=== PATIENT | male | born 1935 | race Caucasian/White ===

== ENCOUNTER → 2016-05-29 | Outpatient (CLI) | payer MEDICARE ==
[2015-09-04 22:49] VITALS: BP 145/70
[~2016-05-29] MED LIST: HYDR-971 PO; NAPR375T3 PO
--- NOTE | 2016-05-29 10:55 | RAD ---
Left lower extremity venous Doppler ultrasound History: Left leg swelling. Comparison: 11/20/2007. Procedure: Color Doppler, spectral Doppler, and grayscale images are obtained with and without compression in the area of the common femoral vein, superficial femoral vein - femoral vein junction, main femoral vein (superficial femoral vein) and popliteal vein. Veins of the proximal calf are also imaged. Findings: There is normal duplex flow, color flow and compressibility of all visualized vein segments. No evidence of deep venous thrombosis is present. Impression: No evidence of left lower extremity deep venous thrombosis.
== END | disposition home or self-care (01) ==
LOC: US 09:40
PROVIDERS: ATTEND Internal Medicine
DX: L03.116 Cellulitis of left lower limb (principal); M79.89 Other specified soft tissue disorders
CPT/HCPCS: 93971

== ENCOUNTER 2017-12-29 11:52 | Inpatient (IN) | payer MEDICARE ==
[~2017-12-29] VITALS: Ht 175.3 cm; Wt 74.8 kg
[~2017-12-29 11:52] MED LIST changes: +NAPR-695 PO; -NAPR375T3 PO
--- NOTE | 2017-12-29 12:12 | PHYS DOC ---
Past Medical History Past Medical History: Other Additional Past Medical Histor: PACEMAKER Past Surgical History: Other Additional Past Surgical Histo: HERNIA, KNEE REPLACEMENT, PACEMAKER PLACED Alcohol Use: Heavy Drug Use: None Adult General Chief Complaint Chief Complaint: KNEE INJURY HPI HPI Patient is a 82 year old male who presents today complaining of 5 out of 10 right medial knee pain that began yesterday after working out. Patient states he felt he stretched his knee more than normal. Patient denies falling. Patient states the pain is worse on range of motion as well as weightbearing. PCP Dr. [place] Review of Systems Review of Systems Constitutional: Denies fever or chills [] Musculoskeletal: Reports right knee pain Integument: Denies rash or skin lesions [] Neurologic: Denies headache, focal weakness or sensory changes [] All other systems were reviewed and found to be within normal limits, except as documented in this note. Allergies Allergies Allergies Coded Allergies Type Severity Reaction Last Updated Verified No Known Drug Allergies 09/04/15 No Physical Exam Physical Exam Constitutional: Well developed, well nourished, no acute distress, non-toxic appearance. [] Skin: Warm, dry, no erythema, no rash. [] Back: No tenderness, no CVA tenderness. [] Extremities: Right knee with no obvious deformity. Soft tissue swelling noted on the anterior aspect of the knee. Tenderness on palpation of the right medial knee. Limited range of motion to the right knee due to pain. +2 right pedal pulse. Cap refill less than 2 seconds the right lower extremity. Sensation intact to the right lower extremity. Neurologic: Alert and oriented X 3, normal motor function, normal sensory function, no focal deficits noted. [] Psychologic: Affect normal, judgement normal, mood normal. [] Current Patient Data Vital Signs Vital Signs Date Time Temp Pulse Resp B/P (MAP) Pulse Ox O2 Delivery O2 Flow Rate FiO2 12/29/17 12:00 98.1 60 22 179/96 (123) Room Air 98.0 98.1 EKG EKG [] Radiology/Procedures Radiology/Procedures []PROCEDURE: KNEE RIGHT 3V Right knee 3 views. HISTORY: Pain and swelling 3 views were taken of the right knee. There is a joint effusion in the suprapatellar bursa. There is mild spurring from mild arthritis. There is no fracture or acute other acute osseous abnormality. IMPRESSION: 1. Mild arthritis right knee. 2. Joint effusion. Electronically signed by: Lisa Hernandez MD (12/29/2017 12:30 PM) [facility] DICTATED and SIGNED BY: LISA HERNANDEZ MD DATE: 12/29/17 1229 Course & Med Decision Making Course & Med Decision Making Pertinent Labs and Imaging studies reviewed. (See chart for details) This is a 82-year-old male patient presenting to the ED today with right knee pain that began yesterday after working out. Right knee x-rays interpreted by radiologist were noted for DJD as well as joint effusion. Patient was given morphine in route to the ED. Attempted to send him home, he states he was resides at home by himself and is not able to get up and bear weight on the right lower extremity. Neither can he use crutches or walker. He is requesting admission. Consulted with Dr. Aguilera who accepted patient for admission. Routine consult placed for orthopedic doctor. Dragon Disclaimer Dragon Disclaimer This electronic medical record was generated, in whole or in part, using a voice recognition dictation system. Departure Departure Impression: Primary Impression: Knee pain, right Additional Impressions: Joint effusion, knee Right knee DJD Disposition: ADMITTED INPATIENT Condition: STABLE Referrals: DAGMAR ASTORGA MD (PCP) Problem Qualifiers Primary Impression: Knee pain, right Chronicity: acute Qualified Codes: M25.561 - Pain in right knee Additional Impressions: Joint effusion, knee Laterality: right Qualified Codes: M25.461 - Effusion, right knee Right knee DJD Osteoarthritis type: primary Qualified Codes: M17.11 - Unilateral primary osteoarthritis, right knee DANNI SANTOS COLOR ADVISER Dec 29, 2017 12:12
--- NOTE | 2017-12-29 12:34 | RAD ---
Right knee 3 views. HISTORY: Pain and swelling 3 views were taken of the right knee. There is a joint effusion in the suprapatellar bursa. There is mild spurring from mild arthritis. There is no fracture or acute other acute osseous abnormality. IMPRESSION: 1. Mild arthritis right knee. 2. Joint effusion. Electronically signed by: Chinedu Hernandez MD (12/29/2017 12:30 PM) [facility]
[2017-12-29] MEDS ORDERED: DEXAMETHASONE SOD PHOS 20 MG/5 ML VIAL. IV ONE (13:30)
[2017-12-29] MEDS ORDERED: fentaNYL PF VIAL 100 MCG/2 ML VIAL IV ONE (13:30)
[2017-12-29 14:15] VITALS: BP 159/65
[2017-12-29] MEDS ORDERED: ONDANSETRON PF 4 MG/2 ML VIAL. IV PRN (14:15)
[2017-12-29] MEDS ORDERED: ACETAMINOPHEN 325 MG TABLET. PO PRN (14:15)
[2017-12-29] MEDS: MORPHINE SULFATE 4 MG/ML VIAL. IV PRN ×2 (14:44→19:11)
[2017-12-29 19:00] VITALS: BP 147/78
[2017-12-29 20:55] LABS: BASO # 0.1 x10^3/uL (0.0-0.2); BASO % 0 % (0-3); EOS % 0 % (0-3); HEMATOCRIT 37.7 % (39.0-53.0); HEMOGLOBIN 12.7 g/dL (13.0-17.5); LYMPH # 0.6 x10^3/uL (1.0-4.8); LYMPH % 3 % (24-48); MEAN CORPUSCULAR HEMOGLOBIN 32 pg (25-35); MEAN CORPUSCULAR HGB CONC 34 g/dL (31-37); MEAN CORPUSCULAR VOLUME 94 fL (79-100); MONO # 3.1 x10^3/uL (0.0-1.1); MONO % 14 % (0-9); NEUT # 18.5 x10^3uL (1.8-7.7); NEUT % 83 % (31-73); PLATELET COUNT 29 x10^3/uL (140-400); RED BLOOD COUNT 4.01 x10^6/uL (4.30-5.70); RED CELL DISTRIBUTION WIDTH 17.2 % (11.5-14.5); WHITE BLOOD COUNT 22.3 x10^3/uL (4.0-11.0)
[2017-12-29 21:10] LABS: ALBUMIN 3.8 g/dL (3.4-5.0); CREATININE 2.4 mg/dL (0.7-1.3); GFR 26.1; TOTAL BILIRUBIN 2.2 mg/dL (0.2-1.0); TOTAL PROTEIN 7.6 g/dL (6.4-8.2)
[2017-12-29 21:44] LABS: % BANDS 4 % (0-9); % LYMPHS 6 % (24-48); % MONOS 6 % (0-10); % SEGS 84 % (35-66)
[2017-12-29 21:45] LABS: PLT ESTIMATE DECREASED (ADEQUATE)
[2017-12-29] MEDS ORDERED: MAG HYDROX/ALUMINUM HYD/SIMETH 30 ML ORAL.SUSP PO PRN (21:45)
[2017-12-29 21:46] LABS: ANISOCYTOSIS SLIGHT
--- NOTE | 2017-12-29 21:50 | PDOC1 ---
History and Physical Date of Admission Date of Admission DATE: 12/29/17 TIME: 21:50 Identification/Chief Complaint Chief Complaint seen in ER presents today complaining of 5 out of 10 right medial knee pain that began yesterday after working out. Patient states he felt he stretched his knee more than normal. DENIES FEVER, ADMITS TO ETOH DAILY USE, UNABLE TO WALK DUE TO PAIN Past Medical History Past Medical History Past Medical History: Other Additional Past Medical Histor: PACEMAKER Past Surgical History: Other Additional Past Surgical Histo: HERNIA, KNEE REPLACEMENT, PACEMAKER PLACED Alcohol Use: Heavy Drug Use: None Cardiovascular: CAD Psych: Addictions Renal/: Acute renal failure Past Surgical History Past Surgical History: Pacemaker Family History Family History: Alcohol Abuse Social History Smoke: <1 pack per day ALCOHOL: heavy Drugs: None Current Problem List Problem List Problems Medical Problems: (1) Joint effusion, knee Status: Acute (2) Knee pain, right Status: Acute (3) Right knee DJD Status: Acute Current Medications Current Medications Current Medications Dexamethasone Sodium Phosphate (Decadron) 10 mg 1X ONCE IV Last administered on 12/29/17at 13:12; Start 12/29/17 at 13:30; Stop 12/29/17 at 13:31; Status DC Fentanyl Citrate (Fentanyl 2ml Vial) 50 mcg 1X ONCE IV Last administered on at 13:12; Start 12/29/17 at 13:30; Stop 12/29/17 at 13:31; Status DC Ondansetron HCl (Zofran) 4 mg PRN Q8HRS PRN IV NAUSEA/VOMITING; Start 12/29/17 at 14:15; Stop 12/30/17 at 14:14 Morphine Sulfate (Morphine Sulfate) 4 mg PRN Q2HR PRN IV PAIN Last administered on 12/29/17at 19:11; Start 12/29/17 at 14:15; Stop 12/30/17 at 14:14 Acetaminophen (Tylenol) 650 mg PRN Q4HRS PRN PO FEVER; Start 12/29/17 at 14:15 ; Stop 12/30/17 at 14:14 Pantoprazole Sodium (Protonix) 40 mg DAILYAC PO ; Start 12/30/17 at 06:30; Stop 12/30/17 at 06:30; Status DC Pantoprazole Sodium (Protonix) 40 mg Q24H PO ; Start 12/30/17 at 06:30 Al Hydroxide/Mg Hydroxide (Mylanta Plus Xs) 30 ml PRN Q2HR PRN PO HEARTBURN / GAS; Start 12/29/17 at 21:45 Sodium Chloride 1,000 ml @ 100 mls/hr Q10H IV ; Start 12/29/17 at 21:45 Piperacillin Sod/ Tazobactam Sod 3.375 gm/Sodium Chloride 50 ml @ 100 mls/hr Q6HRS IV ; Start 12/30/17 at 00:00; Status UNV Meropenem 500 mg/ Sodium Chloride 50 ml @ 100 mls/hr Q8HRS IV ; Start 12/29/17 at 22:00 Piperacillin Sod/ Tazobactam Sod 2.25 gm/Sodium Chloride 50 ml @ 100 mls/hr Q6HRS IV ; Start 12/30/17 at 00:00 Active Scripts Active Naproxen 375 Mg Tablet 1 Tab PO BID [place] 5-325 Tablet (Acetaminophen/Hydrocodone Bitart) 1 Each Tablet 1 Tab PO PRN Q4-6HRS PRN Allergies Allergies: Coded Allergies: No Known Drug Allergies (Unverified , 09/04/15) ROS General: YES: Fatigue PSYCHOLOGICAL ROS: YES: Anxiety Hematological and Lymphatic: YES: Brusing Musculoskeletal: Yes Gait Disturbance, Yes Joint Pain, Yes Joint Stiffness, Yes Joint Swelling Physical Exam Physical Exam Physical Exam Physical Exam Constitutional: Well developed, well nourished, mild acute distress, non-toxic appearance. [] Skin: Warm, dry, no erythema, no rash. [] Back: No tenderness, no CVA tenderness. [] Extremities: Right knee with no obvious deformity. Soft tissue swelling noted on the anterior aspect of the knee. Tenderness on palpation of the right medial knee with large effusion . Limited range of motion to the right knee due to pain. +2 right pedal pulse. Cap refill less than 2 seconds the right lower extremity. Sensation intact to the right lower extremity. Neurologic: Alert and oriented X 3, normal motor function, normal sensory function, no focal deficits noted. [] Psychologic: Affect normal, judgement normal, mood normal. cn 2-12 grossly intact [] General: Alert, Oriented X3, Cooperative, No acute distress, mild distress HEENT: Atraumatic, PERRLA, EOMI, Mucous membr. moist/pink Lungs: Clear to auscultation Heart: RRR, no thrills Breasts: Not examined Abdomen: Soft Rectal Exam: not examined Extremities: No cyanosis Neuro: Normal speech, Cranial nerves 3-12 NL Vitals Vitals Vital Signs Date Time Temp Pulse Resp B/P (MAP) Pulse Ox O2 Delivery O2 Flow Rate FiO2 12/29/17 20:00 Room Air 12/29/17 19:41 20 96 12/29/17 19:00 98.1 60 147/78 (101) 98.1 12/29/17 12:00 98.0 Labs Labs Laboratory Tests Test 12/29/17 20:45 12/29/17 20:51 White Blood Count 22.3 x10^3/uL (4.0-11.0) Red Blood Count 4.01 x10^6/uL (4.30-5.70) Hemoglobin 12.7 g/dL (13.0-17.5) Hematocrit 37.7 % (39.0-53.0) Mean Corpuscular Volume 94 fL (79-100) Mean Corpuscular Hemoglobin 32 pg (25-35) Mean Corpuscular Hemoglobin Concent 34 g/dL (31-37) Red Cell Distribution Width 17.2 % (11.5-14.5) Platelet Count 29 x10^3/uL (140-400) Neutrophils (%) (Auto) 83 % (31-73) Lymphocytes (%) (Auto) 3 % (24-48) Monocytes (%) (Auto) 14 % (0-9) Eosinophils (%) (Auto) 0 % (0-3) Basophils (%) (Auto) 0 % (0-3) Neutrophils # (Auto) 18.5 x10^3uL (1.8-7.7) Lymphocytes # (Auto) 0.6 x10^3/uL (1.0-4.8) Monocytes # (Auto) 3.1 x10^3/uL (0.0-1.1) Eosinophils # (Auto) 0.0 x10^3/uL (0.0-0.7) Basophils # (Auto) 0.1 x10^3/uL (0.0-0.2) Segmented Neutrophils % 84 % (35-66) Band Neutrophils % 4 % (0-9) Lymphocytes % 6 % (24-48) Monocytes % 6 % (0-10) Platelet Estimate Decreased (ADEQUATE) Anisocytosis Slight Sodium Level 139 mmol/L (136-145) Potassium Level 4.0 mmol/L (3.5-5.1) Chloride Level 104 mmol/L (98-107) Carbon Dioxide Level 24 mmol/L (21-32) Anion Gap 11 (6-14) Blood Urea Nitrogen 25 mg/dL (8-26) Creatinine 2.4 mg/dL (0.7-1.3) Estimated GFR (Cockcroft-Gault) 26.1 BUN/Creatinine Ratio 10 (6-20) Glucose Level 180 mg/dL (70-99) Calcium Level 9.0 mg/dL (8.5-10.1) Total Bilirubin 2.2 mg/dL (0.2-1.0) Aspartate Amino Transf (AST/SGOT) 21 U/L (15-37) Alanine Aminotransferase (ALT/SGPT) 24 U/L (16-63) Alkaline Phosphatase 76 U/L (46-116) Total Protein 7.6 g/dL (6.4-8.2) Albumin 3.8 g/dL (3.4-5.0) Albumin/Globulin Ratio 1.0 (1.0-1.7) Glucose (Fingerstick) 189 mg/dL (70-99) Laboratory Tests Test 12/29/17 20:45 12/29/17 20:51 White Blood Count 22.3 x10^3/uL (4.0-11.0) Red Blood Count 4.01 x10^6/uL (4.30-5.70) Hemoglobin 12.7 g/dL (13.0-17.5) Hematocrit 37.7 % (39.0-53.0) Mean Corpuscular Volume 94 fL (79-100) Mean Corpuscular Hemoglobin 32 pg (25-35) Mean Corpuscular Hemoglobin Concent 34 g/dL (31-37) Red Cell Distribution Width 17.2 % (11.5-14.5) Platelet Count 29 x10^3/uL (140-400) Neutrophils (%) (Auto) 83 % (31-73) Lymphocytes (%) (Auto) 3 % (24-48) Monocytes (%) (Auto) 14 % (0-9) Eosinophils (%) (Auto) 0 % (0-3) Basophils (%) (Auto) 0 % (0-3) Neutrophils # (Auto) 18.5 x10^3uL (1.8-7.7) Lymphocytes # (Auto) 0.6 x10^3/uL (1.0-4.8) Monocytes # (Auto) 3.1 x10^3/uL (0.0-1.1) Eosinophils # (Auto) 0.0 x10^3/uL (0.0-0.7) Basophils # (Auto) 0.1 x10^3/uL (0.0-0.2) Segmented Neutrophils % 84 % (35-66) Band Neutrophils % 4 % (0-9) Lymphocytes % 6 % (24-48) Monocytes % 6 % (0-10) Platelet Estimate Decreased (ADEQUATE) Anisocytosis Slight Sodium Level 139 mmol/L (136-145) Potassium Level 4.0 mmol/L (3.5-5.1) Chloride Level 104 mmol/L (98-107) Carbon Dioxide Level 24 mmol/L (21-32) Anion Gap 11 (6-14) Blood Urea Nitrogen 25 mg/dL (8-26) Creatinine 2.4 mg/dL (0.7-1.3) Estimated GFR (Cockcroft-Gault) 26.1 BUN/Creatinine Ratio 10 (6-20) Glucose Level 180 mg/dL (70-99) Calcium Level 9.0 mg/dL (8.5-10.1) Total Bilirubin 2.2 mg/dL (0.2-1.0) Aspartate Amino Transf (AST/SGOT) 21 U/L (15-37) Alanine Aminotransferase (ALT/SGPT) 24 U/L (16-63) Alkaline Phosphatase 76 U/L (46-116) Total Protein 7.6 g/dL (6.4-8.2) Albumin 3.8 g/dL (3.4-5.0) Albumin/Globulin Ratio 1.0 (1.0-1.7) Glucose (Fingerstick) 189 mg/dL (70-99) Images Images Right knee 3 views. HISTORY: Pain and swelling 3 views were taken of the right knee. There is a joint effusion in the suprapatellar bursa. There is mild spurring from mild arthritis. There is no fracture or acute other acute osseous abnormality. IMPRESSION: 1. Mild arthritis right knee. 2. Joint effusion. Electronically signed by: Chinedu Hernandez MD (12/29/2017 12:30 PM) [facility] VTE Prophylaxis Ordered VTE Prophylaxis Devices: Contraindicated VTE Pharmacological Prophylaxi: Contraindicated Assessment/Plan Assessment/Plan IMPRESSION 1. right JOINT Effusion, possible septic joint 2. leukocytosis 3. thrombocytopenia 4. alcohol abuse plan 1. blood cultures 2. iv emperic antibiotics, zosyn,merem 3. move to icu tonight 4. cxr. 5, gi consult 6. heme consult 7. lactic acid 8. ID consult 35 min cc time CONCEPCION KERN MD Dec 29, 2017 21:50
[2017-12-29] MEDS: IV NORMAL SALINE 1000ML BAG 1,000 ML IV SCH ×3 (21:54→22:36)
[2017-12-29] MEDS ORDERED: PANTOPRAZOLE IV PUSH 40 MG VIAL. IVP SCH (22:15)
[2017-12-29 22:30] VITALS: BP 146/97
[2017-12-29] MEDS: MEROPENEM 500 MG in IV NORMAL SALINE 50ML 50 ML IV SCH (22:31)
[2017-12-30] VITALS (16 sets, daily range): BP systolic 100–157; BP diastolic 48–95
[2017-12-30] MEDS ORDERED: PIPERACILLIN/TAZOBACTAM 3.375 GM in IV NORMAL SALINE 50ML 50 ML IV SCH ×2
[2017-12-30] MEDS: PIPERACILLIN/TAZOBACTAM 2.25 GM in IV NORMAL SALINE 50ML 50 ML IV SCH ×2 (00:14→06:22)
--- NOTE | 2017-12-30 03:34 | RAD ---
CHEST AP ONLY Clinical Indication: Right knee pain and swelling. R/O SEPSIS Comparison: Two-view chest June 21, 2008. Findings: There is left chest single lead pacer. There is mild cardiomegaly. No pulmonary vascular congestion. Lungs are clear. There is no pneumothorax. No pleural effusion is appreciated. There is degenerative arthropathy of the shoulders. IMPRESSION: No acute cardiopulmonary process. Electronically signed by: Derrick Rosales MD (12/30/2017 3:31 AM) [facility]
[2017-12-30 06:17] LABS: BASO # 0.1 x10^3/uL (0.0-0.2); BASO % 0 % (0-3); EOS % 0 % (0-3); HEMATOCRIT 35.2 % (39.0-53.0); HEMOGLOBIN 11.8 g/dL (13.0-17.5); LYMPH # 0.5 x10^3/uL (1.0-4.8); LYMPH % 2 % (24-48); MEAN CORPUSCULAR HEMOGLOBIN 32 pg (25-35); MEAN CORPUSCULAR HGB CONC 33 g/dL (31-37); MEAN CORPUSCULAR VOLUME 94 fL (79-100); MONO # 9.1 x10^3/uL (0.0-1.1); MONO % 34 % (0-9); NEUT # 17.1 x10^3uL (1.8-7.7); NEUT % 64 % (31-73); PLATELET COUNT 29 x10^3/uL (140-400); RED BLOOD COUNT 3.74 x10^6/uL (4.30-5.70); RED CELL DISTRIBUTION WIDTH 17.2 % (11.5-14.5); WHITE BLOOD COUNT 26.8 x10^3/uL (4.0-11.0)
[2017-12-30] MEDS: MEROPENEM 500 MG in IV NORMAL SALINE 50ML 50 ML IV SCH ×3 (06:22→21:36)
[2017-12-30 06:27] LABS: CREATININE 2.2 mg/dL (0.7-1.3); GFR 28.9; POTASSIUM 3.8 mmol/L (3.5-5.1)
[2017-12-30] MEDS ORDERED: PANTOPRAZOLE 40 MG TABLET.DR. PO SCH ×2 (06:30)
[2017-12-30] MEDS ORDERED: PANTOPRAZOLE IV PUSH 40 MG VIAL. IVP SCH (07:30)
--- NOTE | 2017-12-30 09:18 | RAD ---
Acute abdomen series, 12/30/2017: HISTORY: Rule out sepsis The gallbladder is surgically absent. There is no evidence of a hepatic mass or bile duct dilatation. The pancreas and the majority of the inferior vena cava and aorta were obscured by overlying bowel. The spleen is of normal size. The right kidney measures 11 cm in length. It contains a 2.6 cm simple cyst. The left kidney measures 11.5 cm in length. A small echogenic focus is seen in the left kidney, compatible with a nonobstructing calculus. It measures 1.4 cm. There is no evidence of hydronephrosis on either side. IMPRESSION: 1. Status post cholecystectomy. 2. Small nonobstructing left intrarenal calculus. 3. Small right renal cyst. 4. Obscuration of the pancreas and central retroperitoneum due to overlying bowel. Electronically signed by: Demetrius Bejarano MD (12/30/2017 9:14 AM) [facility]
--- NOTE | 2017-12-30 09:32 | PDOC2 ---
GI CONSULT Reason For Consult: Alcohol abuse, thrombocytopenia, r/o sepsis HPI: HPI: 82 y/o male admitted with right knee pain. Significant labs: WBC 26.8, Hgb 11.8, MCV 94, plt 29, Cr 2.2, bili 2.2. Tells me h/o thrombocytopenia - has been told this by Dr. Sahu. Thinks might have had a workup and cause remains unclear. H/o GERD on Zantac PRN. Chart indicates he takes Naproxen - he denies. Denies n/v, dysphagia, abd pain, change in appetite or weight, diarrhea, constipation, hematochezia, and melena. Might have had previous EGD. Recalls previous colonoscopy as normal. Denies liver, pancreas, and GB history; however , US noted cholecystectomy (and no liver abnormality). Used to drink regularly - denies heavy alcohol use to me. Stopped for a couple years, then recently restarted "because they told me in the service a shot and a beer every day would be good for my system and help me sleep." PMH: PMH: difficult to obtain - ?A Fib, ?HTN, GERD, nephrolithiasis, maker, right inguinal hernia repair w/ mesh, left knee replacement, bilateral shoulder replacement, cholecystectomy FH: Family History: No pertinent hx Social History: Smoke: Quit ALCOHOL: other Drugs: None ROS: GEN: Denies fevers, chills, sweats HEENT: Denies blurred vision, sore throat CV: Denies chest pain RESP: Denies shortness of air, cough GI: Per HPI : Denies hematuria, dysuria ENDO: Denies weight changes NEURO: Denies confusion, dizziness MSK: Denies weakness, joint pain/swelling SKIN: Denies jaundice, pruritus Vitals: Vitals: Vital Signs Date Time Temp Pulse Resp B/P (MAP) Pulse Ox O2 Delivery O2 Flow Rate FiO2 12/30/17 08:00 66 19 131/67 (88) 96 Room Air 12/30/17 04:00 98.0 98.0 12/29/17 12:00 98.0 Labs: Labs: Laboratory Tests Test 12/29/17 20:45 12/29/17 20:51 12/29/17 21:35 12/30/17 01:25 White Blood Count 22.3 x10^3/uL (4.0-11.0) Red Blood Count 4.01 x10^6/uL (4.30-5.70) Hemoglobin 12.7 g/dL (13.0-17.5) Hematocrit 37.7 % (39.0-53.0) Mean Corpuscular Volume 94 fL (79-100) Mean Corpuscular Hemoglobin 32 pg (25-35) Mean Corpuscular Hemoglobin Concent 34 g/dL (31-37) Red Cell Distribution Width 17.2 % (11.5-14.5) Platelet Count 29 x10^3/uL (140-400) Neutrophils (%) (Auto) 83 % (31-73) Lymphocytes (%) (Auto) 3 % (24-48) Monocytes (%) (Auto) 14 % (0-9) Eosinophils (%) (Auto) 0 % (0-3) Basophils (%) (Auto) 0 % (0-3) Neutrophils # (Auto) 18.5 x10^3uL (1.8-7.7) Lymphocytes # (Auto) 0.6 x10^3/uL (1.0-4.8) Monocytes # (Auto) 3.1 x10^3/uL (0.0-1.1) Eosinophils # (Auto) 0.0 x10^3/uL (0.0-0.7) Basophils # (Auto) 0.1 x10^3/uL (0.0-0.2) Segmented Neutrophils % 84 % (35-66) Band Neutrophils % 4 % (0-9) Lymphocytes % 6 % (24-48) Monocytes % 6 % (0-10) Platelet Estimate Decreased (ADEQUATE) Anisocytosis Slight Erythrocyte Sedimentation Rate 9 (0-15) Sodium Level 139 mmol/L (136-145) Potassium Level 4.0 mmol/L (3.5-5.1) Chloride Level 104 mmol/L (98-107) Carbon Dioxide Level 24 mmol/L (21-32) Anion Gap 11 (6-14) Blood Urea Nitrogen 25 mg/dL (8-26) Creatinine 2.4 mg/dL (0.7-1.3) Estimated GFR (Cockcroft-Gault) 26.1 BUN/Creatinine Ratio 10 (6-20) Glucose Level 180 mg/dL (70-99) Calcium Level 9.0 mg/dL (8.5-10.1) Total Bilirubin 2.2 mg/dL (0.2-1.0) Aspartate Amino Transf (AST/SGOT) 21 U/L (15-37) Alanine Aminotransferase (ALT/SGPT) 24 U/L (16-63) Alkaline Phosphatase 76 U/L (46-116) Total Protein 7.6 g/dL (6.4-8.2) Albumin 3.8 g/dL (3.4-5.0) Albumin/Globulin Ratio 1.0 (1.0-1.7) Glucose (Fingerstick) 189 mg/dL (70-99) Lactic Acid Level 3.1 mmol/L (0.4-2.0) 1.1 mmol/L (0.4-2.0) Test 12/30/17 05:45 White Blood Count 26.8 x10^3/uL (4.0-11.0) Red Blood Count 3.74 x10^6/uL (4.30-5.70) Hemoglobin 11.8 g/dL (13.0-17.5) Hematocrit 35.2 % (39.0-53.0) Mean Corpuscular Volume 94 fL (79-100) Mean Corpuscular Hemoglobin 32 pg (25-35) Mean Corpuscular Hemoglobin Concent 33 g/dL (31-37) Red Cell Distribution Width 17.2 % (11.5-14.5) Platelet Count 29 x10^3/uL (140-400) Neutrophils (%) (Auto) 64 % (31-73) Lymphocytes (%) (Auto) 2 % (24-48) Monocytes (%) (Auto) 34 % (0-9) Eosinophils (%) (Auto) 0 % (0-3) Basophils (%) (Auto) 0 % (0-3) Neutrophils # (Auto) 17.1 x10^3uL (1.8-7.7) Lymphocytes # (Auto) 0.5 x10^3/uL (1.0-4.8) Monocytes # (Auto) 9.1 x10^3/uL (0.0-1.1) Eosinophils # (Auto) 0.0 x10^3/uL (0.0-0.7) Basophils # (Auto) 0.1 x10^3/uL (0.0-0.2) Sodium Level 139 mmol/L (136-145) Potassium Level 3.8 mmol/L (3.5-5.1) Chloride Level 104 mmol/L (98-107) Carbon Dioxide Level 23 mmol/L (21-32) Anion Gap 12 (6-14) Blood Urea Nitrogen 25 mg/dL (8-26) Creatinine 2.2 mg/dL (0.7-1.3) Estimated GFR (Cockcroft-Gault) 28.9 Glucose Level 131 mg/dL (70-99) Calcium Level 9.0 mg/dL (8.5-10.1) Allergies: Coded Allergies: No Known Drug Allergies (Unverified , 09/04/15) Medications: Current Medications Medications (Trade) Dose Ordered Sig/Jose Route PRN Reason Start Time Stop Time Status Last Admin Dose Admin Dexamethasone Sodium Phosphate (Decadron) 10 mg 1X ONCE IV 12/29/17 13:30 12/29/17 13:31 DC 12/29/17 13:12 Fentanyl Citrate (Fentanyl 2ml Vial) 50 mcg 1X ONCE IV 12/29/17 13:30 12/29/17 13:31 DC 12/29/17 13:12 Morphine Sulfate (Morphine Sulfate) 4 mg PRN Q2HR PRN IV PAIN 12/29/17 14:15 12/30/17 14:14 12/29/17 19:11 Acetaminophen (Tylenol) 650 mg PRN Q4HRS PRN PO FEVER 12/29/17 14:15 12/30/17 14:14 12/30/17 03:54 Al Hydroxide/Mg Hydroxide (Mylanta Plus Xs) 30 ml PRN Q2HR PRN PO HEARTBURN / GAS 12/29/17 21:45 12/29/17 21:53 Sodium Chloride 1,000 ml @ 100 mls/hr Q10H IV 12/29/17 21:45 12/29/17 22:32 Meropenem 500 mg/ Sodium Chloride 50 ml @ 100 mls/hr Q8HRS IV 12/29/17 22:00 12/30/17 06:22 Piperacillin Sod/ Tazobactam Sod 2.25 gm/Sodium Chloride 50 ml @ 100 mls/hr Q6HRS IV 12/30/17 00:00 12/30/17 06:22 Pantoprazole Sodium (PROTONIX VIAL for IV PUSH) 40 mg DAILYAC IVP 12/30/17 07:30 12/30/17 08:32 Imaging: Imaging: Knee X-Ray IMPRESSION: 1. Mild arthritis right knee. 2. Joint effusion. CXR IMPRESSION: No acute cardiopulmonary process. Abd US The gallbladder is surgically absent. There is no evidence of a hepatic mass or bile duct dilatation. The pancreas and the majority of the inferior vena cava and aorta were obscured by overlying bowel. The spleen is of normal size. The right kidney measures 11 cm in length. It contains a 2.6 cm simple cyst. The left kidney measures 11.5 cm in length. A small echogenic focus is seen in the left kidney, compatible with a nonobstructing calculus. It measures 1.4 cm. There is no evidence of hydronephrosis on either side. IMPRESSION: 1. Status post cholecystectomy. 2. Small nonobstructing left intrarenal calculus. 3. Small right renal cyst. 4. Obscuration of the pancreas and central retroperitoneum due to overlying bowel. PE: GEN: NAD - having US HEENT: Atraumatic, PERRL LUNGS: CTAB HEART: RRR ABD: NABS, S/ND/NT NEURO/PSYCH: A & O 3 - poor historian A/P: A/P: Right knee pain/effusion Leukocytosis, thrombocytopenia, CHAY, elevated bili ?alcohol overuse GERD CRC screen - unclear timing S/p cholecystectomy -- Thrombocytopenic - history of? US unrevealing. Change to PO PPI, check INR, monitor LFTs. Additional recs per Dr. Coppola. ISAI MOYA Dec 30, 2017 09:32
--- NOTE | 2017-12-30 09:53 | PDOC ---
Infectious Disease Note Vital Sign Vital Signs Vital Signs Date Time Temp Pulse Resp B/P (MAP) Pulse Ox O2 Delivery O2 Flow Rate FiO2 12/30/17 08:00 66 19 131/67 (88) 96 Room Air 12/30/17 04:00 98.0 98.0 12/29/17 12:00 98.0 Labs Lab Laboratory Tests Test 12/29/17 20:45 12/29/17 20:51 12/29/17 21:35 12/30/17 01:25 White Blood Count 22.3 x10^3/uL (4.0-11.0) Red Blood Count 4.01 x10^6/uL (4.30-5.70) Hemoglobin 12.7 g/dL (13.0-17.5) Hematocrit 37.7 % (39.0-53.0) Mean Corpuscular Volume 94 fL (79-100) Mean Corpuscular Hemoglobin 32 pg (25-35) Mean Corpuscular Hemoglobin Concent 34 g/dL (31-37) Red Cell Distribution Width 17.2 % (11.5-14.5) Platelet Count 29 x10^3/uL (140-400) Neutrophils (%) (Auto) 83 % (31-73) Lymphocytes (%) (Auto) 3 % (24-48) Monocytes (%) (Auto) 14 % (0-9) Eosinophils (%) (Auto) 0 % (0-3) Basophils (%) (Auto) 0 % (0-3) Neutrophils # (Auto) 18.5 x10^3uL (1.8-7.7) Lymphocytes # (Auto) 0.6 x10^3/uL (1.0-4.8) Monocytes # (Auto) 3.1 x10^3/uL (0.0-1.1) Eosinophils # (Auto) 0.0 x10^3/uL (0.0-0.7) Basophils # (Auto) 0.1 x10^3/uL (0.0-0.2) Segmented Neutrophils % 84 % (35-66) Band Neutrophils % 4 % (0-9) Lymphocytes % 6 % (24-48) Monocytes % 6 % (0-10) Platelet Estimate Decreased (ADEQUATE) Anisocytosis Slight Erythrocyte Sedimentation Rate 9 (0-15) Sodium Level 139 mmol/L (136-145) Potassium Level 4.0 mmol/L (3.5-5.1) Chloride Level 104 mmol/L (98-107) Carbon Dioxide Level 24 mmol/L (21-32) Anion Gap 11 (6-14) Blood Urea Nitrogen 25 mg/dL (8-26) Creatinine 2.4 mg/dL (0.7-1.3) Estimated GFR (Cockcroft-Gault) 26.1 BUN/Creatinine Ratio 10 (6-20) Glucose Level 180 mg/dL (70-99) Calcium Level 9.0 mg/dL (8.5-10.1) Total Bilirubin 2.2 mg/dL (0.2-1.0) Aspartate Amino Transf (AST/SGOT) 21 U/L (15-37) Alanine Aminotransferase (ALT/SGPT) 24 U/L (16-63) Alkaline Phosphatase 76 U/L (46-116) Total Protein 7.6 g/dL (6.4-8.2) Albumin 3.8 g/dL (3.4-5.0) Albumin/Globulin Ratio 1.0 (1.0-1.7) Glucose (Fingerstick) 189 mg/dL (70-99) Lactic Acid Level 3.1 mmol/L (0.4-2.0) 1.1 mmol/L (0.4-2.0) Test 12/30/17 05:45 White Blood Count 26.8 x10^3/uL (4.0-11.0) Red Blood Count 3.74 x10^6/uL (4.30-5.70) Hemoglobin 11.8 g/dL (13.0-17.5) Hematocrit 35.2 % (39.0-53.0) Mean Corpuscular Volume 94 fL (79-100) Mean Corpuscular Hemoglobin 32 pg (25-35) Mean Corpuscular Hemoglobin Concent 33 g/dL (31-37) Red Cell Distribution Width 17.2 % (11.5-14.5) Platelet Count 29 x10^3/uL (140-400) Neutrophils (%) (Auto) 64 % (31-73) Lymphocytes (%) (Auto) 2 % (24-48) Monocytes (%) (Auto) 34 % (0-9) Eosinophils (%) (Auto) 0 % (0-3) Basophils (%) (Auto) 0 % (0-3) Neutrophils # (Auto) 17.1 x10^3uL (1.8-7.7) Lymphocytes # (Auto) 0.5 x10^3/uL (1.0-4.8) Monocytes # (Auto) 9.1 x10^3/uL (0.0-1.1) Eosinophils # (Auto) 0.0 x10^3/uL (0.0-0.7) Basophils # (Auto) 0.1 x10^3/uL (0.0-0.2) Sodium Level 139 mmol/L (136-145) Potassium Level 3.8 mmol/L (3.5-5.1) Chloride Level 104 mmol/L (98-107) Carbon Dioxide Level 23 mmol/L (21-32) Anion Gap 12 (6-14) Blood Urea Nitrogen 25 mg/dL (8-26) Creatinine 2.2 mg/dL (0.7-1.3) Estimated GFR (Cockcroft-Gault) 28.9 Glucose Level 131 mg/dL (70-99) Calcium Level 9.0 mg/dL (8.5-10.1) Objective Assessment Right knee effusion and pain. ESR 9 - s/p knee steroid injection. Hurt knee from stretching Leukocytosis - states has been high -s/p Decadron 12/29 [place] Lactic acidosis Thrombocytopenia, 29,000 - states chronic - States had Bone marrow [address] [facility] Alcohol abuse - ? chronic encephalopathy - poor historian Nephrolithiases Pacemaker HTN Plan Plan of Care D/c Zosyn Meropenem, renal dosing - wean soon Consult renal f/u cultures Procalcitonin Repeat labs in am Awaiting ortho eval f/u cultures Await Heme F/u - ? chronic marrow issue but states he never received a diagnosis from his bone marrow because they never got back to him D/w pharmacy D/w RN D/w Dr. Laureano Thank you Attending Co-Sign Attending Co-Sign The patient was seen and interviewed as well as examined at the bedside. The chart was reviewed. The case was discussed. Agree with the plan of care. JOHN EAOTN APRN Dec 30, 2017 09:53 LORY LAUREANO MD Dec 30, 2017 13:01
--- NOTE | 2017-12-30 10:14 | PDOC2 ---
CONSULT Date of Consult Date of Consult DATE: 12/30/17 TIME: 09:59 Reason for Consult Reason for Consult: Painful right knee Referring Physician Referring Physician: Dr Healy Identification/Chief Complaint Chief Complaint Right knee pain for a few days Source Source: Patient History of Present Illness Reason for Visit: Patient states that he was recently was trying to stretch and strained his right knee. Past Medical History Cardiovascular: CAD Psych: Addictions Musculoskeletal: Swelling, Other (pain on Mcmurrys test and flexion.) Renal/: Acute renal failure Past Surgical History Past Surgical History: Pacemaker Family History Family History: Alcohol Abuse Social History <1 pack per day ALCOHOL: heavy Drugs: None Current Problem List Problem List Problems Medical Problems: (1) Joint effusion, knee Status: Acute (2) Knee pain, right Status: Acute (3) Right knee DJD Status: Acute Current Medications Current Medications Current Medications Dexamethasone Sodium Phosphate (Decadron) 10 mg 1X ONCE IV Last administered on 12/29/17at 13:12; Start 12/29/17 at 13:30; Stop 12/29/17 at 13:31; Status DC Fentanyl Citrate (Fentanyl 2ml Vial) 50 mcg 1X ONCE IV Last administered on at 13:12; Start 12/29/17 at 13:30; Stop 12/29/17 at 13:31; Status DC Ondansetron HCl (Zofran) 4 mg PRN Q8HRS PRN IV NAUSEA/VOMITING; Start 12/29/17 at 14:15; Stop 12/30/17 at 14:14 Morphine Sulfate (Morphine Sulfate) 4 mg PRN Q2HR PRN IV PAIN Last administered on 12/29/17at 19:11; Start 12/29/17 at 14:15; Stop 12/30/17 at 14:14 Acetaminophen (Tylenol) 650 mg PRN Q4HRS PRN PO FEVER Last administered on 12/30at 03:54; Start 12/29/17 at 14:15; Stop 12/30/17 at 14:14 Pantoprazole Sodium (Protonix) 40 mg DAILYAC PO ; Start 12/30/17 at 06:30; Stop 12/30/17 at 06:30; Status DC Pantoprazole Sodium (Protonix) 40 mg Q24H PO ; Start 12/30/17 at 06:30; Status Cancel Al Hydroxide/Mg Hydroxide (Mylanta Plus Xs) 30 ml PRN Q2HR PRN PO HEARTBURN / GAS Last administered on 12/29/17at 21:53; Start 12/29/17 at 21:45 Sodium Chloride 1,000 ml @ 100 mls/hr Q10H IV Last administered on 12/29/17at 22:32; Start 12/29/17 at 21:45 Piperacillin Sod/ Tazobactam Sod 3.375 gm/Sodium Chloride 50 ml @ 100 mls/hr Q6HRS IV ; Start 12/30/17 at 00:00; Status UNV Meropenem 500 mg/ Sodium Chloride 50 ml @ 100 mls/hr Q8HRS IV Last administered on 12/30/17at 06:22; Start 12/29/17 at 22:00 Piperacillin Sod/ Tazobactam Sod 2.25 gm/Sodium Chloride 50 ml @ 100 mls/hr Q6HRS IV Last administered on 12/30/17at 06:22; Start 12/30/17 at 00:00; Stop 12/30/17 at 09:49; Status DC Pantoprazole Sodium (PROTONIX VIAL for IV PUSH) 40 mg DAILYAC IVP ; Start at 22:15; Stop 12/29/17 at 22:59; Status DC Pantoprazole Sodium (PROTONIX VIAL for IV PUSH) 40 mg DAILYAC IVP Last administered on 12/30/17at 08:32; Start 12/30/17 at 07:30 Active Scripts Active Naproxen 375 Mg Tablet 1 Tab PO BID Dickinson 5-325 Tablet (Acetaminophen/Hydrocodone Bitart) 1 Each Tablet 1 Tab PO PRN Q4-6HRS PRN Allergies Allergies: Coded Allergies: No Known Drug Allergies (Unverified , 09/04/15) Physical Exam General: Oriented X3, moderate distress Extremities: No edema (effusion noted with swelling globally around the knee.) MUSCULOSKELETAL: Abnormal exam of right (knee), Abnormal passive ROM of (right knee with pain) Vitals VITALS Vital Signs Date Time Temp Pulse Resp B/P (MAP) Pulse Ox O2 Delivery O2 Flow Rate FiO2 12/30/17 08:00 66 19 131/67 (88) 96 Room Air 12/30/17 04:00 98.0 98.0 12/29/17 12:00 98.0 Labs Labs Laboratory Tests Test 12/29/17 20:45 12/29/17 20:51 12/29/17 21:35 12/30/17 01:25 White Blood Count 22.3 x10^3/uL (4.0-11.0) Red Blood Count 4.01 x10^6/uL (4.30-5.70) Hemoglobin 12.7 g/dL (13.0-17.5) Hematocrit 37.7 % (39.0-53.0) Mean Corpuscular Volume 94 fL (79-100) Mean Corpuscular Hemoglobin 32 pg (25-35) Mean Corpuscular Hemoglobin Concent 34 g/dL (31-37) Red Cell Distribution Width 17.2 % (11.5-14.5) Platelet Count 29 x10^3/uL (140-400) Neutrophils (%) (Auto) 83 % (31-73) Lymphocytes (%) (Auto) 3 % (24-48) Monocytes (%) (Auto) 14 % (0-9) Eosinophils (%) (Auto) 0 % (0-3) Basophils (%) (Auto) 0 % (0-3) Neutrophils # (Auto) 18.5 x10^3uL (1.8-7.7) Lymphocytes # (Auto) 0.6 x10^3/uL (1.0-4.8) Monocytes # (Auto) 3.1 x10^3/uL (0.0-1.1) Eosinophils # (Auto) 0.0 x10^3/uL (0.0-0.7) Basophils # (Auto) 0.1 x10^3/uL (0.0-0.2) Segmented Neutrophils % 84 % (35-66) Band Neutrophils % 4 % (0-9) Lymphocytes % 6 % (24-48) Monocytes % 6 % (0-10) Platelet Estimate Decreased (ADEQUATE) Anisocytosis Slight Erythrocyte Sedimentation Rate 9 (0-15) Sodium Level 139 mmol/L (136-145) Potassium Level 4.0 mmol/L (3.5-5.1) Chloride Level 104 mmol/L (98-107) Carbon Dioxide Level 24 mmol/L (21-32) Anion Gap 11 (6-14) Blood Urea Nitrogen 25 mg/dL (8-26) Creatinine 2.4 mg/dL (0.7-1.3) Estimated GFR (Cockcroft-Gault) 26.1 BUN/Creatinine Ratio 10 (6-20) Glucose Level 180 mg/dL (70-99) Calcium Level 9.0 mg/dL (8.5-10.1) Total Bilirubin 2.2 mg/dL (0.2-1.0) Aspartate Amino Transf (AST/SGOT) 21 U/L (15-37) Alanine Aminotransferase (ALT/SGPT) 24 U/L (16-63) Alkaline Phosphatase 76 U/L (46-116) Total Protein 7.6 g/dL (6.4-8.2) Albumin 3.8 g/dL (3.4-5.0) Albumin/Globulin Ratio 1.0 (1.0-1.7) Glucose (Fingerstick) 189 mg/dL (70-99) Lactic Acid Level 3.1 mmol/L (0.4-2.0) 1.1 mmol/L (0.4-2.0) Test 12/30/17 05:45 White Blood Count 26.8 x10^3/uL (4.0-11.0) Red Blood Count 3.74 x10^6/uL (4.30-5.70) Hemoglobin 11.8 g/dL (13.0-17.5) Hematocrit 35.2 % (39.0-53.0) Mean Corpuscular Volume 94 fL (79-100) Mean Corpuscular Hemoglobin 32 pg (25-35) Mean Corpuscular Hemoglobin Concent 33 g/dL (31-37) Red Cell Distribution Width 17.2 % (11.5-14.5) Platelet Count 29 x10^3/uL (140-400) Neutrophils (%) (Auto) 64 % (31-73) Lymphocytes (%) (Auto) 2 % (24-48) Monocytes (%) (Auto) 34 % (0-9) Eosinophils (%) (Auto) 0 % (0-3) Basophils (%) (Auto) 0 % (0-3) Neutrophils # (Auto) 17.1 x10^3uL (1.8-7.7) Lymphocytes # (Auto) 0.5 x10^3/uL (1.0-4.8) Monocytes # (Auto) 9.1 x10^3/uL (0.0-1.1) Eosinophils # (Auto) 0.0 x10^3/uL (0.0-0.7) Basophils # (Auto) 0.1 x10^3/uL (0.0-0.2) Sodium Level 139 mmol/L (136-145) Potassium Level 3.8 mmol/L (3.5-5.1) Chloride Level 104 mmol/L (98-107) Carbon Dioxide Level 23 mmol/L (21-32) Anion Gap 12 (6-14) Blood Urea Nitrogen 25 mg/dL (8-26) Creatinine 2.2 mg/dL (0.7-1.3) Estimated GFR (Cockcroft-Gault) 28.9 Glucose Level 131 mg/dL (70-99) Calcium Level 9.0 mg/dL (8.5-10.1) Laboratory Tests Test 12/29/17 20:45 12/29/17 20:51 12/29/17 21:35 12/30/17 01:25 White Blood Count 22.3 x10^3/uL (4.0-11.0) Red Blood Count 4.01 x10^6/uL (4.30-5.70) Hemoglobin 12.7 g/dL (13.0-17.5) Hematocrit 37.7 % (39.0-53.0) Mean Corpuscular Volume 94 fL (79-100) Mean Corpuscular Hemoglobin 32 pg (25-35) Mean Corpuscular Hemoglobin Concent 34 g/dL (31-37) Red Cell Distribution Width 17.2 % (11.5-14.5) Platelet Count 29 x10^3/uL (140-400) Neutrophils (%) (Auto) 83 % (31-73) Lymphocytes (%) (Auto) 3 % (24-48) Monocytes (%) (Auto) 14 % (0-9) Eosinophils (%) (Auto) 0 % (0-3) Basophils (%) (Auto) 0 % (0-3) Neutrophils # (Auto) 18.5 x10^3uL (1.8-7.7) Lymphocytes # (Auto) 0.6 x10^3/uL (1.0-4.8) Monocytes # (Auto) 3.1 x10^3/uL (0.0-1.1) Eosinophils # (Auto) 0.0 x10^3/uL (0.0-0.7) Basophils # (Auto) 0.1 x10^3/uL (0.0-0.2) Segmented Neutrophils % 84 % (35-66) Band Neutrophils % 4 % (0-9) Lymphocytes % 6 % (24-48) Monocytes % 6 % (0-10) Platelet Estimate Decreased (ADEQUATE) Anisocytosis Slight Erythrocyte Sedimentation Rate 9 (0-15) Sodium Level 139 mmol/L (136-145) Potassium Level 4.0 mmol/L (3.5-5.1) Chloride Level 104 mmol/L (98-107) Carbon Dioxide Level 24 mmol/L (21-32) Anion Gap 11 (6-14) Blood Urea Nitrogen 25 mg/dL (8-26) Creatinine 2.4 mg/dL (0.7-1.3) Estimated GFR (Cockcroft-Gault) 26.1 BUN/Creatinine Ratio 10 (6-20) Glucose Level 180 mg/dL (70-99) Calcium Level 9.0 mg/dL (8.5-10.1) Total Bilirubin 2.2 mg/dL (0.2-1.0) Aspartate Amino Transf (AST/SGOT) 21 U/L (15-37) Alanine Aminotransferase (ALT/SGPT) 24 U/L (16-63) Alkaline Phosphatase 76 U/L (46-116) Total Protein 7.6 g/dL (6.4-8.2) Albumin 3.8 g/dL (3.4-5.0) Albumin/Globulin Ratio 1.0 (1.0-1.7) Glucose (Fingerstick) 189 mg/dL (70-99) Lactic Acid Level 3.1 mmol/L (0.4-2.0) 1.1 mmol/L (0.4-2.0) Test 12/30/17 05:45 White Blood Count 26.8 x10^3/uL (4.0-11.0) Red Blood Count 3.74 x10^6/uL (4.30-5.70) Hemoglobin 11.8 g/dL (13.0-17.5) Hematocrit 35.2 % (39.0-53.0) Mean Corpuscular Volume 94 fL (79-100) Mean Corpuscular Hemoglobin 32 pg (25-35) Mean Corpuscular Hemoglobin Concent 33 g/dL (31-37) Red Cell Distribution Width 17.2 % (11.5-14.5) Platelet Count 29 x10^3/uL (140-400) Neutrophils (%) (Auto) 64 % (31-73) Lymphocytes (%) (Auto) 2 % (24-48) Monocytes (%) (Auto) 34 % (0-9) Eosinophils (%) (Auto) 0 % (0-3) Basophils (%) (Auto) 0 % (0-3) Neutrophils # (Auto) 17.1 x10^3uL (1.8-7.7) Lymphocytes # (Auto) 0.5 x10^3/uL (1.0-4.8) Monocytes # (Auto) 9.1 x10^3/uL (0.0-1.1) Eosinophils # (Auto) 0.0 x10^3/uL (0.0-0.7) Basophils # (Auto) 0.1 x10^3/uL (0.0-0.2) Sodium Level 139 mmol/L (136-145) Potassium Level 3.8 mmol/L (3.5-5.1) Chloride Level 104 mmol/L (98-107) Carbon Dioxide Level 23 mmol/L (21-32) Anion Gap 12 (6-14) Blood Urea Nitrogen 25 mg/dL (8-26) Creatinine 2.2 mg/dL (0.7-1.3) Estimated GFR (Cockcroft-Gault) 28.9 Glucose Level 131 mg/dL (70-99) Calcium Level 9.0 mg/dL (8.5-10.1) Images Images Xrays of the right knee show primary osteoarthritis of the right knee with osteophyte formation present and mild loss of medial joint spacing. Assessment/Plan Assessment/Plan Osteoarthritis of the right knee with effusion. Will order steroid injection for pain relief. May use icing as needed. RADHA MOTLEY APRN Dec 30, 2017 10:14
[2017-12-30] MEDS ORDERED: LIDOCAINE WITH 8.4% SOD BICARB 3 ML DISP.SYRIN. INJ ONE (10:15)
[2017-12-30] MEDS ORDERED: methylPREDNISolone ACETATE 80 MG/ML VIAL. INJ ONE (10:15)
[2017-12-30] MEDS ORDERED: BUPIVACAINE MPF 0.5% 30 ML VIAL. IJ ONE (10:30)
[2017-12-30] MEDS ORDERED: LIDOCAINE 1% PF 30 ML VIAL. ONE ×2 (10:54→11:00)
--- NOTE | 2017-12-30 11:40 | PDOC2 ---
CONSULT Date of Consult Date of Consult DATE: 12/30/17 TIME: 11:33 Reason for Consult Reason for Consult: Renal insufficiency Referring Physician Referring Physician: Dr. Charlton Identification/Chief Complaint Chief Complaint Right knee pain Source Source: Chart review, Patient History of Present Illness Reason for Visit: 82-year-old gentleman who follows with Dr. Reg Sahu on the outside. He is known to have some level of renal insufficiency by his reports. He has been taking naproxen for a prolonged period of Time and recently stopped about a month ago. He denies any urinary difficulty. He sustained fall and developed swelling of his right knee. The pain was intractable and he presented to the ER for the same. He is noted to have a creatinine of 2.4 which is now down to 2.2. Lactic acid was also 3.1 at presentation which has now resolved. He was not noted to be hypotensive on arrival in fact blood pressures were 179/ 96. He is not on any other medications. Denies any urinary difficulty. Denies nausea vomiting fevers chills diarrhea etc. at this time. Past Medical History Cardiovascular: CAD Psych: Addictions Musculoskeletal: Swelling, Other (pain on Mcmurrys test and flexion.) Renal/: Acute renal failure Past Surgical History Past Surgical History: Pacemaker Family History Family History: Alcohol Abuse Social History Quit ALCOHOL: other Drugs: None Lives: Alone Current Problem List Problem List Problems Medical Problems: (1) Joint effusion, knee Status: Acute (2) Knee pain, right Status: Acute (3) Right knee DJD Status: Acute Current Medications Current Medications Current Medications Dexamethasone Sodium Phosphate (Decadron) 10 mg 1X ONCE IV Last administered on 12/29/17at 13:12; Start 12/29/17 at 13:30; Stop 12/29/17 at 13:31; Status DC Fentanyl Citrate (Fentanyl 2ml Vial) 50 mcg 1X ONCE IV Last administered on at 13:12; Start 12/29/17 at 13:30; Stop 12/29/17 at 13:31; Status DC Ondansetron HCl (Zofran) 4 mg PRN Q8HRS PRN IV NAUSEA/VOMITING; Start 12/29/17 at 14:15; Stop 12/30/17 at 14:14 Morphine Sulfate (Morphine Sulfate) 4 mg PRN Q2HR PRN IV PAIN Last administered on 12/29/17at 19:11; Start 12/29/17 at 14:15; Stop 12/30/17 at 14:14 Acetaminophen (Tylenol) 650 mg PRN Q4HRS PRN PO FEVER Last administered on 12/30at 03:54; Start 12/29/17 at 14:15; Stop 12/30/17 at 14:14 Pantoprazole Sodium (Protonix) 40 mg DAILYAC PO ; Start 12/30/17 at 06:30; Stop 12/30/17 at 06:30; Status DC Pantoprazole Sodium (Protonix) 40 mg Q24H PO ; Start 12/30/17 at 06:30; Status Cancel Al Hydroxide/Mg Hydroxide (Mylanta Plus Xs) 30 ml PRN Q2HR PRN PO HEARTBURN / GAS Last administered on 12/29/17at 21:53; Start 12/29/17 at 21:45 Sodium Chloride 1,000 ml @ 100 mls/hr Q10H IV Last administered on 12/29/17at 22:32; Start 12/29/17 at 21:45 Piperacillin Sod/ Tazobactam Sod 3.375 gm/Sodium Chloride 50 ml @ 100 mls/hr Q6HRS IV ; Start 12/30/17 at 00:00; Status UNV Meropenem 500 mg/ Sodium Chloride 50 ml @ 100 mls/hr Q8HRS IV Last administered on 12/30/17at 06:22; Start 12/29/17 at 22:00 Piperacillin Sod/ Tazobactam Sod 2.25 gm/Sodium Chloride 50 ml @ 100 mls/hr Q6HRS IV Last administered on 12/30/17at 06:22; Start 12/30/17 at 00:00; Stop 12/30/17 at 09:49; Status DC Pantoprazole Sodium (PROTONIX VIAL for IV PUSH) 40 mg DAILYAC IVP ; Start at 22:15; Stop 12/29/17 at 22:59; Status DC Pantoprazole Sodium (PROTONIX VIAL for IV PUSH) 40 mg DAILYAC IVP Last administered on 12/30/17at 08:32; Start 12/30/17 at 07:30; Stop 12/30/17 at 10:25 ; Status DC Methylprednisolone Acetate (DEPO-Medrol 80MG VIAL) 80 mg 1X ONCE INJ ; Start 12/30/17 at 10:15; Stop 12/30/17 at 10:16; Status DC Lidocaine/Sodium Bicarbonate (Buffered Lidocaine 1%) 3 ml 1X ONCE INJ ; Start 12/30/17 at 10:15; Stop 12/30/17 at 10:16; Status DC Bupivacaine HCl (Sensorcaine Mpf 0.5%) 30 ml 1X ONCE IJ ; Start 12/30/17 at 10: 30; Stop 12/30/17 at 10:31; Status DC Pantoprazole Sodium (Protonix) 40 mg DAILYAC PO ; Start 12/31/17 at 07:30 Lidocaine HCl (Xylocaine 1% Pf 30ml Vial) 30 ml STK-MED ONCE .ROUTE ; Start 12/30/17 at 10:54; Stop 12/30/17 at 10:55; Status DC Active Scripts Active Naproxen 375 Mg Tablet 1 Tab PO BID [place] 5-325 Tablet (Acetaminophen/Hydrocodone Bitart) 1 Each Tablet 1 Tab PO PRN Q4-6HRS PRN Allergies Allergies: Coded Allergies: No Known Drug Allergies (Unverified , 09/04/15) ROS Review of System 14 point review of systems was reviewed with the patient and is negative other than right knee pain. Physical Exam Physical Exam General Appearance: Awake Alert Oriented x 3 In no Distress Eyes: VIsion Unchanged Conjunctiva Normal EN: No EN Drainage Mucous Memb. moist Neck: no JVD no JVP Supple no Thyromegaly CVS: S1 S2 no Murmur No Gallop No Rub no Edema Resp: no Rales no Rhonchi no Acc. Muscle use GI: BAS +ve NO Bruit Non Tender Non Distended : no CVA tenderness; no Suprapubic Tenderness SKIN: no Rashes Breast Exam deferred Mu.Sk: Adequate ROM no Muscle Atrophy, right knee swelling and possible effusion Heme: Unable to palpate Obvious LAD no Splenomegaly NEURO: Good Strength and Tone Cranial Nerves II - XII grossly intact Psych: not Depressed no Active hallucination Vital Signs Vital Signs Date Time Temp Pulse Resp B/P (MAP) Pulse Ox O2 Delivery O2 Flow Rate FiO2 12/30/17 11:00 61 20 115/56 (75) 99 Room Air 12/30/17 04:00 98.0 98.0 12/29/17 12:00 98.0 Assessment & Plan Acute kidney injury: Unclear etiology. Baseline creatinine not available area did this may very well be his baseline. Current FLuid and E-lyte status does not necessitate emergent need for Dialysis. 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 Renal sonogram will be ordered. Anemia with elevated WBC and low platelets we'll check B12 and folic acid and iron. HTN: Current BP meds reviewed. See orders for changes. Right knee effusion: May need joint tapped and fluid sent for analysis especially to rule out infection versus gout Discussed Plan of Care and prognosis with patient at bedside Labs Labs Laboratory Tests Test 12/29/17 20:45 12/29/17 20:51 12/29/17 21:35 12/30/17 01:25 White Blood Count 22.3 x10^3/uL (4.0-11.0) Red Blood Count 4.01 x10^6/uL (4.30-5.70) Hemoglobin 12.7 g/dL (13.0-17.5) Hematocrit 37.7 % (39.0-53.0) Mean Corpuscular Volume 94 fL (79-100) Mean Corpuscular Hemoglobin 32 pg (25-35) Mean Corpuscular Hemoglobin Concent 34 g/dL (31-37) Red Cell Distribution Width 17.2 % (11.5-14.5) Platelet Count 29 x10^3/uL (140-400) Neutrophils (%) (Auto) 83 % (31-73) Lymphocytes (%) (Auto) 3 % (24-48) Monocytes (%) (Auto) 14 % (0-9) Eosinophils (%) (Auto) 0 % (0-3) Basophils (%) (Auto) 0 % (0-3) Neutrophils # (Auto) 18.5 x10^3uL (1.8-7.7) Lymphocytes # (Auto) 0.6 x10^3/uL (1.0-4.8) Monocytes # (Auto) 3.1 x10^3/uL (0.0-1.1) Eosinophils # (Auto) 0.0 x10^3/uL (0.0-0.7) Basophils # (Auto) 0.1 x10^3/uL (0.0-0.2) Segmented Neutrophils % 84 % (35-66) Band Neutrophils % 4 % (0-9) Lymphocytes % 6 % (24-48) Monocytes % 6 % (0-10) Platelet Estimate Decreased (ADEQUATE) Anisocytosis Slight Erythrocyte Sedimentation Rate 9 (0-15) Sodium Level 139 mmol/L (136-145) Potassium Level 4.0 mmol/L (3.5-5.1) Chloride Level 104 mmol/L (98-107) Carbon Dioxide Level 24 mmol/L (21-32) Anion Gap 11 (6-14) Blood Urea Nitrogen 25 mg/dL (8-26) Creatinine 2.4 mg/dL (0.7-1.3) Estimated GFR (Cockcroft-Gault) 26.1 BUN/Creatinine Ratio 10 (6-20) Glucose Level 180 mg/dL (70-99) Calcium Level 9.0 mg/dL (8.5-10.1) Total Bilirubin 2.2 mg/dL (0.2-1.0) Aspartate Amino Transf (AST/SGOT) 21 U/L (15-37) Alanine Aminotransferase (ALT/SGPT) 24 U/L (16-63) Alkaline Phosphatase 76 U/L (46-116) Total Protein 7.6 g/dL (6.4-8.2) Albumin 3.8 g/dL (3.4-5.0) Albumin/Globulin Ratio 1.0 (1.0-1.7) Glucose (Fingerstick) 189 mg/dL (70-99) Lactic Acid Level 3.1 mmol/L (0.4-2.0) 1.1 mmol/L (0.4-2.0) Test 12/30/17 05:45 White Blood Count 26.8 x10^3/uL (4.0-11.0) Red Blood Count 3.74 x10^6/uL (4.30-5.70) Hemoglobin 11.8 g/dL (13.0-17.5) Hematocrit 35.2 % (39.0-53.0) Mean Corpuscular Volume 94 fL (79-100) Mean Corpuscular Hemoglobin 32 pg (25-35) Mean Corpuscular Hemoglobin Concent 33 g/dL (31-37) Red Cell Distribution Width 17.2 % (11.5-14.5) Platelet Count 29 x10^3/uL (140-400) Neutrophils (%) (Auto) 64 % (31-73) Lymphocytes (%) (Auto) 2 % (24-48) Monocytes (%) (Auto) 34 % (0-9) Eosinophils (%) (Auto) 0 % (0-3) Basophils (%) (Auto) 0 % (0-3) Neutrophils # (Auto) 17.1 x10^3uL (1.8-7.7) Lymphocytes # (Auto) 0.5 x10^3/uL (1.0-4.8) Monocytes # (Auto) 9.1 x10^3/uL (0.0-1.1) Eosinophils # (Auto) 0.0 x10^3/uL (0.0-0.7) Basophils # (Auto) 0.1 x10^3/uL (0.0-0.2) Sodium Level 139 mmol/L (136-145) Potassium Level 3.8 mmol/L (3.5-5.1) Chloride Level 104 mmol/L (98-107) Carbon Dioxide Level 23 mmol/L (21-32) Anion Gap 12 (6-14) Blood Urea Nitrogen 25 mg/dL (8-26) Creatinine 2.2 mg/dL (0.7-1.3) Estimated GFR (Cockcroft-Gault) 28.9 Glucose Level 131 mg/dL (70-99) Calcium Level 9.0 mg/dL (8.5-10.1) Laboratory Tests Test 12/29/17 20:45 12/29/17 20:51 12/29/17 21:35 12/30/17 01:25 White Blood Count 22.3 x10^3/uL (4.0-11.0) Red Blood Count 4.01 x10^6/uL (4.30-5.70) Hemoglobin 12.7 g/dL (13.0-17.5) Hematocrit 37.7 % (39.0-53.0) Mean Corpuscular Volume 94 fL (79-100) Mean Corpuscular Hemoglobin 32 pg (25-35) Mean Corpuscular Hemoglobin Concent 34 g/dL (31-37) Red Cell Distribution Width 17.2 % (11.5-14.5) Platelet Count 29 x10^3/uL (140-400) Neutrophils (%) (Auto) 83 % (31-73) Lymphocytes (%) (Auto) 3 % (24-48) Monocytes (%) (Auto) 14 % (0-9) Eosinophils (%) (Auto) 0 % (0-3) Basophils (%) (Auto) 0 % (0-3) Neutrophils # (Auto) 18.5 x10^3uL (1.8-7.7) Lymphocytes # (Auto) 0.6 x10^3/uL (1.0-4.8) Monocytes # (Auto) 3.1 x10^3/uL (0.0-1.1) Eosinophils # (Auto) 0.0 x10^3/uL (0.0-0.7) Basophils # (Auto) 0.1 x10^3/uL (0.0-0.2) Segmented Neutrophils % 84 % (35-66) Band Neutrophils % 4 % (0-9) Lymphocytes % 6 % (24-48) Monocytes % 6 % (0-10) Platelet Estimate Decreased (ADEQUATE) Anisocytosis Slight Erythrocyte Sedimentation Rate 9 (0-15) Sodium Level 139 mmol/L (136-145) Potassium Level 4.0 mmol/L (3.5-5.1) Chloride Level 104 mmol/L (98-107) Carbon Dioxide Level 24 mmol/L (21-32) Anion Gap 11 (6-14) Blood Urea Nitrogen 25 mg/dL (8-26) Creatinine 2.4 mg/dL (0.7-1.3) Estimated GFR (Cockcroft-Gault) 26.1 BUN/Creatinine Ratio 10 (6-20) Glucose Level 180 mg/dL (70-99) Calcium Level 9.0 mg/dL (8.5-10.1) Total Bilirubin 2.2 mg/dL (0.2-1.0) Aspartate Amino Transf (AST/SGOT) 21 U/L (15-37) Alanine Aminotransferase (ALT/SGPT) 24 U/L (16-63) Alkaline Phosphatase 76 U/L (46-116) Total Protein 7.6 g/dL (6.4-8.2) Albumin 3.8 g/dL (3.4-5.0) Albumin/Globulin Ratio 1.0 (1.0-1.7) Glucose (Fingerstick) 189 mg/dL (70-99) Lactic Acid Level 3.1 mmol/L (0.4-2.0) 1.1 mmol/L (0.4-2.0) Test 12/30/17 05:45 White Blood Count 26.8 x10^3/uL (4.0-11.0) Red Blood Count 3.74 x10^6/uL (4.30-5.70) Hemoglobin 11.8 g/dL (13.0-17.5) Hematocrit 35.2 % (39.0-53.0) Mean Corpuscular Volume 94 fL (79-100) Mean Corpuscular Hemoglobin 32 pg (25-35) Mean Corpuscular Hemoglobin Concent 33 g/dL (31-37) Red Cell Distribution Width 17.2 % (11.5-14.5) Platelet Count 29 x10^3/uL (140-400) Neutrophils (%) (Auto) 64 % (31-73) Lymphocytes (%) (Auto) 2 % (24-48) Monocytes (%) (Auto) 34 % (0-9) Eosinophils (%) (Auto) 0 % (0-3) Basophils (%) (Auto) 0 % (0-3) Neutrophils # (Auto) 17.1 x10^3uL (1.8-7.7) Lymphocytes # (Auto) 0.5 x10^3/uL (1.0-4.8) Monocytes # (Auto) 9.1 x10^3/uL (0.0-1.1) Eosinophils # (Auto) 0.0 x10^3/uL (0.0-0.7) Basophils # (Auto) 0.1 x10^3/uL (0.0-0.2) Sodium Level 139 mmol/L (136-145) Potassium Level 3.8 mmol/L (3.5-5.1) Chloride Level 104 mmol/L (98-107) Carbon Dioxide Level 23 mmol/L (21-32) Anion Gap 12 (6-14) Blood Urea Nitrogen 25 mg/dL (8-26) Creatinine 2.2 mg/dL (0.7-1.3) Estimated GFR (Cockcroft-Gault) 28.9 Glucose Level 131 mg/dL (70-99) Calcium Level 9.0 mg/dL (8.5-10.1) Review All relevant outside records, renal labs, imaging studies, telemetry/EKG's were reviewed. FRANCHESKA HERNANDES MD Dec 30, 2017 11:40
[2017-12-30] MEDS ORDERED: MAGNESIUM SULFATE 2GM 50 ML IV PRN (11:45)
--- NOTE | 2017-12-30 12:12 | PDOC ---
ORTHO PROGRESS NOTES Vitals Vital Signs Date Time Temp Pulse Resp B/P (MAP) Pulse Ox O2 Delivery O2 Flow Rate FiO2 12/30/17 11:00 61 20 115/56 (75) 99 Room Air 12/30/17 04:00 98.0 98.0 12/29/17 12:00 98.0 Labs Laboratory Tests Test 12/29/17 20:45 12/29/17 20:51 12/29/17 21:35 12/30/17 01:25 White Blood Count 22.3 x10^3/uL (4.0-11.0) Red Blood Count 4.01 x10^6/uL (4.30-5.70) Hemoglobin 12.7 g/dL (13.0-17.5) Hematocrit 37.7 % (39.0-53.0) Mean Corpuscular Volume 94 fL (79-100) Mean Corpuscular Hemoglobin 32 pg (25-35) Mean Corpuscular Hemoglobin Concent 34 g/dL (31-37) Red Cell Distribution Width 17.2 % (11.5-14.5) Platelet Count 29 x10^3/uL (140-400) Neutrophils (%) (Auto) 83 % (31-73) Lymphocytes (%) (Auto) 3 % (24-48) Monocytes (%) (Auto) 14 % (0-9) Eosinophils (%) (Auto) 0 % (0-3) Basophils (%) (Auto) 0 % (0-3) Neutrophils # (Auto) 18.5 x10^3uL (1.8-7.7) Lymphocytes # (Auto) 0.6 x10^3/uL (1.0-4.8) Monocytes # (Auto) 3.1 x10^3/uL (0.0-1.1) Eosinophils # (Auto) 0.0 x10^3/uL (0.0-0.7) Basophils # (Auto) 0.1 x10^3/uL (0.0-0.2) Segmented Neutrophils % 84 % (35-66) Band Neutrophils % 4 % (0-9) Lymphocytes % 6 % (24-48) Monocytes % 6 % (0-10) Platelet Estimate Decreased (ADEQUATE) Anisocytosis Slight Erythrocyte Sedimentation Rate 9 (0-15) Sodium Level 139 mmol/L (136-145) Potassium Level 4.0 mmol/L (3.5-5.1) Chloride Level 104 mmol/L (98-107) Carbon Dioxide Level 24 mmol/L (21-32) Anion Gap 11 (6-14) Blood Urea Nitrogen 25 mg/dL (8-26) Creatinine 2.4 mg/dL (0.7-1.3) Estimated GFR (Cockcroft-Gault) 26.1 BUN/Creatinine Ratio 10 (6-20) Glucose Level 180 mg/dL (70-99) Calcium Level 9.0 mg/dL (8.5-10.1) Total Bilirubin 2.2 mg/dL (0.2-1.0) Aspartate Amino Transf (AST/SGOT) 21 U/L (15-37) Alanine Aminotransferase (ALT/SGPT) 24 U/L (16-63) Alkaline Phosphatase 76 U/L (46-116) Total Protein 7.6 g/dL (6.4-8.2) Albumin 3.8 g/dL (3.4-5.0) Albumin/Globulin Ratio 1.0 (1.0-1.7) Glucose (Fingerstick) 189 mg/dL (70-99) Lactic Acid Level 3.1 mmol/L (0.4-2.0) 1.1 mmol/L (0.4-2.0) Test 12/30/17 05:45 White Blood Count 26.8 x10^3/uL (4.0-11.0) Red Blood Count 3.74 x10^6/uL (4.30-5.70) Hemoglobin 11.8 g/dL (13.0-17.5) Hematocrit 35.2 % (39.0-53.0) Mean Corpuscular Volume 94 fL (79-100) Mean Corpuscular Hemoglobin 32 pg (25-35) Mean Corpuscular Hemoglobin Concent 33 g/dL (31-37) Red Cell Distribution Width 17.2 % (11.5-14.5) Platelet Count 29 x10^3/uL (140-400) Neutrophils (%) (Auto) 64 % (31-73) Lymphocytes (%) (Auto) 2 % (24-48) Monocytes (%) (Auto) 34 % (0-9) Eosinophils (%) (Auto) 0 % (0-3) Basophils (%) (Auto) 0 % (0-3) Neutrophils # (Auto) 17.1 x10^3uL (1.8-7.7) Lymphocytes # (Auto) 0.5 x10^3/uL (1.0-4.8) Monocytes # (Auto) 9.1 x10^3/uL (0.0-1.1) Eosinophils # (Auto) 0.0 x10^3/uL (0.0-0.7) Basophils # (Auto) 0.1 x10^3/uL (0.0-0.2) Sodium Level 139 mmol/L (136-145) Potassium Level 3.8 mmol/L (3.5-5.1) Chloride Level 104 mmol/L (98-107) Carbon Dioxide Level 23 mmol/L (21-32) Anion Gap 12 (6-14) Blood Urea Nitrogen 25 mg/dL (8-26) Creatinine 2.2 mg/dL (0.7-1.3) Estimated GFR (Cockcroft-Gault) 28.9 Glucose Level 131 mg/dL (70-99) Calcium Level 9.0 mg/dL (8.5-10.1) Procalcitonin 0.32 ng/mL (0.00-0.10) Laboratory Tests Test 12/29/17 20:45 12/29/17 20:51 12/29/17 21:35 12/30/17 01:25 White Blood Count 22.3 x10^3/uL (4.0-11.0) Red Blood Count 4.01 x10^6/uL (4.30-5.70) Hemoglobin 12.7 g/dL (13.0-17.5) Hematocrit 37.7 % (39.0-53.0) Mean Corpuscular Volume 94 fL (79-100) Mean Corpuscular Hemoglobin 32 pg (25-35) Mean Corpuscular Hemoglobin Concent 34 g/dL (31-37) Red Cell Distribution Width 17.2 % (11.5-14.5) Platelet Count 29 x10^3/uL (140-400) Neutrophils (%) (Auto) 83 % (31-73) Lymphocytes (%) (Auto) 3 % (24-48) Monocytes (%) (Auto) 14 % (0-9) Eosinophils (%) (Auto) 0 % (0-3) Basophils (%) (Auto) 0 % (0-3) Neutrophils # (Auto) 18.5 x10^3uL (1.8-7.7) Lymphocytes # (Auto) 0.6 x10^3/uL (1.0-4.8) Monocytes # (Auto) 3.1 x10^3/uL (0.0-1.1) Eosinophils # (Auto) 0.0 x10^3/uL (0.0-0.7) Basophils # (Auto) 0.1 x10^3/uL (0.0-0.2) Segmented Neutrophils % 84 % (35-66) Band Neutrophils % 4 % (0-9) Lymphocytes % 6 % (24-48) Monocytes % 6 % (0-10) Platelet Estimate Decreased (ADEQUATE) Anisocytosis Slight Erythrocyte Sedimentation Rate 9 (0-15) Sodium Level 139 mmol/L (136-145) Potassium Level 4.0 mmol/L (3.5-5.1) Chloride Level 104 mmol/L (98-107) Carbon Dioxide Level 24 mmol/L (21-32) Anion Gap 11 (6-14) Blood Urea Nitrogen 25 mg/dL (8-26) Creatinine 2.4 mg/dL (0.7-1.3) Estimated GFR (Cockcroft-Gault) 26.1 BUN/Creatinine Ratio 10 (6-20) Glucose Level 180 mg/dL (70-99) Calcium Level 9.0 mg/dL (8.5-10.1) Total Bilirubin 2.2 mg/dL (0.2-1.0) Aspartate Amino Transf (AST/SGOT) 21 U/L (15-37) Alanine Aminotransferase (ALT/SGPT) 24 U/L (16-63) Alkaline Phosphatase 76 U/L (46-116) Total Protein 7.6 g/dL (6.4-8.2) Albumin 3.8 g/dL (3.4-5.0) Albumin/Globulin Ratio 1.0 (1.0-1.7) Glucose (Fingerstick) 189 mg/dL (70-99) Lactic Acid Level 3.1 mmol/L (0.4-2.0) 1.1 mmol/L (0.4-2.0) Test 12/30/17 05:45 White Blood Count 26.8 x10^3/uL (4.0-11.0) Red Blood Count 3.74 x10^6/uL (4.30-5.70) Hemoglobin 11.8 g/dL (13.0-17.5) Hematocrit 35.2 % (39.0-53.0) Mean Corpuscular Volume 94 fL (79-100) Mean Corpuscular Hemoglobin 32 pg (25-35) Mean Corpuscular Hemoglobin Concent 33 g/dL (31-37) Red Cell Distribution Width 17.2 % (11.5-14.5) Platelet Count 29 x10^3/uL (140-400) Neutrophils (%) (Auto) 64 % (31-73) Lymphocytes (%) (Auto) 2 % (24-48) Monocytes (%) (Auto) 34 % (0-9) Eosinophils (%) (Auto) 0 % (0-3) Basophils (%) (Auto) 0 % (0-3) Neutrophils # (Auto) 17.1 x10^3uL (1.8-7.7) Lymphocytes # (Auto) 0.5 x10^3/uL (1.0-4.8) Monocytes # (Auto) 9.1 x10^3/uL (0.0-1.1) Eosinophils # (Auto) 0.0 x10^3/uL (0.0-0.7) Basophils # (Auto) 0.1 x10^3/uL (0.0-0.2) Sodium Level 139 mmol/L (136-145) Potassium Level 3.8 mmol/L (3.5-5.1) Chloride Level 104 mmol/L (98-107) Carbon Dioxide Level 23 mmol/L (21-32) Anion Gap 12 (6-14) Blood Urea Nitrogen 25 mg/dL (8-26) Creatinine 2.2 mg/dL (0.7-1.3) Estimated GFR (Cockcroft-Gault) 28.9 Glucose Level 131 mg/dL (70-99) Calcium Level 9.0 mg/dL (8.5-10.1) Procalcitonin 0.32 ng/mL (0.00-0.10) Assessment and Plan After discussing the risks, benefits, and alternatives, I used a sterile prep over the superolateral right knee and injected 80 mg of Depo-Medrol and local anesthetic without complication. Well tolerated by the patient. Area was cleansed and dried and a sterile dressing was applied. Okay to weight-bear as tolerated, okay for PT and OT. No further interventions plan from my standpoint, he can follow up in my clinic. JAKUB AMAYA II, MD Dec 30, 2017 12:12
[2017-12-30 12:31] LABS: PROTHROMBIN TIME PATIENT 17.6 SEC (11.7-14.0)
[2017-12-30] MEDS: IV NORMAL SALINE 1000ML BAG 1,000 ML IV SCH (13:25)
[2017-12-30 13:32] LABS: URIC ACID 4.4 mg/dL (3.5-7.2)
[2017-12-30 13:33] LABS: ALBUMIN 3.7 g/dL (3.4-5.0); DIRECT BILIRUBIN 0.5 mg/dL (0.0-0.2); TOTAL PROTEIN 7.7 g/dL (6.4-8.2)
--- NOTE | 2017-12-30 13:53 | PDOC ---
PROGRESS NOTES Chief Complaint Chief Complaint right JOINT Effusion ,OA likely s/p steroid injection 12/30 leukocytosis likely chronic thrombocytopenia, likely chronic h/o alcohol abuse elevated bilirubin CKD3 plan: fu with ortho, gi, onco, ID pt likely has some bone marrow problems , waiting for onco consult got rt knee steroid injection meropenum as per ID, wean soon PTOT labs daily ok transfer out of ICU History of Present Illness History of Present Illness ROS: no fever, chills, sob or chest pain rt knee pain from Saturday wbc 26, Cr 2.4 to 2.2, PLT 29 Vitals Vitals Vital Signs Date Time Temp Pulse Resp B/P (MAP) Pulse Ox O2 Delivery O2 Flow Rate FiO2 12/30/17 13:00 61 20 122/75 (91) 93 Room Air 12/30/17 04:00 98.0 98.0 12/29/17 12:00 98.0 Physical Exam General: Alert, Oriented X3, Cooperative, moderate distress Heart: Regular rate, Normal S1, Normal S2 Lungs: Clear Abdomen: Normal bowel sounds, Soft Extremities: No clubbing, No cyanosis, No edema (effusion noted with swelling globally around the knee.) Skin: No rashes Labs LABS Laboratory Tests Test 12/29/17 20:45 12/29/17 20:51 12/29/17 21:35 12/30/17 01:25 White Blood Count 22.3 x10^3/uL (4.0-11.0) Red Blood Count 4.01 x10^6/uL (4.30-5.70) Hemoglobin 12.7 g/dL (13.0-17.5) Hematocrit 37.7 % (39.0-53.0) Mean Corpuscular Volume 94 fL (79-100) Mean Corpuscular Hemoglobin 32 pg (25-35) Mean Corpuscular Hemoglobin Concent 34 g/dL (31-37) Red Cell Distribution Width 17.2 % (11.5-14.5) Platelet Count 29 x10^3/uL (140-400) Neutrophils (%) (Auto) 83 % (31-73) Lymphocytes (%) (Auto) 3 % (24-48) Monocytes (%) (Auto) 14 % (0-9) Eosinophils (%) (Auto) 0 % (0-3) Basophils (%) (Auto) 0 % (0-3) Neutrophils # (Auto) 18.5 x10^3uL (1.8-7.7) Lymphocytes # (Auto) 0.6 x10^3/uL (1.0-4.8) Monocytes # (Auto) 3.1 x10^3/uL (0.0-1.1) Eosinophils # (Auto) 0.0 x10^3/uL (0.0-0.7) Basophils # (Auto) 0.1 x10^3/uL (0.0-0.2) Segmented Neutrophils % 84 % (35-66) Band Neutrophils % 4 % (0-9) Lymphocytes % 6 % (24-48) Monocytes % 6 % (0-10) Platelet Estimate Decreased (ADEQUATE) Anisocytosis Slight Erythrocyte Sedimentation Rate 9 (0-15) Sodium Level 139 mmol/L (136-145) Potassium Level 4.0 mmol/L (3.5-5.1) Chloride Level 104 mmol/L (98-107) Carbon Dioxide Level 24 mmol/L (21-32) Anion Gap 11 (6-14) Blood Urea Nitrogen 25 mg/dL (8-26) Creatinine 2.4 mg/dL (0.7-1.3) Estimated GFR (Cockcroft-Gault) 26.1 BUN/Creatinine Ratio 10 (6-20) Glucose Level 180 mg/dL (70-99) Calcium Level 9.0 mg/dL (8.5-10.1) Total Bilirubin 2.2 mg/dL (0.2-1.0) Aspartate Amino Transf (AST/SGOT) 21 U/L (15-37) Alanine Aminotransferase (ALT/SGPT) 24 U/L (16-63) Alkaline Phosphatase 76 U/L (46-116) Total Protein 7.6 g/dL (6.4-8.2) Albumin 3.8 g/dL (3.4-5.0) Albumin/Globulin Ratio 1.0 (1.0-1.7) Glucose (Fingerstick) 189 mg/dL (70-99) Lactic Acid Level 3.1 mmol/L (0.4-2.0) 1.1 mmol/L (0.4-2.0) Test 12/30/17 05:45 12/30/17 12:00 White Blood Count 26.8 x10^3/uL (4.0-11.0) Red Blood Count 3.74 x10^6/uL (4.30-5.70) Hemoglobin 11.8 g/dL (13.0-17.5) Hematocrit 35.2 % (39.0-53.0) Mean Corpuscular Volume 94 fL (79-100) Mean Corpuscular Hemoglobin 32 pg (25-35) Mean Corpuscular Hemoglobin Concent 33 g/dL (31-37) Red Cell Distribution Width 17.2 % (11.5-14.5) Platelet Count 29 x10^3/uL (140-400) Neutrophils (%) (Auto) 64 % (31-73) Lymphocytes (%) (Auto) 2 % (24-48) Monocytes (%) (Auto) 34 % (0-9) Eosinophils (%) (Auto) 0 % (0-3) Basophils (%) (Auto) 0 % (0-3) Neutrophils # (Auto) 17.1 x10^3uL (1.8-7.7) Lymphocytes # (Auto) 0.5 x10^3/uL (1.0-4.8) Monocytes # (Auto) 9.1 x10^3/uL (0.0-1.1) Eosinophils # (Auto) 0.0 x10^3/uL (0.0-0.7) Basophils # (Auto) 0.1 x10^3/uL (0.0-0.2) Sodium Level 139 mmol/L (136-145) Potassium Level 3.8 mmol/L (3.5-5.1) Chloride Level 104 mmol/L (98-107) Carbon Dioxide Level 23 mmol/L (21-32) Anion Gap 12 (6-14) Blood Urea Nitrogen 25 mg/dL (8-26) Creatinine 2.2 mg/dL (0.7-1.3) Estimated GFR (Cockcroft-Gault) 28.9 Glucose Level 131 mg/dL (70-99) Calcium Level 9.0 mg/dL (8.5-10.1) Procalcitonin 0.32 ng/mL (0.00-0.10) Reticulocyte Count (auto) 2.6 % (0.5-2.5) Prothrombin Time 17.6 SEC (11.7-14.0) Prothromb Time International Ratio 1.5 (0.8-1.1) Uric Acid 4.4 mg/dL (3.5-7.2) Iron Level 34 ug/dL (65-175) Total Iron Binding Capacity 261 ug/dL (250-450) Iron Saturation 13 % (15-34) Ferritin 100 ng/mL (26-388) Total Bilirubin 2.0 mg/dL (0.2-1.0) Direct Bilirubin 0.5 mg/dL (0.0-0.2) Aspartate Amino Transf (AST/SGOT) 25 U/L (15-37) Alanine Aminotransferase (ALT/SGPT) 26 U/L (16-63) Alkaline Phosphatase 74 U/L (46-116) Creatine Kinase 183 U/L (39-308) Total Protein 7.7 g/dL (6.4-8.2) Albumin 3.7 g/dL (3.4-5.0) Assessment and Plan Assessmemt and Plan Problems Medical Problems: (1) Joint effusion, knee Status: Acute (2) Knee pain, right Status: Acute (3) Right knee DJD Status: Acute Comment Review of Relevant I have reviewed the following items waylon (where applicable) has been applied. Labs Laboratory Tests Test 12/29/17 20:45 12/29/17 20:51 12/29/17 21:35 12/30/17 01:25 White Blood Count 22.3 x10^3/uL (4.0-11.0) Red Blood Count 4.01 x10^6/uL (4.30-5.70) Hemoglobin 12.7 g/dL (13.0-17.5) Hematocrit 37.7 % (39.0-53.0) Mean Corpuscular Volume 94 fL (79-100) Mean Corpuscular Hemoglobin 32 pg (25-35) Mean Corpuscular Hemoglobin Concent 34 g/dL (31-37) Red Cell Distribution Width 17.2 % (11.5-14.5) Platelet Count 29 x10^3/uL (140-400) Neutrophils (%) (Auto) 83 % (31-73) Lymphocytes (%) (Auto) 3 % (24-48) Monocytes (%) (Auto) 14 % (0-9) Eosinophils (%) (Auto) 0 % (0-3) Basophils (%) (Auto) 0 % (0-3) Neutrophils # (Auto) 18.5 x10^3uL (1.8-7.7) Lymphocytes # (Auto) 0.6 x10^3/uL (1.0-4.8) Monocytes # (Auto) 3.1 x10^3/uL (0.0-1.1) Eosinophils # (Auto) 0.0 x10^3/uL (0.0-0.7) Basophils # (Auto) 0.1 x10^3/uL (0.0-0.2) Segmented Neutrophils % 84 % (35-66) Band Neutrophils % 4 % (0-9) Lymphocytes % 6 % (24-48) Monocytes % 6 % (0-10) Platelet Estimate Decreased (ADEQUATE) Anisocytosis Slight Erythrocyte Sedimentation Rate 9 (0-15) Sodium Level 139 mmol/L (136-145) Potassium Level 4.0 mmol/L (3.5-5.1) Chloride Level 104 mmol/L (98-107) Carbon Dioxide Level 24 mmol/L (21-32) Anion Gap 11 (6-14) Blood Urea Nitrogen 25 mg/dL (8-26) Creatinine 2.4 mg/dL (0.7-1.3) Estimated GFR (Cockcroft-Gault) 26.1 BUN/Creatinine Ratio 10 (6-20) Glucose Level 180 mg/dL (70-99) Calcium Level 9.0 mg/dL (8.5-10.1) Total Bilirubin 2.2 mg/dL (0.2-1.0) Aspartate Amino Transf (AST/SGOT) 21 U/L (15-37) Alanine Aminotransferase (ALT/SGPT) 24 U/L (16-63) Alkaline Phosphatase 76 U/L (46-116) Total Protein 7.6 g/dL (6.4-8.2) Albumin 3.8 g/dL (3.4-5.0) Albumin/Globulin Ratio 1.0 (1.0-1.7) Glucose (Fingerstick) 189 mg/dL (70-99) Lactic Acid Level 3.1 mmol/L (0.4-2.0) 1.1 mmol/L (0.4-2.0) Test 12/30/17 05:45 12/30/17 12:00 White Blood Count 26.8 x10^3/uL (4.0-11.0) Red Blood Count 3.74 x10^6/uL (4.30-5.70) Hemoglobin 11.8 g/dL (13.0-17.5) Hematocrit 35.2 % (39.0-53.0) Mean Corpuscular Volume 94 fL (79-100) Mean Corpuscular Hemoglobin 32 pg (25-35) Mean Corpuscular Hemoglobin Concent 33 g/dL (31-37) Red Cell Distribution Width 17.2 % (11.5-14.5) Platelet Count 29 x10^3/uL (140-400) Neutrophils (%) (Auto) 64 % (31-73) Lymphocytes (%) (Auto) 2 % (24-48) Monocytes (%) (Auto) 34 % (0-9) Eosinophils (%) (Auto) 0 % (0-3) Basophils (%) (Auto) 0 % (0-3) Neutrophils # (Auto) 17.1 x10^3uL (1.8-7.7) Lymphocytes # (Auto) 0.5 x10^3/uL (1.0-4.8) Monocytes # (Auto) 9.1 x10^3/uL (0.0-1.1) Eosinophils # (Auto) 0.0 x10^3/uL (0.0-0.7) Basophils # (Auto) 0.1 x10^3/uL (0.0-0.2) Sodium Level 139 mmol/L (136-145) Potassium Level 3.8 mmol/L (3.5-5.1) Chloride Level 104 mmol/L (98-107) Carbon Dioxide Level 23 mmol/L (21-32) Anion Gap 12 (6-14) Blood Urea Nitrogen 25 mg/dL (8-26) Creatinine 2.2 mg/dL (0.7-1.3) Estimated GFR (Cockcroft-Gault) 28.9 Glucose Level 131 mg/dL (70-99) Calcium Level 9.0 mg/dL (8.5-10.1) Procalcitonin 0.32 ng/mL (0.00-0.10) Reticulocyte Count (auto) 2.6 % (0.5-2.5) Prothrombin Time 17.6 SEC (11.7-14.0) Prothromb Time International Ratio 1.5 (0.8-1.1) Uric Acid 4.4 mg/dL (3.5-7.2) Iron Level 34 ug/dL (65-175) Total Iron Binding Capacity 261 ug/dL (250-450) Iron Saturation 13 % (15-34) Ferritin 100 ng/mL (26-388) Total Bilirubin 2.0 mg/dL (0.2-1.0) Direct Bilirubin 0.5 mg/dL (0.0-0.2) Aspartate Amino Transf (AST/SGOT) 25 U/L (15-37) Alanine Aminotransferase (ALT/SGPT) 26 U/L (16-63) Alkaline Phosphatase 74 U/L (46-116) Creatine Kinase 183 U/L (39-308) Total Protein 7.7 g/dL (6.4-8.2) Albumin 3.7 g/dL (3.4-5.0) Laboratory Tests Test 12/29/17 20:45 12/29/17 20:51 12/29/17 21:35 12/30/17 01:25 White Blood Count 22.3 x10^3/uL (4.0-11.0) Red Blood Count 4.01 x10^6/uL (4.30-5.70) Hemoglobin 12.7 g/dL (13.0-17.5) Hematocrit 37.7 % (39.0-53.0) Mean Corpuscular Volume 94 fL (79-100) Mean Corpuscular Hemoglobin 32 pg (25-35) Mean Corpuscular Hemoglobin Concent 34 g/dL (31-37) Red Cell Distribution Width 17.2 % (11.5-14.5) Platelet Count 29 x10^3/uL (140-400) Neutrophils (%) (Auto) 83 % (31-73) Lymphocytes (%) (Auto) 3 % (24-48) Monocytes (%) (Auto) 14 % (0-9) Eosinophils (%) (Auto) 0 % (0-3) Basophils (%) (Auto) 0 % (0-3) Neutrophils # (Auto) 18.5 x10^3uL (1.8-7.7) Lymphocytes # (Auto) 0.6 x10^3/uL (1.0-4.8) Monocytes # (Auto) 3.1 x10^3/uL (0.0-1.1) Eosinophils # (Auto) 0.0 x10^3/uL (0.0-0.7) Basophils # (Auto) 0.1 x10^3/uL (0.0-0.2) Segmented Neutrophils % 84 % (35-66) Band Neutrophils % 4 % (0-9) Lymphocytes % 6 % (24-48) Monocytes % 6 % (0-10) Platelet Estimate Decreased (ADEQUATE) Anisocytosis Slight Erythrocyte Sedimentation Rate 9 (0-15) Sodium Level 139 mmol/L (136-145) Potassium Level 4.0 mmol/L (3.5-5.1) Chloride Level 104 mmol/L (98-107) Carbon Dioxide Level 24 mmol/L (21-32) Anion Gap 11 (6-14) Blood Urea Nitrogen 25 mg/dL (8-26) Creatinine 2.4 mg/dL (0.7-1.3) Estimated GFR (Cockcroft-Gault) 26.1 BUN/Creatinine Ratio 10 (6-20) Glucose Level 180 mg/dL (70-99) Calcium Level 9.0 mg/dL (8.5-10.1) Total Bilirubin 2.2 mg/dL (0.2-1.0) Aspartate Amino Transf (AST/SGOT) 21 U/L (15-37) Alanine Aminotransferase (ALT/SGPT) 24 U/L (16-63) Alkaline Phosphatase 76 U/L (46-116) Total Protein 7.6 g/dL (6.4-8.2) Albumin 3.8 g/dL (3.4-5.0) Albumin/Globulin Ratio 1.0 (1.0-1.7) Glucose (Fingerstick) 189 mg/dL (70-99) Lactic Acid Level 3.1 mmol/L (0.4-2.0) 1.1 mmol/L (0.4-2.0) Test 12/30/17 05:45 12/30/17 12:00 White Blood Count 26.8 x10^3/uL (4.0-11.0) Red Blood Count 3.74 x10^6/uL (4.30-5.70) Hemoglobin 11.8 g/dL (13.0-17.5) Hematocrit 35.2 % (39.0-53.0) Mean Corpuscular Volume 94 fL (79-100) Mean Corpuscular Hemoglobin 32 pg (25-35) Mean Corpuscular Hemoglobin Concent 33 g/dL (31-37) Red Cell Distribution Width 17.2 % (11.5-14.5) Platelet Count 29 x10^3/uL (140-400) Neutrophils (%) (Auto) 64 % (31-73) Lymphocytes (%) (Auto) 2 % (24-48) Monocytes (%) (Auto) 34 % (0-9) Eosinophils (%) (Auto) 0 % (0-3) Basophils (%) (Auto) 0 % (0-3) Neutrophils # (Auto) 17.1 x10^3uL (1.8-7.7) Lymphocytes # (Auto) 0.5 x10^3/uL (1.0-4.8) Monocytes # (Auto) 9.1 x10^3/uL (0.0-1.1) Eosinophils # (Auto) 0.0 x10^3/uL (0.0-0.7) Basophils # (Auto) 0.1 x10^3/uL (0.0-0.2) Sodium Level 139 mmol/L (136-145) Potassium Level 3.8 mmol/L (3.5-5.1) Chloride Level 104 mmol/L (98-107) Carbon Dioxide Level 23 mmol/L (21-32) Anion Gap 12 (6-14) Blood Urea Nitrogen 25 mg/dL (8-26) Creatinine 2.2 mg/dL (0.7-1.3) Estimated GFR (Cockcroft-Gault) 28.9 Glucose Level 131 mg/dL (70-99) Calcium Level 9.0 mg/dL (8.5-10.1) Procalcitonin 0.32 ng/mL (0.00-0.10) Reticulocyte Count (auto) 2.6 % (0.5-2.5) Prothrombin Time 17.6 SEC (11.7-14.0) Prothromb Time International Ratio 1.5 (0.8-1.1) Uric Acid 4.4 mg/dL (3.5-7.2) Iron Level 34 ug/dL (65-175) Total Iron Binding Capacity 261 ug/dL (250-450) Iron Saturation 13 % (15-34) Ferritin 100 ng/mL (26-388) Total Bilirubin 2.0 mg/dL (0.2-1.0) Direct Bilirubin 0.5 mg/dL (0.0-0.2) Aspartate Amino Transf (AST/SGOT) 25 U/L (15-37) Alanine Aminotransferase (ALT/SGPT) 26 U/L (16-63) Alkaline Phosphatase 74 U/L (46-116) Creatine Kinase 183 U/L (39-308) Total Protein 7.7 g/dL (6.4-8.2) Albumin 3.7 g/dL (3.4-5.0) Medications Current Medications Dexamethasone Sodium Phosphate (Decadron) 10 mg 1X ONCE IV Last administered on 12/29/17at 13:12; Start 12/29/17 at 13:30; Stop 12/29/17 at 13:31; Status DC Fentanyl Citrate (Fentanyl 2ml Vial) 50 mcg 1X ONCE IV Last administered on at 13:12; Start 12/29/17 at 13:30; Stop 12/29/17 at 13:31; Status DC Ondansetron HCl (Zofran) 4 mg PRN Q8HRS PRN IV NAUSEA/VOMITING; Start 12/29/17 at 14:15; Stop 12/30/17 at 14:14 Morphine Sulfate (Morphine Sulfate) 4 mg PRN Q2HR PRN IV PAIN Last administered on 12/29/17at 19:11; Start 12/29/17 at 14:15; Stop 12/30/17 at 14:14 Acetaminophen (Tylenol) 650 mg PRN Q4HRS PRN PO FEVER Last administered on 12/30at 03:54; Start 12/29/17 at 14:15; Stop 12/30/17 at 14:14 Pantoprazole Sodium (Protonix) 40 mg DAILYAC PO ; Start 12/30/17 at 06:30; Stop 12/30/17 at 06:30; Status DC Pantoprazole Sodium (Protonix) 40 mg Q24H PO ; Start 12/30/17 at 06:30; Status Cancel Al Hydroxide/Mg Hydroxide (Mylanta Plus Xs) 30 ml PRN Q2HR PRN PO HEARTBURN / GAS Last administered on 12/29/17at 21:53; Start 12/29/17 at 21:45 Sodium Chloride 1,000 ml @ 100 mls/hr Q10H IV Last administered on 12/30/17at 13:25; Start 12/29/17 at 21:45 Piperacillin Sod/ Tazobactam Sod 3.375 gm/Sodium Chloride 50 ml @ 100 mls/hr Q6HRS IV ; Start 12/30/17 at 00:00; Status UNV Meropenem 500 mg/ Sodium Chloride 50 ml @ 100 mls/hr Q8HRS IV Last administered on 12/30/17at 06:22; Start 12/29/17 at 22:00 Piperacillin Sod/ Tazobactam Sod 2.25 gm/Sodium Chloride 50 ml @ 100 mls/hr Q6HRS IV Last administered on 12/30/17at 06:22; Start 12/30/17 at 00:00; Stop 12/30/17 at 09:49; Status DC Pantoprazole Sodium (PROTONIX VIAL for IV PUSH) 40 mg DAILYAC IVP ; Start at 22:15; Stop 12/29/17 at 22:59; Status DC Pantoprazole Sodium (PROTONIX VIAL for IV PUSH) 40 mg DAILYAC IVP Last administered on 12/30/17at 08:32; Start 12/30/17 at 07:30; Stop 12/30/17 at 10:25 ; Status DC Methylprednisolone Acetate (DEPO-Medrol 80MG VIAL) 80 mg 1X ONCE INJ Last administered on 12/30/17at 10:15; Start 12/30/17 at 10:15; Stop 12/30/17 at 10:16 ; Status DC Lidocaine/Sodium Bicarbonate (Buffered Lidocaine 1%) 3 ml 1X ONCE INJ Last administered on 12/30/17at 10:15; Start 12/30/17 at 10:15; Stop 12/30/17 at 10:16 ; Status DC Bupivacaine HCl (Sensorcaine Mpf 0.5%) 30 ml 1X ONCE IJ Last administered on 12/30/17at 10:30; Start 12/30/17 at 10:30; Stop 12/30/17 at 10:31; Status DC Pantoprazole Sodium (Protonix) 40 mg DAILYAC PO ; Start 12/31/17 at 07:30 Lidocaine HCl (Xylocaine 1% Pf 30ml Vial) 30 ml STK-MED ONCE .ROUTE ; Start 12/30/17 at 10:54; Stop 12/30/17 at 10:55; Status DC Magnesium Sulfate 50 ml @ 25 mls/hr PRN DAILY PRN IV for Mag < 1.7 on am labs; Start 12/30/17 at 11:45 Active Scripts Active Naproxen 375 Mg Tablet 1 Tab PO BID [place] 5-325 Tablet (Acetaminophen/Hydrocodone Bitart) 1 Each Tablet 1 Tab PO PRN Q4-6HRS PRN Vitals/I & O Vital Sign - Last 24 Hours 12/29/17 12/29/17 12/29/17 12/29/17 14:00 14:15 14:44 19:00 Temp 97.8 98.1 97.8 98.1 Pulse 68 60 Resp 18 18 B/P (MAP) 159/65 (96) 147/78 (101) Pulse Ox 96 94 O2 Delivery Room Air Room Air Room Air Room Air 12/29/17 12/29/17 12/29/17 12/29/17 19:11 19:41 20:00 22:30 Temp 97.6 97.6 Pulse 60 Resp 20 18 B/P (MAP) 146/97 (113) Pulse Ox 96 96 94 O2 Delivery Room Air Room Air Room Air 12/30/17 12/30/17 12/30/17 12/30/17 00:00 01:00 02:00 03:00 Pulse 60 60 60 60 Resp 15 16 13 16 B/P (MAP) 123/65 (84) 125/63 (83) 155/68 (97) 115/65 (82) Pulse Ox 95 96 97 96 O2 Delivery Room Air Room Air Room Air Room Air 12/30/17 12/30/17 12/30/17 12/30/17 04:00 05:00 06:00 07:00 Temp 98.0 98.0 Pulse 60 60 60 60 Resp 16 13 22 17 B/P (MAP) 133/69 (90) 117/68 (84) 126/68 (87) 115/63 (80) Pulse Ox 96 92 98 96 O2 Delivery Room Air Room Air Room Air Room Air 12/30/17 12/30/17 12/30/1718 08:00 08:00 09:00 10:00 Pulse 66 62 60 Resp 19 19 20 B/P (MAP) 131/67 (88) 109/56 (73) 127/48 (74) Pulse Ox 96 99 98 O2 Delivery Room Air Room Air Room Air Room Air 12/30/17 12/30/17 12/30/17 12/30/17 11:00 12:00 12:00 13:00 Pulse 61 60 61 Resp 20 20 20 B/P (MAP) 115/56 (75) 100/78 (85) 122/75 (91) Pulse Ox 99 99 93 O2 Delivery Room Air Room Air Room Air Room Air Intake and Output 12/29/17 12/29/17 12/30/17 15:00 23:00 07:00 Intake Total 50 ml 1112.9 ml Output Total 450 ml 475 ml Balance -400 ml 637.9 ml RAYMON VOSS MD Dec 30, 2017 13:53
[2017-12-30] MEDS ORDERED: ONDANSETRON PF 4 MG/2 ML VIAL. IV PRN (14:00)
[2017-12-30] MEDS ORDERED: MORPHINE SULFATE 2 MG/ML VIAL. IV PRN (14:00)
[2017-12-30] MEDS ORDERED: DOCUSATE SODIUM 100 MG CAPSULE. PO PRN (14:00)
[2017-12-30] MEDS ORDERED: traMADol 50 MG TABLET PO PRN (14:00)
[2017-12-30] MEDS ORDERED: ACETAMINOPHEN 325 MG TABLET. PO PRN (14:00)
[2017-12-30] MEDS: FERROUS SULFATE 325 MG TABLET. PO SCH (14:00)
[2017-12-30 19:54] LABS: BILIRUBIN,URINE NEGATIVE (NEG); CLARITY,URINE CLEAR; COLOR,URINE YELLOW; NITRITE,URINE NEGATIVE (NEG); PH,URINE 5.5; PROTEIN,URINE 100 mg/dL (NEG-TRACE); UROBILINOGEN,URINE 0.2 mg/dL (0.2 mg/dL)
[2017-12-30 20:17] LABS: BACTERIA,URINE FEW /HPF (0-FEW); SQUAMOUS EPITHELIAL CELL,UR OCC /LPF; WBC,URINE OCC /HPF (0-4)
[2017-12-30 20:18] LABS: HYALINE CASTS, URINE FEW /HPF
--- NOTE | 2017-12-30 23:06 | CONS ---
DATE OF CONSULTATION: 12/30/2017 REFERRING PHYSICIAN: Dr. Wilton Aguilera. REASON FOR CONSULTATION: Rule out sepsis. HISTORY OF PRESENT ILLNESS: The patient is an 82-year-old male who routinely walks about a mile each morning. Over the last week or so, he added some leg stretches to his routine. Two days ago as he was leaning against a fire place and stretching his right leg, he said he overdid it a bit and suddenly felt "something give." The following morning, he had pain in the knee and could barely walk. He waited 24 hours before he called 911 for help. On admission, he had an elevated white blood cell count of 22,000, creatinine 2.4, sed rate of 9 and lactic acid of 3.1. An x-ray of the right knee revealed arthritis and a joint effusion in the suprapatellar bursa. No fracture or acute osseous abnormality noted. He was given a dose of IV Decadron and started on antibiotics. ID has been asked to consult for further evaluation and antibiotic management. The patient is currently in the Intensive Care Unit. He continues to complain of right knee pain with limited range of motion. He denies fevers, chills, sweats or body aches. PAST MEDICAL HISTORY: Atrial fibrillation, hypertension. History of leukocytosis and thrombocytosis status post bone marrow biopsy in the past, he is not sure of diagnosis. Gastroesophageal reflux disease, nephrolithiasis. PAST SURGICAL HISTORY: Left total knee replacement, bilateral shoulder repair, pacemaker placement, cholecystectomy.\\ FAMILY HISTORY: Noncontributory. SOCIAL HISTORY: The patient is a former smoker. History of heavy alcohol use. ALLERGIES: No known drug allergies. MEDICATIONS: Meropenem, Zosyn, one-time dose of IV Decadron. Other medications are available and have been reviewed on the APR. REVIEW OF SYSTEMS: Per HPI, otherwise all other review of systems is negative. PHYSICAL EXAMINATION: GENERAL: The patient is propped up in bed, alert, in no apparent distress. VITAL SIGNS: Temperature is 98.0, blood pressure 131/67, heart rate 66, respiratory rate 19, pulse oximetry is 96% on room air. BMI 24 HEENT: Pupils equally round, normal conjunctivae. Oral cavity, pharynx pink and moist. NECK: Supple. LUNGS: Clear to auscultation. HEART: S1 and S2. He has a pacemaker. ABDOMEN: Nondistended. Bowel sounds active, soft, nontender. EXTREMITIES: No gross edema or cyanosis. Right knee is swollen and warm with limited range of motion. SKIN: Warm without rash. Several bruises on his arms and back side. NEUROLOGIC: Alert. Responds appropriately and follows commands. Somewhat of a poor historian. LABORATORY DATA: Today's WBC is 26.8, hemoglobin 11.8, platelet 29,000. Sed rate 92. Electrolytes are unremarkable. Creatinine 2.2, BUN 25, glucose 131. Lactic acid 1.1, total bilirubin 2.2, AST 21, ALT 24, albumin 3.8, creatinine kinase 183, uric acid 4.4. Knee x-ray per HPI. Chest x-ray shows clear lungs. Abdominal x-ray shows a small nonobstructing left intrarenal calculus; small right renal cyst; and status post cholecystectomy. Urine and blood cultures pending. IMPRESSION: 1. Right knee effusion and pain following stretching of the knee. 2. Leukocytosis. 3. Acute kidney injury. 4. Lactic acidosis. 5. Thrombocytopenia. 6. History of alcohol abuse, questionable chronic encephalopathy as he is a poor historian. 7. Nephrolithiasis. 8. Pacemaker. 9. Hypertension. PLAN: Continue the meropenem, renal dosing. Discontinue the Zosyn. We will consult renal. We will follow up on culture results. We will check procalcitonin level and repeat labs in the morning. Awaiting ortho and hematology evaluation. We will continue to follow. Thank you, Dr. Aguilera, for asking us to participate in this patient's care. Should you have further questions or concerns, please call. The patient seen and examined and plan of care implemented by Dr. Lory Seo. DICTATED BY: This is Zheng Ross, nursing practitioner. LORY SEO MD DR: NOE/heriberto JOB#: [id number] / [id number]
[2017-12-31 03:35] VITALS: BP 144/78
[2017-12-31 05:16] LABS: BASO % 0 % (0-3); EOS % 0 % (0-3); HEMATOCRIT 36.1 % (39.0-53.0); HEMOGLOBIN 12.2 g/dL (13.0-17.5); LYMPH # 0.6 x10^3/uL (1.0-4.8); LYMPH % 2 % (24-48); MEAN CORPUSCULAR HEMOGLOBIN 32 pg (25-35); MEAN CORPUSCULAR HGB CONC 34 g/dL (31-37); MEAN CORPUSCULAR VOLUME 93 fL (79-100); MONO # 5.8 x10^3/uL (0.0-1.1); MONO % 19 % (0-9); NEUT # 24.9 x10^3uL (1.8-7.7); NEUT % 80 % (31-73); PLATELET COUNT 30 x10^3/uL (140-400); RED BLOOD COUNT 3.87 x10^6/uL (4.30-5.70); RED CELL DISTRIBUTION WIDTH 17.1 % (11.5-14.5); WHITE BLOOD COUNT 31.3 x10^3/uL (4.0-11.0)
[2017-12-31 05:39] LABS: ALBUMIN 3.5 g/dL (3.4-5.0); CALCIUM 8.8 mg/dL (8.5-10.1); CREATININE 2.2 mg/dL (0.7-1.3); GFR 28.9; MAGNESIUM 2.4 mg/dL (1.8-2.4); PHOSPHORUS 3.1 mg/dL (2.6-4.7); POTASSIUM 4.2 mmol/L (3.5-5.1)
[2017-12-31] MEDS: MEROPENEM 500 MG in IV NORMAL SALINE 50ML 50 ML IV SCH (06:02)
[2017-12-31] MEDS: IV NORMAL SALINE 1000ML BAG 1,000 ML IV SCH (06:02)
[2017-12-31 07:00] VITALS: BP 112/76
[2017-12-31] MEDS ORDERED: PANTOPRAZOLE 40 MG TABLET.DR. PO SCH (07:30)
[2017-12-31] MEDS: FERROUS SULFATE 325 MG TABLET. PO SCH (08:30)
--- NOTE | 2017-12-31 09:14 | PDOC ---
SUBJECTIVE ROS Asked to see for AK I Patient is now status post injection to his right knee with steroids. He is feeling a little better. CVS: no Orthopnea, no CP RESP: no SOB, no DUNN GI: no Nausea, no Vomiting : no Dysuria, no Urgency OBJECTIVE Vital Signs Vital Signs Date Time Temp Pulse Resp B/P (MAP) Pulse Ox O2 Delivery O2 Flow Rate FiO2 12/31/17 07:00 97.6 63 18 112/76 (88) 96 Room Air 97.6 I & 0 Intake and Output 12/31/17 07:00 Intake Total 240 ml Output Total 1001 ml Balance -761 ml Intake Oral 240 ml Output Urine Total 1001 ml # Voids 1 # Bowel Movements 1 PHYSICAL EXAM Physical Exam General Appearance: Awake Alert Oriented x 3 In no Distress Eyes: VIsion Unchanged Conjunctiva Normal EN: No EN Drainage Mucous Memb. moist Neck: no JVD no JVP Supple no Thyromegaly CVS: S1 S2 no Murmur No Gallop No Rub no Edema Resp: no Rales no Rhonchi no Acc. Muscle use GI: BAS +ve NO Bruit Non Tender Non Distended : no CVA tenderness; no Suprapubic Tenderness Assessment & Plan Acute kidney injury: Unclear etiology. Baseline creatinine not available area did this may very well be his baseline. Current FLuid and E-lyte status does not necessitate emergent need for Dialysis. 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 Renal sonogram is nonrevealing for obvious etiologies Anemia: B12 folic acid pending. Appears to be iron deficient currently. We'll begin IV iron as ordered. A/G ratio is not convincing for a paraproteinemia but can be checked as an outpatient if needed Mild metabolic acidosis: DC IV fluids and reevaluate may need supplemental bicarbonate if he drops below 18 in the setting of advanced renal insufficiency HTN: Current BP meds reviewed. See orders for changes. Right knee effusion: Now diagnosed with osteoarthritis. Knee has been injected. Patient feeling better. Unclear if he may have underlying gout. Uric acid was noted to be 4.4. Encouraged patient to refrain from NSAIDs/Douglass 2 inhibitors as outpatient Nonobstructive renal calculus: Patient informed regarding the same. Signed symptoms were discussed Discussed Plan of Care and prognosis with patient at bedside COMMENT/RELEVANT DATA Meds Current Medications Medications (Trade) Dose Ordered Sig/Jose Start Time Stop Time Status Last Admin Dose Admin Acetaminophen (Tylenol) 650 mg PRN Q6HRS PRN 12/30/17 14:00 Al Hydroxide/Mg Hydroxide (Mylanta Plus Xs) 30 ml PRN Q2HR PRN 12/29/17 21:45 12/29/17 21:53 30 ML Bupivacaine HCl (Sensorcaine Mpf 0.5%) 30 ml 1X ONCE 12/30/17 10:30 12/30/17 10:31 DC 12/30/17 10:30 30 ML Dexamethasone Sodium Phosphate (Decadron) 10 mg 1X ONCE 12/29/17 13:30 12/29/17 13:31 DC 12/29/17 13:12 10 MG Docusate Sodium (Colace) 100 mg PRN DAILY PRN 12/30/17 14:00 Fentanyl Citrate (Fentanyl 2ml Vial) 50 mcg 1X ONCE 12/29/17 13:30 12/29/17 13:31 DC 12/29/17 13:12 50 MCG Ferrous Sulfate (Feosol) 325 mg DAILYWBKFT 12/30/17 14:00 12/31/17 08:30 325 MG Lidocaine HCl (Xylocaine 1% Pf 30ml Vial) 30 ml STK-MED ONCE 12/30/17 11:00 12/31/17 08:46 DC Lidocaine/Sodium Bicarbonate (Buffered Lidocaine 1%) 3 ml 1X ONCE 12/30/17 10:15 12/30/17 10:16 DC 12/30/17 10:15 3 ML Magnesium Sulfate 50 ml @ 25 mls/hr PRN DAILY PRN 12/30/17 11:45 Meropenem 500 mg/ Sodium Chloride 50 ml @ 100 mls/hr Q8HRS 12/29/17 22:00 12/31/17 06:02 100 MLS/HR Methylprednisolone Acetate (DEPO-Medrol 80MG VIAL) 80 mg 1X ONCE 12/30/17 10:15 12/30/17 10:16 DC 12/30/17 10:15 80 MG Morphine Sulfate (Morphine Sulfate) 2 mg PRN Q2HR PRN 12/30/17 14:00 Ondansetron HCl (Zofran) 4 mg PRN Q6HRS PRN 12/30/17 14:00 Pantoprazole Sodium (PROTONIX VIAL for IV PUSH) 40 mg DAILYAC 12/30/17 07:30 12/30/17 10:25 DC 12/30/17 08:32 40 MG Pantoprazole Sodium (Protonix) 40 mg DAILYAC 12/31/17 07:30 12/31/17 08:30 40 MG Piperacillin Sod/ Tazobactam Sod 2.25 gm/Sodium Chloride 50 ml @ 100 mls/hr Q6HRS 12/30/17 00:00 12/30/17 09:49 DC 12/30/17 06:22 100 MLS/HR Piperacillin Sod/ Tazobactam Sod 3.375 gm/Sodium Chloride 50 ml @ 100 mls/hr Q6HRS 12/30/17 00:00 UNV Sodium Chloride 1,000 ml @ 100 mls/hr Q10H 12/29/17 21:45 12/31/17 06:02 100 MLS/HR Tramadol HCl (Ultram) 50 mg PRN Q6HRS PRN 12/30/17 14:00 Lab Laboratory Tests Test 12/30/17 12:00 12/30/17 19:20 12/31/17 03:45 Reticulocyte Count (auto) 2.6 % (0.5-2.5) Prothrombin Time 17.6 SEC (11.7-14.0) Prothromb Time International Ratio 1.5 (0.8-1.1) Uric Acid 4.4 mg/dL (3.5-7.2) Iron Level 34 ug/dL (65-175) Total Iron Binding Capacity 261 ug/dL (250-450) Iron Saturation 13 % (15-34) Ferritin 100 ng/mL (26-388) Total Bilirubin 2.0 mg/dL (0.2-1.0) Direct Bilirubin 0.5 mg/dL (0.0-0.2) Aspartate Amino Transf (AST/SGOT) 25 U/L (15-37) Alanine Aminotransferase (ALT/SGPT) 26 U/L (16-63) Alkaline Phosphatase 74 U/L (46-116) Creatine Kinase 183 U/L (39-308) Total Protein 7.7 g/dL (6.4-8.2) Albumin 3.7 g/dL (3.4-5.0) 3.5 g/dL (3.4-5.0) Urine Collection Type Unknown Urine Color Yellow Urine Clarity Clear Urine pH 5.5 Urine Specific [place] 1.020 Urine Protein 100 mg/dL (NEG-TRACE) Urine Glucose (UA) Negative mg/dL (NEG) Urine Ketones (Stick) Negative mg/dL (NEG) Urine Blood Large (NEG) Urine Nitrite Negative (NEG) Urine Bilirubin Negative (NEG) Urine Urobilinogen Dipstick 0.2 mg/dL (0.2 mg/dL) Urine Leukocyte Esterase Negative (NEG) Urine RBC 1-2 /HPF (0-2) Urine WBC Occ /HPF (0-4) Urine Squamous Epithelial Cells Occ /LPF Urine Bacteria Few /HPF (0-FEW) Urine Hyaline Casts Few /HPF Urine Mucus Slight /LPF White Blood Count 31.3 x10^3/uL (4.0-11.0) Red Blood Count 3.87 x10^6/uL (4.30-5.70) Hemoglobin 12.2 g/dL (13.0-17.5) Hematocrit 36.1 % (39.0-53.0) Mean Corpuscular Volume 93 fL (79-100) Mean Corpuscular Hemoglobin 32 pg (25-35) Mean Corpuscular Hemoglobin Concent 34 g/dL (31-37) Red Cell Distribution Width 17.1 % (11.5-14.5) Platelet Count 30 x10^3/uL (140-400) Neutrophils (%) (Auto) 80 % (31-73) Lymphocytes (%) (Auto) 2 % (24-48) Monocytes (%) (Auto) 19 % (0-9) Eosinophils (%) (Auto) 0 % (0-3) Basophils (%) (Auto) 0 % (0-3) Neutrophils # (Auto) 24.9 x10^3uL (1.8-7.7) Lymphocytes # (Auto) 0.6 x10^3/uL (1.0-4.8) Monocytes # (Auto) 5.8 x10^3/uL (0.0-1.1) Eosinophils # (Auto) 0.0 x10^3/uL (0.0-0.7) Basophils # (Auto) 0.0 x10^3/uL (0.0-0.2) Sodium Level 139 mmol/L (136-145) Potassium Level 4.2 mmol/L (3.5-5.1) Chloride Level 106 mmol/L (98-107) Carbon Dioxide Level 20 mmol/L (21-32) Anion Gap 13 (6-14) Blood Urea Nitrogen 31 mg/dL (8-26) Creatinine 2.2 mg/dL (0.7-1.3) Estimated GFR (Cockcroft-Gault) 28.9 Glucose Level 122 mg/dL (70-99) Calcium Level 8.8 mg/dL (8.5-10.1) Phosphorus Level 3.1 mg/dL (2.6-4.7) Magnesium Level 2.4 mg/dL (1.8-2.4) Results All relevant outside records, renal labs, imaging studies, telemetry/EKG's were reviewed. Other The right kidney measures 11 cm in length. It contains a 2.6 cm simple cyst. The left kidney measures 11.5 cm in length. A small echogenic focus is seen in the left kidney, compatible with a nonobstructing calculus. It measures 1.4 cm. There is no evidence of hydronephrosis on either side. IMPRESSION: 1. Status post cholecystectomy. 2. Small nonobstructing left intrarenal calculus. 3. Small right renal cyst. 4. Obscuration of the pancreas and central retroperitoneum due to overlying bowel. FRANCHESKA HERNANDES MD Dec 31, 2017 09:14
--- NOTE | 2017-12-31 09:18 | PDOC ---
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, likely chronic h/o alcohol abuse elevated bilirubin CKD3 plan: fu with ortho, gi, onco, ID pt likely has some bone marrow problems , waiting for onco consult got rt knee steroid injection PTOT labs daily ok TO D/C TODAY History of Present Illness History of Present Illness ROS: no fever, chills, sob or chest pain rt knee pain from Saturday wbc 26, Cr 2.4 to 2.2, PLT 29 Vitals Vitals Vital Signs Date Time Temp Pulse Resp B/P (MAP) Pulse Ox O2 Delivery O2 Flow Rate FiO2 12/31/17 07:00 97.6 63 18 112/76 (88) 96 Room Air 97.6 Physical Exam General: Alert, Oriented X3, Cooperative, No acute distress, moderate distress Heart: Regular rate, Normal S1, Normal S2 Lungs: Clear Abdomen: Normal bowel sounds, Soft Extremities: No clubbing, No cyanosis, No edema (effusion noted with swelling globally around the knee.) Skin: No rashes Labs LABS Laboratory Tests Test 12/30/17 12:00 12/30/17 19:20 12/31/17 03:45 Reticulocyte Count (auto) 2.6 % (0.5-2.5) Prothrombin Time 17.6 SEC (11.7-14.0) Prothromb Time International Ratio 1.5 (0.8-1.1) Uric Acid 4.4 mg/dL (3.5-7.2) Iron Level 34 ug/dL (65-175) Total Iron Binding Capacity 261 ug/dL (250-450) Iron Saturation 13 % (15-34) Ferritin 100 ng/mL (26-388) Total Bilirubin 2.0 mg/dL (0.2-1.0) Direct Bilirubin 0.5 mg/dL (0.0-0.2) Aspartate Amino Transf (AST/SGOT) 25 U/L (15-37) Alanine Aminotransferase (ALT/SGPT) 26 U/L (16-63) Alkaline Phosphatase 74 U/L (46-116) Creatine Kinase 183 U/L (39-308) Total Protein 7.7 g/dL (6.4-8.2) Albumin 3.7 g/dL (3.4-5.0) 3.5 g/dL (3.4-5.0) Urine Collection Type Unknown Urine Color Yellow Urine Clarity Clear Urine pH 5.5 Urine Specific [place] 1.020 Urine Protein 100 mg/dL (NEG-TRACE) Urine Glucose (UA) Negative mg/dL (NEG) Urine Ketones (Stick) Negative mg/dL (NEG) Urine Blood Large (NEG) Urine Nitrite Negative (NEG) Urine Bilirubin Negative (NEG) Urine Urobilinogen Dipstick 0.2 mg/dL (0.2 mg/dL) Urine Leukocyte Esterase Negative (NEG) Urine RBC 1-2 /HPF (0-2) Urine WBC Occ /HPF (0-4) Urine Squamous Epithelial Cells Occ /LPF Urine Bacteria Few /HPF (0-FEW) Urine Hyaline Casts Few /HPF Urine Mucus Slight /LPF White Blood Count 31.3 x10^3/uL (4.0-11.0) Red Blood Count 3.87 x10^6/uL (4.30-5.70) Hemoglobin 12.2 g/dL (13.0-17.5) Hematocrit 36.1 % (39.0-53.0) Mean Corpuscular Volume 93 fL (79-100) Mean Corpuscular Hemoglobin 32 pg (25-35) Mean Corpuscular Hemoglobin Concent 34 g/dL (31-37) Red Cell Distribution Width 17.1 % (11.5-14.5) Platelet Count 30 x10^3/uL (140-400) Neutrophils (%) (Auto) 80 % (31-73) Lymphocytes (%) (Auto) 2 % (24-48) Monocytes (%) (Auto) 19 % (0-9) Eosinophils (%) (Auto) 0 % (0-3) Basophils (%) (Auto) 0 % (0-3) Neutrophils # (Auto) 24.9 x10^3uL (1.8-7.7) Lymphocytes # (Auto) 0.6 x10^3/uL (1.0-4.8) Monocytes # (Auto) 5.8 x10^3/uL (0.0-1.1) Eosinophils # (Auto) 0.0 x10^3/uL (0.0-0.7) Basophils # (Auto) 0.0 x10^3/uL (0.0-0.2) Sodium Level 139 mmol/L (136-145) Potassium Level 4.2 mmol/L (3.5-5.1) Chloride Level 106 mmol/L (98-107) Carbon Dioxide Level 20 mmol/L (21-32) Anion Gap 13 (6-14) Blood Urea Nitrogen 31 mg/dL (8-26) Creatinine 2.2 mg/dL (0.7-1.3) Estimated GFR (Cockcroft-Gault) 28.9 Glucose Level 122 mg/dL (70-99) Calcium Level 8.8 mg/dL (8.5-10.1) Phosphorus Level 3.1 mg/dL (2.6-4.7) Magnesium Level 2.4 mg/dL (1.8-2.4) Assessment and Plan Assessmemt and Plan Problems Medical Problems: (1) Joint effusion, knee Status: Acute (2) Knee pain, right Status: Acute (3) Right knee DJD Status: Acute Comment Review of Relevant I have reviewed the following items waylon (where applicable) has been applied. Labs Laboratory Tests Test 12/29/17 20:30 12/29/17 20:45 12/29/17 20:51 12/29/17 21:35 Nasal Screen MRSA (PCR) Negative (Negative) White Blood Count 22.3 x10^3/uL (4.0-11.0) Red Blood Count 4.01 x10^6/uL (4.30-5.70) Hemoglobin 12.7 g/dL (13.0-17.5) Hematocrit 37.7 % (39.0-53.0) Mean Corpuscular Volume 94 fL (79-100) Mean Corpuscular Hemoglobin 32 pg (25-35) Mean Corpuscular Hemoglobin Concent 34 g/dL (31-37) Red Cell Distribution Width 17.2 % (11.5-14.5) Platelet Count 29 x10^3/uL (140-400) Neutrophils (%) (Auto) 83 % (31-73) Lymphocytes (%) (Auto) 3 % (24-48) Monocytes (%) (Auto) 14 % (0-9) Eosinophils (%) (Auto) 0 % (0-3) Basophils (%) (Auto) 0 % (0-3) Neutrophils # (Auto) 18.5 x10^3uL (1.8-7.7) Lymphocytes # (Auto) 0.6 x10^3/uL (1.0-4.8) Monocytes # (Auto) 3.1 x10^3/uL (0.0-1.1) Eosinophils # (Auto) 0.0 x10^3/uL (0.0-0.7) Basophils # (Auto) 0.1 x10^3/uL (0.0-0.2) Segmented Neutrophils % 84 % (35-66) Band Neutrophils % 4 % (0-9) Lymphocytes % 6 % (24-48) Monocytes % 6 % (0-10) Platelet Estimate Decreased (ADEQUATE) Anisocytosis Slight Erythrocyte Sedimentation Rate 9 (0-15) Sodium Level 139 mmol/L (136-145) Potassium Level 4.0 mmol/L (3.5-5.1) Chloride Level 104 mmol/L (98-107) Carbon Dioxide Level 24 mmol/L (21-32) Anion Gap 11 (6-14) Blood Urea Nitrogen 25 mg/dL (8-26) Creatinine 2.4 mg/dL (0.7-1.3) Estimated GFR (Cockcroft-Gault) 26.1 BUN/Creatinine Ratio 10 (6-20) Glucose Level 180 mg/dL (70-99) Calcium Level 9.0 mg/dL (8.5-10.1) Total Bilirubin 2.2 mg/dL (0.2-1.0) Aspartate Amino Transf (AST/SGOT) 21 U/L (15-37) Alanine Aminotransferase (ALT/SGPT) 24 U/L (16-63) Alkaline Phosphatase 76 U/L (46-116) Total Protein 7.6 g/dL (6.4-8.2) Albumin 3.8 g/dL (3.4-5.0) Albumin/Globulin Ratio 1.0 (1.0-1.7) Glucose (Fingerstick) 189 mg/dL (70-99) Lactic Acid Level 3.1 mmol/L (0.4-2.0) Test 12/30/17 01:25 12/30/17 05:45 12/30/17 12:00 12/30/17 19:20 Lactic Acid Level 1.1 mmol/L (0.4-2.0) White Blood Count 26.8 x10^3/uL (4.0-11.0) Red Blood Count 3.74 x10^6/uL (4.30-5.70) Hemoglobin 11.8 g/dL (13.0-17.5) Hematocrit 35.2 % (39.0-53.0) Mean Corpuscular Volume 94 fL (79-100) Mean Corpuscular Hemoglobin 32 pg (25-35) Mean Corpuscular Hemoglobin Concent 33 g/dL (31-37) Red Cell Distribution Width 17.2 % (11.5-14.5) Platelet Count 29 x10^3/uL (140-400) Neutrophils (%) (Auto) 64 % (31-73) Lymphocytes (%) (Auto) 2 % (24-48) Monocytes (%) (Auto) 34 % (0-9) Eosinophils (%) (Auto) 0 % (0-3) Basophils (%) (Auto) 0 % (0-3) Neutrophils # (Auto) 17.1 x10^3uL (1.8-7.7) Lymphocytes # (Auto) 0.5 x10^3/uL (1.0-4.8) Monocytes # (Auto) 9.1 x10^3/uL (0.0-1.1) Eosinophils # (Auto) 0.0 x10^3/uL (0.0-0.7) Basophils # (Auto) 0.1 x10^3/uL (0.0-0.2) Sodium Level 139 mmol/L (136-145) Potassium Level 3.8 mmol/L (3.5-5.1) Chloride Level 104 mmol/L (98-107) Carbon Dioxide Level 23 mmol/L (21-32) Anion Gap 12 (6-14) Blood Urea Nitrogen 25 mg/dL (8-26) Creatinine 2.2 mg/dL (0.7-1.3) Estimated GFR (Cockcroft-Gault) 28.9 Glucose Level 131 mg/dL (70-99) Calcium Level 9.0 mg/dL (8.5-10.1) Procalcitonin 0.32 ng/mL (0.00-0.10) Reticulocyte Count (auto) 2.6 % (0.5-2.5) Prothrombin Time 17.6 SEC (11.7-14.0) Prothromb Time International Ratio 1.5 (0.8-1.1) Uric Acid 4.4 mg/dL (3.5-7.2) Iron Level 34 ug/dL (65-175) Total Iron Binding Capacity 261 ug/dL (250-450) Iron Saturation 13 % (15-34) Ferritin 100 ng/mL (26-388) Total Bilirubin 2.0 mg/dL (0.2-1.0) Direct Bilirubin 0.5 mg/dL (0.0-0.2) Aspartate Amino Transf (AST/SGOT) 25 U/L (15-37) Alanine Aminotransferase (ALT/SGPT) 26 U/L (16-63) Alkaline Phosphatase 74 U/L (46-116) Creatine Kinase 183 U/L (39-308) Total Protein 7.7 g/dL (6.4-8.2) Albumin 3.7 g/dL (3.4-5.0) Urine Collection Type Unknown Urine Color Yellow Urine Clarity Clear Urine pH 5.5 Urine Specific [place] 1.020 Urine Protein 100 mg/dL (NEG-TRACE) Urine Glucose (UA) Negative mg/dL (NEG) Urine Ketones (Stick) Negative mg/dL (NEG) Urine Blood Large (NEG) Urine Nitrite Negative (NEG) Urine Bilirubin Negative (NEG) Urine Urobilinogen Dipstick 0.2 mg/dL (0.2 mg/dL) Urine Leukocyte Esterase Negative (NEG) Urine RBC 1-2 /HPF (0-2) Urine WBC Occ /HPF (0-4) Urine Squamous Epithelial Cells Occ /LPF Urine Bacteria Few /HPF (0-FEW) Urine Hyaline Casts Few /HPF Urine Mucus Slight /LPF Test 12/31/17 03:45 White Blood Count 31.3 x10^3/uL (4.0-11.0) Red Blood Count 3.87 x10^6/uL (4.30-5.70) Hemoglobin 12.2 g/dL (13.0-17.5) Hematocrit 36.1 % (39.0-53.0) Mean Corpuscular Volume 93 fL (79-100) Mean Corpuscular Hemoglobin 32 pg (25-35) Mean Corpuscular Hemoglobin Concent 34 g/dL (31-37) Red Cell Distribution Width 17.1 % (11.5-14.5) Platelet Count 30 x10^3/uL (140-400) Neutrophils (%) (Auto) 80 % (31-73) Lymphocytes (%) (Auto) 2 % (24-48) Monocytes (%) (Auto) 19 % (0-9) Eosinophils (%) (Auto) 0 % (0-3) Basophils (%) (Auto) 0 % (0-3) Neutrophils # (Auto) 24.9 x10^3uL (1.8-7.7) Lymphocytes # (Auto) 0.6 x10^3/uL (1.0-4.8) Monocytes # (Auto) 5.8 x10^3/uL (0.0-1.1) Eosinophils # (Auto) 0.0 x10^3/uL (0.0-0.7) Basophils # (Auto) 0.0 x10^3/uL (0.0-0.2) Sodium Level 139 mmol/L (136-145) Potassium Level 4.2 mmol/L (3.5-5.1) Chloride Level 106 mmol/L (98-107) Carbon Dioxide Level 20 mmol/L (21-32) Anion Gap 13 (6-14) Blood Urea Nitrogen 31 mg/dL (8-26) Creatinine 2.2 mg/dL (0.7-1.3) Estimated GFR (Cockcroft-Gault) 28.9 Glucose Level 122 mg/dL (70-99) Calcium Level 8.8 mg/dL (8.5-10.1) Phosphorus Level 3.1 mg/dL (2.6-4.7) Magnesium Level 2.4 mg/dL (1.8-2.4) Albumin 3.5 g/dL (3.4-5.0) Laboratory Tests Test 12/30/17 12:00 12/30/17 19:20 12/31/17 03:45 Reticulocyte Count (auto) 2.6 % (0.5-2.5) Prothrombin Time 17.6 SEC (11.7-14.0) Prothromb Time International Ratio 1.5 (0.8-1.1) Uric Acid 4.4 mg/dL (3.5-7.2) Iron Level 34 ug/dL (65-175) Total Iron Binding Capacity 261 ug/dL (250-450) Iron Saturation 13 % (15-34) Ferritin 100 ng/mL (26-388) Total Bilirubin 2.0 mg/dL (0.2-1.0) Direct Bilirubin 0.5 mg/dL (0.0-0.2) Aspartate Amino Transf (AST/SGOT) 25 U/L (15-37) Alanine Aminotransferase (ALT/SGPT) 26 U/L (16-63) Alkaline Phosphatase 74 U/L (46-116) Creatine Kinase 183 U/L (39-308) Total Protein 7.7 g/dL (6.4-8.2) Albumin 3.7 g/dL (3.4-5.0) 3.5 g/dL (3.4-5.0) Urine Collection Type Unknown Urine Color Yellow Urine Clarity Clear Urine pH 5.5 Urine Specific [place] 1.020 Urine Protein 100 mg/dL (NEG-TRACE) Urine Glucose (UA) Negative mg/dL (NEG) Urine Ketones (Stick) Negative mg/dL (NEG) Urine Blood Large (NEG) Urine Nitrite Negative (NEG) Urine Bilirubin Negative (NEG) Urine Urobilinogen Dipstick 0.2 mg/dL (0.2 mg/dL) Urine Leukocyte Esterase Negative (NEG) Urine RBC 1-2 /HPF (0-2) Urine WBC Occ /HPF (0-4) Urine Squamous Epithelial Cells Occ /LPF Urine Bacteria Few /HPF (0-FEW) Urine Hyaline Casts Few /HPF Urine Mucus Slight /LPF White Blood Count 31.3 x10^3/uL (4.0-11.0) Red Blood Count 3.87 x10^6/uL (4.30-5.70) Hemoglobin 12.2 g/dL (13.0-17.5) Hematocrit 36.1 % (39.0-53.0) Mean Corpuscular Volume 93 fL (79-100) Mean Corpuscular Hemoglobin 32 pg (25-35) Mean Corpuscular Hemoglobin Concent 34 g/dL (31-37) Red Cell Distribution Width 17.1 % (11.5-14.5) Platelet Count 30 x10^3/uL (140-400) Neutrophils (%) (Auto) 80 % (31-73) Lymphocytes (%) (Auto) 2 % (24-48) Monocytes (%) (Auto) 19 % (0-9) Eosinophils (%) (Auto) 0 % (0-3) Basophils (%) (Auto) 0 % (0-3) Neutrophils # (Auto) 24.9 x10^3uL (1.8-7.7) Lymphocytes # (Auto) 0.6 x10^3/uL (1.0-4.8) Monocytes # (Auto) 5.8 x10^3/uL (0.0-1.1) Eosinophils # (Auto) 0.0 x10^3/uL (0.0-0.7) Basophils # (Auto) 0.0 x10^3/uL (0.0-0.2) Sodium Level 139 mmol/L (136-145) Potassium Level 4.2 mmol/L (3.5-5.1) Chloride Level 106 mmol/L (98-107) Carbon Dioxide Level 20 mmol/L (21-32) Anion Gap 13 (6-14) Blood Urea Nitrogen 31 mg/dL (8-26) Creatinine 2.2 mg/dL (0.7-1.3) Estimated GFR (Cockcroft-Gault) 28.9 Glucose Level 122 mg/dL (70-99) Calcium Level 8.8 mg/dL (8.5-10.1) Phosphorus Level 3.1 mg/dL (2.6-4.7) Magnesium Level 2.4 mg/dL (1.8-2.4) Microbiology 12/29/17 Blood Culture - Preliminary, Resulted NO GROWTH AFTER 1 DAY Medications Current Medications Dexamethasone Sodium Phosphate (Decadron) 10 mg 1X ONCE IV Last administered on 12/29/17at 13:12; Start 12/29/17 at 13:30; Stop 12/29/17 at 13:31; Status DC Fentanyl Citrate (Fentanyl 2ml Vial) 50 mcg 1X ONCE IV Last administered on at 13:12; Start 12/29/17 at 13:30; Stop 12/29/17 at 13:31; Status DC Ondansetron HCl (Zofran) 4 mg PRN Q8HRS PRN IV NAUSEA/VOMITING; Start 12/29/17 at 14:15; Stop 12/30/17 at 13:52; Status DC Morphine Sulfate (Morphine Sulfate) 4 mg PRN Q2HR PRN IV PAIN Last administered on 12/29/17at 19:11; Start 12/29/17 at 14:15; Stop 12/30/17 at 13:52 ; Status DC Acetaminophen (Tylenol) 650 mg PRN Q4HRS PRN PO FEVER Last administered on 12/30at 03:54; Start 12/29/17 at 14:15; Stop 12/30/17 at 13:51; Status DC Pantoprazole Sodium (Protonix) 40 mg DAILYAC PO ; Start 12/30/17 at 06:30; Stop 12/30/17 at 06:30; Status DC Pantoprazole Sodium (Protonix) 40 mg Q24H PO ; Start 12/30/17 at 06:30; Status Cancel Al Hydroxide/Mg Hydroxide (Mylanta Plus Xs) 30 ml PRN Q2HR PRN PO HEARTBURN / GAS Last administered on 12/29/17at 21:53; Start 12/29/17 at 21:45 Sodium Chloride 1,000 ml @ 100 mls/hr Q10H IV Last administered on 12/31/17at 06:02; Start 12/29/17 at 21:45 Piperacillin Sod/ Tazobactam Sod 3.375 gm/Sodium Chloride 50 ml @ 100 mls/hr Q6HRS IV ; Start 12/30/17 at 00:00; Status UNV Meropenem 500 mg/ Sodium Chloride 50 ml @ 100 mls/hr Q8HRS IV Last administered on 12/31/17at 06:02; Start 12/29/17 at 22:00 Piperacillin Sod/ Tazobactam Sod 2.25 gm/Sodium Chloride 50 ml @ 100 mls/hr Q6HRS IV Last administered on 12/30/17at 06:22; Start 12/30/17 at 00:00; Stop 12/30/17 at 09:49; Status DC Pantoprazole Sodium (PROTONIX VIAL for IV PUSH) 40 mg DAILYAC IVP ; Start at 22:15; Stop 12/29/17 at 22:59; Status DC Pantoprazole Sodium (PROTONIX VIAL for IV PUSH) 40 mg DAILYAC IVP Last administered on 12/30/17at 08:32; Start 12/30/17 at 07:30; Stop 12/30/17 at 10:25 ; Status DC Methylprednisolone Acetate (DEPO-Medrol 80MG VIAL) 80 mg 1X ONCE INJ Last administered on 12/30/17at 10:15; Start 12/30/17 at 10:15; Stop 12/30/17 at 10:16 ; Status DC Lidocaine/Sodium Bicarbonate (Buffered Lidocaine 1%) 3 ml 1X ONCE INJ Last administered on 12/30/17at 10:15; Start 12/30/17 at 10:15; Stop 12/30/17 at 10:16 ; Status DC Bupivacaine HCl (Sensorcaine Mpf 0.5%) 30 ml 1X ONCE IJ Last administered on 12/30/17at 10:30; Start 12/30/17 at 10:30; Stop 12/30/17 at 10:31; Status DC Pantoprazole Sodium (Protonix) 40 mg DAILYAC PO Last administered on 12/31/17at 08:30; Start 12/31/17 at 07:30 Lidocaine HCl (Xylocaine 1% Pf 30ml Vial) 30 ml STK-MED ONCE .ROUTE ; Start 12/30/17 at 10:54; Stop 12/30/17 at 10:55; Status DC Magnesium Sulfate 50 ml @ 25 mls/hr PRN DAILY PRN IV for Mag < 1.7 on am labs; Start 12/30/17 at 11:45 Acetaminophen (Tylenol) 650 mg PRN Q6HRS PRN PO FEVER; Start 12/30/17 at 14:00 Ondansetron HCl (Zofran) 4 mg PRN Q6HRS PRN IV NAUSEA/VOMITING; Start 12/30/17 at 14:00 Morphine Sulfate (Morphine Sulfate) 2 mg PRN Q2HR PRN IV MODERATE TO SEVERE PAIN; Start 12/30/17 at 14:00 Tramadol HCl (Ultram) 50 mg PRN Q6HRS PRN PO MILD TO MODERATE PAIN; Start 12/30 at 14:00 Docusate Sodium (Colace) 100 mg PRN DAILY PRN PO CONSTIPATION; Start 12/30/17 at 14:00 Ferrous Sulfate (Feosol) 325 mg DAILYWBKFT PO Last administered on 12/31/17at 08 :30; Start 12/30/17 at 14:00 Lidocaine HCl (Xylocaine 1% Pf 30ml Vial) 30 ml STK-MED ONCE .ROUTE ; Start 12/30/17 at 11:00; Stop 12/31/17 at 08:46; Status DC Active Scripts Active Naproxen 375 Mg Tablet 1 Tab PO BID [place] 5-325 Tablet (Acetaminophen/Hydrocodone Bitart) 1 Each Tablet 1 Tab PO PRN Q4-6HRS PRN Vitals/I & O Vital Sign - Last 24 Hours 12/30/17 12/30/17 12/30/17 12/30/17 10:00 11:00 12:00 12:00 Pulse 60 61 60 Resp 20 20 20 B/P (MAP) 127/48 (74) 115/56 (75) 100/78 (85) Pulse Ox 98 99 99 O2 Delivery Room Air Room Air Room Air Room Air 12/30/17 12/30/17 12/30/17 12/30/17 13:00 16:56 19:05 20:00 Temp 97.5 97.5 Pulse 61 69 Resp 20 20 B/P (MAP) 122/75 (91) 157/95 (115) Pulse Ox 93 96 O2 Delivery Room Air Room Air Room Air Room Air 12/30/17 12/31/17 12/31/17 23:05 03:35 07:00 Temp 98.1 97.5 97.6 98.1 97.5 97.6 Pulse 60 77 63 Resp 18 20 18 B/P (MAP) 135/69 (91) 144/78 (100) 112/76 (88) Pulse Ox 97 96 96 O2 Delivery Room Air Room Air Room Air Intake and Output 12/30/17 12/30/17 12/31/17 15:00 23:00 07:00 Intake Total 240 ml 0 ml Output Total 500 ml 500 ml 1 ml Balance -260 ml -500 ml -1 ml CONCEPCION KERN MD Dec 31, 2017 09:18
--- NOTE | 2017-12-31 09:41 | PDOC ---
Subjective: Subjective: Knee pain is better. Tolerating diet. No complaints. Objective: Vital Signs: Vital Signs Date Time Temp Pulse Resp B/P (MAP) Pulse Ox O2 Delivery O2 Flow Rate FiO2 12/31/17 07:00 97.6 63 18 112/76 (88) 96 Room Air 97.6 Labs: Laboratory Tests Test 12/30/17 12:00 12/30/17 19:20 12/31/17 03:45 Reticulocyte Count (auto) 2.6 % Prothrombin Time 17.6 SEC Prothromb Time International Ratio 1.5 Uric Acid 4.4 mg/dL Iron Level 34 ug/dL Total Iron Binding Capacity 261 ug/dL Iron Saturation 13 % Ferritin 100 ng/mL Total Bilirubin 2.0 mg/dL Direct Bilirubin 0.5 mg/dL Aspartate Amino Transf (AST/SGOT) 25 U/L Alanine Aminotransferase (ALT/SGPT) 26 U/L Alkaline Phosphatase 74 U/L Creatine Kinase 183 U/L Total Protein 7.7 g/dL Albumin 3.7 g/dL 3.5 g/dL Urine Collection Type Unknown Urine Color Yellow Urine Clarity Clear Urine pH 5.5 Urine Specific [place] 1.020 Urine Protein 100 mg/dL Urine Glucose (UA) Negative mg/dL Urine Ketones (Stick) Negative mg/dL Urine Blood Large Urine Nitrite Negative Urine Bilirubin Negative Urine Urobilinogen Dipstick 0.2 mg/dL Urine Leukocyte Esterase Negative Urine RBC 1-2 /HPF Urine WBC Occ /HPF Urine Squamous Epithelial Cells Occ /LPF Urine Bacteria Few /HPF Urine Hyaline Casts Few /HPF Urine Mucus Slight /LPF White Blood Count 31.3 x10^3/uL Red Blood Count 3.87 x10^6/uL Hemoglobin 12.2 g/dL Hematocrit 36.1 % Mean Corpuscular Volume 93 fL Mean Corpuscular Hemoglobin 32 pg Mean Corpuscular Hemoglobin Concent 34 g/dL Red Cell Distribution Width 17.1 % Platelet Count 30 x10^3/uL Neutrophils (%) (Auto) 80 % Lymphocytes (%) (Auto) 2 % Monocytes (%) (Auto) 19 % Eosinophils (%) (Auto) 0 % Basophils (%) (Auto) 0 % Neutrophils # (Auto) 24.9 x10^3uL Lymphocytes # (Auto) 0.6 x10^3/uL Monocytes # (Auto) 5.8 x10^3/uL Eosinophils # (Auto) 0.0 x10^3/uL Basophils # (Auto) 0.0 x10^3/uL Sodium Level 139 mmol/L Potassium Level 4.2 mmol/L Chloride Level 106 mmol/L Carbon Dioxide Level 20 mmol/L Anion Gap 13 Blood Urea Nitrogen 31 mg/dL Creatinine 2.2 mg/dL Estimated GFR (Cockcroft-Gault) 28.9 Glucose Level 122 mg/dL Calcium Level 8.8 mg/dL Phosphorus Level 3.1 mg/dL Magnesium Level 2.4 mg/dL Imaging: Lower Extrem CT (pending) PE: GEN: NAD, standing up, has been walking the floor LUNGS: room air HEART: RRR ABD: non-tender NEURO/PSYCH: A & O 3 but forgetful - asks me several times which doctor I'm with A/P: Right knee pain - better s/p inj Thrombocytopenia, h/o alcohol overuse - US unrevealing for liver abnormality Anemia - iron 34, sat 13 - h/o GERD on PPI, unclear timing of last 'scopes CKD/CHAY -- Subclinical cirrhosis suspected, will ask hematology to comment. ISAI MOYA Dec 31, 2017 09:41
--- NOTE | 2017-12-31 10:17 | RAD ---
CT of the right knee without contrast, 12/31/2017: HISTORY: Knee pain, effusion, possible sepsis Noncontrast scans were obtained with multiplanar reconstructions produced. There is mild patchy bony demineralization. There is mild spurring at the knee joint and at the patellofemoral articulation. No fracture or dislocation is identified. No destructive bony lesion is seen. A small knee joint effusion is evident. There are small bubbles of gas in the region of the suprapatellar bursa which may be on an iatrogenic basis. There is mild subcutaneous edema about the knee. There is also mild nonspecific streaky edema in the deep fat planes about the knee. No discrete drainable abscess is evident. There is a small radiopaque foreign body in the subcutaneous soft tissues along the medial aspect of the distal femur as also noted on the recent knee radiographs. Arterial calcifications are noted in the lower leg. IMPRESSION: 1. Mild to moderate degenerative change. 2. Small knee joint effusion. 3. Small bubbles of gas in the suprapatellar bursa region which may be iatrogenic. Has there been a recent joint aspiration? If not, the possibility of infection by gas-forming organism should be considered. 4. No acute bony abnormality is detected. PQRS Compliance Statement: One or more of the following individualized dose reduction techniques were utilized for this examination: 1. Automated exposure control 2. Adjustment of the mA and/or kV according to patient size 3. Use of iterative reconstruction technique Electronically signed by: Demetrius Bejarano MD (12/31/2017 10:14 AM) [facility]
--- NOTE | 2017-12-31 11:21 | PDOC ---
Infectious Disease Note Subjective Subjective Doing well and wants to go home Knee still some swelling but no pain No F/C/S/N/V/D/SOA/Rash ROS ROS o/w neg Vital Sign Vital Signs Vital Signs Date Time Temp Pulse Resp B/P (MAP) Pulse Ox O2 Delivery O2 Flow Rate FiO2 12/31/17 10:46 Room Air 12/31/17 08:00 98.0 12/31/17 07:00 97.6 63 18 112/76 (88) 96 97.6 Physical Exam PHYSICAL EXAM GENERAL: The patient is ambulating in the room alert, in no apparent distress. HEENT: Pupils equally round, normal conjunctivae. Oral cavity, pharynx pink and moist. NECK: Supple. LUNGS: Clear to auscultation. HEART: S1 and S2. He has a pacemaker. ABDOMEN: Nondistended. Bowel sounds active, soft, nontender. EXTREMITIES: No gross edema or cyanosis. Right knee is swollen and without warmth with improved range of motion. SKIN: Warm without rash. Several bruises on his arms and back side. NEUROLOGIC: Alert. Responds appropriately and follows commands. Somewhat of a poor historian. Labs Lab Laboratory Tests Test 12/30/17 12:00 12/30/17 19:20 12/31/17 03:45 Reticulocyte Count (auto) 2.6 % (0.5-2.5) Prothrombin Time 17.6 SEC (11.7-14.0) Prothromb Time International Ratio 1.5 (0.8-1.1) Uric Acid 4.4 mg/dL (3.5-7.2) Iron Level 34 ug/dL (65-175) Total Iron Binding Capacity 261 ug/dL (250-450) Iron Saturation 13 % (15-34) Ferritin 100 ng/mL (26-388) Total Bilirubin 2.0 mg/dL (0.2-1.0) Direct Bilirubin 0.5 mg/dL (0.0-0.2) Aspartate Amino Transf (AST/SGOT) 25 U/L (15-37) Alanine Aminotransferase (ALT/SGPT) 26 U/L (16-63) Alkaline Phosphatase 74 U/L (46-116) Creatine Kinase 183 U/L (39-308) Total Protein 7.7 g/dL (6.4-8.2) Albumin 3.7 g/dL (3.4-5.0) 3.5 g/dL (3.4-5.0) Urine Collection Type Unknown Urine Color Yellow Urine Clarity Clear Urine pH 5.5 Urine Specific [place] 1.020 Urine Protein 100 mg/dL (NEG-TRACE) Urine Glucose (UA) Negative mg/dL (NEG) Urine Ketones (Stick) Negative mg/dL (NEG) Urine Blood Large (NEG) Urine Nitrite Negative (NEG) Urine Bilirubin Negative (NEG) Urine Urobilinogen Dipstick 0.2 mg/dL (0.2 mg/dL) Urine Leukocyte Esterase Negative (NEG) Urine RBC 1-2 /HPF (0-2) Urine WBC Occ /HPF (0-4) Urine Squamous Epithelial Cells Occ /LPF Urine Bacteria Few /HPF (0-FEW) Urine Hyaline Casts Few /HPF Urine Mucus Slight /LPF White Blood Count 31.3 x10^3/uL (4.0-11.0) Red Blood Count 3.87 x10^6/uL (4.30-5.70) Hemoglobin 12.2 g/dL (13.0-17.5) Hematocrit 36.1 % (39.0-53.0) Mean Corpuscular Volume 93 fL (79-100) Mean Corpuscular Hemoglobin 32 pg (25-35) Mean Corpuscular Hemoglobin Concent 34 g/dL (31-37) Red Cell Distribution Width 17.1 % (11.5-14.5) Platelet Count 30 x10^3/uL (140-400) Neutrophils (%) (Auto) 80 % (31-73) Lymphocytes (%) (Auto) 2 % (24-48) Monocytes (%) (Auto) 19 % (0-9) Eosinophils (%) (Auto) 0 % (0-3) Basophils (%) (Auto) 0 % (0-3) Neutrophils # (Auto) 24.9 x10^3uL (1.8-7.7) Lymphocytes # (Auto) 0.6 x10^3/uL (1.0-4.8) Monocytes # (Auto) 5.8 x10^3/uL (0.0-1.1) Eosinophils # (Auto) 0.0 x10^3/uL (0.0-0.7) Basophils # (Auto) 0.0 x10^3/uL (0.0-0.2) Sodium Level 139 mmol/L (136-145) Potassium Level 4.2 mmol/L (3.5-5.1) Chloride Level 106 mmol/L (98-107) Carbon Dioxide Level 20 mmol/L (21-32) Anion Gap 13 (6-14) Blood Urea Nitrogen 31 mg/dL (8-26) Creatinine 2.2 mg/dL (0.7-1.3) Estimated GFR (Cockcroft-Gault) 28.9 Glucose Level 122 mg/dL (70-99) Calcium Level 8.8 mg/dL (8.5-10.1) Phosphorus Level 3.1 mg/dL (2.6-4.7) Magnesium Level 2.4 mg/dL (1.8-2.4) Micro Microbiology 12/29/17 Blood Culture - Preliminary, Resulted NO GROWTH AFTER 1 DAY Objective Assessment Right knee effusion and pain - better.Has made 40 laps around nurses station ESR 9 - s/p knee steroid injection. Hurt knee from stretching Leukocytosis - states has been high -s/p Decadron 12/29 CHAY Lactic acidosis Thrombocytopenia, 29,000 - states chronic - States had Bone marrow 2 years ago at [facility] Alcohol abuse - ? chronic encephalopathy - poor historian Nephrolithiases Pacemaker HTN Plan Plan of Care D/c Meropenem - infection unlikely ok to d/c from ID standpoint LORY SEO MD Dec 31, 2017 11:21
--- NOTE | 2017-12-31 14:51 | PDOC3 ---
Discharge Summary Date of Admission: Dec 29, 2017 Date of Discharge: Dec 31, 2017 Follow-Up: 3-5 days Admitting Diagnosis comment: DISCHARGE DIAGNOSIS Chief Complaint right JOINT Effusion ,OA likely s/p steroid injection 12/30 SYMPTOMS BETTER leukocytosis likely chronic thrombocytopenia, likely chronic h/o alcohol abuse elevated bilirubin CKD3 plan: fu with ortho, gi, onco, ID pt likely has some bone marrow problems , waiting for onco consult got rt knee steroid injection IMPROVED PTOT labs daily ok TO D/C TODAY History of Present Illness History of Present Illness ROS: no fever, chills, sob or chest pain rt knee pain from LAST Saturday wbc 26, Cr 2.4 to 2.2, PLT 29 Vitals Vitals Vital Signs Date Time Temp Pulse Resp B/P (MAP) Pulse Ox O2 Delivery O2 Flow Rate FiO2 12/31/17 07:00 97.6 63 18 112/76 (88) 96 Room Air 97.6 Physical Exam General: Alert, Oriented X3, Cooperative, No acute distress, moderate distress Heart: Regular rate, Normal S1, Normal S2 Lungs: Clear Abdomen: Normal bowel sounds, Soft Extremities: No clubbing, No cyanosis, No edema (effusion noted with swelling globally around the knee.) Skin: No rashes FINAL DIAGNOSIS Problems Medical Problems: (1) Joint effusion, knee Status: Acute (2) Knee pain, right Status: Acute (3) Right knee DJD Status: Acute Brief Hospital Course Mr. Negron is a 82 old [sex] who presented with [INTRACTABLE KNEE PAIN ] CONDITION AT DISCHARGE: Improved Discharge Medications Current Medications Dexamethasone Sodium Phosphate (Decadron) 10 mg 1X ONCE IV Last administered on 12/29/17at 13:12; Start 12/29/17 at 13:30; Stop 12/29/17 at 13:31; Status DC Fentanyl Citrate (Fentanyl 2ml Vial) 50 mcg 1X ONCE IV Last administered on at 13:12; Start 12/29/17 at 13:30; Stop 12/29/17 at 13:31; Status DC Ondansetron HCl (Zofran) 4 mg PRN Q8HRS PRN IV NAUSEA/VOMITING; Start 12/29/17 at 14:15; Stop 12/30/17 at 13:52; Status DC Morphine Sulfate (Morphine Sulfate) 4 mg PRN Q2HR PRN IV PAIN Last administered on 12/29/17at 19:11; Start 12/29/17 at 14:15; Stop 12/30/17 at 13:52 ; Status DC Acetaminophen (Tylenol) 650 mg PRN Q4HRS PRN PO FEVER Last administered on 12/30at 03:54; Start 12/29/17 at 14:15; Stop 12/30/17 at 13:51; Status DC Pantoprazole Sodium (Protonix) 40 mg DAILYAC PO ; Start 12/30/17 at 06:30; Stop 12/30/17 at 06:30; Status DC Pantoprazole Sodium (Protonix) 40 mg Q24H PO ; Start 12/30/17 at 06:30; Status Cancel Al Hydroxide/Mg Hydroxide (Mylanta Plus Xs) 30 ml PRN Q2HR PRN PO HEARTBURN / GAS Last administered on 12/29/17at 21:53; Start 12/29/17 at 21:45 Sodium Chloride 1,000 ml @ 100 mls/hr Q10H IV Last administered on 12/31/17at 06:02; Start 12/29/17 at 21:45; Stop 12/31/17 at 09:19; Status DC Piperacillin Sod/ Tazobactam Sod 3.375 gm/Sodium Chloride 50 ml @ 100 mls/hr Q6HRS IV ; Start 12/30/17 at 00:00; Status UNV Meropenem 500 mg/ Sodium Chloride 50 ml @ 100 mls/hr Q8HRS IV Last administered on 12/31/17at 06:02; Start 12/29/17 at 22:00; Stop 12/31/17 at 11:20 ; Status DC Piperacillin Sod/ Tazobactam Sod 2.25 gm/Sodium Chloride 50 ml @ 100 mls/hr Q6HRS IV Last administered on 12/30/17at 06:22; Start 12/30/17 at 00:00; Stop 12/30/17 at 09:49; Status DC Pantoprazole Sodium (PROTONIX VIAL for IV PUSH) 40 mg DAILYAC IVP ; Start at 22:15; Stop 12/29/17 at 22:59; Status DC Pantoprazole Sodium (PROTONIX VIAL for IV PUSH) 40 mg DAILYAC IVP Last administered on 12/30/17at 08:32; Start 12/30/17 at 07:30; Stop 12/30/17 at 10:25 ; Status DC Methylprednisolone Acetate (DEPO-Medrol 80MG VIAL) 80 mg 1X ONCE INJ Last administered on 12/30/17at 10:15; Start 12/30/17 at 10:15; Stop 12/30/17 at 10:16 ; Status DC Lidocaine/Sodium Bicarbonate (Buffered Lidocaine 1%) 3 ml 1X ONCE INJ Last administered on 12/30/17at 10:15; Start 12/30/17 at 10:15; Stop 12/30/17 at 10:16 ; Status DC Bupivacaine HCl (Sensorcaine Mpf 0.5%) 30 ml 1X ONCE IJ Last administered on 12/30/17at 10:30; Start 12/30/17 at 10:30; Stop 12/30/17 at 10:31; Status DC Pantoprazole Sodium (Protonix) 40 mg DAILYAC PO Last administered on 12/31/17at 08:30; Start 12/31/17 at 07:30 Lidocaine HCl (Xylocaine 1% Pf 30ml Vial) 30 ml STK-MED ONCE .ROUTE ; Start 12/30/17 at 10:54; Stop 12/30/17 at 10:55; Status DC Magnesium Sulfate 50 ml @ 25 mls/hr PRN DAILY PRN IV for Mag < 1.7 on am labs; Start 12/30/17 at 11:45 Acetaminophen (Tylenol) 650 mg PRN Q6HRS PRN PO FEVER; Start 12/30/17 at 14:00 Ondansetron HCl (Zofran) 4 mg PRN Q6HRS PRN IV NAUSEA/VOMITING; Start 12/30/17 at 14:00 Morphine Sulfate (Morphine Sulfate) 2 mg PRN Q2HR PRN IV MODERATE TO SEVERE PAIN; Start 12/30/17 at 14:00 Tramadol HCl (Ultram) 50 mg PRN Q6HRS PRN PO MILD TO MODERATE PAIN; Start 12/30 at 14:00 Docusate Sodium (Colace) 100 mg PRN DAILY PRN PO CONSTIPATION; Start 12/30/17 at 14:00 Ferrous Sulfate (Feosol) 325 mg DAILYWBKFT PO Last administered on 12/31/17at 08 :30; Start 12/30/17 at 14:00 Lidocaine HCl (Xylocaine 1% Pf 30ml Vial) 30 ml STK-MED ONCE .ROUTE ; Start 12/30/17 at 11:00; Stop 12/31/17 at 08:46; Status DC Iron Sucrose 200 mg/Sodium Chloride 110 ml @ 55 mls/hr 3X/WEEK IV ; Start 01/01 at 09:00; Stop 01/10/18 at 10:59 Active Scripts Active Naproxen 375 Mg Tablet 1 Tab PO BID [place] 5-325 Tablet (Acetaminophen/Hydrocodone Bitart) 1 Each Tablet 1 Tab PO PRN Q4-6HRS PRN Vital Signs Vital Signs Date Time Temp Pulse Resp B/P (MAP) Pulse Ox O2 Delivery O2 Flow Rate FiO2 12/31/17 10:46 Room Air 12/31/17 08:00 98.0 12/31/17 07:00 97.6 63 18 112/76 (88) 96 97.6 Labs Laboratory Tests Test 12/29/17 20:30 12/29/17 20:45 12/29/17 20:51 12/29/17 21:35 Nasal Screen MRSA (PCR) Negative (Negative) White Blood Count 22.3 x10^3/uL (4.0-11.0) Red Blood Count 4.01 x10^6/uL (4.30-5.70) Hemoglobin 12.7 g/dL (13.0-17.5) Hematocrit 37.7 % (39.0-53.0) Mean Corpuscular Volume 94 fL (79-100) Mean Corpuscular Hemoglobin 32 pg (25-35) Mean Corpuscular Hemoglobin Concent 34 g/dL (31-37) Red Cell Distribution Width 17.2 % (11.5-14.5) Platelet Count 29 x10^3/uL (140-400) Neutrophils (%) (Auto) 83 % (31-73) Lymphocytes (%) (Auto) 3 % (24-48) Monocytes (%) (Auto) 14 % (0-9) Eosinophils (%) (Auto) 0 % (0-3) Basophils (%) (Auto) 0 % (0-3) Neutrophils # (Auto) 18.5 x10^3uL (1.8-7.7) Lymphocytes # (Auto) 0.6 x10^3/uL (1.0-4.8) Monocytes # (Auto) 3.1 x10^3/uL (0.0-1.1) Eosinophils # (Auto) 0.0 x10^3/uL (0.0-0.7) Basophils # (Auto) 0.1 x10^3/uL (0.0-0.2) Segmented Neutrophils % 84 % (35-66) Band Neutrophils % 4 % (0-9) Lymphocytes % 6 % (24-48) Monocytes % 6 % (0-10) Platelet Estimate Decreased (ADEQUATE) Anisocytosis Slight Erythrocyte Sedimentation Rate 9 (0-15) Sodium Level 139 mmol/L (136-145) Potassium Level 4.0 mmol/L (3.5-5.1) Chloride Level 104 mmol/L (98-107) Carbon Dioxide Level 24 mmol/L (21-32) Anion Gap 11 (6-14) Blood Urea Nitrogen 25 mg/dL (8-26) Creatinine 2.4 mg/dL (0.7-1.3) Estimated GFR (Cockcroft-Gault) 26.1 BUN/Creatinine Ratio 10 (6-20) Glucose Level 180 mg/dL (70-99) Calcium Level 9.0 mg/dL (8.5-10.1) Total Bilirubin 2.2 mg/dL (0.2-1.0) Aspartate Amino Transf (AST/SGOT) 21 U/L (15-37) Alanine Aminotransferase (ALT/SGPT) 24 U/L (16-63) Alkaline Phosphatase 76 U/L (46-116) Total Protein 7.6 g/dL (6.4-8.2) Albumin 3.8 g/dL (3.4-5.0) Albumin/Globulin Ratio 1.0 (1.0-1.7) Glucose (Fingerstick) 189 mg/dL (70-99) Lactic Acid Level 3.1 mmol/L (0.4-2.0) Test 12/30/17 01:25 12/30/17 05:45 12/30/17 12:00 12/30/17 19:20 Lactic Acid Level 1.1 mmol/L (0.4-2.0) White Blood Count 26.8 x10^3/uL (4.0-11.0) Red Blood Count 3.74 x10^6/uL (4.30-5.70) Hemoglobin 11.8 g/dL (13.0-17.5) Hematocrit 35.2 % (39.0-53.0) Mean Corpuscular Volume 94 fL (79-100) Mean Corpuscular Hemoglobin 32 pg (25-35) Mean Corpuscular Hemoglobin Concent 33 g/dL (31-37) Red Cell Distribution Width 17.2 % (11.5-14.5) Platelet Count 29 x10^3/uL (140-400) Neutrophils (%) (Auto) 64 % (31-73) Lymphocytes (%) (Auto) 2 % (24-48) Monocytes (%) (Auto) 34 % (0-9) Eosinophils (%) (Auto) 0 % (0-3) Basophils (%) (Auto) 0 % (0-3) Neutrophils # (Auto) 17.1 x10^3uL (1.8-7.7) Lymphocytes # (Auto) 0.5 x10^3/uL (1.0-4.8) Monocytes # (Auto) 9.1 x10^3/uL (0.0-1.1) Eosinophils # (Auto) 0.0 x10^3/uL (0.0-0.7) Basophils # (Auto) 0.1 x10^3/uL (0.0-0.2) Sodium Level 139 mmol/L (136-145) Potassium Level 3.8 mmol/L (3.5-5.1) Chloride Level 104 mmol/L (98-107) Carbon Dioxide Level 23 mmol/L (21-32) Anion Gap 12 (6-14) Blood Urea Nitrogen 25 mg/dL (8-26) Creatinine 2.2 mg/dL (0.7-1.3) Estimated GFR (Cockcroft-Gault) 28.9 Glucose Level 131 mg/dL (70-99) Calcium Level 9.0 mg/dL (8.5-10.1) Procalcitonin 0.32 ng/mL (0.00-0.10) Reticulocyte Count (auto) 2.6 % (0.5-2.5) Prothrombin Time 17.6 SEC (11.7-14.0) Prothromb Time International Ratio 1.5 (0.8-1.1) Uric Acid 4.4 mg/dL (3.5-7.2) Iron Level 34 ug/dL (65-175) Total Iron Binding Capacity 261 ug/dL (250-450) Iron Saturation 13 % (15-34) Ferritin 100 ng/mL (26-388) Total Bilirubin 2.0 mg/dL (0.2-1.0) Direct Bilirubin 0.5 mg/dL (0.0-0.2) Aspartate Amino Transf (AST/SGOT) 25 U/L (15-37) Alanine Aminotransferase (ALT/SGPT) 26 U/L (16-63) Alkaline Phosphatase 74 U/L (46-116) Creatine Kinase 183 U/L (39-308) Total Protein 7.7 g/dL (6.4-8.2) Albumin 3.7 g/dL (3.4-5.0) Urine Collection Type Unknown Urine Color Yellow Urine Clarity Clear Urine pH 5.5 Urine Specific [place] 1.020 Urine Protein 100 mg/dL (NEG-TRACE) Urine Glucose (UA) Negative mg/dL (NEG) Urine Ketones (Stick) Negative mg/dL (NEG) Urine Blood Large (NEG) Urine Nitrite Negative (NEG) Urine Bilirubin Negative (NEG) Urine Urobilinogen Dipstick 0.2 mg/dL (0.2 mg/dL) Urine Leukocyte Esterase Negative (NEG) Urine RBC 1-2 /HPF (0-2) Urine WBC Occ /HPF (0-4) Urine Squamous Epithelial Cells Occ /LPF Urine Bacteria Few /HPF (0-FEW) Urine Hyaline Casts Few /HPF Urine Mucus Slight /LPF Test 12/31/17 03:45 White Blood Count 31.3 x10^3/uL (4.0-11.0) Red Blood Count 3.87 x10^6/uL (4.30-5.70) Hemoglobin 12.2 g/dL (13.0-17.5) Hematocrit 36.1 % (39.0-53.0) Mean Corpuscular Volume 93 fL (79-100) Mean Corpuscular Hemoglobin 32 pg (25-35) Mean Corpuscular Hemoglobin Concent 34 g/dL (31-37) Red Cell Distribution Width 17.1 % (11.5-14.5) Platelet Count 30 x10^3/uL (140-400) Neutrophils (%) (Auto) 80 % (31-73) Lymphocytes (%) (Auto) 2 % (24-48) Monocytes (%) (Auto) 19 % (0-9) Eosinophils (%) (Auto) 0 % (0-3) Basophils (%) (Auto) 0 % (0-3) Neutrophils # (Auto) 24.9 x10^3uL (1.8-7.7) Lymphocytes # (Auto) 0.6 x10^3/uL (1.0-4.8) Monocytes # (Auto) 5.8 x10^3/uL (0.0-1.1) Eosinophils # (Auto) 0.0 x10^3/uL (0.0-0.7) Basophils # (Auto) 0.0 x10^3/uL (0.0-0.2) Sodium Level 139 mmol/L (136-145) Potassium Level 4.2 mmol/L (3.5-5.1) Chloride Level 106 mmol/L (98-107) Carbon Dioxide Level 20 mmol/L (21-32) Anion Gap 13 (6-14) Blood Urea Nitrogen 31 mg/dL (8-26) Creatinine 2.2 mg/dL (0.7-1.3) Estimated GFR (Cockcroft-Gault) 28.9 Glucose Level 122 mg/dL (70-99) Calcium Level 8.8 mg/dL (8.5-10.1) Phosphorus Level 3.1 mg/dL (2.6-4.7) Magnesium Level 2.4 mg/dL (1.8-2.4) Albumin 3.5 g/dL (3.4-5.0) Laboratory Tests Test 12/30/17 19:20 12/31/17 03:45 Urine Collection Type Unknown Urine Color Yellow Urine Clarity Clear Urine pH 5.5 Urine Specific [place] 1.020 Urine Protein 100 mg/dL (NEG-TRACE) Urine Glucose (UA) Negative mg/dL (NEG) Urine Ketones (Stick) Negative mg/dL (NEG) Urine Blood Large (NEG) Urine Nitrite Negative (NEG) Urine Bilirubin Negative (NEG) Urine Urobilinogen Dipstick 0.2 mg/dL (0.2 mg/dL) Urine Leukocyte Esterase Negative (NEG) Urine RBC 1-2 /HPF (0-2) Urine WBC Occ /HPF (0-4) Urine Squamous Epithelial Cells Occ /LPF Urine Bacteria Few /HPF (0-FEW) Urine Hyaline Casts Few /HPF Urine Mucus Slight /LPF White Blood Count 31.3 x10^3/uL (4.0-11.0) Red Blood Count 3.87 x10^6/uL (4.30-5.70) Hemoglobin 12.2 g/dL (13.0-17.5) Hematocrit 36.1 % (39.0-53.0) Mean Corpuscular Volume 93 fL (79-100) Mean Corpuscular Hemoglobin 32 pg (25-35) Mean Corpuscular Hemoglobin Concent 34 g/dL (31-37) Red Cell Distribution Width 17.1 % (11.5-14.5) Platelet Count 30 x10^3/uL (140-400) Neutrophils (%) (Auto) 80 % (31-73) Lymphocytes (%) (Auto) 2 % (24-48) Monocytes (%) (Auto) 19 % (0-9) Eosinophils (%) (Auto) 0 % (0-3) Basophils (%) (Auto) 0 % (0-3) Neutrophils # (Auto) 24.9 x10^3uL (1.8-7.7) Lymphocytes # (Auto) 0.6 x10^3/uL (1.0-4.8) Monocytes # (Auto) 5.8 x10^3/uL (0.0-1.1) Eosinophils # (Auto) 0.0 x10^3/uL (0.0-0.7) Basophils # (Auto) 0.0 x10^3/uL (0.0-0.2) Sodium Level 139 mmol/L (136-145) Potassium Level 4.2 mmol/L (3.5-5.1) Chloride Level 106 mmol/L (98-107) Carbon Dioxide Level 20 mmol/L (21-32) Anion Gap 13 (6-14) Blood Urea Nitrogen 31 mg/dL (8-26) Creatinine 2.2 mg/dL (0.7-1.3) Estimated GFR (Cockcroft-Gault) 28.9 Glucose Level 122 mg/dL (70-99) Calcium Level 8.8 mg/dL (8.5-10.1) Phosphorus Level 3.1 mg/dL (2.6-4.7) Magnesium Level 2.4 mg/dL (1.8-2.4) Albumin 3.5 g/dL (3.4-5.0) Allergies Allergies Coded Allergies Type Severity Reaction Last Updated Verified No Known Drug Allergies 09/04/15 No Disposition/Orders: D/C to Home CONCEPCION KERN MD Dec 31, 2017 14:51
--- NOTE | 2017-12-31 14:52 | DISCH ---
DISCHARGE INSTRUCTIONS Condition on Discharge Condition on Discharge: Stable Activity After Discharge Activity Instructions for Disc: Activity as tolerated Bathing Instructions: Shower-keep dressing dry Lifting Instructions after Dis: No heavy lifting, No pulling or pushing Driving Instructions after Dis: Do not drive Diet after Discharge Diet after Discharge: Cardiac Checks after Discharge Checks after discharge: Check blood press - daily Contacting the DRDiogenes after DC Call your doctor for: If your condition worsens CONCEPCION KERN MD Dec 31, 2017 14:52
[2017-12-31] MEDS ORDERED: Pantoprazole PO (14:55)
[2017-12-31] MEDS ORDERED: FERR325T72 PO (14:55)
[2017-12-31] MEDS ORDERED: DOCU-109 PO (14:55)
[2017-12-31 15:05] VITALS: BP 141/69
[2018-01-01] MEDS ORDERED: IRON SUCROSE COMPLEX 200 MG in IV NORMAL SALINE 100ML 100 ML IV SCH (09:00)
== END 2017-12-31 18:33 | disposition home or self-care (01) | DRG 871 ==
LOC: ER 11:52 → OBSVTOIN 12:55 → 4 NORTH 12:55 → 1 WEST ICU 22:12 → 6 SOUTH 12-30 16:45
PROVIDERS: ADMIT Family Medicine; ATTEND Family Medicine
PROC: 3E0U33Z Introduction of Anti-inflammatory into Joints, Percutaneous Approach (ICD-10-PCS; principal; 2017-12-29)
DX: A41.9 Sepsis, unspecified organism (principal); N17.0 Acute kidney failure with tubular necrosis; G93.40 Encephalopathy, unspecified; M25.461 Effusion, right knee; Z79.899 Other long term (current) drug therapy; D69.6 Thrombocytopenia, unspecified; F10.10 Alcohol abuse, uncomplicated; F17.210 Nicotine dependence, cigarettes, uncomplicated; I12.9 Hypertensive chronic kidney disease with stage 1 through stage 4 chronic kidney disease, or unspecified chronic kidney disease; I25.10 Atherosclerotic heart disease of native coronary artery without angina pectoris; K21.9 Gastro-esophageal reflux disease without esophagitis; K40.90 Unilateral inguinal hernia, without obstruction or gangrene, not specified as recurrent; I48.91 Unspecified atrial fibrillation; K74.60 Unspecified cirrhosis of liver; M17.11 Unilateral primary osteoarthritis, right knee; N18.3 Chronic kidney disease, stage 3 (moderate); N20.0 Calculus of kidney; N28.1 Cyst of kidney, acquired; Z87.442 Personal history of urinary calculi; Z90.49 Acquired absence of other specified parts of digestive tract; Z95.0 Presence of cardiac pacemaker; Z96.611 Presence of right artificial shoulder joint; Z96.612 Presence of left artificial shoulder joint; Z96.653 Presence of artificial knee joint, bilateral
CPT/HCPCS: 36415; 71045; 73562; 73700; 76700; 80048; 80053; 80069; 80076; 81001; 82550; 82728; 82962; 83540; 83550; 83605; 83735; 84145; 84300; 84550; 85007; 85025; 85045; 85610; 85651; 87040; 87086; 87641; 96374; 96375; C9113; J1040; J1100; J2185; J2270; J2543; J3010; J3490; J7030; 99285-25

== ENCOUNTER 2019-03-29 18:15 | Inpatient (IN) | payer MEDICARE ==
[~2019-03-29] VITALS: Ht 177.8 cm; Wt 71.0 kg
[2019-03-29] VITALS (11 sets, daily range): BP systolic 99–141; BP diastolic 47–62
[~2019-03-29 18:15] MED LIST changes: +DOCU-109 PO; +FERR325T72 PO; +HYDR-3164 PO; -HYDR-971 PO; +Pantoprazole PO
[2019-03-29] MEDS ORDERED: IV NORMAL SALINE 1000ML BAG 1,000 ML IV SCH (18:17)
[2019-03-29] MEDS ORDERED: PANTOPRAZOLE IV PUSH 40 MG VIAL. IVP ONE (18:30)
[2019-03-29 18:31] LABS: BASO % 0 % (0-3); EOS # 0.1 x10^3/uL (0.0-0.7); EOS % 1 % (0-3); LYMPH # 0.5 x10^3/uL (1.0-4.8); LYMPH % 3 % (24-48); MEAN CORPUSCULAR HEMOGLOBIN 31 pg (25-35); MEAN CORPUSCULAR HGB CONC 31 g/dL (31-37); MEAN CORPUSCULAR VOLUME 98 fL (79-100); MONO # 4.1 x10^3/uL (0.0-1.1); MONO % 23 % (0-9); NEUT # 13.1 x10^3/uL (1.8-7.7); NEUT % 73 % (31-73); PLATELET COUNT 48 x10^3/uL (140-400); RED BLOOD COUNT 1.89 x10^6/uL (4.30-5.70); RED CELL DISTRIBUTION WIDTH 21.2 % (11.5-14.5); WHITE BLOOD COUNT 17.8 x10^3/uL (4.0-11.0)
[2019-03-29 18:32] LABS: HEMATOCRIT 18.5 % (39.0-53.0); HEMOGLOBIN 5.8 g/dL (13.0-17.5)
[2019-03-29 18:44] LABS: CALCIUM 9.5 mg/dL (8.5-10.1); GFR 20.1; POTASSIUM 3.7 mmol/L (3.5-5.1)
[2019-03-29 18:45] LABS: PROTHROMBIN TIME PATIENT 19.1 SEC (11.7-14.0)
[2019-03-29 18:50] LABS: FECAL OB PT POSITIVE (NEG)
[2019-03-29 18:59] LABS: ALBUMIN 3.1 g/dL (3.4-5.0); ALBUMIN/GLOBULIN RATIO 0.9 (1.0-1.7); TOTAL BILIRUBIN 1.1 mg/dL (0.2-1.0); TOTAL PROTEIN 6.5 g/dL (6.4-8.2)
--- NOTE | 2019-03-29 19:01 | RAD ---
PORTABLE CHEST 1V INDICATION: Dizziness, rectal bleeding. COMPARISON STUDY: 12/29/2017. FINDINGS: Left pectoral transvenous single chamber pacemaker Lungs: Normal lung volume. No pulmonary mass or consolidation. The tracheobronchial tree and hilar structures are normal. Pleura: No pleural effusion or pneumothorax. Heart and Mediastinum: Cardiomegaly. Tortuous thoracic aorta. IMPRESSION: No acute cardiopulmonary process. Electronically signed by: Gopi Hollingsworth MD (03/29/2019 6:57 PM) [id number]
[2019-03-29] MEDS: PANTOPRAZOLE SODIUM IV DRIP 80 MG in IV NORMAL SALINE 100ML 100 ML IV SCH (19:06)
--- NOTE | 2019-03-29 19:13 | RAD ---
CT HEAD WO CONTRAST Date: 03/29/2019 6:17 PM Clinical Indication: Dizziness Comparison: None. Technique: 5 mm axial tomographic images were obtained of the head without contrast. These were viewed on brain and bone windows. One or more of the following dose reduction techniques were utilized: Automated exposure control (AEC), Adjustment of mA and/or kV according to patient size, Use of iterative reconstruction technique such as ASiR, CT scan done according to ALARA and image gently/image wisely Findings: Mild generalized cerebral and cerebellar volume loss. Mild nonspecific periventricular hypoattenuation, most commonly seen with chronic small vessel ischemic disease. Calcified atherosclerosis of the bilateral cavernous and paraclinoid internal carotid arteries and intracranial vertebral arteries. No intra- or extra-axial mass or fluid collection. No acute hemorrhage. The ventricles are normal in size, shape, and morphology. The bui-white matter junction is normal. The subarachnoid cisterns are patent. The visualized paranasal sinuses are normal. The visualized portions of the orbits and globes are normal. The mastoid air cells are clear. The tongue carrier topogram shows no lytic lesion or fracture. Impression: No acute intracranial process. Mild cerebral volume loss. Mild chronic small vessel ischemic disease. Electronically signed by: Gopi Hollingsworth MD (03/29/2019 7:10 PM) [id number]
[2019-03-29] MEDS ORDERED: VANCOMYCIN 1GM IVPB FOR OMNI 250 ML IV ONE (19:15)
[2019-03-29] MEDS ORDERED: PIPERACILLIN/TAZOBACTAM 3.375 GM in IV NORMAL SALINE 50ML 50 ML IV ONE (19:15)
[2019-03-29] MEDS ORDERED: IV NORMAL SALINE 1000ML BAG 1,000 ML IV ONE (19:15)
--- NOTE | 2019-03-29 19:16 | PHYS DOC ---
Past Medical History Past Medical History: Other Additional Past Medical Histor: PACEMAKER , PT IS POOR HISTORIAN; GI bleed Past Surgical History: Other Additional Past Surgical Histo: HERNIA, KNEE REPLACEMENT, PACEMAKER PLACED Alcohol Use: Heavy Drug Use: None Adult General Chief Complaint Chief Complaint: RECTAL BLEED [facility] HPI Patient is a 84 year old male with history of GI bleeding and pacemaker placement who presents via EMS with complaining of weakness. Patient complaining of multiple episodes of melena about 2-8 episodes a day for the last 4 days associated with generalized weakness and dizziness. Patient states he had one episode of fall one or 2 days ago without loss of consciousness or head injury when he was going to the bathroom to have a bowel movement. Patient denies vomiting and abdominal pain and states he was not able to eat solid food but was able to drink liquids. Patient states he had the same problem a few months ago with diagnosis of GI bleeding and denies using anticoagulation medication or [id number] pain medicine. He denies chest pain, focal neuro deficit, shortness of breath, fever and chills. Review of Systems Review of Systems Constitutional: Denies fever or chills [] Eyes: Denies change in visual acuity, redness, or eye pain [] HENT: Denies nasal congestion or sore throat [] Respiratory: Denies cough or shortness of breath [] Cardiovascular: No additional information not addressed in HPI [] GI: Denies abdominal pain, nausea, vomiting, reports bloody stools [] : Denies dysuria or hematuria [] Musculoskeletal: Denies back pain or joint pain [] Integument: Denies rash or skin lesions [] Neurologic: Denies headache, focal weakness or sensory changes [] Endocrine: Denies polyuria or polydipsia [] All other systems were reviewed and found to be within normal limits, except as documented in this note. Current Medications Current Medications Current Medications Medications (Trade) Dose Ordered Sig/Jose Start Time Stop Time Status Last Admin Dose Admin Pantoprazole Sodium (PROTONIX VIAL for IV PUSH) 40 mg 1X ONCE 03/29/19 18:30 03/29/19 18:31 DC 03/29/19 19:07 40 MG Sodium Chloride 1,000 ml @ 1,000 mls/hr Q1H 03/29/19 18:17 03/29/19 19:16 DC 03/29/19 18:39 1,000 MLS/HR Allergies Allergies Allergies Coded Allergies Type Severity Reaction Last Updated Verified No Known Drug Allergies 09/04/15 No Physical Exam Physical Exam Constitutional: Well developed,mild distress, non-toxic appearance, very pale. [] HENT: Normocephalic, atraumatic, bilateral external ears normal, oropharynx dry, no oral exudates, nose normal. [] Eyes: PERRLA, EOMI, conjunctiva normal, no discharge. [] Neck: Normal range of motion, no tenderness, supple, no stridor. [] Cardiovascular:Heart rate regular rhythm, no murmur [] Lungs & Thorax: Bilateral breath sounds clear to auscultation [] Abdomen: Bowel sounds normal, soft, no tenderness, no masses, no pulsatile masses, rectal exam with present of materials associate showed normal external anal, black stool in the rectum. [] Skin: Warm, dry, no erythema, no rash. [] Back: No tenderness, no CVA tenderness. [] Extremities: No tenderness, no cyanosis, no clubbing, ROM intact, no edema. [] Neurologic: Alert and oriented X 3, normal motor function, normal sensory function, no focal deficits noted. [] Psychologic: Affect normal, judgement normal, mood normal. [] Current Patient Data Vital Signs Vital Signs Date Time Temp Pulse Resp B/P (MAP) Pulse Ox O2 Delivery O2 Flow Rate FiO2 03/29/19 18:16 97.7 67 16 127/58 (81) 98 Room Air 97.7 Lab Values Laboratory Tests Test 03/29/19 18:20 03/29/19 18:30 White Blood Count 17.8 x10^3/uL (4.0-11.0) H Red Blood Count 1.89 x10^6/uL (4.30-5.70) L Hemoglobin 5.8 g/dL (13.0-17.5) *L Hematocrit 18.5 % (39.0-53.0) *L Mean Corpuscular Volume 98 fL (79-100) Mean Corpuscular Hemoglobin 31 pg (25-35) Mean Corpuscular Hemoglobin Concent 31 g/dL (31-37) Red Cell Distribution Width 21.2 % (11.5-14.5) H Platelet Count 48 x10^3/uL (140-400) L Neutrophils (%) (Auto) 73 % (31-73) Lymphocytes (%) (Auto) 3 % (24-48) L Monocytes (%) (Auto) 23 % (0-9) H Eosinophils (%) (Auto) 1 % (0-3) Basophils (%) (Auto) 0 % (0-3) Neutrophils # (Auto) 13.1 x10^3/uL (1.8-7.7) H Lymphocytes # (Auto) 0.5 x10^3/uL (1.0-4.8) L Monocytes # (Auto) 4.1 x10^3/uL (0.0-1.1) H Eosinophils # (Auto) 0.1 x10^3/uL (0.0-0.7) Basophils # (Auto) 0.0 x10^3/uL (0.0-0.2) Segmented Neutrophils % 75 % (35-66) H Band Neutrophils % 5 % (0-9) Lymphocytes % 4 % (24-48) L Monocytes % 15 % (0-10) H Myelocytes % 1 % (0-0) H Platelet Estimate Decreased (ADEQUATE) Large Platelets Present Poikilocytosis Slight Anisocytosis Mod Schistocytes Few Prothrombin Time 19.1 SEC (11.7-14.0) H Prothrombin Time INR 1.6 (0.8-1.1) H Activated Partial Thromboplast Time 37 SEC (24-38) Sodium Level 145 mmol/L (136-145) Potassium Level 3.7 mmol/L (3.5-5.1) Chloride Level 108 mmol/L (98-107) H Carbon Dioxide Level 18 mmol/L (21-32) L Anion Gap 19 (6-14) H Blood Urea Nitrogen 89 mg/dL (8-26) H Creatinine 3.0 mg/dL (0.7-1.3) H Estimated GFR (Cockcroft-Gault) 20.1 BUN/Creatinine Ratio 30 (6-20) H Glucose Level 130 mg/dL (70-99) H Lactic Acid Level 5.6 mmol/L (0.4-2.0) *H Calcium Level 9.5 mg/dL (8.5-10.1) Total Bilirubin 1.1 mg/dL (0.2-1.0) H Aspartate Amino Transferase (AST) 25 U/L (15-37) Alanine Aminotransferase (ALT) 12 U/L (16-63) L Alkaline Phosphatase 108 U/L (46-116) Creatine Kinase 38 U/L (39-308) L Troponin I Quantitative 0.037 ng/mL (0.000-0.055) YQ-Vjg-Z-Type Natriuretic Peptide 1823 pg/mL (0-449) H Total Protein 6.5 g/dL (6.4-8.2) Albumin 3.1 g/dL (3.4-5.0) L Albumin/Globulin Ratio 0.9 (1.0-1.7) L Stool Occult Blood Positive (NEG) Laboratory Tests 03/29/19 18:20 Laboratory Tests 03/29/19 18:20 EKG EKG EKG interpreted by me. EKG at 1820 showed regular rhythm at rate of 77, abnormal left axis deviation, nonspecific intraventricular block, poor R-wave progress in anteroseptal leads, no acute ST and T-wave abnormalities. Radiology/Procedures Radiology/Procedures [facility] [address] [place], [place] [id number] IMAGING REPORT Signed PATIENT: ANGELICA PRINCE ACCOUNT: [id number] : 1935 LOCATION: ER AGE: 84 SEX: M EXAM STATUS: PRE ER ORD. PHYSICIAN: IGNACIA ELIAS MD REASON: rectal bleeding PROCEDURE: CT HEAD WO CONTRAST CT HEAD WO CONTRAST Date: 03/29/2019 6:17 PM Clinical Indication: Dizziness Comparison: None. Technique: 5 mm axial tomographic images were obtained of the head without contrast. These were viewed on brain and bone windows. One or more of the following dose reduction techniques were utilized: Automated exposure control (AEC), Adjustment of mA and/or kV according to patient size, Use of iterative reconstruction technique such as ASiR, CT scan done according to ALARA and image gently/image wisely Findings: Mild generalized cerebral and cerebellar volume loss. Mild nonspecific periventricular hypoattenuation, most commonly seen with chronic small vessel ischemic disease. Calcified atherosclerosis of the bilateral cavernous and paraclinoid internal carotid arteries and intracranial vertebral arteries. No intra- or extra-axial mass or fluid collection. No acute hemorrhage. The ventricles are normal in size, shape, and morphology. The bui-white matter junction is normal. The subarachnoid cisterns are patent. The visualized paranasal sinuses are normal. The visualized portions of the orbits and globes are normal. The mastoid air cells are clear. The coverstitch elastic attacher topogram shows no lytic lesion or fracture. Impression: No acute intracranial process. Mild cerebral volume loss. Mild chronic small vessel ischemic disease. Electronically signed by: Leon Hollingsworth MD (03/29/2019 7:10 PM) [facility] DICTATED and SIGNED BY: LEON HOLLINGSWORTH MD DATE: 03/29/19 191 [facility] [address] [place] [address] IMAGING REPORT Signed PATIENT: ANGELICA PRINCE ACCOUNT: [id number] : 1935 LOCATION: ER AGE: 84 SEX: M EXAM STATUS: PRE ER ORD. PHYSICIAN: IGNACIA ELIAS MD REASON: dizziness and rectal bleeding PROCEDURE: PORTABLE CHEST 1V PORTABLE CHEST 1V INDICATION: Dizziness, rectal bleeding. COMPARISON STUDY: 12/29/2017. FINDINGS: Left pectoral transvenous single chamber pacemaker Lungs: Normal lung volume. No pulmonary mass or consolidation. The tracheobronchial tree and hilar structures are normal. Pleura: No pleural effusion or pneumothorax. Heart and Mediastinum: Cardiomegaly. Tortuous thoracic aorta. IMPRESSION: No acute cardiopulmonary process. Electronically signed by: Leon Hollingsworth MD (03/29/2019 6:57 PM) [facility] DICTATED and SIGNED BY: LEON HOLLINGSWORTH MD DATE: 03/29/19 185 [facility] [address] [place] [address] IMAGING REPORT Signed PATIENT: ANGELICA PRINCE ACCOUNT: [id number] : 1935 LOCATION: ER AGE: 84 SEX: M EXAM STATUS: PRE ER ORD. PHYSICIAN: IGNACIA ELIAS MD REASON: rectal bleeding PROCEDURE: CT ABDOMEN PELVIS WO CONTRAST CT ABDOMEN PELVIS WO CONTRAST INDICATION: Rectal bleeding EXAM: Noncontrast CT of the abdomen and pelvis. Coronal and sagittal reformatted images were performed. PQRS compliance statement: One or more of the following individualized dose reduction techniques were utilized for this examination: 1. Automated exposure control 2. Adjustment of the mA and/or kV according to patient size 3. Use of iterative reconstruction technique COMPARISON: 08/07/2011 FINDINGS: No free air, free fluid, or fluid collection. Lower chest: Small right and trace left pleural effusions. Cardiomegaly. Coronary artery atherosclerotic disease. Bibasilar dependent and relaxation atelectasis. ABDOMEN: Liver: The noncontrast liver is homogeneous in attenuation. Gallbladder and biliary: Cholecystectomy. Normal caliber bile ducts. Spleen: Enlarged spleen measures 16 cm. Pancreas: The noncontrast pancreas is homogeneous in attenuation without peripancreatic inflammatory changes. Adrenal glands: Normal adrenal glands. Kidneys and ureters: 6 mm nonobstructive left renal calculus. No hydronephrosis. GI tract: The stomach contains fluid and debris. Normal caliber small bowel. Extensive colonic diverticulosis. Normal appendix. Vascular structures: Normal caliber abdominal aorta. Lymph nodes: Retroperitoneal soft tissue density measuring 3.0 x 2.2 cm (series 2 image 40). PELVIS: Genitourinary system: Normal bladder. SKELETAL STRUCTURES AND SOFT TISSUES: Moderate to severe degenerative changes of the spine. IMPRESSION: 1. Extensive colonic diverticulosis. No evidence of acute diverticulitis. 2. Retroperitoneal soft tissue density measuring 3.0 x 2.2 cm, nonspecific but possibly representing lymphadenopathy. Correlate for history of malignancy, and consider a follow-up contrast enhanced CT to assess stability. 3. Nonobstructive left renal calculus measuring 6 mm. 4. Small right and trace left pleural effusions. Electronically signed by: Leon Hollingsworth MD (03/29/2019 7:21 PM) [facility] DICTATED and SIGNED BY: LEON HOLLINGSWORTH MD DATE: 03/29/191920 Course & Med Decision Making Course & Med Decision Making Pertinent Labs and Imaging studies reviewed. (See chart for details) Evaluation of patient in ER showed 83-year-old male patient brought in by EMS because of rectal bleeding and dizziness and fall. Patient had hemoglobin of 5.6 and blood transfusion was started in ER. Patient had lactic is to 5.8 without hypertension, tachycardia, fever, altered level bolus and he was given. [facility] on-call was consulted at 192 and agreed with plan of admitting ICU and blood transfusion and drip of Protonix. Patient requiring admission for further evaluation and treatment. Discussed with Dr. Richey who is in agreement with admission. Discussed findings and plan with patient and family, who acknowledge understanding and agreement. Dragon Disclaimer Dragon Disclaimer This electronic medical record was generated, in whole or in part, using a voice recognition dictation system. Departure Departure Impression: Primary Impression: GI bleeding Additional Impressions: Acute on chronic renal failure Severe sepsis Thrombocytopenia Fall Generalized weakness Diverticulosis Disposition: ADMITTED INPATIENT (at 190) Admitting Physician: ESTELLE (Dr. Richey accepted admission at 190) Condition: GUARDED Referrals: BIPIN MELENDEZ (PCP) Critical Care Time Critical care time was 60 minutes exclusive of procedures. Date and Time of Reassessment Date: Mar 29, 2019 Time: 19:30 Fluid Challenge Is the fluid challenge complet: Yes IBW Target Volume Used: Yes BMI > 30: No Vital Signs Vital Signs: Vital Signs Date Time Temp Pulse Resp B/P (MAP) Pulse Ox O2 Delivery O2 Flow Rate FiO2 03/29/19 18:16 97.7 67 16 127/58 (81) 98 Room Air 97.7 Temperature Source: Oral Respirations Respiratory Pattern: Normal Cardiovascular Pulse Rhythm: Regular Heart: Nml rate, reg. rhythm Lung Sounds Breath Sounds: Clear Capillary Refil Capillary Refill: Rt Hand < 3 seconds Peripheral Pulse Pulse Location: Radial Pulse Strength: Normal (2+) Pulse Assessment Method: Monitor Integumentary Skin Moisture: Dry Problem Qualifiers Primary Impression: GI bleeding GI bleed type/associated pathology: unspecified gastrointestinal hemorrhage type Qualified Codes: K92.2 - Gastrointestinal hemorrhage, unspecified Additional Impressions: Acute on chronic renal failure Acute renal failure type: unspecified Chronic kidney disease stage: unspecified stage Qualified Codes: N17.9 - Acute kidney failure, unspecified; N18.9 - Chronic kidney disease, unspecified Fall Encounter type: subsequent encounter Qualified Codes: W19.XXXD - Unspecified fall, subsequent encounter IGNACIA ELIAS MD Mar 29, 2019 19:16
--- NOTE | 2019-03-29 19:24 | RAD ---
CT ABDOMEN PELVIS WO CONTRAST INDICATION: Rectal bleeding EXAM: Noncontrast CT of the abdomen and pelvis. Coronal and sagittal reformatted images were performed. PQRS compliance statement: One or more of the following individualized dose reduction techniques were utilized for this examination: 1. Automated exposure control 2. Adjustment of the mA and/or kV according to patient size 3. Use of iterative reconstruction technique COMPARISON: 08/07/2011 FINDINGS: No free air, free fluid, or fluid collection. Lower chest: Small right and trace left pleural effusions. Cardiomegaly. Coronary artery atherosclerotic disease. Bibasilar dependent and relaxation atelectasis. ABDOMEN: Liver: The noncontrast liver is homogeneous in attenuation. Gallbladder and biliary: Cholecystectomy. Normal caliber bile ducts. Spleen: Enlarged spleen measures 16 cm. Pancreas: The noncontrast pancreas is homogeneous in attenuation without peripancreatic inflammatory changes. Adrenal glands: Normal adrenal glands. Kidneys and ureters: 6 mm nonobstructive left renal calculus. No hydronephrosis. GI tract: The stomach contains fluid and debris. Normal caliber small bowel. Extensive colonic diverticulosis. Normal appendix. Vascular structures: Normal caliber abdominal aorta. Lymph nodes: Retroperitoneal soft tissue density measuring 3.0 x 2.2 cm (series 2 image 40). PELVIS: Genitourinary system: Normal bladder. SKELETAL STRUCTURES AND SOFT TISSUES: Moderate to severe degenerative changes of the spine. IMPRESSION: 1. Extensive colonic diverticulosis. No evidence of acute diverticulitis. 2. Retroperitoneal soft tissue density measuring 3.0 x 2.2 cm, nonspecific but possibly representing lymphadenopathy. Correlate for history of malignancy, and consider a follow-up contrast enhanced CT to assess stability. 3. Nonobstructive left renal calculus measuring 6 mm. 4. Small right and trace left pleural effusions. Electronically signed by: Gopi Hollingsworth MD (03/29/2019 7:21 PM) [facility]
[2019-03-29] MEDS ORDERED: ONDANSETRON PF 4 MG/2 ML VIAL. IV PRN (19:30)
[2019-03-29 19:34] LABS: % BANDS 5 % (0-9); % LYMPHS 4 % (24-48); % MONOS 15 % (0-10); % MYELOS 1 % (0-0); % SEGS 75 % (35-66); ANISOCYTOSIS MOD; PLT ESTIMATE DECREASED (ADEQUATE); POIKILOCYTOSIS SLIGHT
[2019-03-29 19:35] LABS: SCHISTOCYTES FEW
[2019-03-29] MEDS ORDERED: VANCOMYCIN 1.75 GM in IV NORMAL SALINE 500ML BAG 500 ML IV ONE (20:00)
[2019-03-29] MEDS ORDERED: fentaNYL PF VIAL 100 MCG/2 ML VIAL IVP ONE (20:15)
[2019-03-29 20:53] LABS: BILIRUBIN,URINE NEGATIVE (NEG); CLARITY,URINE CLEAR; COLOR,URINE YELLOW; NITRITE,URINE NEGATIVE (NEG); PROTEIN,URINE 30 mg/dL (NEG-TRACE); UROBILINOGEN,URINE 0.2 mg/dL (0.2 mg/dL)
[2019-03-29 21:20] LABS: AMORPHOUS SEDIMENT,UR PRESENT /HPF; BACTERIA,URINE 0 /HPF (0-FEW); WBC,URINE 0 /HPF (0-4)
--- NOTE | 2019-03-29 22:00 | NUR ---
Pt arrived to room 102 via gurney. First unit PRBC currently infusing. VSS. Pt is AOX3 as he is frequently forgetful about his situation. Able to orient to call light and hospital environment. This RN explained plan of care to patient who agrees with it.
[2019-03-29] MEDS: IV NORMAL SALINE 1000ML BAG 1,000 ML IV SCH (22:55)
[2019-03-30] VITALS (30 sets, daily range): BP systolic 91–133; BP diastolic 43–76
[2019-03-30] MEDS: PANTOPRAZOLE SODIUM IV DRIP 80 MG in IV NORMAL SALINE 100ML 100 ML IV SCH ×2 (03:18→13:33)
[2019-03-30] MEDS: IV NORMAL SALINE 1000ML BAG 1,000 ML IV SCH ×3 (06:21→16:52)
--- NOTE | 2019-03-30 08:58 | EKG ---
[facility] [address] [place] [address] Test Date: 2019-03-29 Test Time: 18:21:01 Pat Name: ANGELICA PRINCE Department: Room: Gender: M Armature Connector: : 1935 Requested By: IGNACIA ELIAS Order Number: [id number] Reading MD: Measurements Intervals Dameron Rate: 76 P: DC: QRS: -69 QRSD: 190 T: 102 QT: 460 QTc: 522 Interpretive Statements REGULAR RHYTHM, NO P WAVE FOUND ABNORMAL LEFT AXIS DEVIATION NON SPECIFIC INTRAVENTRICULAR BLOCK QRS(T) CONTOUR ABNORMALITY CONSIDER ANTEROSEPTAL MYOCARDIAL DAMAGE CONSISTENT WITH INFERIOR INFARCT POSSIBLY RECENT ABNORMAL ECG No previous ECG available for comparison
--- NOTE | 2019-03-30 09:22 | PDOC2 ---
GI CONSULT Reason For Consult: GI bleeding HPI: HPI: 84 y/o male, not a great historian, seen in ICU and d/w Dr. Stewart and nurse. We saw him here in 01/2019 for melena, macrocytic anemia w/ h/o iron deficiency, chronic thrombocytopenia, and coagulopathy. Offered inpt EGD which he first agreed to and then declined after talking w/ family. Additional possibility of alcoholic liver disease - fatty liver and splenomegaly on US then (which also noted possible chronic pyelonephritis) and Hepatitis panel negative. Also suggestion for hematology opinion but he requested discharge. Recommended to continue PPI and follow-up for outpt EGD in 2 weeks - he requested this not be done for 6-8 weeks. Current history involves a fall (?yesterday ?a week ago - varying history) and hitting his head, weakness, shortness of breath, dizziness, possible coffee- ground emesis and worsening melena for 4 days "or maybe months." Decreased appetite. Says taking no medications except a vitamin at home - quit everything else about 2 weeks ago. Says he hasn't communicated any of this to family. Has some pain in right hip and head - varying history re: this as well. Denies abdominal pain and hematochezia. Denies ASA/NSAIDs. Has been sober for a couple months. From previous encounters, h/o GERD w/ PRN use of acid-reducers. Reportedly normal colonoscopy in the past, unclear if previous EGD. S/p cholecystectomy. No bleeding since admission per nurse, transfused 2 units pRBCs and awaiting recheck of labs. PMH: PMH: ?A Fib, HTN, GERD, CKD, nephrolithiasis, right inguinal hernia repair w/ mesh, left knee replacement, bilateral shoulder replacements, cholecystectomy, pacemaker FH: Family History: No pertinent hx Social History: Smoke: Quit ALCOHOL: other Drugs: None ROS: Per HPI. Vitals: Vitals: Vital Signs Date Time Temp Pulse Resp B/P (MAP) Pulse Ox O2 Delivery O2 Flow Rate FiO2 03/30/19 09:10 60 22 103/54 (70) 96 Room Air 03/30/19 08:43 97.9 97.9 Labs: Labs: Laboratory Tests Test 03/29/19 18:20 03/29/19 18:30 03/29/19 20:46 03/29/19 21:51 White Blood Count 17.8 x10^3/uL (4.0-11.0) Red Blood Count 1.89 x10^6/uL (4.30-5.70) Hemoglobin 5.8 g/dL (13.0-17.5) Hematocrit 18.5 % (39.0-53.0) Mean Corpuscular Volume 98 fL (79-100) Mean Corpuscular Hemoglobin 31 pg (25-35) Mean Corpuscular Hemoglobin Concent 31 g/dL (31-37) Red Cell Distribution Width 21.2 % (11.5-14.5) Platelet Count 48 x10^3/uL (140-400) Neutrophils (%) (Auto) 73 % (31-73) Lymphocytes (%) (Auto) 3 % (24-48) Monocytes (%) (Auto) 23 % (0-9) Eosinophils (%) (Auto) 1 % (0-3) Basophils (%) (Auto) 0 % (0-3) Neutrophils # (Auto) 13.1 x10^3/uL (1.8-7.7) Lymphocytes # (Auto) 0.5 x10^3/uL (1.0-4.8) Monocytes # (Auto) 4.1 x10^3/uL (0.0-1.1) Eosinophils # (Auto) 0.1 x10^3/uL (0.0-0.7) Basophils # (Auto) 0.0 x10^3/uL (0.0-0.2) Segmented Neutrophils % 75 % (35-66) Band Neutrophils % 5 % (0-9) Lymphocytes % 4 % (24-48) Monocytes % 15 % (0-10) Myelocytes % 1 % (0-0) Platelet Estimate Decreased (ADEQUATE) Large Platelets Present Poikilocytosis Slight Anisocytosis Mod Schistocytes Few Prothrombin Time 19.1 SEC (11.7-14.0) Prothromb Time International Ratio 1.6 (0.8-1.1) Activated Partial Thromboplast Time 37 SEC (24-38) Sodium Level 145 mmol/L (136-145) Potassium Level 3.7 mmol/L (3.5-5.1) Chloride Level 108 mmol/L (98-107) Carbon Dioxide Level 18 mmol/L (21-32) Anion Gap 19 (6-14) Blood Urea Nitrogen 89 mg/dL (8-26) Creatinine 3.0 mg/dL (0.7-1.3) Estimated GFR (Cockcroft-Gault) 20.1 BUN/Creatinine Ratio 30 (6-20) Glucose Level 130 mg/dL (70-99) Lactic Acid Level 5.6 mmol/L (0.4-2.0) 4.6 mmol/L (0.4-2.0) Calcium Level 9.5 mg/dL (8.5-10.1) Total Bilirubin 1.1 mg/dL (0.2-1.0) Aspartate Amino Transf (AST/SGOT) 25 U/L (15-37) Alanine Aminotransferase (ALT/SGPT) 12 U/L (16-63) Alkaline Phosphatase 108 U/L (46-116) Creatine Kinase 38 U/L (39-308) Troponin I Quantitative 0.037 ng/mL (0.000-0.055) AQ-Dnw-C-Type Natriuretic Peptide 1823 pg/mL (0-449) Total Protein 6.5 g/dL (6.4-8.2) Albumin 3.1 g/dL (3.4-5.0) Albumin/Globulin Ratio 0.9 (1.0-1.7) Stool Occult Blood Positive (NEG) Urine Collection Type Unknown Urine Color Yellow Urine Clarity Clear Urine pH 5.0 Urine Specific [place] 1.020 Urine Protein 30 mg/dL (NEG-TRACE) Urine Glucose (UA) Negative mg/dL (NEG) Urine Ketones (Stick) Negative mg/dL (NEG) Urine Blood Small (NEG) Urine Nitrite Negative (NEG) Urine Bilirubin Negative (NEG) Urine Urobilinogen Dipstick 0.2 mg/dL (0.2 mg/dL) Urine Leukocyte Esterase Negative (NEG) Urine RBC 1-2 /HPF (0-2) Urine WBC 0 /HPF (0-4) Urine Amorphous Sediment Present /HPF Urine Bacteria 0 /HPF (0-FEW) Allergies: Coded Allergies: No Known Drug Allergies (Unverified , 09/04/15) Medications: Current Medications Medications (Trade) Dose Ordered Sig/Jose Route PRN Reason Start Time Stop Time Status Last Admin Dose Admin Sodium Chloride 1,000 ml @ 1,000 mls/hr Q1H IV 03/29/19 18:17 03/29/19 19:16 DC 03/29/19 18:39 Pantoprazole Sodium (PROTONIX VIAL for IV PUSH) 40 mg 1X ONCE IVP 03/29/19 18:30 03/29/19 18:31 DC 03/29/19 19:07 Pantoprazole Sodium 80 mg/ Sodium Chloride 100 ml @ 10 mls/hr Q10H IV 03/29/19 18:45 04/01/19 18:44 03/30/19 03:18 Piperacillin Sod/ Tazobactam Sod 3.375 gm/Sodium Chloride 50 ml @ 100 mls/hr 1X ONCE IV 03/29/19 19:15 03/29/19 19:44 DC 03/29/19 19:23 Sodium Chloride 1,000 ml @ 1,200 mls/hr 1X ONCE IV 03/29/19 19:15 03/29/19 20:04 DC 03/29/19 19:15 Vancomycin HCl 1.75 gm/Sodium Chloride 500 ml @ 250 mls/hr ONCE ONCE IV 03/29/19 20:00 03/29/19 21:59 DC 03/29/19 20:23 Sodium Chloride 1,000 ml @ 125 mls/hr Q8H IV 03/29/19 19:17 03/30/19 19:16 03/30/19 06:21 Fentanyl Citrate (Fentanyl 2ml Vial) 50 mcg 1X ONCE IVP 03/29/19 20:15 03/29/19 20:16 DC 03/29/19 20:29 Imaging: Imaging: CT A/P IMPRESSION: 1. Extensive colonic diverticulosis. No evidence of acute diverticulitis. 2. Retroperitoneal soft tissue density measuring 3.0 x 2.2 cm, nonspecific but possibly representing lymphadenopathy. Correlate for history of malignancy, and consider a follow-up contrast enhanced CT to assess stability. 3. Nonobstructive left renal calculus measuring 6 mm. 4. Small right and trace left pleural effusions. CXR IMPRESSION: No acute cardiopulmonary process. Head CT Impression: No acute intracranial process. Mild cerebral volume loss. Mild chronic small vessel ischemic disease. PE: GEN: ill HEENT: Atraumatic, PERRL LUNGS: clear anteriorly HEART: RRR ABD: NABS, S/ND/NT EXTREMITY: trace edema BLE SKIN: Nchronic skin changes BLE NEURO/PSYCH: A & O 3 - forgetful - can't remember what day he came to the ER A/P: A/P: Coffee-ground emesis, melena Weakness, dizziness, shortness of breath, fall Chronic leukocytosis, anemia (Hgb 5.8) w/ +Hemoccult, chronic thrombocytopenia, coagulopathy - iron deficient in 2018 Lactic acidosis, CKD/CHAY, ?lymphadenopathy on CT H/o GERD - non-compliant w/ acid-reducers ?alcoholic liver disease CRC screen - reports normal colonoscopy in the past Diverticulosis S/p cholecystectomy -- Declined inpt scopes in Jan, now readmitted and agreeable to EGD. Scheduled for today w/ Dr. Coppola. Continue NPO and IV PPI for now, await recheck of labs, transfuse as needed. ISAI MOYA Mar 30, 2019 09:22
[2019-03-30 09:24] LABS: CALCIUM 8.8 mg/dL (8.5-10.1); CREATININE 2.6 mg/dL (0.7-1.3); GFR 23.7; POTASSIUM 3.6 mmol/L (3.5-5.1)
[2019-03-30 09:32] LABS: BASO % 0 % (0-3); EOS # 0.1 x10^3/uL (0.0-0.7); EOS % 1 % (0-3); HEMATOCRIT 21.2 % (39.0-53.0); LYMPH # 0.8 x10^3/uL (1.0-4.8); LYMPH % 4 % (24-48); MEAN CORPUSCULAR HEMOGLOBIN 30 pg (25-35); MEAN CORPUSCULAR HGB CONC 32 g/dL (31-37); MEAN CORPUSCULAR VOLUME 95 fL (79-100); MONO # 8.5 x10^3/uL (0.0-1.1); MONO % 38 % (0-9); NEUT % 58 % (31-73); PLATELET COUNT 37 x10^3/uL (140-400); RED BLOOD COUNT 2.24 x10^6/uL (4.30-5.70); RED CELL DISTRIBUTION WIDTH 19.4 % (11.5-14.5); WHITE BLOOD COUNT 22.5 x10^3/uL (4.0-11.0)
[2019-03-30 09:35] LABS: HEMOGLOBIN 6.8 g/dL (13.0-17.5)
[2019-03-30 12:04] LABS: BASO # 0.1 x10^3/uL (0.0-0.2); BASO % 0 % (0-3); EOS # 0.1 x10^3/uL (0.0-0.7); EOS % 1 % (0-3); HEMATOCRIT 22.2 % (39.0-53.0); HEMOGLOBIN 7.1 g/dL (13.0-17.5); LYMPH # 0.9 x10^3/uL (1.0-4.8); LYMPH % 4 % (24-48); MEAN CORPUSCULAR HEMOGLOBIN 31 pg (25-35); MEAN CORPUSCULAR HGB CONC 32 g/dL (31-37); MEAN CORPUSCULAR VOLUME 96 fL (79-100); MONO # 9.3 x10^3/uL (0.0-1.1); MONO % 36 % (0-9); NEUT # 15.5 x10^3/uL (1.8-7.7); NEUT % 60 % (31-73); PLATELET COUNT 41 x10^3/uL (140-400); RED BLOOD COUNT 2.31 x10^6/uL (4.30-5.70); RED CELL DISTRIBUTION WIDTH 19.8 % (11.5-14.5); WHITE BLOOD COUNT 25.9 x10^3/uL (4.0-11.0)
--- NOTE | 2019-03-30 13:56 | PDOC1 ---
History and Physical Date of Admission Date of Admission 03/30/2019 Identification/Chief Complaint Chief Complaint I feel weak Source Source: Chart review, Patient History of Present Illness History of Present Illness Patient is an 84-year-old gentleman who apparently lives by himself was admitted to our institution in January 2019 for melena microcytic anemia and iron deficiency. The patient also had chronic thrombocytopenia at that time. During that hospital stay GI consultation was requested and EGD was recommended at that time to workup his anemia and melanotic stools. The patient unfortunately did not want to go through with the procedure at that time and was dismissed with instructions to follow-up with GI in the outpatient setting he was also given a prescription for PPI. Patient has past medical history of hypertension chronic kidney disease. He does not take blood thinners he denies history of NSAID abuse. Yesterday the patient noted to have coffee ground emesis on several occasions p rior to coming to the emergency department. Sounds like he had a syncopal episode which may have been due to orthostasis. At the time of my evaluation the patient is quite weak and not a great historian most of the details are from review off his chart. Plan of care has been explained detail and all concerns were addressed to the best of my abilities Past Medical History Cardiovascular: CAD Psych: Addictions Renal/: Acute renal failure Past Surgical History Past Surgical History: Pacemaker Family History Family History: Alcohol Abuse Social History Smoke: Quit ALCOHOL: other Drugs: None Current Problem List Problem List Problems Medical Problems: (1) Acute on chronic renal failure Status: Acute (2) Diverticulosis Status: Acute (3) Fall Status: Acute (4) Generalized weakness Status: Acute (5) GI bleeding Status: Acute (6) Severe sepsis Status: Acute (7) Thrombocytopenia Status: Acute Current Medications Current Medications Current Medications Medications (Trade) Dose Ordered Sig/Jose Start Time Stop Time Status Last Admin Dose Admin Fentanyl Citrate (Fentanyl 2ml Vial) 50 mcg 1X ONCE 03/29/19 20:15 03/29/19 20:16 DC 03/29/19 20:29 50 MCG Ondansetron HCl (Zofran) 4 mg PRN Q8HRS PRN 03/29/19 19:30 03/30/19 06:00 DC Pantoprazole Sodium (PROTONIX VIAL for IV PUSH) 40 mg 1X ONCE 03/29/19 18:30 03/29/19 18:31 DC 03/29/19 19:07 40 MG Pantoprazole Sodium 80 mg/ Sodium Chloride 100 ml @ 10 mls/hr Q10H 03/29/19 18:45 04/01/19 18:44 03/30/19 13:33 10 MLS/HR Piperacillin Sod/ Tazobactam Sod 3.375 gm/Sodium Chloride 50 ml @ 100 mls/hr 1X ONCE 03/29/19 19:15 03/29/19 19:44 DC 03/29/19 19:23 100 MLS/HR Sodium Chloride 1,000 ml @ 125 mls/hr Q8H 03/29/19 19:17 03/30/19 19:16 03/30/19 06:21 125 MLS/HR Vancomycin HCl 1.75 gm/Sodium Chloride 500 ml @ 250 mls/hr ONCE ONCE 03/29/19 20:00 03/29/19 21:59 DC 03/29/19 20:23 250 MLS/HR Allergies Allergies Allergies Coded Allergies Type Severity Reaction Last Updated Verified No Known Drug Allergies 09/04/15 No ROS Review of System CONSTITUTIONAL: No fever or chills EYES: No recent changes SKIN: No rash or itching CARDIOVASCULAR: No chest pain, syncope, palpitations, or edema RESPIRATORY: No SOB or cough GASTROINTESTINAL: No nausea, vomiting or abdominal pain NEUROLOGICAL: No headaches or weakness ENDOCRINE: No cold or heat intolerance GENITOURINARY: No urgency or frequency of urination MUSCULOSKELETAL: No back pain or joint pain LYMPHATICS: No enlarged lymph nodes PSYCHIATRIC: No anxiety or depression Physical Exam Physical Exam Gen.: Chronically ill-appearing older than the stated age disheveled in no apparent distress Head: Normal shape atraumatic Eyes: Pupils equal reactive to light and accommodation, normal conjunctivae and lids Ears: Normal shape Nose: Normal shape no trauma Mouth: No exudates of the back of throat no thrush no lesions Neck: Supple no JVD no carotid bruit or lymphadenopathy no thyromegaly Chest: Lungs clear to auscultation with good inspiratory effort no crackles rales or rhonchi Cardiovascular: S1-S2 regular rhythm systolic murmurs gallops or rubs Abdomen: Bowel sounds present soft nontender no hepatosplenomegaly appreciated sign Extremities: No clubbing no cyanosis no edema peripheral pulses palpated bilaterally Neurological: Alert awake oriented in person time place and situation, cranial nerves II through XII intact, no motor or sensory deficits appreciated Psych: Appropriate mood, cooperative Vitals Vitals Vital Signs Date Time Temp Pulse Resp B/P (MAP) Pulse Ox O2 Delivery O2 Flow Rate FiO2 03/30/19 13:06 60 16 133/76 (95) 100 Room Air 03/30/19 11:01 97.7 97.7 Labs Labs Laboratory Tests Test 03/29/19 18:20 03/29/19 18:30 03/29/19 20:46 03/29/19 21:51 White Blood Count 17.8 x10^3/uL (4.0-11.0) Red Blood Count 1.89 x10^6/uL (4.30-5.70) Hemoglobin 5.8 g/dL (13.0-17.5) Hematocrit 18.5 % (39.0-53.0) Mean Corpuscular Volume 98 fL (79-100) Mean Corpuscular Hemoglobin 31 pg (25-35) Mean Corpuscular Hemoglobin Concent 31 g/dL (31-37) Red Cell Distribution Width 21.2 % (11.5-14.5) Platelet Count 48 x10^3/uL (140-400) Neutrophils (%) (Auto) 73 % (31-73) Lymphocytes (%) (Auto) 3 % (24-48) Monocytes (%) (Auto) 23 % (0-9) Eosinophils (%) (Auto) 1 % (0-3) Basophils (%) (Auto) 0 % (0-3) Neutrophils # (Auto) 13.1 x10^3/uL (1.8-7.7) Lymphocytes # (Auto) 0.5 x10^3/uL (1.0-4.8) Monocytes # (Auto) 4.1 x10^3/uL (0.0-1.1) Eosinophils # (Auto) 0.1 x10^3/uL (0.0-0.7) Basophils # (Auto) 0.0 x10^3/uL (0.0-0.2) Segmented Neutrophils % 75 % (35-66) Band Neutrophils % 5 % (0-9) Lymphocytes % 4 % (24-48) Monocytes % 15 % (0-10) Myelocytes % 1 % (0-0) Platelet Estimate Decreased (ADEQUATE) Large Platelets Present Poikilocytosis Slight Anisocytosis Mod Schistocytes Few Prothrombin Time 19.1 SEC (11.7-14.0) Prothromb Time International Ratio 1.6 (0.8-1.1) Activated Partial Thromboplast Time 37 SEC (24-38) Sodium Level 145 mmol/L (136-145) Potassium Level 3.7 mmol/L (3.5-5.1) Chloride Level 108 mmol/L (98-107) Carbon Dioxide Level 18 mmol/L (21-32) Anion Gap 19 (6-14) Blood Urea Nitrogen 89 mg/dL (8-26) Creatinine 3.0 mg/dL (0.7-1.3) Estimated GFR (Cockcroft-Gault) 20.1 BUN/Creatinine Ratio 30 (6-20) Glucose Level 130 mg/dL (70-99) Lactic Acid Level 5.6 mmol/L (0.4-2.0) 4.6 mmol/L (0.4-2.0) Calcium Level 9.5 mg/dL (8.5-10.1) Total Bilirubin 1.1 mg/dL (0.2-1.0) Aspartate Amino Transf (AST/SGOT) 25 U/L (15-37) Alanine Aminotransferase (ALT/SGPT) 12 U/L (16-63) Alkaline Phosphatase 108 U/L (46-116) Creatine Kinase 38 U/L (39-308) Troponin I Quantitative 0.037 ng/mL (0.000-0.055) VN-Fms-P-Type Natriuretic Peptide 1823 pg/mL (0-449) Total Protein 6.5 g/dL (6.4-8.2) Albumin 3.1 g/dL (3.4-5.0) Albumin/Globulin Ratio 0.9 (1.0-1.7) Stool Occult Blood Positive (NEG) Urine Collection Type Unknown Urine Color Yellow Urine Clarity Clear Urine pH 5.0 Urine Specific [place] 1.020 Urine Protein 30 mg/dL (NEG-TRACE) Urine Glucose (UA) Negative mg/dL (NEG) Urine Ketones (Stick) Negative mg/dL (NEG) Urine Blood Small (NEG) Urine Nitrite Negative (NEG) Urine Bilirubin Negative (NEG) Urine Urobilinogen Dipstick 0.2 mg/dL (0.2 mg/dL) Urine Leukocyte Esterase Negative (NEG) Urine RBC 1-2 /HPF (0-2) Urine WBC 0 /HPF (0-4) Urine Amorphous Sediment Present /HPF Urine Bacteria 0 /HPF (0-FEW) Test 03/30/19 08:20 03/30/19 11:45 White Blood Count 22.5 x10^3/uL (4.0-11.0) 25.9 x10^3/uL (4.0-11.0) Red Blood Count 2.24 x10^6/uL (4.30-5.70) 2.31 x10^6/uL (4.30-5.70) Hemoglobin 6.8 g/dL (13.0-17.5) 7.1 g/dL (13.0-17.5) Hematocrit 21.2 % (39.0-53.0) 22.2 % (39.0-53.0) Mean Corpuscular Volume 95 fL (79-100) 96 fL (79-100) Mean Corpuscular Hemoglobin 30 pg (25-35) 31 pg (25-35) Mean Corpuscular Hemoglobin Concent 32 g/dL (31-37) 32 g/dL (31-37) Red Cell Distribution Width 19.4 % (11.5-14.5) 19.8 % (11.5-14.5) Platelet Count 37 x10^3/uL (140-400) 41 x10^3/uL (140-400) Neutrophils (%) (Auto) 58 % (31-73) 60 % (31-73) Lymphocytes (%) (Auto) 4 % (24-48) 4 % (24-48) Monocytes (%) (Auto) 38 % (0-9) 36 % (0-9) Eosinophils (%) (Auto) 1 % (0-3) 1 % (0-3) Basophils (%) (Auto) 0 % (0-3) 0 % (0-3) Neutrophils # (Auto) 13.0 x10^3/uL (1.8-7.7) 15.5 x10^3/uL (1.8-7.7) Lymphocytes # (Auto) 0.8 x10^3/uL (1.0-4.8) 0.9 x10^3/uL (1.0-4.8) Monocytes # (Auto) 8.5 x10^3/uL (0.0-1.1) 9.3 x10^3/uL (0.0-1.1) Eosinophils # (Auto) 0.1 x10^3/uL (0.0-0.7) 0.1 x10^3/uL (0.0-0.7) Basophils # (Auto) 0.0 x10^3/uL (0.0-0.2) 0.1 x10^3/uL (0.0-0.2) Sodium Level 147 mmol/L (136-145) Potassium Level 3.6 mmol/L (3.5-5.1) Chloride Level 114 mmol/L (98-107) Carbon Dioxide Level 18 mmol/L (21-32) Anion Gap 15 (6-14) Blood Urea Nitrogen 81 mg/dL (8-26) Creatinine 2.6 mg/dL (0.7-1.3) Estimated GFR (Cockcroft-Gault) 23.7 Glucose Level 94 mg/dL (70-99) Lactic Acid Level 1.8 mmol/L (0.4-2.0) Calcium Level 8.8 mg/dL (8.5-10.1) Laboratory Tests Test 03/29/19 18:20 03/29/19 18:30 03/29/19 20:46 03/29/19 21:51 White Blood Count 17.8 x10^3/uL (4.0-11.0) Red Blood Count 1.89 x10^6/uL (4.30-5.70) Hemoglobin 5.8 g/dL (13.0-17.5) Hematocrit 18.5 % (39.0-53.0) Mean Corpuscular Volume 98 fL (79-100) Mean Corpuscular Hemoglobin 31 pg (25-35) Mean Corpuscular Hemoglobin Concent 31 g/dL (31-37) Red Cell Distribution Width 21.2 % (11.5-14.5) Platelet Count 48 x10^3/uL (140-400) Neutrophils (%) (Auto) 73 % (31-73) Lymphocytes (%) (Auto) 3 % (24-48) Monocytes (%) (Auto) 23 % (0-9) Eosinophils (%) (Auto) 1 % (0-3) Basophils (%) (Auto) 0 % (0-3) Neutrophils # (Auto) 13.1 x10^3/uL (1.8-7.7) Lymphocytes # (Auto) 0.5 x10^3/uL (1.0-4.8) Monocytes # (Auto) 4.1 x10^3/uL (0.0-1.1) Eosinophils # (Auto) 0.1 x10^3/uL (0.0-0.7) Basophils # (Auto) 0.0 x10^3/uL (0.0-0.2) Segmented Neutrophils % 75 % (35-66) Band Neutrophils % 5 % (0-9) Lymphocytes % 4 % (24-48) Monocytes % 15 % (0-10) Myelocytes % 1 % (0-0) Platelet Estimate Decreased (ADEQUATE) Large Platelets Present Poikilocytosis Slight Anisocytosis Mod Schistocytes Few Prothrombin Time 19.1 SEC (11.7-14.0) Prothromb Time International Ratio 1.6 (0.8-1.1) Activated Partial Thromboplast Time 37 SEC (24-38) Sodium Level 145 mmol/L (136-145) Potassium Level 3.7 mmol/L (3.5-5.1) Chloride Level 108 mmol/L (98-107) Carbon Dioxide Level 18 mmol/L (21-32) Anion Gap 19 (6-14) Blood Urea Nitrogen 89 mg/dL (8-26) Creatinine 3.0 mg/dL (0.7-1.3) Estimated GFR (Cockcroft-Gault) 20.1 BUN/Creatinine Ratio 30 (6-20) Glucose Level 130 mg/dL (70-99) Lactic Acid Level 5.6 mmol/L (0.4-2.0) 4.6 mmol/L (0.4-2.0) Calcium Level 9.5 mg/dL (8.5-10.1) Total Bilirubin 1.1 mg/dL (0.2-1.0) Aspartate Amino Transf (AST/SGOT) 25 U/L (15-37) Alanine Aminotransferase (ALT/SGPT) 12 U/L (16-63) Alkaline Phosphatase 108 U/L (46-116) Creatine Kinase 38 U/L (39-308) Troponin I Quantitative 0.037 ng/mL (0.000-0.055) VU-Yzx-U-Type Natriuretic Peptide 1823 pg/mL (0-449) Total Protein 6.5 g/dL (6.4-8.2) Albumin 3.1 g/dL (3.4-5.0) Albumin/Globulin Ratio 0.9 (1.0-1.7) Stool Occult Blood Positive (NEG) Urine Collection Type Unknown Urine Color Yellow Urine Clarity Clear Urine pH 5.0 Urine Specific [place] 1.020 Urine Protein 30 mg/dL (NEG-TRACE) Urine Glucose (UA) Negative mg/dL (NEG) Urine Ketones (Stick) Negative mg/dL (NEG) Urine Blood Small (NEG) Urine Nitrite Negative (NEG) Urine Bilirubin Negative (NEG) Urine Urobilinogen Dipstick 0.2 mg/dL (0.2 mg/dL) Urine Leukocyte Esterase Negative (NEG) Urine RBC 1-2 /HPF (0-2) Urine WBC 0 /HPF (0-4) Urine Amorphous Sediment Present /HPF Urine Bacteria 0 /HPF (0-FEW) Test 03/30/19 08:20 03/30/19 11:45 White Blood Count 22.5 x10^3/uL (4.0-11.0) 25.9 x10^3/uL (4.0-11.0) Red Blood Count 2.24 x10^6/uL (4.30-5.70) 2.31 x10^6/uL (4.30-5.70) Hemoglobin 6.8 g/dL (13.0-17.5) 7.1 g/dL (13.0-17.5) Hematocrit 21.2 % (39.0-53.0) 22.2 % (39.0-53.0) Mean Corpuscular Volume 95 fL (79-100) 96 fL (79-100) Mean Corpuscular Hemoglobin 30 pg (25-35) 31 pg (25-35) Mean Corpuscular Hemoglobin Concent 32 g/dL (31-37) 32 g/dL (31-37) Red Cell Distribution Width 19.4 % (11.5-14.5) 19.8 % (11.5-14.5) Platelet Count 37 x10^3/uL (140-400) 41 x10^3/uL (140-400) Neutrophils (%) (Auto) 58 % (31-73) 60 % (31-73) Lymphocytes (%) (Auto) 4 % (24-48) 4 % (24-48) Monocytes (%) (Auto) 38 % (0-9) 36 % (0-9) Eosinophils (%) (Auto) 1 % (0-3) 1 % (0-3) Basophils (%) (Auto) 0 % (0-3) 0 % (0-3) Neutrophils # (Auto) 13.0 x10^3/uL (1.8-7.7) 15.5 x10^3/uL (1.8-7.7) Lymphocytes # (Auto) 0.8 x10^3/uL (1.0-4.8) 0.9 x10^3/uL (1.0-4.8) Monocytes # (Auto) 8.5 x10^3/uL (0.0-1.1) 9.3 x10^3/uL (0.0-1.1) Eosinophils # (Auto) 0.1 x10^3/uL (0.0-0.7) 0.1 x10^3/uL (0.0-0.7) Basophils # (Auto) 0.0 x10^3/uL (0.0-0.2) 0.1 x10^3/uL (0.0-0.2) Sodium Level 147 mmol/L (136-145) Potassium Level 3.6 mmol/L (3.5-5.1) Chloride Level 114 mmol/L (98-107) Carbon Dioxide Level 18 mmol/L (21-32) Anion Gap 15 (6-14) Blood Urea Nitrogen 81 mg/dL (8-26) Creatinine 2.6 mg/dL (0.7-1.3) Estimated GFR (Cockcroft-Gault) 23.7 Glucose Level 94 mg/dL (70-99) Lactic Acid Level 1.8 mmol/L (0.4-2.0) Calcium Level 8.8 mg/dL (8.5-10.1) VTE Prophylaxis Ordered VTE Prophylaxis Devices: Yes VTE Pharmacological Prophylaxi: No Assessment/Plan Assessment/Plan Leukocytosis with no evidence of acute infection Retroperitoneal soft tissue density nonspecific but possibly re-presenting lymphadenopathy 3 x 22 cm History of hypertension History of normocytic anemia Thrombocytopenia Acute renal failure secondary to prerenal azotemia Hypernatremia secondary to severe dehydration Plan: Consult GI Transfuse to maintain hemoglobin greater than 7 Follow platelet count in the a.m. Resume home medications once available for review Supportive measures Follow hemodynamics DVT prophylaxis with SCD and teds given GI bleeding BAUDILIO MEJIA MD Mar 30, 2019 13:56
--- NOTE | 2019-03-30 14:12 | NUR ---
SS following for discharge planning. SS reviewed pt chart. Pt is from home and is currently on room air. SS will continue to follow for discharge planning.
[2019-03-30 18:34] LABS: HEMATOCRIT 23.2 % (39.0-53.0); HEMOGLOBIN 7.4 g/dL (13.0-17.5)
[2019-03-31] VITALS (17 sets, daily range): BP systolic 93–144; BP diastolic 39–75
[2019-03-31 05:08] LABS: HEMATOCRIT 22.3 % (39.0-53.0); HEMOGLOBIN 7.1 g/dL (13.0-17.5); RED BLOOD COUNT 2.35 x10^6/uL (4.30-5.70); WHITE BLOOD COUNT 21.6 x10^3/uL (4.0-11.0)
[2019-03-31 05:38] LABS: ALBUMIN 2.7 g/dL (3.4-5.0); ALBUMIN/GLOBULIN RATIO 0.9 (1.0-1.7); CALCIUM 8.4 mg/dL (8.5-10.1); CREATININE 2.7 mg/dL (0.7-1.3); GFR 22.7; POTASSIUM 3.4 mmol/L (3.5-5.1); TOTAL BILIRUBIN 0.9 mg/dL (0.2-1.0); TOTAL PROTEIN 5.7 g/dL (6.4-8.2)
[2019-03-31] MEDS ORDERED: fentaNYL PF VIAL 100 MCG/2 ML VIAL IV PRN ×2 (07:00)
[2019-03-31] MEDS ORDERED: IV RINGERS,LACTATED 1000ML 1,000 ML IV SCH (07:00)
[2019-03-31] MEDS ORDERED: ONDANSETRON PF 4 MG/2 ML VIAL. IV PRN (07:00)
[2019-03-31] MEDS ORDERED: HYDROmorphone 2 MG/ML VIAL IV PRN (07:00)
[2019-03-31] MEDS ORDERED: PROCHLORPERAZINE 10 MG/2 ML VIAL. IV PRN (07:00)
[2019-03-31] MEDS ORDERED: MORPHINE SULFATE 2 MG/ML VIAL. IV PRN (07:00)
[2019-03-31] MEDS ORDERED: PANTOPRAZOLE IV PUSH 40 MG VIAL. IVP SCH (07:30)
[2019-03-31] MEDS: IV NORMAL SALINE 1000ML BAG 1,000 ML IV SCH ×2 (08:54→22:00)
[2019-03-31] MEDS ORDERED: IV NORMAL SALINE 1000ML BAG 500 ML IV SCH (09:00)
[2019-03-31] MEDS ORDERED: IV RINGERS,LACTATED 1000ML 1,000 ML IV ONE (11:30)
[2019-03-31] MEDS ORDERED: LIDOCAINE 2% PF 5 ML VIAL. ONE (11:51)
[2019-03-31] MEDS ORDERED: PROPOFOL 20 ML IV ONE (11:51)
--- NOTE | 2019-03-31 12:34 | PDOC4 ---
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
--- NOTE | 2019-03-31 16:30 | PDOC ---
PROGRESS NOTES Chief Complaint Chief Complaint Leukocytosis with no evidence of acute infection Retroperitoneal soft tissue density nonspecific but possibly re-presenting lymphadenopathy 3 x 22 cm, will need work up once more stable. History of hypertension History of normocytic anemia Thrombocytopenia Acute renal failure secondary to prerenal azotemia Hypernatremia secondary to severe dehydration Plan: procedures with GI today will order 1 unit of PRBC Follow platelet count in the a.m. Resume home medications once available for review Supportive measures Follow hemodynamics will need to explore interventional radiology biopsy option once patient is more stable. concern for malignancy in the differential DVT prophylaxis with SCD and teds given GI bleeding History of Present Illness History of Present Illness Patient in no apparent distress, no nausea vomiting or any other ocmplaints voiced, patient remains stable, not requiring pressors. Plan of care sprain detail all concerns addressed to the best my abilities Vitals Vitals Vital Signs Date Time Temp Pulse Resp B/P (MAP) Pulse Ox O2 Delivery O2 Flow Rate FiO2 03/31/19 15:07 60 19 144/75 (98) 99 Room Air 03/31/19 13:55 98.0 98.0 03/31/19 12:30 5 Physical Exam Physical Exam Gen.: well-developed well-nourished in no apparent distress Head: Normal shape atraumatic Eyes: Pupils equal reactive to light and accommodation, normal conjunctivae and lids Ears: Normal shape Nose: Normal shape no trauma Mouth: No exudates of the back of throat no thrush no lesions Neck: Supple no JVD no carotid bruit or lymphadenopathy no thyromegaly Chest: Lungs clear to auscultation with good inspiratory effort no crackles rales or rhonchi Cardiovascular: S1-S2 regular rhythm no murmurs gallops or rubs Abdomen: Bowel sounds present soft nontender no hepatosplenomegaly appreciated sign Extremities: No clubbing no cyanosis no edema peripheral pulses palpated bilaterally Neurological: Alert awake oriented in person time place and situation, cranial nerves II through XII intact, no motor or sensory deficits appreciated Psych: Appropriate mood, cooperative Lungs: Clear Labs LABS Laboratory Tests Test 03/30/19 18:15 03/31/19 05:00 03/31/19 13:15 Hemoglobin 7.4 g/dL (13.0-17.5) 7.1 g/dL (13.0-17.5) 7.0 g/dL (13.0-17.5) Hematocrit 23.2 % (39.0-53.0) 22.3 % (39.0-53.0) 21.6 % (39.0-53.0) Mean Corpuscular Hemoglobin Concent 32 g/dL (31-37) 32 g/dL (31-37) White Blood Count 21.6 x10^3/uL (4.0-11.0) Red Blood Count 2.35 x10^6/uL (4.30-5.70) Mean Corpuscular Volume 95 fL (79-100) Mean Corpuscular Hemoglobin 30 pg (25-35) Red Cell Distribution Width 19.0 % (11.5-14.5) Platelet Count 41 x10^3/uL (140-400) Sodium Level 146 mmol/L (136-145) Potassium Level 3.4 mmol/L (3.5-5.1) Chloride Level 113 mmol/L (98-107) Carbon Dioxide Level 19 mmol/L (21-32) Anion Gap 14 (6-14) Blood Urea Nitrogen 70 mg/dL (8-26) Creatinine 2.7 mg/dL (0.7-1.3) Estimated GFR (Cockcroft-Gault) 22.7 BUN/Creatinine Ratio 26 (6-20) Glucose Level 97 mg/dL (70-99) Calcium Level 8.4 mg/dL (8.5-10.1) Total Bilirubin 0.9 mg/dL (0.2-1.0) Aspartate Amino Transf (AST/SGOT) 29 U/L (15-37) Alanine Aminotransferase (ALT/SGPT) 13 U/L (16-63) Alkaline Phosphatase 83 U/L (46-116) Total Protein 5.7 g/dL (6.4-8.2) Albumin 2.7 g/dL (3.4-5.0) Albumin/Globulin Ratio 0.9 (1.0-1.7) Review of Systems Review of Systems Review of system pertinent as per history of present illness otherwise 14 point review of system is negative Assessment and Plan Assessmemt and Plan Problems Medical Problems: (1) Acute on chronic renal failure Status: Acute (2) Diverticulosis Status: Acute (3) Fall Status: Acute (4) Generalized weakness Status: Acute (5) GI bleeding Status: Acute (6) Severe sepsis Status: Acute (7) Thrombocytopenia Status: Acute Comment Review of Relevant I have reviewed the following items waylon (where applicable) has been applied. Labs Laboratory Tests Test 03/29/19 18:20 03/29/19 18:30 03/29/19 20:46 03/29/19 21:51 White Blood Count 17.8 x10^3/uL (4.0-11.0) Red Blood Count 1.89 x10^6/uL (4.30-5.70) Hemoglobin 5.8 g/dL (13.0-17.5) Hematocrit 18.5 % (39.0-53.0) Mean Corpuscular Volume 98 fL (79-100) Mean Corpuscular Hemoglobin 31 pg (25-35) Mean Corpuscular Hemoglobin Concent 31 g/dL (31-37) Red Cell Distribution Width 21.2 % (11.5-14.5) Platelet Count 48 x10^3/uL (140-400) Neutrophils (%) (Auto) 73 % (31-73) Lymphocytes (%) (Auto) 3 % (24-48) Monocytes (%) (Auto) 23 % (0-9) Eosinophils (%) (Auto) 1 % (0-3) Basophils (%) (Auto) 0 % (0-3) Neutrophils # (Auto) 13.1 x10^3/uL (1.8-7.7) Lymphocytes # (Auto) 0.5 x10^3/uL (1.0-4.8) Monocytes # (Auto) 4.1 x10^3/uL (0.0-1.1) Eosinophils # (Auto) 0.1 x10^3/uL (0.0-0.7) Basophils # (Auto) 0.0 x10^3/uL (0.0-0.2) Segmented Neutrophils % 75 % (35-66) Band Neutrophils % 5 % (0-9) Lymphocytes % 4 % (24-48) Monocytes % 15 % (0-10) Myelocytes % 1 % (0-0) Platelet Estimate Decreased (ADEQUATE) Large Platelets Present Poikilocytosis Slight Anisocytosis Mod Schistocytes Few Prothrombin Time 19.1 SEC (11.7-14.0) Prothromb Time International Ratio 1.6 (0.8-1.1) Activated Partial Thromboplast Time 37 SEC (24-38) Sodium Level 145 mmol/L (136-145) Potassium Level 3.7 mmol/L (3.5-5.1) Chloride Level 108 mmol/L (98-107) Carbon Dioxide Level 18 mmol/L (21-32) Anion Gap 19 (6-14) Blood Urea Nitrogen 89 mg/dL (8-26) Creatinine 3.0 mg/dL (0.7-1.3) Estimated GFR (Cockcroft-Gault) 20.1 BUN/Creatinine Ratio 30 (6-20) Glucose Level 130 mg/dL (70-99) Lactic Acid Level 5.6 mmol/L (0.4-2.0) 4.6 mmol/L (0.4-2.0) Calcium Level 9.5 mg/dL (8.5-10.1) Total Bilirubin 1.1 mg/dL (0.2-1.0) Aspartate Amino Transf (AST/SGOT) 25 U/L (15-37) Alanine Aminotransferase (ALT/SGPT) 12 U/L (16-63) Alkaline Phosphatase 108 U/L (46-116) Creatine Kinase 38 U/L (39-308) Troponin I Quantitative 0.037 ng/mL (0.000-0.055) FZ-Bly-R-Type Natriuretic Peptide 1823 pg/mL (0-449) Total Protein 6.5 g/dL (6.4-8.2) Albumin 3.1 g/dL (3.4-5.0) Albumin/Globulin Ratio 0.9 (1.0-1.7) Stool Occult Blood Positive (NEG) Urine Collection Type Unknown Urine Color Yellow Urine Clarity Clear Urine pH 5.0 Urine Specific [place] 1.020 Urine Protein 30 mg/dL (NEG-TRACE) Urine Glucose (UA) Negative mg/dL (NEG) Urine Ketones (Stick) Negative mg/dL (NEG) Urine Blood Small (NEG) Urine Nitrite Negative (NEG) Urine Bilirubin Negative (NEG) Urine Urobilinogen Dipstick 0.2 mg/dL (0.2 mg/dL) Urine Leukocyte Esterase Negative (NEG) Urine RBC 1-2 /HPF (0-2) Urine WBC 0 /HPF (0-4) Urine Amorphous Sediment Present /HPF Urine Bacteria 0 /HPF (0-FEW) Test 03/30/19 08:20 03/30/19 11:45 03/30/19 18:15 03/31/19 05:00 White Blood Count 22.5 x10^3/uL (4.0-11.0) 25.9 x10^3/uL (4.0-11.0) 21.6 x10^3/uL (4.0-11.0) Red Blood Count 2.24 x10^6/uL (4.30-5.70) 2.31 x10^6/uL (4.30-5.70) 2.35 x10^6/uL (4.30-5.70) Hemoglobin 6.8 g/dL (13.0-17.5) 7.1 g/dL (13.0-17.5) 7.4 g/dL (13.0-17.5) 7.1 g/dL (13.0-17.5) Hematocrit 21.2 % (39.0-53.0) 22.2 % (39.0-53.0) 23.2 % (39.0-53.0) 22.3 % (39.0-53.0) Mean Corpuscular Volume 95 fL (79-100) 96 fL (79-100) 95 fL (79-100) Mean Corpuscular Hemoglobin 30 pg (25-35) 31 pg (25-35) 30 pg (25-35) Mean Corpuscular Hemoglobin Concent 32 g/dL (31-37) 32 g/dL (31-37) 32 g/dL (31-37) 32 g/dL (31-37) Red Cell Distribution Width 19.4 % (11.5-14.5) 19.8 % (11.5-14.5) 19.0 % (11.5-14.5) Platelet Count 37 x10^3/uL (140-400) 41 x10^3/uL (140-400) 41 x10^3/uL (140-400) Neutrophils (%) (Auto) 58 % (31-73) 60 % (31-73) Lymphocytes (%) (Auto) 4 % (24-48) 4 % (24-48) Monocytes (%) (Auto) 38 % (0-9) 36 % (0-9) Eosinophils (%) (Auto) 1 % (0-3) 1 % (0-3) Basophils (%) (Auto) 0 % (0-3) 0 % (0-3) Neutrophils # (Auto) 13.0 x10^3/uL (1.8-7.7) 15.5 x10^3/uL (1.8-7.7) Lymphocytes # (Auto) 0.8 x10^3/uL (1.0-4.8) 0.9 x10^3/uL (1.0-4.8) Monocytes # (Auto) 8.5 x10^3/uL (0.0-1.1) 9.3 x10^3/uL (0.0-1.1) Eosinophils # (Auto) 0.1 x10^3/uL (0.0-0.7) 0.1 x10^3/uL (0.0-0.7) Basophils # (Auto) 0.0 x10^3/uL (0.0-0.2) 0.1 x10^3/uL (0.0-0.2) Sodium Level 147 mmol/L (136-145) 146 mmol/L (136-145) Potassium Level 3.6 mmol/L (3.5-5.1) 3.4 mmol/L (3.5-5.1) Chloride Level 114 mmol/L (98-107) 113 mmol/L (98-107) Carbon Dioxide Level 18 mmol/L (21-32) 19 mmol/L (21-32) Anion Gap 15 (6-14) 14 (6-14) Blood Urea Nitrogen 81 mg/dL (8-26) 70 mg/dL (8-26) Creatinine 2.6 mg/dL (0.7-1.3) 2.7 mg/dL (0.7-1.3) Estimated GFR (Cockcroft-Gault) 23.7 22.7 Glucose Level 94 mg/dL (70-99) 97 mg/dL (70-99) Lactic Acid Level 1.8 mmol/L (0.4-2.0) Calcium Level 8.8 mg/dL (8.5-10.1) 8.4 mg/dL (8.5-10.1) BUN/Creatinine Ratio 26 (6-20) Total Bilirubin 0.9 mg/dL (0.2-1.0) Aspartate Amino Transf (AST/SGOT) 29 U/L (15-37) Alanine Aminotransferase (ALT/SGPT) 13 U/L (16-63) Alkaline Phosphatase 83 U/L (46-116) Total Protein 5.7 g/dL (6.4-8.2) Albumin 2.7 g/dL (3.4-5.0) Albumin/Globulin Ratio 0.9 (1.0-1.7) Test 03/31/19 13:15 Hemoglobin 7.0 g/dL (13.0-17.5) Hematocrit 21.6 % (39.0-53.0) Laboratory Tests Test 03/30/19 18:15 03/31/19 05:00 03/31/19 13:15 Hemoglobin 7.4 g/dL (13.0-17.5) 7.1 g/dL (13.0-17.5) 7.0 g/dL (13.0-17.5) Hematocrit 23.2 % (39.0-53.0) 22.3 % (39.0-53.0) 21.6 % (39.0-53.0) Mean Corpuscular Hemoglobin Concent 32 g/dL (31-37) 32 g/dL (31-37) White Blood Count 21.6 x10^3/uL (4.0-11.0) Red Blood Count 2.35 x10^6/uL (4.30-5.70) Mean Corpuscular Volume 95 fL (79-100) Mean Corpuscular Hemoglobin 30 pg (25-35) Red Cell Distribution Width 19.0 % (11.5-14.5) Platelet Count 41 x10^3/uL (140-400) Sodium Level 146 mmol/L (136-145) Potassium Level 3.4 mmol/L (3.5-5.1) Chloride Level 113 mmol/L (98-107) Carbon Dioxide Level 19 mmol/L (21-32) Anion Gap 14 (6-14) Blood Urea Nitrogen 70 mg/dL (8-26) Creatinine 2.7 mg/dL (0.7-1.3) Estimated GFR (Cockcroft-Gault) 22.7 BUN/Creatinine Ratio 26 (6-20) Glucose Level 97 mg/dL (70-99) Calcium Level 8.4 mg/dL (8.5-10.1) Total Bilirubin 0.9 mg/dL (0.2-1.0) Aspartate Amino Transf (AST/SGOT) 29 U/L (15-37) Alanine Aminotransferase (ALT/SGPT) 13 U/L (16-63) Alkaline Phosphatase 83 U/L (46-116) Total Protein 5.7 g/dL (6.4-8.2) Albumin 2.7 g/dL (3.4-5.0) Albumin/Globulin Ratio 0.9 (1.0-1.7) Microbiology 03/29/19 Blood Culture - Preliminary, Resulted NO GROWTH AFTER 1 DAY Medications Current Medications Sodium Chloride 1,000 ml @ 1,000 mls/hr Q1H IV Last administered on 03/29/19at 18:39; Start 03/29/19 at 18:17; Stop 03/29/19 at 19:16; Status DC Pantoprazole Sodium (PROTONIX VIAL for IV PUSH) 40 mg 1X ONCE IVP Last administered on 03/29/19at 19:07; Start 03/29/19 at 18:30; Stop 03/29/19 at 18:31; Status DC Pantoprazole Sodium 80 mg/ Sodium Chloride 100 ml @ 10 mls/hr Q10H IV Last administered on 03/30/19at 13:33; Start 03/29/19 at 18:45; Stop 03/30/19 at 14:07; Status DC Piperacillin Sod/ Tazobactam Sod 3.375 gm/Sodium Chloride 50 ml @ 100 mls/hr 1X ONCE IV Last administered on 03/29/19at 19:23; Start 03/29/19 at 19:15; Stop 03/29/19 at 19:44; Status DC Vancomycin HCl 250 ml @ 250 mls/hr 1X ONCE IV ; Start 03/29/19 at 19:15; Stop 03/29/19 at 20:14; Status UNV Sodium Chloride 1,000 ml @ 1,200 mls/hr 1X ONCE IV Last administered on 03/29/19at 19:15; Start 03/29/19 at 19:15; Stop 03/29/19 at 20:04; Status DC Vancomycin HCl 1.75 gm/Sodium Chloride 500 ml @ 250 mls/hr ONCE ONCE IV Last administered on 03/29/19at 20:23; Start 03/29/19 at 20:00; Stop 03/29/19 at 21:59; Status DC Ondansetron HCl (Zofran) 4 mg PRN Q8HRS PRN IV NAUSEA/VOMITING; Start 03/29/19 at 19:30; Stop 03/30/19 at 06:00; Status DC Sodium Chloride 1,000 ml @ 125 mls/hr Q8H IV Last administered on 03/30/19at 16:52; Start 03/29/19 at 19:17; Stop 03/30/19 at 19:16; Status DC Fentanyl Citrate (Fentanyl 2ml Vial) 50 mcg 1X ONCE IVP Last administered on at 20:29; Start 03/29/19 at 20:15; Stop 03/29/19 at 20:16; Status DC Pantoprazole Sodium (PROTONIX VIAL for IV PUSH) 40 mg DAILYAC IVP Last administered on 03/31/19at 08:53; Start 03/31/19 at 07:30; Stop 03/31/19 at 13:02; Status DC Ondansetron HCl (Zofran) 4 mg PRN Q6HRS PRN IV NAUSEA/VOMITING; Start 03/31/19 at 07:00; Stop 04/01/19 at 06:59 Fentanyl Citrate (Fentanyl 2ml Vial) 25 mcg PRN Q5MIN PRN IV MILD PAIN 1-3; Start 03/31/19 at 07:00; Stop 04/01/19 at 06:59 Fentanyl Citrate (Fentanyl 2ml Vial) 50 mcg PRN Q5MIN PRN IV MODERATE TO SEVERE PAIN; Start 03/31/19 at 07:00; Stop 04/01/19 at 06:59 Morphine Sulfate (Morphine Sulfate) 1 mg PRN Q10MIN PRN IV SEVERE PAIN 7-10; Start 03/31/19 at 07:00; Stop 04/01/19 at 06:59 Ringer's Solution 1,000 ml @ 30 mls/hr Q24H IV Last administered on 03/31/19at 11:31; Start 03/31/19 at 07:00; Stop 03/31/19 at 18:59 Hydromorphone HCl (Dilaudid) 0.5 mg PRN Q10MIN PRN IV SEV PAIN, Second choice; Start 03/31/19 at 07:00; Stop 04/01/19 at 06:59 Prochlorperazine Edisylate (Compazine) 5 mg PACU PRN PRN IV NAUSEA, MRX1; Start 03/31/19 at 07:00; Stop 04/01/19 at 06:59 Sodium Chloride 1,000 ml @ 100 mls/hr Q10H IV Last administered on 03/31/19at 08:54; Start 03/31/19 at 09:00 Sodium Chloride 500 ml @ 999 mls/hr Q31M IV Last administered on 03/31/19at 08:53; Start 03/31/19 at 09:00; Stop 03/31/19 at 09:30; Status DC Ringer's Solution 1,000 ml @ 75 mls/hr 1X ONCE IV ; Start 03/31/19 at 11:30; Stop 04/01/19 at 00:49 Propofol 20 ml @ As Directed STK-MED ONCE IV ; Start 03/31/19 at 11:51; Stop 03/31/19 at 11:51; Status DC Lidocaine HCl (Lidocaine Pf 2% Vial) 5 ml STK-MED ONCE .ROUTE ; Start 03/31/19 at 11:51; Stop 03/31/19 at 11:51; Status DC Pantoprazole Sodium (Protonix) 40 mg DAILYAC PO ; Start 04/01/19 at 07:30 Active Scripts Active [Pantoprazole] 40 MG Tablet.dr 40 Mg PO DAILYAC 30 Days Feosol (Ferrous Sulfate) 325 Mg Tablet 325 Mg PO [id number] 30 Days Vitals/I & O Vital Sign - Last 24 Hours 03/30/19 03/30/19 03/30/19 03/30/19 16:49 16:54 17:44 17:48 Temp 98.2 98.2 98.2 98.2 98.2 98.2 Pulse 60 60 60 64 Resp 22 22 23 22 B/P (MAP) 120/65 120/65 (83) 110/59 (76) 128/62 Pulse Ox 96 100 O2 Delivery Room Air Room Air 03/30/19 03/30/19 03/30/19 03/30/19 19:00 19:30 20:00 21:00 Temp 98.4 98.4 Pulse 60 61 60 Resp 16 20 20 B/P (MAP) 123/59 (80) 114/53 (73) 123/59 (80) Pulse Ox 98 98 99 O2 Delivery Room Air Room Air Room Air Room Air 03/30/19 03/30/19 03/31/19 03/31/19 22:00 22:59 00:00 00:00 Temp 97.9 97.9 Pulse 60 60 66 Resp 18 19 21 B/P (MAP) 131/65 (87) 99/45 (63) 112/55 (74) Pulse Ox 99 98 100 O2 Delivery Room Air Room Air Room Air Room Air 03/31/19 03/31/19 03/31/19 03/31/19 00:57 01:57 02:58 04:00 Temp 97.6 97.6 Pulse 60 63 60 68 Resp 18 19 21 20 B/P (MAP) 108/50 (69) 117/67 (84) 97/50 (66) 133/65 (87) Pulse Ox 99 95 97 97 O2 Delivery Room Air Room Air Room Air Room Air 03/31/19 03/31/19 03/31/19 03/31/19 04:00 05:00 06:00 07:19 Pulse 60 65 60 Resp 17 18 17 B/P (MAP) 117/62 (80) 100/45 (63) 114/63 (80) Pulse Ox 100 97 97 O2 Delivery Room Air Room Air Room Air Room Air 03/31/19 03/31/19 03/31/19 03/31/19 08:11 08:17 09:29 10:09 Temp 97.7 97.7 Pulse 60 60 61 Resp 19 19 17 B/P (MAP) 116/58 (77) 117/63 (81) 93/39 (57) Pulse Ox 100 99 99 O2 Delivery Room Air Room Air Room Air Room Air 03/31/19 03/31/19 03/31/19 03/31/19 11:11 11:18 11:27 12:30 Temp 98.2 97.8 98.2 97.8 Pulse 60 61 60 Resp 17 18 20 B/P (MAP) 101/60 (74) 85/39 Pulse Ox 99 99 100 O2 Delivery Room Air Room Air Nasal Cannula O2 Flow Rate 5 03/31/19 03/31/19 03/31/19 03/31/19 12:40 12:55 13:07 13:55 Temp 97.8 97.8 98.0 97.8 97.8 98.0 Pulse 60 65 63 66 Resp 20 20 19 28 B/P (MAP) 92/41 132/71 121/65 (83) 144/75 (98) Pulse Ox 96 96 99 99 O2 Delivery Room Air Room Air Room Air Room Air 03/31/19 15:07 Pulse 60 Resp 19 B/P (MAP) 144/75 (98) Pulse Ox 99 O2 Delivery Room Air Intake and Output 03/30/19 03/30/19 03/31/19 15:00 23:00 07:00 Intake Total 160 ml 785 ml 300 ml Output Total 620 ml 325 ml 425 ml Balance -460 ml 460 ml -125 ml Nutrition Consultation Dietary Evaluation: Recommendations by RD: Dietary education by RD, Increase Calorie Intake, Protein supplementation Comments: REC Ensure clear w/dinner while on clear liquid diet REC advance diet as able per MD, goal diet cardiac w/Ensure supplements as needed Expected Outcomes/Goals: diet advancement Interpretation of weight loss: >1-2% in 1 week Malnutrition Findings: Food and Nutrition Intake (Mod: <75% est energy req 7days Weight Status: Appropriate BAUDILIO MEJIA MD Mar 31, 2019 16:30
--- NOTE | 2019-03-31 22:46 | NUR ---
2030 transferred from ICU to [facility] medical telemetry status, pt plan of care resumed.
--- NOTE | 2019-04-01 00:58 | RAD ---
Ultrasound Limited abdomen Doppler HISTORY: Fatty liver clinical concern for possible portal hypertension Sonographic examination of the right upper quadrant was performed and multiple static images were obtained. The main portal vein is patent and has normal hepatopedal flow. The main portal vein measures 1.4 cm in diameter. The right and left portal veins are patent with normal direction flow. IMPRESSION: 1. Patent hepatic venous system with normal direction of flow. 2. The hepatic vein is mildly dilated. Electronically signed by: Leo Pierre III, MD (04/01/2019 12:56 AM) [id number]
[2019-04-01 03:18] VITALS: BP 101/49
[2019-04-01 05:07] LABS: BASO # 0.1 x10^3/uL (0.0-0.2); BASO % 0 % (0-3); EOS # 0.6 x10^3/uL (0.0-0.7); EOS % 3 % (0-3); HEMATOCRIT 21.8 % (39.0-53.0); HEMOGLOBIN 7.1 g/dL (13.0-17.5); LYMPH # 0.7 x10^3/uL (1.0-4.8); LYMPH % 3 % (24-48); MEAN CORPUSCULAR HEMOGLOBIN 31 pg (25-35); MEAN CORPUSCULAR HGB CONC 33 g/dL (31-37); MEAN CORPUSCULAR VOLUME 94 fL (79-100); MONO # 8.4 x10^3/uL (0.0-1.1); MONO % 37 % (0-9); NEUT % 57 % (31-73); PLATELET COUNT 43 x10^3/uL (140-400); RED BLOOD COUNT 2.31 x10^6/uL (4.30-5.70); RED CELL DISTRIBUTION WIDTH 18.9 % (11.5-14.5); WHITE BLOOD COUNT 22.7 x10^3/uL (4.0-11.0)
[2019-04-01 05:39] LABS: % BANDS 1 % (0-9); % BASOS 1 % (0-3); % EOS 1 % (0-5); % LYMPHS 2 % (24-48); % MONOS 28 % (0-10); % SEGS 67 % (35-66)
[2019-04-01 05:40] LABS: PLT ESTIMATE DECREASED (ADEQUATE)
[2019-04-01 05:41] LABS: HYPOCHROMIA SLIGHT; MICROCYTOSIS SLIGHT; POLYCHROMASIA SLIGHT
[2019-04-01 05:57] LABS: CALCIUM 7.9 mg/dL (8.5-10.1); CREATININE 2.6 mg/dL (0.7-1.3); GFR 23.7
[2019-04-01 06:04] LABS: POTASSIUM 3.4 mmol/L (3.5-5.1)
[2019-04-01 07:57] VITALS: BP 128/59
[2019-04-01] MEDS: PANTOPRAZOLE 40 MG TABLET.DR. PO SCH (09:10)
[2019-04-01] MEDS: IV NORMAL SALINE 1000ML BAG 1,000 ML IV SCH ×2 (09:12→15:00)
--- NOTE | 2019-04-01 10:08 | PDOC ---
Subjective: Subjective: Feeling better, wants to get out of bed. Tolerating diet, no abd pain, no bleeding, hasn't stooled. Objective: Vital Signs: Vital Signs Date Time Temp Pulse Resp B/P (MAP) Pulse Ox O2 Delivery O2 Flow Rate FiO2 04/01/19 08:00 Room Air 04/01/19 07:57 97.4 61 20 128/59 (82) 99 97.4 03/31/19 12:30 5 Labs: Laboratory Tests Test 03/31/19 13:15 04/01/19 03:20 Hemoglobin 7.0 g/dL 7.1 g/dL Hematocrit 21.6 % 21.8 % White Blood Count 22.7 x10^3/uL Red Blood Count 2.31 x10^6/uL Mean Corpuscular Volume 94 fL Mean Corpuscular Hemoglobin 31 pg Mean Corpuscular Hemoglobin Concent 33 g/dL Red Cell Distribution Width 18.9 % Platelet Count 43 x10^3/uL Neutrophils (%) (Auto) 57 % Lymphocytes (%) (Auto) 3 % Monocytes (%) (Auto) 37 % Eosinophils (%) (Auto) 3 % Basophils (%) (Auto) 0 % Neutrophils # (Auto) 13.0 x10^3/uL Lymphocytes # (Auto) 0.7 x10^3/uL Monocytes # (Auto) 8.4 x10^3/uL Eosinophils # (Auto) 0.6 x10^3/uL Basophils # (Auto) 0.1 x10^3/uL Segmented Neutrophils % 67 % Band Neutrophils % 1 % Lymphocytes % 2 % Monocytes % 28 % Eosinophils % 1 % Basophils % 1 % Platelet Estimate Decreased Polychromasia Slight Hypochromasia Slight Microcytosis Slight Macrocytosis Slight Sodium Level 143 mmol/L Potassium Level 3.4 mmol/L Chloride Level 110 mmol/L Carbon Dioxide Level 18 mmol/L Anion Gap 15 Blood Urea Nitrogen 53 mg/dL Creatinine 2.6 mg/dL Estimated GFR (Cockcroft-Gault) 23.7 Glucose Level 116 mg/dL Calcium Level 7.9 mg/dL Imaging: EGD 03/31 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 Patent hepatic venous system with normal direction of flow. 2. The hepatic vein is mildly dilated. 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 Will review all w/ Dr. Coppola. Hemodynamically unstable?: No Is patient in severe pain?: No Is NPO status required?: No ISAI MOYA Apr 01, 2019 10:08
--- NOTE | 2019-04-01 10:14 | PDOC ---
PROGRESS NOTES Chief Complaint Chief Complaint A/P: Acute blood loss anemia Leukocytosis with no evidence of acute infection Retroperitoneal soft tissue density nonspecific but possibly re-presenting lymphadenopathy 3 x 22 cm, will need work up once more stable. History of hypertension History of normocytic anemia Thrombocytopenia Acute renal failure secondary to prerenal azotemia Hypernatremia secondary to severe dehydration Plan: S/p 1 unit of PRBC Follow platelet count in the a.m. will need to explore interventional radiology biopsy option once patient is more stable. 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 Plan of care sprain detail all concerns addressed to the best my abilities. Feeling better, wants to get out of bed. Tolerating diet, no abd pain, no bleeding, hasn't stooled. Very weak. He is asking if his chair can be reclined. Hb stable at 7.1 post- transfusion Vitals Vitals Vital Signs Date Time Temp Pulse Resp B/P (MAP) Pulse Ox O2 Delivery O2 Flow Rate FiO2 04/01/19 08:00 Room Air 04/01/19 07:57 97.4 61 20 128/59 (82) 99 97.4 03/31/19 12:30 5 Physical Exam Physical Exam Gen.: well-developed well-nourished in no apparent distress Head: Normal shape atraumatic Eyes: Pupils equal reactive to light and accommodation, normal conjunctivae and lids Ears: Normal shape Nose: Normal shape no trauma Mouth: No exudates of the back of throat no thrush no lesions Neck: Supple no JVD no carotid bruit or lymphadenopathy no thyromegaly Chest: Lungs clear to auscultation with good inspiratory effort no crackles rales or rhonchi Cardiovascular: S1-S2 regular rhythm no murmurs gallops or rubs Abdomen: Bowel sounds present soft nontender no hepatosplenomegaly appreciated sign Extremities: No clubbing no cyanosis no edema peripheral pulses palpated bilaterally Neurological: Alert awake oriented in person time place and situation, cranial nerves II through XII intact, no motor or sensory deficits appreciated Psych: Appropriate mood, cooperative Lungs: Clear Labs LABS Laboratory Tests Test 03/31/19 13:15 04/01/19 03:20 Hemoglobin 7.0 g/dL (13.0-17.5) 7.1 g/dL (13.0-17.5) Hematocrit 21.6 % (39.0-53.0) 21.8 % (39.0-53.0) White Blood Count 22.7 x10^3/uL (4.0-11.0) Red Blood Count 2.31 x10^6/uL (4.30-5.70) Mean Corpuscular Volume 94 fL (79-100) Mean Corpuscular Hemoglobin 31 pg (25-35) Mean Corpuscular Hemoglobin Concent 33 g/dL (31-37) Red Cell Distribution Width 18.9 % (11.5-14.5) Platelet Count 43 x10^3/uL (140-400) Neutrophils (%) (Auto) 57 % (31-73) Lymphocytes (%) (Auto) 3 % (24-48) Monocytes (%) (Auto) 37 % (0-9) Eosinophils (%) (Auto) 3 % (0-3) Basophils (%) (Auto) 0 % (0-3) Neutrophils # (Auto) 13.0 x10^3/uL (1.8-7.7) Lymphocytes # (Auto) 0.7 x10^3/uL (1.0-4.8) Monocytes # (Auto) 8.4 x10^3/uL (0.0-1.1) Eosinophils # (Auto) 0.6 x10^3/uL (0.0-0.7) Basophils # (Auto) 0.1 x10^3/uL (0.0-0.2) Segmented Neutrophils % 67 % (35-66) Band Neutrophils % 1 % (0-9) Lymphocytes % 2 % (24-48) Monocytes % 28 % (0-10) Eosinophils % 1 % (0-5) Basophils % 1 % (0-3) Platelet Estimate Decreased (ADEQUATE) Polychromasia Slight Hypochromasia Slight Microcytosis Slight Macrocytosis Slight Sodium Level 143 mmol/L (136-145) Potassium Level 3.4 mmol/L (3.5-5.1) Chloride Level 110 mmol/L (98-107) Carbon Dioxide Level 18 mmol/L (21-32) Anion Gap 15 (6-14) Blood Urea Nitrogen 53 mg/dL (8-26) Creatinine 2.6 mg/dL (0.7-1.3) Estimated GFR (Cockcroft-Gault) 23.7 Glucose Level 116 mg/dL (70-99) Calcium Level 7.9 mg/dL (8.5-10.1) Assessment and Plan Assessmemt and Plan Problems Medical Problems: (1) Acute on chronic renal failure Status: Acute (2) Diverticulosis Status: Acute (3) Fall Status: Acute (4) Generalized weakness Status: Acute (5) GI bleeding Status: Acute (6) Severe sepsis Status: Acute (7) Thrombocytopenia Status: Acute Comment Review of Relevant I have reviewed the following items waylon (where applicable) has been applied. Labs Laboratory Tests Test 03/30/19 11:45 03/30/19 18:15 03/31/19 05:00 03/31/19 13:15 White Blood Count 25.9 x10^3/uL (4.0-11.0) 21.6 x10^3/uL (4.0-11.0) Red Blood Count 2.31 x10^6/uL (4.30-5.70) 2.35 x10^6/uL (4.30-5.70) Hemoglobin 7.1 g/dL (13.0-17.5) 7.4 g/dL (13.0-17.5) 7.1 g/dL (13.0-17.5) 7.0 g/dL (13.0-17.5) Hematocrit 22.2 % (39.0-53.0) 23.2 % (39.0-53.0) 22.3 % (39.0-53.0) 21.6 % (39.0-53.0) Mean Corpuscular Volume 96 fL (79-100) 95 fL (79-100) Mean Corpuscular Hemoglobin 31 pg (25-35) 30 pg (25-35) Mean Corpuscular Hemoglobin Concent 32 g/dL (31-37) 32 g/dL (31-37) 32 g/dL (31-37) Red Cell Distribution Width 19.8 % (11.5-14.5) 19.0 % (11.5-14.5) Platelet Count 41 x10^3/uL (140-400) 41 x10^3/uL (140-400) Neutrophils (%) (Auto) 60 % (31-73) Lymphocytes (%) (Auto) 4 % (24-48) Monocytes (%) (Auto) 36 % (0-9) Eosinophils (%) (Auto) 1 % (0-3) Basophils (%) (Auto) 0 % (0-3) Neutrophils # (Auto) 15.5 x10^3/uL (1.8-7.7) Lymphocytes # (Auto) 0.9 x10^3/uL (1.0-4.8) Monocytes # (Auto) 9.3 x10^3/uL (0.0-1.1) Eosinophils # (Auto) 0.1 x10^3/uL (0.0-0.7) Basophils # (Auto) 0.1 x10^3/uL (0.0-0.2) Sodium Level 146 mmol/L (136-145) Potassium Level 3.4 mmol/L (3.5-5.1) Chloride Level 113 mmol/L (98-107) Carbon Dioxide Level 19 mmol/L (21-32) Anion Gap 14 (6-14) Blood Urea Nitrogen 70 mg/dL (8-26) Creatinine 2.7 mg/dL (0.7-1.3) Estimated GFR (Cockcroft-Gault) 22.7 BUN/Creatinine Ratio 26 (6-20) Glucose Level 97 mg/dL (70-99) Calcium Level 8.4 mg/dL (8.5-10.1) Total Bilirubin 0.9 mg/dL (0.2-1.0) Aspartate Amino Transf (AST/SGOT) 29 U/L (15-37) Alanine Aminotransferase (ALT/SGPT) 13 U/L (16-63) Alkaline Phosphatase 83 U/L (46-116) Total Protein 5.7 g/dL (6.4-8.2) Albumin 2.7 g/dL (3.4-5.0) Albumin/Globulin Ratio 0.9 (1.0-1.7) Test 04/01/19 03:20 White Blood Count 22.7 x10^3/uL (4.0-11.0) Red Blood Count 2.31 x10^6/uL (4.30-5.70) Hemoglobin 7.1 g/dL (13.0-17.5) Hematocrit 21.8 % (39.0-53.0) Mean Corpuscular Volume 94 fL (79-100) Mean Corpuscular Hemoglobin 31 pg (25-35) Mean Corpuscular Hemoglobin Concent 33 g/dL (31-37) Red Cell Distribution Width 18.9 % (11.5-14.5) Platelet Count 43 x10^3/uL (140-400) Neutrophils (%) (Auto) 57 % (31-73) Lymphocytes (%) (Auto) 3 % (24-48) Monocytes (%) (Auto) 37 % (0-9) Eosinophils (%) (Auto) 3 % (0-3) Basophils (%) (Auto) 0 % (0-3) Neutrophils # (Auto) 13.0 x10^3/uL (1.8-7.7) Lymphocytes # (Auto) 0.7 x10^3/uL (1.0-4.8) Monocytes # (Auto) 8.4 x10^3/uL (0.0-1.1) Eosinophils # (Auto) 0.6 x10^3/uL (0.0-0.7) Basophils # (Auto) 0.1 x10^3/uL (0.0-0.2) Segmented Neutrophils % 67 % (35-66) Band Neutrophils % 1 % (0-9) Lymphocytes % 2 % (24-48) Monocytes % 28 % (0-10) Eosinophils % 1 % (0-5) Basophils % 1 % (0-3) Platelet Estimate Decreased (ADEQUATE) Polychromasia Slight Hypochromasia Slight Microcytosis Slight Macrocytosis Slight Sodium Level 143 mmol/L (136-145) Potassium Level 3.4 mmol/L (3.5-5.1) Chloride Level 110 mmol/L (98-107) Carbon Dioxide Level 18 mmol/L (21-32) Anion Gap 15 (6-14) Blood Urea Nitrogen 53 mg/dL (8-26) Creatinine 2.6 mg/dL (0.7-1.3) Estimated GFR (Cockcroft-Gault) 23.7 Glucose Level 116 mg/dL (70-99) Calcium Level 7.9 mg/dL (8.5-10.1) Laboratory Tests Test 03/31/19 13:15 04/01/19 03:20 Hemoglobin 7.0 g/dL (13.0-17.5) 7.1 g/dL (13.0-17.5) Hematocrit 21.6 % (39.0-53.0) 21.8 % (39.0-53.0) White Blood Count 22.7 x10^3/uL (4.0-11.0) Red Blood Count 2.31 x10^6/uL (4.30-5.70) Mean Corpuscular Volume 94 fL (79-100) Mean Corpuscular Hemoglobin 31 pg (25-35) Mean Corpuscular Hemoglobin Concent 33 g/dL (31-37) Red Cell Distribution Width 18.9 % (11.5-14.5) Platelet Count 43 x10^3/uL (140-400) Neutrophils (%) (Auto) 57 % (31-73) Lymphocytes (%) (Auto) 3 % (24-48) Monocytes (%) (Auto) 37 % (0-9) Eosinophils (%) (Auto) 3 % (0-3) Basophils (%) (Auto) 0 % (0-3) Neutrophils # (Auto) 13.0 x10^3/uL (1.8-7.7) Lymphocytes # (Auto) 0.7 x10^3/uL (1.0-4.8) Monocytes # (Auto) 8.4 x10^3/uL (0.0-1.1) Eosinophils # (Auto) 0.6 x10^3/uL (0.0-0.7) Basophils # (Auto) 0.1 x10^3/uL (0.0-0.2) Segmented Neutrophils % 67 % (35-66) Band Neutrophils % 1 % (0-9) Lymphocytes % 2 % (24-48) Monocytes % 28 % (0-10) Eosinophils % 1 % (0-5) Basophils % 1 % (0-3) Platelet Estimate Decreased (ADEQUATE) Polychromasia Slight Hypochromasia Slight Microcytosis Slight Macrocytosis Slight Sodium Level 143 mmol/L (136-145) Potassium Level 3.4 mmol/L (3.5-5.1) Chloride Level 110 mmol/L (98-107) Carbon Dioxide Level 18 mmol/L (21-32) Anion Gap 15 (6-14) Blood Urea Nitrogen 53 mg/dL (8-26) Creatinine 2.6 mg/dL (0.7-1.3) Estimated GFR (Cockcroft-Gault) 23.7 Glucose Level 116 mg/dL (70-99) Calcium Level 7.9 mg/dL (8.5-10.1) Microbiology 03/29/19 Blood Culture - Preliminary, Resulted NO GROWTH AFTER 2 DAYS Medications Current Medications Sodium Chloride 1,000 ml @ 1,000 mls/hr Q1H IV Last administered on 03/29/19at 18:39; Start 03/29/19 at 18:17; Stop 03/29/19 at 19:16; Status DC Pantoprazole Sodium (PROTONIX VIAL for IV PUSH) 40 mg 1X ONCE IVP Last administered on 03/29/19at 19:07; Start 03/29/19 at 18:30; Stop 03/29/19 at 18:31; Status DC Pantoprazole Sodium 80 mg/ Sodium Chloride 100 ml @ 10 mls/hr Q10H IV Last administered on 03/30/19at 13:33; Start 03/29/19 at 18:45; Stop 03/30/19 at 14:07; Status DC Piperacillin Sod/ Tazobactam Sod 3.375 gm/Sodium Chloride 50 ml @ 100 mls/hr 1X ONCE IV Last administered on 03/29/19at 19:23; Start 03/29/19 at 19:15; Stop 03/29 at 19:44; Status DC Vancomycin HCl 250 ml @ 250 mls/hr 1X ONCE IV ; Start 03/29/19 at 19:15; Stop 03/29/19 at 20:14; Status UNV Sodium Chloride 1,000 ml @ 1,200 mls/hr 1X ONCE IV Last administered on 03/29/19at 19:15; Start 03/29/19 at 19:15; Stop 03/29/19 at 20:04; Status DC Vancomycin HCl 1.75 gm/Sodium Chloride 500 ml @ 250 mls/hr ONCE ONCE IV Last administered on 03/29/19at 20:23; Start 03/29/19 at 20:00; Stop 03/29/19 at 21:59; Status DC Ondansetron HCl (Zofran) 4 mg PRN Q8HRS PRN IV NAUSEA/VOMITING; Start 03/29/19 at 19:30; Stop 03/30/19 at 06:00; Status DC Sodium Chloride 1,000 ml @ 125 mls/hr Q8H IV Last administered on 03/30/19at 16:52; Start 03/29/19 at 19:17; Stop 03/30/19 at 19:16; Status DC Fentanyl Citrate (Fentanyl 2ml Vial) 50 mcg 1X ONCE IVP Last administered on 03/29/19at 20:29; Start 03/29/19 at 20:15; Stop 03/29/19 at 20:16; Status DC Pantoprazole Sodium (PROTONIX VIAL for IV PUSH) 40 mg DAILYAC IVP Last administered on 03/31/19at 08:53; Start 03/31/19 at 07:30; Stop 03/31/19 at 13:02; Status DC Ondansetron HCl (Zofran) 4 mg PRN Q6HRS PRN IV NAUSEA/VOMITING; Start 03/31/19 at 07:00; Stop 04/01/19 at 06:59; Status DC Fentanyl Citrate (Fentanyl 2ml Vial) 25 mcg PRN Q5MIN PRN IV MILD PAIN 1-3; Start 03/31/19 at 07:00; Stop 04/01/19 at 06:59; Status DC Fentanyl Citrate (Fentanyl 2ml Vial) 50 mcg PRN Q5MIN PRN IV MODERATE TO SEVERE PAIN; Start 03/31/19 at 07:00; Stop 04/01/19 at 06:59; Status DC Morphine Sulfate (Morphine Sulfate) 1 mg PRN Q10MIN PRN IV SEVERE PAIN 7-10; Start 03/31/19 at 07:00; Stop 04/01/19 at 06:59; Status DC Ringer's Solution 1,000 ml @ 30 mls/hr Q24H IV Last administered on 03/31/19at 11:31; Start 03/31/19 at 07:00; Stop 03/31/19 at 18:59; Status DC Hydromorphone HCl (Dilaudid) 0.5 mg PRN Q10MIN PRN IV SEV PAIN, Second choice; Start 03/31/19 at 07:00; Stop 04/01/19 at 06:59; Status DC Prochlorperazine Edisylate (Compazine) 5 mg PACU PRN PRN IV NAUSEA, MRX1; Start 03/31/19 at 07:00; Stop 04/01/19 at 06:59; Status DC Sodium Chloride 1,000 ml @ 100 mls/hr Q10H IV Last administered on 04/01/19at 09:12; Start 03/31/19 at 09:00 Sodium Chloride 500 ml @ 999 mls/hr Q31M IV Last administered on 03/31/19at 08:53; Start 03/31/19 at 09:00; Stop 03/31/19 at 09:30; Status DC Ringer's Solution 1,000 ml @ 75 mls/hr 1X ONCE IV ; Start 03/31/19 at 11:30; Stop 04/01/19 at 00:49; Status DC Propofol 20 ml @ As Directed STK-MED ONCE IV ; Start 03/31/19 at 11:51; Stop 03/31/19 at 11:51; Status DC Lidocaine HCl (Lidocaine Pf 2% Vial) 5 ml STK-MED ONCE .ROUTE ; Start 03/31/19 at 11:51; Stop 03/31/19 at 11:51; Status DC Pantoprazole Sodium (Protonix) 40 mg DAILYAC PO Last administered on 04/01/19at 09:10; Start 04/01/19 at 07:30 Ferrous Sulfate (Feosol) 325 mg BID PO ; Start 04/01/19 at 21:00; Status UNV Active Scripts Active [Pantoprazole] 40 MG Tablet.dr 40 Mg PO DAILYAC 30 Days Feosol (Ferrous Sulfate) 325 Mg Tablet 325 Mg PO DAILYWBKFT 30 Days Vitals/I & O Vital Sign - Last 24 Hours 03/31/19 03/31/19 03/31/19 03/31/19 11:11 11:18 11:27 12:30 Temp 98.2 97.8 98.2 97.8 Pulse 60 61 60 Resp 17 18 20 B/P (MAP) 101/60 (74) 85/39 Pulse Ox 99 99 100 O2 Delivery Room Air Room Air Nasal Cannula O2 Flow Rate 5 03/31/19 03/31/19 03/31/19 03/31/19 12:40 12:55 13:07 13:55 Temp 97.8 97.8 98.0 97.8 97.8 98.0 Pulse 60 65 63 66 Resp 20 20 19 28 B/P (MAP) 92/41 132/71 121/65 (83) 144/75 (98) Pulse Ox 96 96 99 99 O2 Delivery Room Air Room Air Room Air Room Air 03/31/19 03/31/19 03/31/19 03/31/19 15:07 20:00 21:13 23:25 Temp 97.7 97.5 97.7 97.5 Pulse 60 59 60 Resp 19 18 20 B/P (MAP) 144/75 (98) 124/60 (81) 132/56 (81) Pulse Ox 99 92 100 O2 Delivery Room Air Room Air Room Air Room Air 04/01/19 04/01/19 04/01/19 03:18 07:57 08:00 Temp 97.4 97.4 97.4 97.4 Pulse 60 61 Resp 20 20 B/P (MAP) 101/49 (66) 128/59 (82) Pulse Ox 100 99 O2 Delivery Room Air Room Air Room Air Intake and Output 03/31/19 03/31/19 04/01/19 15:00 23:00 07:00 Intake Total 1000 ml 860 ml Output Total 400 ml 300 ml 400 ml Balance 600 ml -300 ml 460 ml Nutrition Consultation Dietary Evaluation: Recommendations by RD: Dietary education by RD, Increase Calorie Intake, Protein supplementation Comments: REC Ensure clear w/dinner while on clear liquid diet REC advance diet as able per MD, goal diet cardiac w/Ensure supplements as needed Expected Outcomes/Goals: diet advancement Interpretation of weight loss: >1-2% in 1 week Malnutrition Findings: Food and Nutrition Intake (Mod: <75% est energy req 7days Weight Status: Appropriate Hemodynamically unstable?: No Is patient in severe pain?: No Is NPO status required?: No YANET APODACA MD Apr 01, 2019 10:14
[2019-04-01 11:31] VITALS: BP 128/60
[2019-04-01 15:03] VITALS: BP 122/56
--- NOTE | 2019-04-01 16:36 | NUR ---
SS following up with discharge planning. PT/OT recommended long-term unit. SS met with pt to discuss long-term unit and discharge planning. Pt also requested information on assisted living and independent living as he is selling his house and want to move to a correction apartment. Pt requested to speak with his family prior to making any decisions on long-term unit. SS will continue to follow for discharge planning.
--- NOTE | 2019-04-01 18:52 | PATHOLOGY ---
[facility] Accession Number: [id number] . 01 Material submitted: . PART A: stomach - ANTRUM AND BODY BIOPSY. Modifiers: body PART B: esophagus - DISTAL ESOPHAGUS BIOPSY. Modifiers: distal . 01 Clinical history: . GI bleeding, gastritis, Nixon's. . 02 Diagnosis: A. Gastric biopsies, gastric antrum and body: - Superficial mucosal edema and recent hemorrhage, and mild chronic inflammation. . B. 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 See comment. . (JPM:medardo; 04/01/2019) [facility] 04/01/2019 1114 Local . 02 Comment: Sections of the gastric biopsy reveal segments of gastric body mucosa showing superficial mucosal edema and recent hemorrhage, in addition to a segment of gastric antral/body transition mucosa showing mild chronic inflammation. A properly controlled immunoperoxidase stain for Helicobacter is negative for Helicobacter organisms. . 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 There is no dysplasia or evidence of malignancy. . (JPM:service crew supervisor; 04/01/2019) . Special stain performed: Immunoperoxidase stain for Helicobacter on A1. . 02 Electronically signed: . Peter Watts MD, Pathologist NPI- [id number] . 01 Gross description: . A. Received in formalin labeled "Negron, Moe, antrum and body BX" is a 1.0 x 0.3 x 0.1 cm aggregate of cornelius-brown soft tissue fragments. The specimen is submitted entirely in A1. . B. Received in formalin labeled "Jamil, Moe, distal esophagus BX" is a 0.7 x 0.5 x 0.1 cm aggregate of cornelius-brown soft tissue fragments. The specimen is submitted entirely in B1. ([facility]; 03/31/2019) [facility] 03/31/2019 1715 Local . 02 Pathologist provided ICD-10: K29.50, K20.9 . 02 CPT . 127755, 067206, [id number] Specimen Comment: A courtesy copy of this report has been sent to [phone], [phone] Specimen Comment: [id number], Specimen Comment: Report sent to ,DR OCHOA / DR MELENDEZ Specimen Comment: A duplicate report has been generated due to demographic updates. Performed at: [facility] [address] [facility] [address], [place] [id number] MD Denis Foster MD Phone: [phone] Performed at: 02 [facility] [address] [place], [place] [id number] MD Peter Watts MD Phone: [phone]
[2019-04-01 19:30] VITALS: BP 128/61
[2019-04-01] MEDS: FERROUS SULFATE 325 MG TABLET. PO SCH (22:56)
[2019-04-01 23:12] VITALS: BP 138/63
[2019-04-02] VITALS (7 sets, daily range): BP systolic 129–146; BP diastolic 51–65
[2019-04-02] MEDS: IV NORMAL SALINE 1000ML BAG 1,000 ML IV SCH ×2 (00:23→11:00)
--- NOTE | 2019-04-02 09:01 | PDOC ---
PROGRESS NOTES Chief Complaint Chief Complaint A/P: Acute blood loss anemia Barretts esophagus Leukocytosis with no evidence of acute infection Retroperitoneal soft tissue density nonspecific but possibly re-presenting lymphadenopathy 3 x 22 cm, will need work up once more stable. History of hypertension History of normocytic anemia Thrombocytopenia Acute renal failure secondary to prerenal azotemia Hypernatremia secondary to severe dehydration No sepsis Plan: S/p 1 unit of PRBC Follow platelet count in the a.m. will need to explore interventional radiology biopsy option once patient is more stable. 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 Plan of care sprain detail all concerns addressed to the best my abilities. Feeling better, wants to get out of bed.Tolerating diet, no abd pain, no bleeding, hasn't stooled. Very weak. He is asking if his chair can be reclined. Hb stable at 7.1 post-transfusion. Awaiting repeat hemogram today. PT/OT recommends SNF on discharge. Plan; SNF/rehab referral, repeat H&H Vitals Vitals Vital Signs Date Time Temp Pulse Resp B/P (MAP) Pulse Ox O2 Delivery O2 Flow Rate FiO2 04/02/19 07:51 97.5 59 20 129/62 (84) 98 Room Air 97.5 Physical Exam Physical Exam Gen.: well-developed well-nourished in no apparent distress Head: Normal shape atraumatic Eyes: Pupils equal reactive to light and accommodation, normal conjunctivae and lids Ears: Normal shape Nose: Normal shape no trauma Mouth: No exudates of the back of throat no thrush no lesions Neck: Supple no JVD no carotid bruit or lymphadenopathy no thyromegaly Chest: Lungs clear to auscultation with good inspiratory effort no crackles rales or rhonchi Cardiovascular: S1-S2 regular rhythm no murmurs gallops or rubs Abdomen: Bowel sounds present soft nontender no hepatosplenomegaly appreciated sign Extremities: No clubbing no cyanosis no edema peripheral pulses palpated bilaterally Neurological: Alert awake oriented in person time place and situation, cranial nerves II through XII intact, no motor or sensory deficits appreciated Psych: Appropriate mood, cooperative Lungs: Clear Assessment and Plan Assessmemt and Plan Problems Medical Problems: (1) Acute on chronic renal failure Status: Acute (2) Diverticulosis Status: Acute (3) Fall Status: Acute (4) Generalized weakness Status: Acute (5) GI bleeding Status: Acute (6) Severe sepsis Status: Acute (7) Thrombocytopenia Status: Acute Comment Review of Relevant I have reviewed the following items waylon (where applicable) has been applied. Labs Laboratory Tests Test 03/31/19 13:15 04/01/19 03:20 Hemoglobin 7.0 g/dL (13.0-17.5) 7.1 g/dL (13.0-17.5) Hematocrit 21.6 % (39.0-53.0) 21.8 % (39.0-53.0) White Blood Count 22.7 x10^3/uL (4.0-11.0) Red Blood Count 2.31 x10^6/uL (4.30-5.70) Mean Corpuscular Volume 94 fL (79-100) Mean Corpuscular Hemoglobin 31 pg (25-35) Mean Corpuscular Hemoglobin Concent 33 g/dL (31-37) Red Cell Distribution Width 18.9 % (11.5-14.5) Platelet Count 43 x10^3/uL (140-400) Neutrophils (%) (Auto) 57 % (31-73) Lymphocytes (%) (Auto) 3 % (24-48) Monocytes (%) (Auto) 37 % (0-9) Eosinophils (%) (Auto) 3 % (0-3) Basophils (%) (Auto) 0 % (0-3) Neutrophils # (Auto) 13.0 x10^3/uL (1.8-7.7) Lymphocytes # (Auto) 0.7 x10^3/uL (1.0-4.8) Monocytes # (Auto) 8.4 x10^3/uL (0.0-1.1) Eosinophils # (Auto) 0.6 x10^3/uL (0.0-0.7) Basophils # (Auto) 0.1 x10^3/uL (0.0-0.2) Segmented Neutrophils % 67 % (35-66) Band Neutrophils % 1 % (0-9) Lymphocytes % 2 % (24-48) Monocytes % 28 % (0-10) Eosinophils % 1 % (0-5) Basophils % 1 % (0-3) Platelet Estimate Decreased (ADEQUATE) Polychromasia Slight Hypochromasia Slight Microcytosis Slight Macrocytosis Slight Sodium Level 143 mmol/L (136-145) Potassium Level 3.4 mmol/L (3.5-5.1) Chloride Level 110 mmol/L (98-107) Carbon Dioxide Level 18 mmol/L (21-32) Anion Gap 15 (6-14) Blood Urea Nitrogen 53 mg/dL (8-26) Creatinine 2.6 mg/dL (0.7-1.3) Estimated GFR (Cockcroft-Gault) 23.7 Glucose Level 116 mg/dL (70-99) Calcium Level 7.9 mg/dL (8.5-10.1) Microbiology 03/29/19 Blood Culture - Preliminary, Resulted NO GROWTH AFTER 3 DAYS Medications Current Medications Sodium Chloride 1,000 ml @ 1,000 mls/hr Q1H IV Last administered on 03/29/19at 18:39; Start 03/29/19 at 18:17; Stop 03/29/19 at 19:16; Status DC Pantoprazole Sodium (PROTONIX VIAL for IV PUSH) 40 mg 1X ONCE IVP Last administered on 03/29/19at 19:07; Start 03/29/19 at 18:30; Stop 03/29/19 at 18:31; Status DC Pantoprazole Sodium 80 mg/ Sodium Chloride 100 ml @ 10 mls/hr Q10H IV Last administered on 03/30/19at 13:33; Start 03/29/19 at 18:45; Stop 03/30/19 at 14:07; Status DC Piperacillin Sod/ Tazobactam Sod 3.375 gm/Sodium Chloride 50 ml @ 100 mls/hr 1X ONCE IV Last administered on 03/29/19at 19:23; Start 03/29/19 at 19:15; Stop 03/29/19 at 19:44; Status DC Vancomycin HCl 250 ml @ 250 mls/hr 1X ONCE IV ; Start 03/29/19 at 19:15; Stop 03/29/19 at 20:14; Status UNV Sodium Chloride 1,000 ml @ 1,200 mls/hr 1X ONCE IV Last administered on 03/29/19at 19:15; Start 03/29/19 at 19:15; Stop 03/29/19 at 20:04; Status DC Vancomycin HCl 1.75 gm/Sodium Chloride 500 ml @ 250 mls/hr ONCE ONCE IV Last administered on 03/29/19at 20:23; Start 03/29/19 at 20:00; Stop 03/29/19 at 21:59; Status DC Ondansetron HCl (Zofran) 4 mg PRN Q8HRS PRN IV NAUSEA/VOMITING; Start 03/29/19 at 19:30; Stop 03/30/19 at 06:00; Status DC Sodium Chloride 1,000 ml @ 125 mls/hr Q8H IV Last administered on 03/30/19at 16:52; Start 03/29/19 at 19:17; Stop 03/30/19 at 19:16; Status DC Fentanyl Citrate (Fentanyl 2ml Vial) 50 mcg 1X ONCE IVP Last administered on 03/29/19at 20:29; Start 03/29/19 at 20:15; Stop 03/29/19 at 20:16; Status DC Pantoprazole Sodium (PROTONIX VIAL for IV PUSH) 40 mg DAILYAC IVP Last administered on 03/31/19at 08:53; Start 03/31/19 at 07:30; Stop 03/31/19 at 13:02; Status DC Ondansetron HCl (Zofran) 4 mg PRN Q6HRS PRN IV NAUSEA/VOMITING; Start 03/31/19 at 07:00; Stop 04/01/19 at 06:59; Status DC Fentanyl Citrate (Fentanyl 2ml Vial) 25 mcg PRN Q5MIN PRN IV MILD PAIN 1-3; Start 03/31/19 at 07:00; Stop 04/01/19 at 06:59; Status DC Fentanyl Citrate (Fentanyl 2ml Vial) 50 mcg PRN Q5MIN PRN IV MODERATE TO SEVERE PAIN; Start 03/31/19 at 07:00; Stop 04/01/19 at 06:59; Status DC Morphine Sulfate (Morphine Sulfate) 1 mg PRN Q10MIN PRN IV SEVERE PAIN 7-10; Start 03/31/19 at 07:00; Stop 04/01/19 at 06:59; Status DC Ringer's Solution 1,000 ml @ 30 mls/hr Q24H IV Last administered on 03/31/19at 11:31; Start 03/31/19 at 07:00; Stop 03/31/19 at 18:59; Status DC Hydromorphone HCl (Dilaudid) 0.5 mg PRN Q10MIN PRN IV SEV PAIN, Second choice; Start 03/31/19 at 07:00; Stop 04/01/19 at 06:59; Status DC Prochlorperazine Edisylate (Compazine) 5 mg PACU PRN PRN IV NAUSEA, MRX1; Start 03/31/19 at 07:00; Stop 04/01/19 at 06:59; Status DC Sodium Chloride 1,000 ml @ 100 mls/hr Q10H IV Last administered on 04/02/19at 00:23; Start 03/31/19 at 09:00 Sodium Chloride 500 ml @ 999 mls/hr Q31M IV Last administered on 03/31/19at 08:53; Start 03/31/19 at 09:00; Stop 03/31/19 at 09:30; Status DC Ringer's Solution 1,000 ml @ 75 mls/hr 1X ONCE IV ; Start 03/31/19 at 11:30; Stop 04/01/19 at 00:49; Status DC Propofol 20 ml @ As Directed STK-MED ONCE IV ; Start 03/31/19 at 11:51; Stop 03/31/19 at 11:51; Status DC Lidocaine HCl (Lidocaine Pf 2% Vial) 5 ml STK-MED ONCE .ROUTE ; Start 03/31/19 at 11:51; Stop 03/31/19 at 11:51; Status DC Pantoprazole Sodium (Protonix) 40 mg DAILYAC PO Last administered on 04/01/19at 09:10; Start 04/01/19 at 07:30 Ferrous Sulfate (Feosol) 325 mg BID PO Last administered on 04/01/19at 22:56; Start 04/01/19 at 21:00 Active Scripts Active [Pantoprazole] 40 MG Tablet.dr 40 Mg PO DAILYAC 30 Days Feosol (Ferrous Sulfate) 325 Mg Tablet 325 Mg PO [id number] 30 Days Vitals/I & O Vital Sign - Last 24 Hours 04/01/19 04/01/19 04/01/19 04/01/19 11:31 15:03 19:30 19:43 Temp 97.9 97.3 97.5 97.9 97.3 97.5 Pulse 62 60 66 Resp 20 20 20 B/P (MAP) 128/60 (82) 122/56 (78) 128/61 (83) Pulse Ox 98 99 100 O2 Delivery Room Air Room Air Room Air Room Air 04/01/19 04/02/19 04/02/19 23:12 03:26 07:51 Temp 97.4 97.5 97.4 97.5 Pulse 60 60 59 Resp 20 18 20 B/P (MAP) 138/63 (88) 140/65 (90) 129/62 (84) Pulse Ox 100 96 98 O2 Delivery Room Air Room Air Room Air Intake and Output 04/01/19 04/01/19 04/02/19 15:00 23:00 07:00 Intake Total 300 ml 120 ml 110 ml Output Total 600 ml Balance 300 ml 120 ml -490 ml Nutrition Consultation Dietary Evaluation: Recommendations by RD: Dietary education by RD, Increase Calorie Intake, Protein supplementation Comments: REC Ensure clear w/dinner while on clear liquid diet REC advance diet as able per MD, goal diet cardiac w/Ensure supplements as needed Expected Outcomes/Goals: diet advancement Interpretation of weight loss: >1-2% in 1 week Malnutrition Findings: Food and Nutrition Intake (Mod: <75% est energy req 7days Weight Status: Appropriate Hemodynamically unstable?: No Is patient in severe pain?: No Is NPO status required?: No YANET APODACA MD Apr 02, 2019 09:01
[2019-04-02] MEDS: PANTOPRAZOLE 40 MG TABLET.DR. PO SCH (09:56)
[2019-04-02] MEDS: FERROUS SULFATE 325 MG TABLET. PO SCH ×2 (09:56→21:00)
--- NOTE | 2019-04-02 10:18 | NUR ---
SS following up with discharge planning. SS revisited with pt to discuss discharge planning. Pt declining nursing home unit at this time but reported that he was agreeable to home healthcare with no preference of company. Nurse navigator to meet with pt to discuss. SS will continue to follow for discharge planning.
--- NOTE | 2019-04-02 10:22 | PDOC ---
Subjective: Subjective: Still feels weak, says he did get out of bed yesterday. Eating well, no bleeding. Objective: Vital Signs: Vital Signs Date Time Temp Pulse Resp B/P (MAP) Pulse Ox O2 Delivery O2 Flow Rate FiO2 04/02/19 08:00 Room Air 04/02/19 07:51 97.5 59 20 129/62 (84) 98 97.5 Labs: Material submitted: . PART A: stomach - ANTRUM AND BODY BIOPSY. Modifiers: body PART B: esophagus - DISTAL ESOPHAGUS BIOPSY. Modifiers: distal Clinical history: . GI bleeding, gastritis, Nixon's. Diagnosis: A. Gastric biopsies, gastric antrum and body: - Superficial mucosal edema and recent hemorrhage, and mild chronic inflammation. B. 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 See comment. Comment: Sections of the gastric biopsy reveal segments of gastric body mucosa showing superficial mucosal edema and recent hemorrhage, in addition to a segment of gastric antral/body transition mucosa showing mild chronic inflammation. A properly controlled immunoperoxidase stain for Helicobacter is negative for Helicobacter organisms. 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 There is no dysplasia or evidence of malignancy. PE: GEN: NAD, was resting - breakfast tray 100% consumed LUNGS: CTAB HEART: RRR ABD: NABS, S/ND/NT NEURO/PSYCH: A & O 3 A/P: Weakness Coffee-ground emesis, melena - resolved EMI, thrombocytopenia, coagulopathy, possible alcoholic liver disease Nixon's esophagus, H. pylori negative gastritis - on PPI EMI - on PO iron -- Discussed compliance w/ PPI and need for EGD in 1 year to monitor Nixon's. Consider outpt colonoscopy w/ anemia. Monitor Hgb. Hemodynamically unstable?: No Is patient in severe pain?: No Is NPO status required?: No ISAI MOYA Apr 02, 2019 10:22
[2019-04-02] MEDS ORDERED: POLYETHYLENE GLYCOL 3350 17 GM PACKET. PO PRN (10:30)
[2019-04-02 12:31] LABS: HEMOGLOBIN 7.8 g/dL (13.0-17.5); RED BLOOD COUNT 2.56 x10^6/uL (4.30-5.70); RED CELL DISTRIBUTION WIDTH 19.8 % (11.5-14.5); WHITE BLOOD COUNT 30.4 x10^3/uL (4.0-11.0)
[2019-04-02 12:42] LABS: CALCIUM 8.2 mg/dL (8.5-10.1); CREATININE 2.4 mg/dL (0.7-1.3); POTASSIUM 3.4 mmol/L (3.5-5.1)
[2019-04-03 03:10] VITALS: BP 130/63
[2019-04-03 07:15] VITALS: BP 125/87
[2019-04-03] MEDS: POLYETHYLENE GLYCOL 3350 17 GM PACKET. PO SCH (08:56)
[2019-04-03] MEDS: FERROUS SULFATE 325 MG TABLET. PO SCH ×2 (08:57→22:11)
[2019-04-03] MEDS: PANTOPRAZOLE 40 MG TABLET.DR. PO SCH (08:57)
--- NOTE | 2019-04-03 10:56 | PDOC ---
Subjective: Subjective: Two small stools, one looked black. Still very weak, wants to walk more. Objective: Vital Signs: Vital Signs Date Time Temp Pulse Resp B/P (MAP) Pulse Ox O2 Delivery O2 Flow Rate FiO2 04/03/19 08:00 Room Air 04/03/19 07:15 97.5 63 18 125/87 (100) 96 97.5 Labs: Laboratory Tests Test 04/02/19 12:05 White Blood Count 30.4 x10^3/uL Red Blood Count 2.56 x10^6/uL Hemoglobin 7.8 g/dL Hematocrit 25.0 % Mean Corpuscular Volume 97 fL Mean Corpuscular Hemoglobin 31 pg Mean Corpuscular Hemoglobin Concent 31 g/dL Red Cell Distribution Width 19.8 % Platelet Count 62 x10^3/uL Sodium Level 143 mmol/L Potassium Level 3.4 mmol/L Chloride Level 112 mmol/L Carbon Dioxide Level 21 mmol/L Anion Gap 10 Blood Urea Nitrogen 40 mg/dL Creatinine 2.4 mg/dL Estimated GFR (Cockcroft-Gault) 26.0 Glucose Level 93 mg/dL Calcium Level 8.2 mg/dL BLOOD CULTURE Preliminary NO GROWTH AFTER 4 DAYS PE: GEN: NAD LUNGS: CTAB HEART: RRR ABD: NABS, S/ND/NT NEURO/PSYCH: A & O 3 A/P: Weakness EMI, thrombocytopenia, coagulopathy, ?alcoholic liver disease Nixon's esophagus - on PPI CKD -- Hgb improving. Discussed side effects of iron including darker appearance of stools and constipation. Continue PPI and iron, follow-up for EGD in 1 year. Hemodynamically unstable?: No Is patient in severe pain?: No Is NPO status required?: No ISAI MOYA Apr 03, 2019 10:56
[2019-04-03] MEDS ORDERED: BISACODYL 5 MG TABLET.DR. PO PRN (11:00)
[2019-04-03 11:05] VITALS: BP 126/60
--- NOTE | 2019-04-03 11:07 | PDOC ---
PROGRESS NOTES Chief Complaint Chief Complaint A/P: Acute blood loss anemia Barretts esophagus Leukocytosis with no evidence of acute infection Retroperitoneal soft tissue density nonspecific but possibly re-presenting lymphadenopathy 3 x 22 cm, will need work up once more stable. History of hypertension History of normocytic anemia Thrombocytopenia - uncertain etiology Acute renal failure secondary to prerenal azotemia Hypernatremia secondary to severe dehydration No sepsis Plan: S/p 1 unit of PRBC Follow platelet count in the a.m. will need to explore interventional radiology biopsy option once patient is more stable. 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 Plan of care sprain de tail all concerns addressed to the best my abilities. 2: Feeling better, wants to get out of bed.Tolerating diet, no abd pain, no bleeding, hasn't stooled. Very weak. He is asking if his chair can be reclined. Hb stable at 7.1 post-transfusion. Awaiting repeat hemogram today. PT/OT recommends SNF on discharge. His WBC climbed, platelets still low, Hb stable. He is very unsteady, amenable to SNF discharge. Awaiting labs this morning Plan; SNF/rehab referral, repeat CBC Consult hematology/oncology for concern for myelodysplastic state Vitals Vitals Vital Signs Date Time Temp Pulse Resp B/P (MAP) Pulse Ox O2 Delivery O2 Flow Rate FiO2 04/03/19 08:00 Room Air 04/03/19 07:15 97.5 63 18 125/87 (100) 96 97.5 Physical Exam Physical Exam Gen.: well-developed well-nourished in no apparent distress Head: Normal shape atraumatic Eyes: Pupils equal reactive to light and accommodation, normal conjunctivae and lids Ears: Normal shape Nose: Normal shape no trauma Mouth: No exudates of the back of throat no thrush no lesions Neck: Supple no JVD no carotid bruit or lymphadenopathy no thyromegaly Chest: Lungs clear to auscultation with good inspiratory effort no crackles rales or rhonchi Cardiovascular: S1-S2 regular rhythm no murmurs gallops or rubs Abdomen: Bowel sounds present soft nontender no hepatosplenomegaly appreciated sign Extremities: No clubbing no cyanosis no edema peripheral pulses palpated bilaterally Neurological: Alert awake oriented in person time place and situation, cranial nerves II through XII intact, no motor or sensory deficits appreciated Psych: Appropriate mood, cooperative Lungs: Clear Labs LABS Laboratory Tests Test 04/02/19 12:05 White Blood Count 30.4 x10^3/uL (4.0-11.0) Red Blood Count 2.56 x10^6/uL (4.30-5.70) Hemoglobin 7.8 g/dL (13.0-17.5) Hematocrit 25.0 % (39.0-53.0) Mean Corpuscular Volume 97 fL (79-100) Mean Corpuscular Hemoglobin 31 pg (25-35) Mean Corpuscular Hemoglobin Concent 31 g/dL (31-37) Red Cell Distribution Width 19.8 % (11.5-14.5) Platelet Count 62 x10^3/uL (140-400) Sodium Level 143 mmol/L (136-145) Potassium Level 3.4 mmol/L (3.5-5.1) Chloride Level 112 mmol/L (98-107) Carbon Dioxide Level 21 mmol/L (21-32) Anion Gap 10 (6-14) Blood Urea Nitrogen 40 mg/dL (8-26) Creatinine 2.4 mg/dL (0.7-1.3) Estimated GFR (Cockcroft-Gault) 26.0 Glucose Level 93 mg/dL (70-99) Calcium Level 8.2 mg/dL (8.5-10.1) Assessment and Plan Assessmemt and Plan Problems Medical Problems: (1) Acute on chronic renal failure Status: Acute (2) Diverticulosis Status: Acute (3) Fall Status: Acute (4) Generalized weakness Status: Acute (5) GI bleeding Status: Acute (6) Severe sepsis Status: Acute (7) Thrombocytopenia Status: Acute Comment Review of Relevant I have reviewed the following items waylon (where applicable) has been applied. Labs Laboratory Tests Test 04/02/19 12:05 White Blood Count 30.4 x10^3/uL (4.0-11.0) Red Blood Count 2.56 x10^6/uL (4.30-5.70) Hemoglobin 7.8 g/dL (13.0-17.5) Hematocrit 25.0 % (39.0-53.0) Mean Corpuscular Volume 97 fL (79-100) Mean Corpuscular Hemoglobin 31 pg (25-35) Mean Corpuscular Hemoglobin Concent 31 g/dL (31-37) Red Cell Distribution Width 19.8 % (11.5-14.5) Platelet Count 62 x10^3/uL (140-400) Sodium Level 143 mmol/L (136-145) Potassium Level 3.4 mmol/L (3.5-5.1) Chloride Level 112 mmol/L (98-107) Carbon Dioxide Level 21 mmol/L (21-32) Anion Gap 10 (6-14) Blood Urea Nitrogen 40 mg/dL (8-26) Creatinine 2.4 mg/dL (0.7-1.3) Estimated GFR (Cockcroft-Gault) 26.0 Glucose Level 93 mg/dL (70-99) Calcium Level 8.2 mg/dL (8.5-10.1) Laboratory Tests Test 04/02/19 12:05 White Blood Count 30.4 x10^3/uL (4.0-11.0) Red Blood Count 2.56 x10^6/uL (4.30-5.70) Hemoglobin 7.8 g/dL (13.0-17.5) Hematocrit 25.0 % (39.0-53.0) Mean Corpuscular Volume 97 fL (79-100) Mean Corpuscular Hemoglobin 31 pg (25-35) Mean Corpuscular Hemoglobin Concent 31 g/dL (31-37) Red Cell Distribution Width 19.8 % (11.5-14.5) Platelet Count 62 x10^3/uL (140-400) Sodium Level 143 mmol/L (136-145) Potassium Level 3.4 mmol/L (3.5-5.1) Chloride Level 112 mmol/L (98-107) Carbon Dioxide Level 21 mmol/L (21-32) Anion Gap 10 (6-14) Blood Urea Nitrogen 40 mg/dL (8-26) Creatinine 2.4 mg/dL (0.7-1.3) Estimated GFR (Cockcroft-Gault) 26.0 Glucose Level 93 mg/dL (70-99) Calcium Level 8.2 mg/dL (8.5-10.1) Microbiology 03/29/19 Blood Culture - Preliminary, Resulted NO GROWTH AFTER 4 DAYS Medications Current Medications Sodium Chloride 1,000 ml @ 1,000 mls/hr Q1H IV Last administered on 03/29/19at 18:39; Start 03/29/19 at 18:17; Stop 03/29/19 at 19:16; Status DC Pantoprazole Sodium (PROTONIX VIAL for IV PUSH) 40 mg 1X ONCE IVP Last administered on 03/29/19at 19:07; Start 03/29/19 at 18:30; Stop 03/29/19 at 18:31; Status DC Pantoprazole Sodium 80 mg/ Sodium Chloride 100 ml @ 10 mls/hr Q10H IV Last administered on 03/30/19at 13:33; Start 03/29/19 at 18:45; Stop 03/30/19 at 14:07; Status DC Piperacillin Sod/ Tazobactam Sod 3.375 gm/Sodium Chloride 50 ml @ 100 mls/hr 1X ONCE IV Last administered on 03/29/19at 19:23; Start 03/29/19 at 19:15; Stop 03/29/19 at 19:44; Status DC Vancomycin HCl 250 ml @ 250 mls/hr 1X ONCE IV ; Start 03/29/19 at 19:15; Stop 03/29/19 at 20:14; Status UNV Sodium Chloride 1,000 ml @ 1,200 mls/hr 1X ONCE IV Last administered on 03/29/19at 19:15; Start 03/29/19 at 19:15; Stop 03/29/19 at 20:04; Status DC Vancomycin HCl 1.75 gm/Sodium Chloride 500 ml @ 250 mls/hr ONCE ONCE IV Last administered on 03/29/19at 20:23; Start 03/29/19 at 20:00; Stop 03/29/19 at 21:59; Status DC Ondansetron HCl (Zofran) 4 mg PRN Q8HRS PRN IV NAUSEA/VOMITING; Start 03/29/19 at 19:30; Stop 03/30/19 at 06:00; Status DC Sodium Chloride 1,000 ml @ 125 mls/hr Q8H IV Last administered on 03/30/19at 16:52; Start 03/29/19 at 19:17; Stop 03/30/19 at 19:16; Status DC Fentanyl Citrate (Fentanyl 2ml Vial) 50 mcg 1X ONCE IVP Last administered on 03/29/19at 20:29; Start 03/29/19 at 20:15; Stop 03/29/19 at 20:16; Status DC Pantoprazole Sodium (PROTONIX VIAL for IV PUSH) 40 mg DAILYAC IVP Last administered on 03/31/19at 08:53; Start 03/31/19 at 07:30; Stop 03/31/19 at 13:02; Status DC Ondansetron HCl (Zofran) 4 mg PRN Q6HRS PRN IV NAUSEA/VOMITING; Start 03/31/19 at 07:00; Stop 04/01/19 at 06:59; Status DC Fentanyl Citrate (Fentanyl 2ml Vial) 25 mcg PRN Q5MIN PRN IV MILD PAIN 1-3; Start 03/31/19 at 07:00; Stop 04/01/19 at 06:59; Status DC Fentanyl Citrate (Fentanyl 2ml Vial) 50 mcg PRN Q5MIN PRN IV MODERATE TO SEVERE PAIN; Start 03/31/19 at 07:00; Stop 04/01/19 at 06:59; Status DC Morphine Sulfate (Morphine Sulfate) 1 mg PRN Q10MIN PRN IV SEVERE PAIN 7-10; Start 03/31/19 at 07:00; Stop 04/01/19 at 06:59; Status DC Ringer's Solution 1,000 ml @ 30 mls/hr Q24H IV Last administered on 03/31/19at 11:31; Start 03/31/19 at 07:00; Stop 03/31/19 at 18:59; Status DC Hydromorphone HCl (Dilaudid) 0.5 mg PRN Q10MIN PRN IV SEV PAIN, Second choice; Start 03/31/19 at 07:00; Stop 04/01/19 at 06:59; Status DC Prochlorperazine Edisylate (Compazine) 5 mg PACU PRN PRN IV NAUSEA, MRX1; Start 03/31/19 at 07:00; Stop 04/01/19 at 06:59; Status DC Sodium Chloride 1,000 ml @ 100 mls/hr Q10H IV Last administered on 04/02/19at 00:23; Start 03/31/19 at 09:00; Stop 04/02/19 at 11:19; Status DC Sodium Chloride 500 ml @ 999 mls/hr Q31M IV Last administered on 03/31/19at 08:53; Start 03/31/19 at 09:00; Stop 03/31/19 at 09:30; Status DC Ringer's Solution 1,000 ml @ 75 mls/hr 1X ONCE IV ; Start 03/31/19 at 11:30; Stop 04/01/19 at 00:49; Status DC Propofol 20 ml @ As Directed STK-MED ONCE IV ; Start 03/31/19 at 11:51; Stop 03/31/19 at 11:51; Status DC Lidocaine HCl (Lidocaine Pf 2% Vial) 5 ml STK-MED ONCE .ROUTE ; Start 03/31/19 at 11:51; Stop 03/31/19 at 11:51; Status DC Pantoprazole Sodium (Protonix) 40 mg DAILYAC PO Last administered on 04/03/19at 08:57; Start 04/01/19 at 07:30 Ferrous Sulfate (Feosol) 325 mg BID PO Last administered on 04/03/19at 08:57; Start 04/01/19 at 21:00 Polyethylene Glycol (miraLAX PACKET) 17 gm DAILY PO Last administered on 04/03/19at 08:56; Start 04/03/19 at 09:00 Polyethylene Glycol (miraLAX PACKET) 17 gm PRN DAILY PRN PO CONSTIPATION; Start 04/02/19 at 10:30 Bisacodyl (Dulcolax Tab) 5 mg PRN DAILY PRN PO CONSTIPATION; Start 04/03/19 at 11:00; Status UNV Active Scripts Active [Pantoprazole] 40 MG Tablet.dr 40 Mg PO DAILYAC 30 Days Feosol (Ferrous Sulfate) 325 Mg Tablet 325 Mg PO DAILYWBKFT 30 Days Vitals/I & O Vital Sign - Last 24 Hours 04/02/19 04/02/19 04/02/19 04/02/19 11:50 15:20 19:10 19:44 Temp 97.5 97.5 98.2 97.5 97.5 98.2 Pulse 66 60 63 Resp 20 20 22 B/P (MAP) 146/60 (88) 135/57 (83) 130/52 (78) Pulse Ox 100 96 97 O2 Delivery Room Air Room Air Room Air Room Air 04/02/19 04/03/19 04/03/19 04/03/19 23:10 03:10 07:15 08:00 Temp 97.5 97.6 97.5 97.5 97.6 97.5 Pulse 65 71 63 Resp 22 22 18 B/P (MAP) 134/51 (78) 130/63 (85) 125/87 (100) Pulse Ox 100 97 96 O2 Delivery Room Air Room Air Room Air Room Air Intake and Output 04/02/19 04/02/19 04/03/19 15:00 23:00 07:00 Intake Total 200 ml 650 ml Output Total 800 ml Balance 200 ml -150 ml Nutrition Consultation Dietary Evaluation: Recommendations by RD: Dietary education by RD, Increase Calorie Intake, Protein supplementation Comments: REC continue with cardiac diet - Bun and cr improving REC Nepro q day Expected Outcomes/Goals: diet advancement - met new goal: to meet >75% est nutr needs Interpretation of weight loss: >1-2% in 1 week Malnutrition Findings: Food and Nutrition Intake (Mod: <75% est energy req 7days Weight Status: Appropriate Hemodynamically unstable?: No Is patient in severe pain?: No Is NPO status required?: No YANET APODACA MD Apr 03, 2019 11:07
--- NOTE | 2019-04-03 13:21 | NUR ---
SS following up with discharge planning. Pt now agreeable to intermediate unit. SS met with pt and discussed. Pt reported that he would like referral phoned and faxed to [facility] and [facility], ; fax [phone]. SS phoned and faxed referral to [facility] and [facility]. SS will await acceptance decision and will proceed accordingly with discharge planning.
[2019-04-03 13:58] LABS: BASO # 0.1 x10^3/uL (0.0-0.2); BASO % 0 % (0-3); EOS # 0.8 x10^3/uL (0.0-0.7); EOS % 3 % (0-3); HEMATOCRIT 24.1 % (39.0-53.0); HEMOGLOBIN 7.5 g/dL (13.0-17.5); LYMPH # 0.7 x10^3/uL (1.0-4.8); LYMPH % 2 % (24-48); MEAN CORPUSCULAR HEMOGLOBIN 30 pg (25-35); MEAN CORPUSCULAR HGB CONC 31 g/dL (31-37); MEAN CORPUSCULAR VOLUME 97 fL (79-100); MONO # 13.1 x10^3/uL (0.0-1.1); MONO % 42 % (0-9); NEUT # 16.7 x10^3/uL (1.8-7.7); NEUT % 53 % (31-73); PLATELET COUNT 54 x10^3/uL (140-400); RED BLOOD COUNT 2.48 x10^6/uL (4.30-5.70); WHITE BLOOD COUNT 31.4 x10^3/uL (4.0-11.0)
[2019-04-03 14:17] LABS: CALCIUM 8.4 mg/dL (8.5-10.1); CREATININE 2.4 mg/dL (0.7-1.3); POTASSIUM 3.4 mmol/L (3.5-5.1)
[2019-04-03 14:57] LABS: % LYMPHS 1 % (24-48); % MONOS 44 % (0-10)
[2019-04-03 14:58] LABS: PLT ESTIMATE DECREASED (ADEQUATE)
[2019-04-03 15:01] LABS: ANISOCYTOSIS SLIGHT; MICROCYTOSIS SLIGHT; POLYCHROMASIA OCCASIONAL
[2019-04-03 15:02] LABS: TARGET CELLS OCC
[2019-04-03 15:06] LABS: % MYELOS 1 % (0-0); % SEGS 54 % (35-66)
--- NOTE | 2019-04-03 15:08 | PDOC ---
Provider Note Provider Note Hem/Onc consult: Leukocytosis and thrombocytopenia - plan bone marrow bx. adeola dictation [id number] Hemodynamically unstable?: No Is patient in severe pain?: No Is NPO status required?: No TIKI MELENDREZ MD Apr 03, 2019 15:08
[2019-04-03 15:09] VITALS: BP 132/56
--- NOTE | 2019-04-03 18:02 | NUR ---
At approximately 1515 hours, RK Cobb notified me that a blue tourniquet was tight on patients upper right arm. I removed the blue tourniquet from the patients upper right arm above the IV site. The tourniquet left a red blanchable indention. I also removed the tape below the iv site where lab was drawn. The tape held down a cotton ball and lumen cap. The patient sustain two skin tears from the lumen cap being taped down. The patients routine lab was drawn between 1200 -1320 hours; this information is based on the lab results recorded in the EMR.
[2019-04-03 19:10] VITALS: BP 137/54
[2019-04-03 23:10] VITALS: BP 129/45
--- NOTE | 2019-04-04 01:58 | CONS ---
DATE OF CONSULTATION: 04/03/2019 HEMATOLOGY AND ONCOLOGY CONSULTATION REQUESTING PHYSICIAN: Dr. Young Lyon. REASON FOR CONSULTATION: Leukocytosis and thrombocytopenia, to evaluate for myelodysplastic syndrome. HISTORY OF PRESENT ILLNESS: The patient is an 84-year-old gentleman who was admitted in 01/2019 for melena, microcytic anemia, iron deficiency and chronic thrombocytopenia. EGD was recommended, but he did not want to pursue with the procedure and he was treated with PPI. He was noted to have coffee-ground emesis on 03/28/2019 and hence he presented to the Emergency Room and admitted to [facility] on 03/29/2019. He was evaluated by Gastroenterology and he underwent EGD on 03/29/2019, which revealed diffuse gastritis. Pathology revealed superficial mucosal edema and chronic inflammation. 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 The patient had a hemoglobin of 5.8 with an MCV of 98 and at the time of admission with a WBC of 17.8. He received blood transfusion and hemoglobin improved to 7.5 on 04/03/2019. His iron studies on 12/30/2017 revealed ferritin of 100 and iron saturation of 13. Review of the old records indicates that he has had chronic leukocytosis. WBC was 22.3 on 12/29/2017 and 31.4 on 04/03/2019. He also has chronic thrombocytopenia with a platelet count of 29,000 on 12/29/2017 and 54,000 on 04/03/2019. CT scan of the abdomen and pelvis on 03/29/2019 did not reveal any evidence of liver disease, although the liver was thought to be homogeneous in attenuation. The spleen was enlarged at 16 cm. There was retroperitoneal soft tissue density measuring 3 cm, which is nonspecific, but could represent lymphadenopathy. I was asked to see the patient for further evaluation of leukocytosis and thrombocytopenia. PAST MEDICAL HISTORY: Coronary artery disease, acute renal failure, melena, pacemaker insertion. FAMILY HISTORY: Positive for alcohol abuse. SOCIAL HISTORY: He has quit smoking. He used to drink alcohol, one beer a day that he quit in 2019. REVIEW OF SYSTEMS: A 12-point review of system was performed. Pertinent positives are mentioned in the history of present illness. Rest of the system review is negative. PHYSICAL EXAMINATION: GENERAL APPEARANCE: The patient is an 84-year-old gentleman who is in no acute cardiorespiratory distress. VITAL SIGNS: Blood pressure 126/60, temperature 97.6. HEENT: Atraumatic, normocephalic. EYES: No icterus. NECK: Supple. CHEST: Bilaterally symmetrical. HEART: S1, S2 normal. ABDOMEN: Soft, nontender. CENTRAL NERVOUS SYSTEM: No focal deficits. LYMPHATICS: No lymphadenopathy. SKIN: No rashes. PSYCHOLOGIC: Mood and affect are appropriate. LABORATORY DATA: On 04/03/2019. WBC 31.4, hemoglobin 7.5, platelet count 54. Retic count 5.5, BUN 35, creatinine 2.4, albumin 2.7. IMPRESSION AND PLAN: 1. Chronic leukocytosis with chronic thrombocytopenia. I am concerned about possible myeloproliferative disorder. I discussed in detail with the patient and I recommended a bone marrow aspiration and biopsy and he understands and agrees with the plan. There is no clinical evidence of infection or inflammation. I will consult Interventional Radiology for bone marrow biopsy. 2. Chronic thrombocytopenia, which could be related to underlying splenomegaly. 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 I will continue to monitor. 3. Splenomegaly [address] scan of the abdomen on 03/29/2019. 4. Anemia, normochromic, normocytic. I will check iron studies, B12 and folic acid levels. He does report melena and he underwent an EGD with no active bleeding. Appreciate GI management. TIKI MELENDREZ MD DR: KELLY/heriberto JOB#: [id number] / [id number]
[2019-04-04 03:10] VITALS: BP 136/98
[2019-04-04 07:00] VITALS: BP 128/50
[2019-04-04] MEDS: FERROUS SULFATE 325 MG TABLET. PO SCH ×2 (08:47→21:09)
[2019-04-04] MEDS: PANTOPRAZOLE 40 MG TABLET.DR. PO SCH (08:47)
[2019-04-04] MEDS: POLYETHYLENE GLYCOL 3350 17 GM PACKET. PO SCH (08:47)
--- NOTE | 2019-04-04 09:47 | PDOC ---
PROGRESS NOTES Chief Complaint Chief Complaint A/P: Acute blood loss anemia Barretts esophagus Leukocytosis with no evidence of acute infection Retroperitoneal soft tissue density nonspecific but possibly re-presenting lymphadenopathy 3 x 22 cm, will need work up once more stable. History of hypertension History of normocytic anemia Thrombocytopenia - uncertain etiology Acute renal failure secondary to prerenal azotemia Hypernatremia secondary to severe dehydration No sepsis Plan: S/p 1 unit of PRBC Follow platelet count in the a.m. will need to explore interventional radiology biopsy option once patient is more stable. 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 Plan of care sprain de tail all concerns addressed to the best my abilities. 04/02: Feeling better, wants to get out of bed.Tolerating diet, no abd pain, no bleeding, hasn't stooled. Very weak. He is asking if his chair can be reclined. Hb stable at 7.1 post-transfusion. Awaiting repeat hemogram today. PT/OT recommends SNF on discharge. 04/03: His WBC climbed, platelets still low, Hb stable. He is very unsteady, amenable to SNF discharge. Having bowel urgency overnight, no loose stools, brown, not black, no blood. A bit more steady today. Awaiting SNF approval and bone marrow biopsy. No chest pain or shortness of breath Plan; SNF/rehab referral, repeat CBC Bone marrow biopsy, plan for 04/06 Consulted hematology/oncology for concern for myelodysplastic state Vitals Vitals Vital Signs Date Time Temp Pulse Resp B/P (MAP) Pulse Ox O2 Delivery O2 Flow Rate FiO2 04/04/19 07:00 97.5 65 16 128/50 (76) 97 Room Air 97.5 Physical Exam Physical Exam Gen.: well-developed well-nourished in no apparent distress Head: Normal shape atraumatic Eyes: Pupils equal reactive to light and accommodation, normal conjunctivae and lids Ears: Normal shape Nose: Normal shape no trauma Mouth: No exudates of the back of throat no thrush no lesions Neck: Supple no JVD no carotid bruit or lymphadenopathy no thyromegaly Chest: Lungs clear to auscultation with good inspiratory effort no crackles rales or rhonchi Cardiovascular: S1-S2 regular rhythm no murmurs gallops or rubs Abdomen: Bowel sounds present soft nontender no hepatosplenomegaly appreciated sign Extremities: No clubbing no cyanosis no edema peripheral pulses palpated bilaterally Neurological: Alert awake oriented in person time place and situation, cranial nerves II through XII intact, no motor or sensory deficits appreciated Psych: Appropriate mood, cooperative Lungs: Clear Labs LABS Laboratory Tests Test 04/03/19 13:20 White Blood Count 31.4 x10^3/uL (4.0-11.0) Red Blood Count 2.47 x10^6/uL (4.30-5.70) Hemoglobin 7.5 g/dL (13.0-17.5) Hematocrit 24.1 % (39.0-53.0) Mean Corpuscular Volume 97 fL (79-100) Mean Corpuscular Hemoglobin 30 pg (25-35) Mean Corpuscular Hemoglobin Concent 31 g/dL (31-37) Red Cell Distribution Width 20.0 % (11.5-14.5) Platelet Count 54 x10^3/uL (140-400) Neutrophils (%) (Auto) 53 % (31-73) Lymphocytes (%) (Auto) 2 % (24-48) Monocytes (%) (Auto) 42 % (0-9) Eosinophils (%) (Auto) 3 % (0-3) Basophils (%) (Auto) 0 % (0-3) Neutrophils # (Auto) 16.7 x10^3/uL (1.8-7.7) Lymphocytes # (Auto) 0.7 x10^3/uL (1.0-4.8) Monocytes # (Auto) 13.1 x10^3/uL (0.0-1.1) Eosinophils # (Auto) 0.8 x10^3/uL (0.0-0.7) Basophils # (Auto) 0.1 x10^3/uL (0.0-0.2) Segmented Neutrophils % 54 % (35-66) Lymphocytes % 1 % (24-48) Monocytes % 44 % (0-10) Myelocytes % 1 % (0-0) Platelet Estimate Decreased (ADEQUATE) Large Platelets Occ Polychromasia Occasional Anisocytosis Slight Microcytosis Slight Macrocytosis Slight Target Cells Occ Absolute Reticulocyte Count 0.135 x10^6/uL (0.020-0.120) Percent Reticulocyte Count 5.5 % (0.5-2.3) Immature Reticulocyte Fraction 0.64 (0.20-0.60) Sodium Level 146 mmol/L (136-145) Potassium Level 3.4 mmol/L (3.5-5.1) Chloride Level 112 mmol/L (98-107) Carbon Dioxide Level 21 mmol/L (21-32) Anion Gap 13 (6-14) Blood Urea Nitrogen 35 mg/dL (8-26) Creatinine 2.4 mg/dL (0.7-1.3) Estimated GFR (Cockcroft-Gault) 26.0 Glucose Level 100 mg/dL (70-99) Calcium Level 8.4 mg/dL (8.5-10.1) Iron Level 13 ug/dL (65-175) Total Iron Binding Capacity 312 ug/dL (250-450) Iron Saturation 4 % (15-34) Ferritin 32 ng/mL (26-388) Vitamin B12 Level 1567 pg/mL (247-911) Assessment and Plan Assessmemt and Plan Problems Medical Problems: (1) Acute on chronic renal failure Status: Acute (2) Diverticulosis Status: Acute (3) Fall Status: Acute (4) Generalized weakness Status: Acute (5) GI bleeding Status: Acute (6) Severe sepsis Status: Acute (7) Thrombocytopenia Status: Acute Comment Review of Relevant I have reviewed the following items waylon (where applicable) has been applied. Labs Laboratory Tests Test 04/02/19 12:05 04/03/19 13:20 White Blood Count 30.4 x10^3/uL (4.0-11.0) 31.4 x10^3/uL (4.0-11.0) Red Blood Count 2.56 x10^6/uL (4.30-5.70) 2.47 x10^6/uL (4.30-5.70) Hemoglobin 7.8 g/dL (13.0-17.5) 7.5 g/dL (13.0-17.5) Hematocrit 25.0 % (39.0-53.0) 24.1 % (39.0-53.0) Mean Corpuscular Volume 97 fL (79-100) 97 fL (79-100) Mean Corpuscular Hemoglobin 31 pg (25-35) 30 pg (25-35) Mean Corpuscular Hemoglobin Concent 31 g/dL (31-37) 31 g/dL (31-37) Red Cell Distribution Width 19.8 % (11.5-14.5) 20.0 % (11.5-14.5) Platelet Count 62 x10^3/uL (140-400) 54 x10^3/uL (140-400) Sodium Level 143 mmol/L (136-145) 146 mmol/L (136-145) Potassium Level 3.4 mmol/L (3.5-5.1) 3.4 mmol/L (3.5-5.1) Chloride Level 112 mmol/L (98-107) 112 mmol/L (98-107) Carbon Dioxide Level 21 mmol/L (21-32) 21 mmol/L (21-32) Anion Gap 10 (6-14) 13 (6-14) Blood Urea Nitrogen 40 mg/dL (8-26) 35 mg/dL (8-26) Creatinine 2.4 mg/dL (0.7-1.3) 2.4 mg/dL (0.7-1.3) Estimated GFR (Cockcroft-Gault) 26.0 26.0 Glucose Level 93 mg/dL (70-99) 100 mg/dL (70-99) Calcium Level 8.2 mg/dL (8.5-10.1) 8.4 mg/dL (8.5-10.1) Neutrophils (%) (Auto) 53 % (31-73) Lymphocytes (%) (Auto) 2 % (24-48) Monocytes (%) (Auto) 42 % (0-9) Eosinophils (%) (Auto) 3 % (0-3) Basophils (%) (Auto) 0 % (0-3) Neutrophils # (Auto) 16.7 x10^3/uL (1.8-7.7) Lymphocytes # (Auto) 0.7 x10^3/uL (1.0-4.8) Monocytes # (Auto) 13.1 x10^3/uL (0.0-1.1) Eosinophils # (Auto) 0.8 x10^3/uL (0.0-0.7) Basophils # (Auto) 0.1 x10^3/uL (0.0-0.2) Segmented Neutrophils % 54 % (35-66) Lymphocytes % 1 % (24-48) Monocytes % 44 % (0-10) Myelocytes % 1 % (0-0) Platelet Estimate Decreased (ADEQUATE) Large Platelets Occ Polychromasia Occasional Anisocytosis Slight Microcytosis Slight Macrocytosis Slight Target Cells Occ Absolute Reticulocyte Count 0.135 x10^6/uL (0.020-0.120) Percent Reticulocyte Count 5.5 % (0.5-2.3) Immature Reticulocyte Fraction 0.64 (0.20-0.60) Iron Level 13 ug/dL (65-175) Total Iron Binding Capacity 312 ug/dL (250-450) Iron Saturation 4 % (15-34) Ferritin 32 ng/mL (26-388) Vitamin B12 Level 1567 pg/mL (247-911) Laboratory Tests Test 04/03/19 13:20 White Blood Count 31.4 x10^3/uL (4.0-11.0) Red Blood Count 2.47 x10^6/uL (4.30-5.70) Hemoglobin 7.5 g/dL (13.0-17.5) Hematocrit 24.1 % (39.0-53.0) Mean Corpuscular Volume 97 fL (79-100) Mean Corpuscular Hemoglobin 30 pg (25-35) Mean Corpuscular Hemoglobin Concent 31 g/dL (31-37) Red Cell Distribution Width 20.0 % (11.5-14.5) Platelet Count 54 x10^3/uL (140-400) Neutrophils (%) (Auto) 53 % (31-73) Lymphocytes (%) (Auto) 2 % (24-48) Monocytes (%) (Auto) 42 % (0-9) Eosinophils (%) (Auto) 3 % (0-3) Basophils (%) (Auto) 0 % (0-3) Neutrophils # (Auto) 16.7 x10^3/uL (1.8-7.7) Lymphocytes # (Auto) 0.7 x10^3/uL (1.0-4.8) Monocytes # (Auto) 13.1 x10^3/uL (0.0-1.1) Eosinophils # (Auto) 0.8 x10^3/uL (0.0-0.7) Basophils # (Auto) 0.1 x10^3/uL (0.0-0.2) Segmented Neutrophils % 54 % (35-66) Lymphocytes % 1 % (24-48) Monocytes % 44 % (0-10) Myelocytes % 1 % (0-0) Platelet Estimate Decreased (ADEQUATE) Large Platelets Occ Polychromasia Occasional Anisocytosis Slight Microcytosis Slight Macrocytosis Slight Target Cells Occ Absolute Reticulocyte Count 0.135 x10^6/uL (0.020-0.120) Percent Reticulocyte Count 5.5 % (0.5-2.3) Immature Reticulocyte Fraction 0.64 (0.20-0.60) Sodium Level 146 mmol/L (136-145) Potassium Level 3.4 mmol/L (3.5-5.1) Chloride Level 112 mmol/L (98-107) Carbon Dioxide Level 21 mmol/L (21-32) Anion Gap 13 (6-14) Blood Urea Nitrogen 35 mg/dL (8-26) Creatinine 2.4 mg/dL (0.7-1.3) Estimated GFR (Cockcroft-Gault) 26.0 Glucose Level 100 mg/dL (70-99) Calcium Level 8.4 mg/dL (8.5-10.1) Iron Level 13 ug/dL (65-175) Total Iron Binding Capacity 312 ug/dL (250-450) Iron Saturation 4 % (15-34) Ferritin 32 ng/mL (26-388) Vitamin B12 Level 1567 pg/mL (247-911) Microbiology 03/29/19 Blood Culture - Final, Complete NO GROWTH AFTER 5 DAYS Medications Current Medications Sodium Chloride 1,000 ml @ 1,000 mls/hr Q1H IV Last administered on 03/29/19at 18:39; Start 03/29/19 at 18:17; Stop 03/29/19 at 19:16; Status DC Pantoprazole Sodium (PROTONIX VIAL for IV PUSH) 40 mg 1X ONCE IVP Last administered on 03/29/19at 19:07; Start 03/29/19 at 18:30; Stop 03/29/19 at 18:31; Status DC Pantoprazole Sodium 80 mg/ Sodium Chloride 100 ml @ 10 mls/hr Q10H IV Last administered on 03/30/19at 13:33; Start 03/29/19 at 18:45; Stop 03/30/19 at 14:07; Status DC Piperacillin Sod/ Tazobactam Sod 3.375 gm/Sodium Chloride 50 ml @ 100 mls/hr 1X ONCE IV Last administered on 03/29/19at 19:23; Start 03/29/19 at 19:15; Stop 03/29/19 at 19:44; Status DC Vancomycin HCl 250 ml @ 250 mls/hr 1X ONCE IV ; Start 03/29/19 at 19:15; Stop 03/29/19 at 20:14; Status UNV Sodium Chloride 1,000 ml @ 1,200 mls/hr 1X ONCE IV Last administered on 03/29/19at 19:15; Start 03/29/19 at 19:15; Stop 03/29/19 at 20:04; Status DC Vancomycin HCl 1.75 gm/Sodium Chloride 500 ml @ 250 mls/hr ONCE ONCE IV Last administered on 03/29/19at 20:23; Start 03/29/19 at 20:00; Stop 03/29/19 at 21:59; Status DC Ondansetron HCl (Zofran) 4 mg PRN Q8HRS PRN IV NAUSEA/VOMITING; Start 03/29/19 at 19:30; Stop 03/30/19 at 06:00; Status DC Sodium Chloride 1,000 ml @ 125 mls/hr Q8H IV Last administered on 03/30/19at 16:52; Start 03/29/19 at 19:17; Stop 03/30/19 at 19:16; Status DC Fentanyl Citrate (Fentanyl 2ml Vial) 50 mcg 1X ONCE IVP Last administered on 03/29/19at 20:29; Start 03/29/19 at 20:15; Stop 03/29/19 at 20:16; Status DC Pantoprazole Sodium (PROTONIX VIAL for IV PUSH) 40 mg DAILYAC IVP Last administered on 03/31/19at 08:53; Start 03/31/19 at 07:30; Stop 03/31/19 at 13:02; Status DC Ondansetron HCl (Zofran) 4 mg PRN Q6HRS PRN IV NAUSEA/VOMITING; Start 03/31/19 at 07:00; Stop 04/01/19 at 06:59; Status DC Fentanyl Citrate (Fentanyl 2ml Vial) 25 mcg PRN Q5MIN PRN IV MILD PAIN 1-3; Start 03/31/19 at 07:00; Stop 04/01/19 at 06:59; Status DC Fentanyl Citrate (Fentanyl 2ml Vial) 50 mcg PRN Q5MIN PRN IV MODERATE TO SEVERE PAIN; Start 03/31/19 at 07:00; Stop 04/01/19 at 06:59; Status DC Morphine Sulfate (Morphine Sulfate) 1 mg PRN Q10MIN PRN IV SEVERE PAIN 7-10; Start 03/31/19 at 07:00; Stop 04/01/19 at 06:59; Status DC Ringer's Solution 1,000 ml @ 30 mls/hr Q24H IV Last administered on 03/31/19at 11:31; Start 03/31/19 at 07:00; Stop 03/31/19 at 18:59; Status DC Hydromorphone HCl (Dilaudid) 0.5 mg PRN Q10MIN PRN IV SEV PAIN, Second choice; Start 03/31/19 at 07:00; Stop 04/01/19 at 06:59; Status DC Prochlorperazine Edisylate (Compazine) 5 mg PACU PRN PRN IV NAUSEA, MRX1; Start 03/31/19 at 07:00; Stop 04/01/19 at 06:59; Status DC Sodium Chloride 1,000 ml @ 100 mls/hr Q10H IV Last administered on 04/02/19at 00:23; Start 03/31/19 at 09:00; Stop 04/02/19 at 11:19; Status DC Sodium Chloride 500 ml @ 999 mls/hr Q31M IV Last administered on 03/31/19at 08:53; Start 03/31/19 at 09:00; Stop 03/31/19 at 09:30; Status DC Ringer's Solution 1,000 ml @ 75 mls/hr 1X ONCE IV ; Start 03/31/19 at 11:30; Stop 04/01/19 at 00:49; Status DC Propofol 20 ml @ As Directed STK-MED ONCE IV ; Start 03/31/19 at 11:51; Stop 03/31/19 at 11:51; Status DC Lidocaine HCl (Lidocaine Pf 2% Vial) 5 ml STK-MED ONCE .ROUTE ; Start 03/31/19 at 11:51; Stop 03/31/19 at 11:51; Status DC Pantoprazole Sodium (Protonix) 40 mg DAILYAC PO Last administered on 04/04/19at 08:47; Start 04/01/19 at 07:30 Ferrous Sulfate (Feosol) 325 mg BID PO Last administered on 04/04/19at 08:47; Start 04/01/19 at 21:00 Polyethylene Glycol (miraLAX PACKET) 17 gm DAILY PO Last administered on 04/04/19at 08:47; Start 04/03/19 at 09:00 Polyethylene Glycol (miraLAX PACKET) 17 gm PRN DAILY PRN PO CONSTIPATION; Start 04/02/19 at 10:30 Bisacodyl (Dulcolax Tab) 5 mg PRN DAILY PRN PO CONSTIPATION- 2ND CHOICE; Start 04/03/19 at 11:00 Active Scripts Active [Pantoprazole] 40 MG Tablet.dr 40 Mg PO DAILYAC 30 Days Feosol (Ferrous Sulfate) 325 Mg Tablet 325 Mg PO [id number] 30 Days Vitals/I & O Vital Sign - Last 24 Hours 04/03/19 04/03/19 04/03/19 04/03/19 11:05 15:09 19:10 20:09 Temp 97.6 97.5 97.7 97.6 97.5 97.7 Pulse 63 60 63 Resp 18 20 22 B/P (MAP) 126/60 (82) 132/56 (81) 137/54 (81) Pulse Ox 96 96 98 O2 Delivery Room Air Room Air Room Air Room Air 04/03/19 04/04/19 04/04/19 23:10 03:10 07:00 Temp 98.2 97.4 97.5 98.2 97.4 97.5 Pulse 61 64 65 Resp 22 22 16 B/P (MAP) 129/45 (73) 136/98 (111) 128/50 (76) Pulse Ox 98 98 97 O2 Delivery Room Air Room Air Room Air Intake and Output 04/03/19 04/03/19 04/04/19 15:00 23:00 07:00 Intake Total 360 ml 180 ml 900 ml Output Total 450 ml 975 ml Balance 360 ml -270 ml -75 ml Nutrition Consultation Dietary Evaluation: Recommendations by RD: Dietary education by RD, Increase Calorie Intake, Protein supplementation Comments: REC continue with cardiac diet - Bun and cr improving REC Nepro q day Expected Outcomes/Goals: diet advancement - met new goal: to meet >75% est nutr needs Interpretation of weight loss: >1-2% in 1 week Malnutrition Findings: Food and Nutrition Intake (Mod: <75% est energy req 7days Weight Status: Appropriate Hemodynamically unstable?: No Is patient in severe pain?: No Is NPO status required?: No YANET APODACA MD Apr 04, 2019 09:47
[2019-04-04 11:00] VITALS: BP 147/51
[2019-04-04 15:00] VITALS: BP 124/54
[2019-04-04 19:15] VITALS: BP 146/53
[2019-04-04 23:55] VITALS: BP 133/58
[2019-04-05 03:30] VITALS: BP 133/55
[2019-04-05 05:56] LABS: BASO # 0.1 x10^3/uL (0.0-0.2); BASO % 1 % (0-3); EOS # 0.8 x10^3/uL (0.0-0.7); EOS % 3 % (0-3); HEMATOCRIT 22.5 % (39.0-53.0); HEMOGLOBIN 7.1 g/dL (13.0-17.5); LYMPH # 1.1 x10^3/uL (1.0-4.8); LYMPH % 4 % (24-48); MEAN CORPUSCULAR HEMOGLOBIN 30 pg (25-35); MEAN CORPUSCULAR HGB CONC 31 g/dL (31-37); MEAN CORPUSCULAR VOLUME 96 fL (79-100); MONO # 14.4 x10^3/uL (0.0-1.1); MONO % 46 % (0-9); NEUT # 14.6 x10^3/uL (1.8-7.7); NEUT % 47 % (31-73); PLATELET COUNT 42 x10^3/uL (140-400); RED BLOOD COUNT 2.35 x10^6/uL (4.30-5.70); RED CELL DISTRIBUTION WIDTH 19.3 % (11.5-14.5); WHITE BLOOD COUNT 31.1 x10^3/uL (4.0-11.0)
[2019-04-05 06:19] LABS: ALBUMIN 2.8 g/dL (3.4-5.0); CALCIUM 8.7 mg/dL (8.5-10.1); CREATININE 2.5 mg/dL (0.7-1.3); GFR 24.8; PHOSPHORUS 3.2 mg/dL (2.6-4.7); POTASSIUM 3.5 mmol/L (3.5-5.1)
[2019-04-05] MEDS: PANTOPRAZOLE 40 MG TABLET.DR. PO SCH (06:20)
[2019-04-05 06:25] LABS: PROTHROMBIN TIME PATIENT 17.3 SEC (11.7-14.0)
[2019-04-05 07:00] VITALS: BP 139/87
--- NOTE | 2019-04-05 08:38 | PDOC ---
PROGRESS NOTES Chief Complaint Chief Complaint A/P: Acute blood loss anemia Barretts esophagus Leukocytosis with no evidence of acute infection Retroperitoneal soft tissue density nonspecific but possibly re-presenting lymphadenopathy 3 x 22 cm, will need work up once more stable. History of hypertension History of normocytic anemia Thrombocytopenia - uncertain etiology Acute renal failure secondary to prerenal azotemia Hypernatremia secondary to severe dehydration No sepsis Plan: S/p 1 unit of PRBC Follow platelet count in the a.m. will need to explore interventional radiology biopsy option once patient is more stable. 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 Plan of care sprain de tail all concerns addressed to the best my abilities. 2: Feeling better, wants to get out of bed.Tolerating diet, no abd pain, no bleeding, hasn't stooled. Very weak. He is asking if his chair can be reclined. Hb stable at 7.1 post-transfusion. Awaiting repeat hemogram today. PT/OT recommends SNF on discharge. 04/03: His WBC climbed, platelets still low, Hb stable. He is very unsteady, amenable to SNF discharge. 04/04: Having bowel urgency overnight, no loose stools, brown, not black, no blood. A bit more steady today. Awaiting SNF approval and bone marrow biopsy. No chest pain or shortness of breath. He relates he had a bone marrow biopsy [facility] 2 years ago, doesn't remember results WBC still in 30s, Hb 7.1, stable, platelets < 50. Awaiting bone marrow biopsy and SNF approval. He is confused and talking to himself today. Plan; SNF/rehab referral, repeat CBC Bone marrow biopsy, plan for 04/06 Consulted hematology/oncology for concern for myelodysplastic state Vitals Vitals Vital Signs Date Time Temp Pulse Resp B/P (MAP) Pulse Ox O2 Delivery O2 Flow Rate FiO2 04/05/19 03:30 97.9 68 20 133/55 (81) 97 Room Air 97.9 Physical Exam Physical Exam Gen.: well-developed well-nourished in no apparent distress Head: Normal shape atraumatic Eyes: Pupils equal reactive to light and accommodation, normal conjunctivae and lids Ears: Normal shape Nose: Normal shape no trauma Mouth: No exudates of the back of throat no thrush no lesions Neck: Supple no JVD no carotid bruit or lymphadenopathy no thyromegaly Chest: Lungs clear to auscultation with good inspiratory effort no crackles rales or rhonchi Cardiovascular: S1-S2 regular rhythm no murmurs gallops or rubs Abdomen: Bowel sounds present soft nontender no hepatosplenomegaly appreciated sign Extremities: No clubbing no cyanosis no edema peripheral pulses palpated bilaterally Neurological: Alert awake oriented in person time place and situation, cranial nerves II through XII intact, no motor or sensory deficits appreciated Psych: Appropriate mood, cooperative Lungs: Clear Labs LABS Laboratory Tests Test 04/05/19 04:45 White Blood Count 31.1 x10^3/uL (4.0-11.0) Red Blood Count 2.35 x10^6/uL (4.30-5.70) Hemoglobin 7.1 g/dL (13.0-17.5) Hematocrit 22.5 % (39.0-53.0) Mean Corpuscular Volume 96 fL (79-100) Mean Corpuscular Hemoglobin 30 pg (25-35) Mean Corpuscular Hemoglobin Concent 31 g/dL (31-37) Red Cell Distribution Width 19.3 % (11.5-14.5) Platelet Count 42 x10^3/uL (140-400) Neutrophils (%) (Auto) 47 % (31-73) Lymphocytes (%) (Auto) 4 % (24-48) Monocytes (%) (Auto) 46 % (0-9) Eosinophils (%) (Auto) 3 % (0-3) Basophils (%) (Auto) 1 % (0-3) Neutrophils # (Auto) 14.6 x10^3/uL (1.8-7.7) Lymphocytes # (Auto) 1.1 x10^3/uL (1.0-4.8) Monocytes # (Auto) 14.4 x10^3/uL (0.0-1.1) Eosinophils # (Auto) 0.8 x10^3/uL (0.0-0.7) Basophils # (Auto) 0.1 x10^3/uL (0.0-0.2) Prothrombin Time 17.3 SEC (11.7-14.0) Prothromb Time International Ratio 1.4 (0.8-1.1) Sodium Level 143 mmol/L (136-145) Potassium Level 3.5 mmol/L (3.5-5.1) Chloride Level 109 mmol/L (98-107) Carbon Dioxide Level 22 mmol/L (21-32) Anion Gap 12 (6-14) Blood Urea Nitrogen 34 mg/dL (8-26) Creatinine 2.5 mg/dL (0.7-1.3) Estimated GFR (Cockcroft-Gault) 24.8 Glucose Level 85 mg/dL (70-99) Calcium Level 8.7 mg/dL (8.5-10.1) Phosphorus Level 3.2 mg/dL (2.6-4.7) Albumin 2.8 g/dL (3.4-5.0) Assessment and Plan Assessmemt and Plan Problems Medical Problems: (1) Acute on chronic renal failure Status: Acute (2) Diverticulosis Status: Acute (3) Fall Status: Acute (4) Generalized weakness Status: Acute (5) GI bleeding Status: Acute (6) Severe sepsis Status: Acute (7) Thrombocytopenia Status: Acute Comment Review of Relevant I have reviewed the following items waylon (where applicable) has been applied. Labs Laboratory Tests Test 04/03/19 13:20 04/05/19 04:45 White Blood Count 31.4 x10^3/uL (4.0-11.0) 31.1 x10^3/uL (4.0-11.0) Red Blood Count 2.47 x10^6/uL (4.30-5.70) 2.35 x10^6/uL (4.30-5.70) Hemoglobin 7.5 g/dL (13.0-17.5) 7.1 g/dL (13.0-17.5) Hematocrit 24.1 % (39.0-53.0) 22.5 % (39.0-53.0) Mean Corpuscular Volume 97 fL (79-100) 96 fL (79-100) Mean Corpuscular Hemoglobin 30 pg (25-35) 30 pg (25-35) Mean Corpuscular Hemoglobin Concent 31 g/dL (31-37) 31 g/dL (31-37) Red Cell Distribution Width 20.0 % (11.5-14.5) 19.3 % (11.5-14.5) Platelet Count 54 x10^3/uL (140-400) 42 x10^3/uL (140-400) Neutrophils (%) (Auto) 53 % (31-73) 47 % (31-73) Lymphocytes (%) (Auto) 2 % (24-48) 4 % (24-48) Monocytes (%) (Auto) 42 % (0-9) 46 % (0-9) Eosinophils (%) (Auto) 3 % (0-3) 3 % (0-3) Basophils (%) (Auto) 0 % (0-3) 1 % (0-3) Neutrophils # (Auto) 16.7 x10^3/uL (1.8-7.7) 14.6 x10^3/uL (1.8-7.7) Lymphocytes # (Auto) 0.7 x10^3/uL (1.0-4.8) 1.1 x10^3/uL (1.0-4.8) Monocytes # (Auto) 13.1 x10^3/uL (0.0-1.1) 14.4 x10^3/uL (0.0-1.1) Eosinophils # (Auto) 0.8 x10^3/uL (0.0-0.7) 0.8 x10^3/uL (0.0-0.7) Basophils # (Auto) 0.1 x10^3/uL (0.0-0.2) 0.1 x10^3/uL (0.0-0.2) Segmented Neutrophils % 54 % (35-66) Lymphocytes % 1 % (24-48) Monocytes % 44 % (0-10) Myelocytes % 1 % (0-0) Platelet Estimate Decreased (ADEQUATE) Large Platelets Occ Polychromasia Occasional Anisocytosis Slight Microcytosis Slight Macrocytosis Slight Target Cells Occ Absolute Reticulocyte Count 0.135 x10^6/uL (0.020-0.120) Percent Reticulocyte Count 5.5 % (0.5-2.3) Immature Reticulocyte Fraction 0.64 (0.20-0.60) Sodium Level 146 mmol/L (136-145) 143 mmol/L (136-145) Potassium Level 3.4 mmol/L (3.5-5.1) 3.5 mmol/L (3.5-5.1) Chloride Level 112 mmol/L (98-107) 109 mmol/L (98-107) Carbon Dioxide Level 21 mmol/L (21-32) 22 mmol/L (21-32) Anion Gap 13 (6-14) 12 (6-14) Blood Urea Nitrogen 35 mg/dL (8-26) 34 mg/dL (8-26) Creatinine 2.4 mg/dL (0.7-1.3) 2.5 mg/dL (0.7-1.3) Estimated GFR (Cockcroft-Gault) 26.0 24.8 Glucose Level 100 mg/dL (70-99) 85 mg/dL (70-99) Calcium Level 8.4 mg/dL (8.5-10.1) 8.7 mg/dL (8.5-10.1) Iron Level 13 ug/dL (65-175) Total Iron Binding Capacity 312 ug/dL (250-450) Iron Saturation 4 % (15-34) Ferritin 32 ng/mL (26-388) Vitamin B12 Level 1567 pg/mL (247-911) Prothrombin Time 17.3 SEC (11.7-14.0) Prothromb Time International Ratio 1.4 (0.8-1.1) Phosphorus Level 3.2 mg/dL (2.6-4.7) Albumin 2.8 g/dL (3.4-5.0) Laboratory Tests Test 04/05/19 04:45 White Blood Count 31.1 x10^3/uL (4.0-11.0) Red Blood Count 2.35 x10^6/uL (4.30-5.70) Hemoglobin 7.1 g/dL (13.0-17.5) Hematocrit 22.5 % (39.0-53.0) Mean Corpuscular Volume 96 fL (79-100) Mean Corpuscular Hemoglobin 30 pg (25-35) Mean Corpuscular Hemoglobin Concent 31 g/dL (31-37) Red Cell Distribution Width 19.3 % (11.5-14.5) Platelet Count 42 x10^3/uL (140-400) Neutrophils (%) (Auto) 47 % (31-73) Lymphocytes (%) (Auto) 4 % (24-48) Monocytes (%) (Auto) 46 % (0-9) Eosinophils (%) (Auto) 3 % (0-3) Basophils (%) (Auto) 1 % (0-3) Neutrophils # (Auto) 14.6 x10^3/uL (1.8-7.7) Lymphocytes # (Auto) 1.1 x10^3/uL (1.0-4.8) Monocytes # (Auto) 14.4 x10^3/uL (0.0-1.1) Eosinophils # (Auto) 0.8 x10^3/uL (0.0-0.7) Basophils # (Auto) 0.1 x10^3/uL (0.0-0.2) Prothrombin Time 17.3 SEC (11.7-14.0) Prothromb Time International Ratio 1.4 (0.8-1.1) Sodium Level 143 mmol/L (136-145) Potassium Level 3.5 mmol/L (3.5-5.1) Chloride Level 109 mmol/L (98-107) Carbon Dioxide Level 22 mmol/L (21-32) Anion Gap 12 (6-14) Blood Urea Nitrogen 34 mg/dL (8-26) Creatinine 2.5 mg/dL (0.7-1.3) Estimated GFR (Cockcroft-Gault) 24.8 Glucose Level 85 mg/dL (70-99) Calcium Level 8.7 mg/dL (8.5-10.1) Phosphorus Level 3.2 mg/dL (2.6-4.7) Albumin 2.8 g/dL (3.4-5.0) Microbiology 03/29/19 Blood Culture - Final, Complete NO GROWTH AFTER 5 DAYS Medications Current Medications Sodium Chloride 1,000 ml @ 1,000 mls/hr Q1H IV Last administered on 03/29/19at 18:39; Start 03/29/19 at 18:17; Stop 03/29/19 at 19:16; Status DC Pantoprazole Sodium (PROTONIX VIAL for IV PUSH) 40 mg 1X ONCE IVP Last administered on 03/29/19at 19:07; Start 03/29/19 at 18:30; Stop 03/29/19 at 18:31; Status DC Pantoprazole Sodium 80 mg/ Sodium Chloride 100 ml @ 10 mls/hr Q10H IV Last administered on 03/30/19at 13:33; Start 03/29/19 at 18:45; Stop 03/30/19 at 14:07; Status DC Piperacillin Sod/ Tazobactam Sod 3.375 gm/Sodium Chloride 50 ml @ 100 mls/hr 1X ONCE IV Last administered on 03/29/19at 19:23; Start 03/29/19 at 19:15; Stop 03/29/19 at 19:44; Status DC Vancomycin HCl 250 ml @ 250 mls/hr 1X ONCE IV ; Start 03/29/19 at 19:15; Stop 03/29/19 at 20:14; Status UNV Sodium Chloride 1,000 ml @ 1,200 mls/hr 1X ONCE IV Last administered on 03/29/19at 19:15; Start 03/29/19 at 19:15; Stop 03/29/19 at 20:04; Status DC Vancomycin HCl 1.75 gm/Sodium Chloride 500 ml @ 250 mls/hr ONCE ONCE IV Last administered on 03/29/19at 20:23; Start 03/29/19 at 20:00; Stop 03/29/19 at 21:59; Status DC Ondansetron HCl (Zofran) 4 mg PRN Q8HRS PRN IV NAUSEA/VOMITING; Start 03/29/19 at 19:30; Stop 03/30/19 at 06:00; Status DC Sodium Chloride 1,000 ml @ 125 mls/hr Q8H IV Last administered on 03/30/19at 16:52; Start 03/29/19 at 19:17; Stop 03/30/19 at 19:16; Status DC Fentanyl Citrate (Fentanyl 2ml Vial) 50 mcg 1X ONCE IVP Last administered on 03/29/19at 20:29; Start 03/29/19 at 20:15; Stop 03/29/19 at 20:16; Status DC Pantoprazole Sodium (PROTONIX VIAL for IV PUSH) 40 mg DAILYAC IVP Last administered on 03/31/19at 08:53; Start 03/31/19 at 07:30; Stop 03/31/19 at 13:02; Status DC Ondansetron HCl (Zofran) 4 mg PRN Q6HRS PRN IV NAUSEA/VOMITING; Start 03/31/19 at 07:00; Stop 04/01/19 at 06:59; Status DC Fentanyl Citrate (Fentanyl 2ml Vial) 25 mcg PRN Q5MIN PRN IV MILD PAIN 1-3; Start 03/31/19 at 07:00; Stop 04/01/19 at 06:59; Status DC Fentanyl Citrate (Fentanyl 2ml Vial) 50 mcg PRN Q5MIN PRN IV MODERATE TO SEVERE PAIN; Start 03/31/19 at 07:00; Stop 04/01/19 at 06:59; Status DC Morphine Sulfate (Morphine Sulfate) 1 mg PRN Q10MIN PRN IV SEVERE PAIN 7-10; Start 03/31/19 at 07:00; Stop 04/01/19 at 06:59; Status DC Ringer's Solution 1,000 ml @ 30 mls/hr Q24H IV Last administered on 03/31/19at 1 1:31; Start 03/31/19 at 07:00; Stop 03/31/19 at 18:59; Status DC Hydromorphone HCl (Dilaudid) 0.5 mg PRN Q10MIN PRN IV SEV PAIN, Second choice; Start 03/31/19 at 07:00; Stop 04/01/19 at 06:59; Status DC Prochlorperazine Edisylate (Compazine) 5 mg PACU PRN PRN IV NAUSEA, MRX1; Start 03/31/19 at 07:00; Stop 04/01/19 at 06:59; Status DC Sodium Chloride 1,000 ml @ 100 mls/hr Q10H IV Last administered on 04/02/19at 00:23; Start 03/31/19 at 09:00; Stop 04/02/19 at 11:19; Status DC Sodium Chloride 500 ml @ 999 mls/hr Q31M IV Last administered on 03/31/19at 08:53; Start 03/31/19 at 09:00; Stop 03/31/19 at 09:30; Status DC Ringer's Solution 1,000 ml @ 75 mls/hr 1X ONCE IV ; Start 03/31/19 at 11:30; Stop 04/01/19 at 00:49; Status DC Propofol 20 ml @ As Directed STK-MED ONCE IV ; Start 03/31/19 at 11:51; Stop 03/31/19 at 11:51; Status DC Lidocaine HCl (Lidocaine Pf 2% Vial) 5 ml STK-MED ONCE .ROUTE ; Start 03/31/19 at 11:51; Stop 03/31/19 at 11:51; Status DC Pantoprazole Sodium (Protonix) 40 mg DAILYAC PO Last administered on 04/05/19at 06:20; Start 04/01/19 at 07:30 Ferrous Sulfate (Feosol) 325 mg BID PO Last administered on 04/04/19at 21:09; Start 04/01/19 at 21:00 Polyethylene Glycol (miraLAX PACKET) 17 gm DAILY PO Last administered on 04/04/19at 08:47; Start 04/03/19 at 09:00 Polyethylene Glycol (miraLAX PACKET) 17 gm PRN DAILY PRN PO CONSTIPATION; Start 04/02/19 at 10:30 Bisacodyl (Dulcolax Tab) 5 mg PRN DAILY PRN PO CONSTIPATION- 2ND CHOICE; Start 04/03/19 at 11:00 Active Scripts Active [Pantoprazole] 40 MG Tablet.dr 40 Mg PO DAILYAC 30 Days Feosol (Ferrous Sulfate) 325 Mg Tablet 325 Mg PO [id number] 30 Days Vitals/I & O Vital Sign - Last 24 Hours 04/04/19 04/04/19 04/04/19 04/04/19 11:00 15:00 19:15 20:00 Temp 98.1 97.5 97.7 98.1 97.5 97.7 Pulse 95 60 66 Resp 16 16 20 B/P (MAP) 147/51 (83) 124/54 (77) 146/53 (84) Pulse Ox 99 97 99 O2 Delivery Room Air Room Air Room Air Room Air 04/04/19 04/05/19 23:55 03:30 Temp 98.1 97.9 98.1 97.9 Pulse 65 68 Resp 20 20 B/P (MAP) 133/58 (83) 133/55 (81) Pulse Ox 100 97 O2 Delivery Room Air Room Air Intake and Output 04/04/19 04/04/19 04/05/19 15:00 23:00 07:00 Intake Total 180 ml 350 ml Output Total 1100 ml Balance 180 ml -750 ml Nutrition Consultation Dietary Evaluation: Recommendations by RD: Dietary education by RD, Increase Calorie Intake, Protein supplementation Comments: REC continue with cardiac diet - Bun and cr improving REC Nepro q day Expected Outcomes/Goals: diet advancement - met new goal: to meet >75% est nutr needs Interpretation of weight loss: >1-2% in 1 week Malnutrition Findings: Food and Nutrition Intake (Mod: <75% est energy req 7days Weight Status: Appropriate Hemodynamically unstable?: No Is patient in severe pain?: No Is NPO status required?: No YANET APODACA MD Apr 05, 2019 08:38
[2019-04-05] MEDS: FERROUS SULFATE 325 MG TABLET. PO SCH ×2 (09:11→20:38)
[2019-04-05] MEDS: POLYETHYLENE GLYCOL 3350 17 GM PACKET. PO SCH (09:11)
[2019-04-05 11:00] VITALS: BP 130/42
--- NOTE | 2019-04-05 11:00 | NUR ---
Pt requested to walk around the nurses unit. SBA with a walker needed. Pt did 4 laps, c/o SOB on the second lap, oxygen sat checked with each lap, 86-94% range throughout the walking. Pt now in bed resting and watching television. Will continue to monitor.
[2019-04-05 15:00] VITALS: BP 133/65
[2019-04-05 19:56] VITALS: BP 128/57
[2019-04-05 23:10] VITALS: BP 141/60
[2019-04-06] VITALS (12 sets, daily range): BP systolic 109–141; BP diastolic 48–73
[2019-04-06 05:42] LABS: BASO # 0.1 x10^3/uL (0.0-0.2); BASO % 0 % (0-3); EOS # 0.6 x10^3/uL (0.0-0.7); EOS % 2 % (0-3); HEMATOCRIT 24.2 % (39.0-53.0); HEMOGLOBIN 7.5 g/dL (13.0-17.5); LYMPH # 0.9 x10^3/uL (1.0-4.8); LYMPH % 3 % (24-48); MEAN CORPUSCULAR HEMOGLOBIN 30 pg (25-35); MEAN CORPUSCULAR HGB CONC 31 g/dL (31-37); MEAN CORPUSCULAR VOLUME 96 fL (79-100); MONO # 14.1 x10^3/uL (0.0-1.1); MONO % 48 % (0-9); NEUT # 13.5 x10^3/uL (1.8-7.7); NEUT % 46 % (31-73); PLATELET COUNT 40 x10^3/uL (140-400); RED BLOOD COUNT 2.52 x10^6/uL (4.30-5.70); RED CELL DISTRIBUTION WIDTH 19.8 % (11.5-14.5); WHITE BLOOD COUNT 29.3 x10^3/uL (4.0-11.0)
[2019-04-06 06:16] LABS: ALBUMIN 2.9 g/dL (3.4-5.0); CALCIUM 8.9 mg/dL (8.5-10.1); CREATININE 2.4 mg/dL (0.7-1.3); PHOSPHORUS 3.8 mg/dL (2.6-4.7); POTASSIUM 3.6 mmol/L (3.5-5.1)
--- NOTE | 2019-04-06 09:34 | PDOC ---
PROGRESS NOTES Chief Complaint Chief Complaint impression Acute blood loss anemia Barretts esophagus Leukocytosis with no evidence of acute infection Retroperitoneal soft tissue density nonspecific but possibly re-presenting lymphadenopathy 3 x 22 cm, will need work up once more stable. History of hypertension History of normocytic anemia Thrombocytopenia - uncertain etiology Acute renal failure secondary to prerenal azotemia Hypernatremia secondary to severe dehydration No sepsis possible myeloproliferative disorder. KIM Splenomegaly. Left renal stone and associated focal scarring consistent with chronic pyelonephritis. 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 will need to explore interventional radiology biopsy option once patient is more stable. concern for malignancy in the differential DVT prophylaxis with SCD and teds given GI bleeding PT/OT now that Hb stable, will likely need rehab oncology FOLLOWING BONE MARROW BX TODAY Retroperitoneal soft tissue density measuring 3.0 x 2.2 cm, nonspecific but possibly representing lymphadenopathy. Plan for outpt colonoscopy, also needs repeat EGD in 1 year. 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 Plan of care sprain detail all concerns addressed to the best my abilities. 2/6: Feeling better, wants to get out of bed.Tolerating diet, no abd pain, no bleeding, hasn't stooled. Very weak. He is asking if his chair can be reclined. Hb stable at 7.1 post-transfusion. Awaiting repeat hemogram today. PT/OT recommends SNF on discharge. 04/03: His WBC climbed, platelets still low, Hb stable. He is very unsteady, amenable to SNF discharge. 04/04: Having bowel urgency overnight, no loose stools, brown, not black, no blood. A bit more steady today. Awaiting SNF approval and bone marrow biopsy. No chest pain or shortness of breath. He relates he had a bone marrow biopsy at [facility] 2 years ago, doesn't remember results WBC still in 30s, Hb 7.1, stable, platelets < 50. Awaiting bone marrow biopsy and SNF approval. He is confused and talking to himself today. Plan; SNF/rehab referral, repeat CBC Bone marrow biopsy, plan for 04/06 Consulted hematology/oncology for concern for myelodysplastic state Vitals Vitals Vital Signs Date Time Temp Pulse Resp B/P (MAP) Pulse Ox O2 Delivery O2 Flow Rate FiO2 04/06/19 08:00 Room Air 04/06/19 07:00 97.4 60 17 133/64 (87) 96 97.4 Physical Exam Physical Exam Gen.: well-developed well-nourished in no apparent distress Head: Normal shape atraumatic Eyes: Pupils equal reactive to light and accommodation, normal conjunctivae and lids Ears: Normal shape Nose: Normal shape no trauma Mouth: No exudates of the back of throat no thrush no lesions Neck: Supple no JVD no carotid bruit or lymphadenopathy no thyromegaly Chest: Lungs clear to auscultation with good inspiratory effort no crackles rales or rhonchi Cardiovascular: S1-S2 regular rhythm no murmurs gallops or rubs Abdomen: Bowel sounds present soft nontender no hepatosplenomegaly appreciated sign Extremities: No clubbing no cyanosis no edema peripheral pulses palpated bilaterally Neurological: Alert awake oriented in person time place and situation, cranial nerves II through XII intact, no motor or sensory deficits appreciated Psych: Appropriate mood, cooperative General: Cooperative Lungs: Clear Labs LABS Signed PATIENT: ANGELICA PRINCE ACCOUNT: [id number] : 1935 LOCATION: [address] [place] [address] AGE: 84 SEX: M EXAM STATUS: ADM IN ORD. PHYSICIAN: AZUL-BRANINE,ISAI PA REASON: thrombocytopenia, coagulopathy, alcohol history - eval liver/spleen PROCEDURE: ABDOMEN COMPLETE Complete abdomen ultrasound study Clinical indications: Thrombocytopenia. Coagulopathy. Alcohol history. FINDINGS: The pancreas and abdominal aorta are poorly visualized due to overlying bowel gas. The intrahepatic portion of the IVC is visualized and is unremarkable. The liver measures 13.6 cm in length. There is attenuation of sound throughout the liver which may be seen with fatty infiltration of the liver. This decreases the sensitivity of sonography to detect focal hepatic lesions. No focal hepatic mass is seen otherwise. The gallbladder is surgically absent. The extra hepatic bile duct measures 5 mm in caliber which is normal. The length of the right kidney is 10.5 cm and the length of the left kidney is 10.2 cm. No hydronephrosis or renal mass or perinephric fluid collection is seen on either side. There is a left renal stone measuring 12 mm in size. There is thinning of the overlying cortex consistent with scarring. This may be seen with chronic pyelonephritis. The spleen is enlarged measuring 17.2 cm in length. No ascites is evident. IMPRESSION: Fatty infiltration of the liver. Splenomegaly. Left renal stone and associated focal scarring consistent with chronic pyelonephritis. Electronically signed by: Abdifatah Regan MD (02/11/2019 8:26 AM) [facility] DICTATED and SIGNED BY: ABDIFATAH REGAN MD DATE: 02/11/19825 COMPARISON: 08/07/2011 FINDINGS: No free air, free fluid, or fluid collection. Lower chest: Small right and trace left pleural effusions. Cardiomegaly. Coronary artery atherosclerotic disease. Bibasilar dependent and relaxation atelectasis. ABDOMEN: Liver: The noncontrast liver is homogeneous in attenuation. Gallbladder and biliary: Cholecystectomy. Normal caliber bile ducts. Spleen: Enlarged spleen measures 16 cm. Pancreas: The noncontrast pancreas is homogeneous in attenuation without peripancreatic inflammatory changes. Adrenal glands: Normal adrenal glands. Kidneys and ureters: 6 mm nonobstructive left renal calculus. No hydronephrosis. GI tract: The stomach contains fluid and debris. Normal caliber small bowel. Extensive colonic diverticulosis. Normal appendix. Vascular structures: Normal caliber abdominal aorta. Lymph nodes: Retroperitoneal soft tissue density measuring 3.0 x 2.2 cm (series 2 image 40). PELVIS: Genitourinary system: Normal bladder. SKELETAL STRUCTURES AND SOFT TISSUES: Moderate to severe degenerative changes of the spine. IMPRESSION: 1. Extensive colonic diverticulosis. No evidence of acute diverticulitis. 2. Retroperitoneal soft tissue density measuring 3.0 x 2.2 cm, nonspecific but possibly representing lymphadenopathy. Correlate for history of malignancy, and consider a follow-up contrast enhanced CT to assess stability. 3. Nonobstructive left renal calculus measuring 6 mm. 4. Small right and trace left pleural effusions. Electronically signed by: Leon Hollingsworth MD (03/29/2019 7:21 PM) [facility] DICTATED and SIGNED BY: LEON HOLLINGSWORTH MD DATE: 03/29/191920 Laboratory Tests Test 04/06/19 04:45 White Blood Count 29.3 x10^3/uL (4.0-11.0) Red Blood Count 2.52 x10^6/uL (4.30-5.70) Hemoglobin 7.5 g/dL (13.0-17.5) Hematocrit 24.2 % (39.0-53.0) Mean Corpuscular Volume 96 fL (79-100) Mean Corpuscular Hemoglobin 30 pg (25-35) Mean Corpuscular Hemoglobin Concent 31 g/dL (31-37) Red Cell Distribution Width 19.8 % (11.5-14.5) Platelet Count 40 x10^3/uL (140-400) Neutrophils (%) (Auto) 46 % (31-73) Lymphocytes (%) (Auto) 3 % (24-48) Monocytes (%) (Auto) 48 % (0-9) Eosinophils (%) (Auto) 2 % (0-3) Basophils (%) (Auto) 0 % (0-3) Neutrophils # (Auto) 13.5 x10^3/uL (1.8-7.7) Lymphocytes # (Auto) 0.9 x10^3/uL (1.0-4.8) Monocytes # (Auto) 14.1 x10^3/uL (0.0-1.1) Eosinophils # (Auto) 0.6 x10^3/uL (0.0-0.7) Basophils # (Auto) 0.1 x10^3/uL (0.0-0.2) Sodium Level 144 mmol/L (136-145) Potassium Level 3.6 mmol/L (3.5-5.1) Chloride Level 111 mmol/L (98-107) Carbon Dioxide Level 24 mmol/L (21-32) Anion Gap 9 (6-14) Blood Urea Nitrogen 30 mg/dL (8-26) Creatinine 2.4 mg/dL (0.7-1.3) Estimated GFR (Cockcroft-Gault) 26.0 Glucose Level 90 mg/dL (70-99) Calcium Level 8.9 mg/dL (8.5-10.1) Phosphorus Level 3.8 mg/dL (2.6-4.7) Albumin 2.9 g/dL (3.4-5.0) Assessment and Plan Assessmemt and Plan Problems Medical Problems: (1) Acute on chronic renal failure Status: Acute (2) Diverticulosis Status: Acute (3) Fall Status: Acute (4) Generalized weakness Status: Acute (5) GI bleeding Status: Acute (6) Severe sepsis Status: Acute (7) Thrombocytopenia Status: Acute Comment Review of Relevant I have reviewed the following items waylon (where applicable) has been applied. Labs Laboratory Tests Test 04/05/19 04:45 04/06/19 04:45 White Blood Count 31.1 x10^3/uL (4.0-11.0) 29.3 x10^3/uL (4.0-11.0) Red Blood Count 2.35 x10^6/uL (4.30-5.70) 2.52 x10^6/uL (4.30-5.70) Hemoglobin 7.1 g/dL (13.0-17.5) 7.5 g/dL (13.0-17.5) Hematocrit 22.5 % (39.0-53.0) 24.2 % (39.0-53.0) Mean Corpuscular Volume 96 fL (79-100) 96 fL (79-100) Mean Corpuscular Hemoglobin 30 pg (25-35) 30 pg (25-35) Mean Corpuscular Hemoglobin Concent 31 g/dL (31-37) 31 g/dL (31-37) Red Cell Distribution Width 19.3 % (11.5-14.5) 19.8 % (11.5-14.5) Platelet Count 42 x10^3/uL (140-400) 40 x10^3/uL (140-400) Neutrophils (%) (Auto) 47 % (31-73) 46 % (31-73) Lymphocytes (%) (Auto) 4 % (24-48) 3 % (24-48) Monocytes (%) (Auto) 46 % (0-9) 48 % (0-9) Eosinophils (%) (Auto) 3 % (0-3) 2 % (0-3) Basophils (%) (Auto) 1 % (0-3) 0 % (0-3) Neutrophils # (Auto) 14.6 x10^3/uL (1.8-7.7) 13.5 x10^3/uL (1.8-7.7) Lymphocytes # (Auto) 1.1 x10^3/uL (1.0-4.8) 0.9 x10^3/uL (1.0-4.8) Monocytes # (Auto) 14.4 x10^3/uL (0.0-1.1) 14.1 x10^3/uL (0.0-1.1) Eosinophils # (Auto) 0.8 x10^3/uL (0.0-0.7) 0.6 x10^3/uL (0.0-0.7) Basophils # (Auto) 0.1 x10^3/uL (0.0-0.2) 0.1 x10^3/uL (0.0-0.2) Prothrombin Time 17.3 SEC (11.7-14.0) Prothromb Time International Ratio 1.4 (0.8-1.1) Sodium Level 143 mmol/L (136-145) 144 mmol/L (136-145) Potassium Level 3.5 mmol/L (3.5-5.1) 3.6 mmol/L (3.5-5.1) Chloride Level 109 mmol/L (98-107) 111 mmol/L (98-107) Carbon Dioxide Level 22 mmol/L (21-32) 24 mmol/L (21-32) Anion Gap 12 (6-14) 9 (6-14) Blood Urea Nitrogen 34 mg/dL (8-26) 30 mg/dL (8-26) Creatinine 2.5 mg/dL (0.7-1.3) 2.4 mg/dL (0.7-1.3) Estimated GFR (Cockcroft-Gault) 24.8 26.0 Glucose Level 85 mg/dL (70-99) 90 mg/dL (70-99) Calcium Level 8.7 mg/dL (8.5-10.1) 8.9 mg/dL (8.5-10.1) Phosphorus Level 3.2 mg/dL (2.6-4.7) 3.8 mg/dL (2.6-4.7) Albumin 2.8 g/dL (3.4-5.0) 2.9 g/dL (3.4-5.0) Laboratory Tests Test 04/06/19 04:45 White Blood Count 29.3 x10^3/uL (4.0-11.0) Red Blood Count 2.52 x10^6/uL (4.30-5.70) Hemoglobin 7.5 g/dL (13.0-17.5) Hematocrit 24.2 % (39.0-53.0) Mean Corpuscular Volume 96 fL (79-100) Mean Corpuscular Hemoglobin 30 pg (25-35) Mean Corpuscular Hemoglobin Concent 31 g/dL (31-37) Red Cell Distribution Width 19.8 % (11.5-14.5) Platelet Count 40 x10^3/uL (140-400) Neutrophils (%) (Auto) 46 % (31-73) Lymphocytes (%) (Auto) 3 % (24-48) Monocytes (%) (Auto) 48 % (0-9) Eosinophils (%) (Auto) 2 % (0-3) Basophils (%) (Auto) 0 % (0-3) Neutrophils # (Auto) 13.5 x10^3/uL (1.8-7.7) Lymphocytes # (Auto) 0.9 x10^3/uL (1.0-4.8) Monocytes # (Auto) 14.1 x10^3/uL (0.0-1.1) Eosinophils # (Auto) 0.6 x10^3/uL (0.0-0.7) Basophils # (Auto) 0.1 x10^3/uL (0.0-0.2) Sodium Level 144 mmol/L (136-145) Potassium Level 3.6 mmol/L (3.5-5.1) Chloride Level 111 mmol/L (98-107) Carbon Dioxide Level 24 mmol/L (21-32) Anion Gap 9 (6-14) Blood Urea Nitrogen 30 mg/dL (8-26) Creatinine 2.4 mg/dL (0.7-1.3) Estimated GFR (Cockcroft-Gault) 26.0 Glucose Level 90 mg/dL (70-99) Calcium Level 8.9 mg/dL (8.5-10.1) Phosphorus Level 3.8 mg/dL (2.6-4.7) Albumin 2.9 g/dL (3.4-5.0) Microbiology 03/29/19 Blood Culture - Final, Complete NO GROWTH AFTER 5 DAYS Medications Current Medications Sodium Chloride 1,000 ml @ 1,000 mls/hr Q1H IV Last administered on 03/29/19at 18:39; Start 03/29/19 at 18:17; Stop 03/29/19 at 19:16; Status DC Pantoprazole Sodium (PROTONIX VIAL for IV PUSH) 40 mg 1X ONCE IVP Last administered on 03/29/19at 19:07; Start 03/29/19 at 18:30; Stop 03/29/19 at 18:31; Status DC Pantoprazole Sodium 80 mg/ Sodium Chloride 100 ml @ 10 mls/hr Q10H IV Last administered on 03/30/19at 13:33; Start 03/29/19 at 18:45; Stop 03/30/19 at 14:07; Status DC Piperacillin Sod/ Tazobactam Sod 3.375 gm/Sodium Chloride 50 ml @ 100 mls/hr 1X ONCE IV Last administered on 03/29/19at 19:23; Start 03/29/19 at 19:15; Stop 03/29/19 at 19:44; Status DC Vancomycin HCl 250 ml @ 250 mls/hr 1X ONCE IV ; Start 03/29/19 at 19:15; Stop 03/29/19 at 20:14; Status UNV Sodium Chloride 1,000 ml @ 1,200 mls/hr 1X ONCE IV Last administered on 03/29/19at 19:15; Start 03/29/19 at 19:15; Stop 03/29/19 at 20:04; Status DC Vancomycin HCl 1.75 gm/Sodium Chloride 500 ml @ 250 mls/hr ONCE ONCE IV Last administered on 03/29/19at 20:23; Start 03/29/19 at 20:00; Stop 03/29/19 at 21:59; Status DC Ondansetron HCl (Zofran) 4 mg PRN Q8HRS PRN IV NAUSEA/VOMITING; Start 03/29/19 at 19:30; Stop 03/30/19 at 06:00; Status DC Sodium Chloride 1,000 ml @ 125 mls/hr Q8H IV Last administered on 03/30/19at 16:52; Start 03/29/19 at 19:17; Stop 03/30/19 at 19:16; Status DC Fentanyl Citrate (Fentanyl 2ml Vial) 50 mcg 1X ONCE IVP Last administered on 03/29/19at 20:29; Start 03/29/19 at 20:15; Stop 03/29/19 at 20:16; Status DC Pantoprazole Sodium (PROTONIX VIAL for IV PUSH) 40 mg DAILYAC IVP Last administered on 03/31/19at 08:53; Start 03/31/19 at 07:30; Stop 03/31/19 at 13:02; Status DC Ondansetron HCl (Zofran) 4 mg PRN Q6HRS PRN IV NAUSEA/VOMITING; Start 03/31/19 at 07:00; Stop 04/01/19 at 06:59; Status DC Fentanyl Citrate (Fentanyl 2ml Vial) 25 mcg PRN Q5MIN PRN IV MILD PAIN 1-3; Start 03/31/19 at 07:00; Stop 04/01/19 at 06:59; Status DC Fentanyl Citrate (Fentanyl 2ml Vial) 50 mcg PRN Q5MIN PRN IV MODERATE TO SEVERE PAIN; Start 03/31/19 at 07:00; Stop 04/01/19 at 06:59; Status DC Morphine Sulfate (Morphine Sulfate) 1 mg PRN Q10MIN PRN IV SEVERE PAIN 7-10; Start 03/31/19 at 07:00; Stop 04/01/19 at 06:59; Status DC Ringer's Solution 1,000 ml @ 30 mls/hr Q24H IV Last administered on 03/31/19at 11:31; Start 03/31/19 at 07:00; Stop 03/31/19 at 18:59; Status DC Hydromorphone HCl (Dilaudid) 0.5 mg PRN Q10MIN PRN IV SEV PAIN, Second choice; Start 03/31/19 at 07:00; Stop 04/01/19 at 06:59; Status DC Prochlorperazine Edisylate (Compazine) 5 mg PACU PRN PRN IV NAUSEA, MRX1; Start 03/31/19 at 07:00; Stop 04/01/19 at 06:59; Status DC Sodium Chloride 1,000 ml @ 100 mls/hr Q10H IV Last administered on 04/02/19at 00:23; Start 03/31/19 at 09:00; Stop 04/02/19 at 11:19; Status DC Sodium Chloride 500 ml @ 999 mls/hr Q31M IV Last administered on 03/31/19at 08:53; Start 03/31/19 at 09:00; Stop 03/31/19 at 09:30; Status DC Ringer's Solution 1,000 ml @ 75 mls/hr 1X ONCE IV ; Start 03/31/19 at 11:30; Stop 04/01/19 at 00:49; Status DC Propofol 20 ml @ As Directed STK-MED ONCE IV ; Start 03/31/19 at 11:51; Stop 03/31/19 at 11:51; Status DC Lidocaine HCl (Lidocaine Pf 2% Vial) 5 ml STK-MED ONCE .ROUTE ; Start 03/31/19 at 11:51; Stop 03/31/19 at 11:51; Status DC Pantoprazole Sodium (Protonix) 40 mg DAILYAC PO Last administered on 04/05/19at 06:20; Start 04/01/19 at 07:30 Ferrous Sulfate (Feosol) 325 mg BID PO Last administered on 04/05/19at 20:38; Start 04/01/19 at 21:00 Polyethylene Glycol (miraLAX PACKET) 17 gm DAILY PO Last administered on 04/05/19at 09:11; Start 04/03/19 at 09:00 Polyethylene Glycol (miraLAX PACKET) 17 gm PRN DAILY PRN PO CONSTIPATION; Start 04/02/19 at 10:30 Bisacodyl (Dulcolax Tab) 5 mg PRN DAILY PRN PO CONSTIPATION- 2ND CHOICE; Start 04/03/19 at 11:00 Active Scripts Active [Pantoprazole] 40 MG Tablet.dr 40 Mg PO DAILYAC 30 Days Feosol (Ferrous Sulfate) 325 Mg Tablet 325 Mg PO [id number] 30 Days Vitals/I & O Vital Sign - Last 24 Hours 04/05/19 04/05/19 04/05/19 04/05/19 11:00 15:00 19:56 20:02 Temp 97.4 97.9 97.4 97.4 97.9 97.4 Pulse 61 62 59 Resp 24 22 16 B/P (MAP) 130/42 (71) 133/65 (87) 128/57 (80) Pulse Ox 97 98 97 O2 Delivery Room Air Room Air Room Air Room Air 04/05/19 04/06/19 04/06/19 04/06/19 23:10 03:15 07:00 08:00 Temp 97.8 98.1 97.4 97.8 98.1 97.4 Pulse 60 63 60 Resp 16 16 17 B/P (MAP) 141/60 (87) 134/56 (82) 133/64 (87) Pulse Ox 95 93 96 O2 Delivery Room Air Room Air Room Air Room Air Intake and Output 04/05/19 04/05/19 04/06/19 15:00 23:00 07:00 Intake Total 180 ml Output Total 300 ml 400 ml Balance -300 ml -220 ml Nutrition Consultation Dietary Evaluation: Recommendations by RD: Dietary education by RD, Increase Calorie Intake, Protein supplementation Comments: REC continue with cardiac diet - Bun and cr improving REC Nepro q day Expected Outcomes/Goals: diet advancement - met new goal: to meet >75% est nutr needs Interpretation of weight loss: >1-2% in 1 week Malnutrition Findings: Food and Nutrition Intake (Mod: <75% est energy req 7days Weight Status: Appropriate Hemodynamically unstable?: No Is patient in severe pain?: No Is NPO status required?: No CONCEPCION KERN MD Apr 06, 2019 09:34
--- NOTE | 2019-04-06 10:09 | PDOC ---
Subjective: Subjective: Mouth is really dry, says he has a bed alarm now. Objective: Objective: D/w nurse - therapy previously reported he's unsteady. Vital Signs: Vital Signs Date Time Temp Pulse Resp B/P (MAP) Pulse Ox O2 Delivery O2 Flow Rate FiO2 04/06/19 08:00 Room Air 04/06/19 07:00 97.4 60 17 133/64 (87) 96 97.4 Labs: Laboratory Tests Test 04/06/19 04:45 White Blood Count 29.3 x10^3/uL Red Blood Count 2.52 x10^6/uL Hemoglobin 7.5 g/dL Hematocrit 24.2 % Mean Corpuscular Volume 96 fL Mean Corpuscular Hemoglobin 30 pg Mean Corpuscular Hemoglobin Concent 31 g/dL Red Cell Distribution Width 19.8 % Platelet Count 40 x10^3/uL Neutrophils (%) (Auto) 46 % Lymphocytes (%) (Auto) 3 % Monocytes (%) (Auto) 48 % Eosinophils (%) (Auto) 2 % Basophils (%) (Auto) 0 % Neutrophils # (Auto) 13.5 x10^3/uL Lymphocytes # (Auto) 0.9 x10^3/uL Monocytes # (Auto) 14.1 x10^3/uL Eosinophils # (Auto) 0.6 x10^3/uL Basophils # (Auto) 0.1 x10^3/uL Sodium Level 144 mmol/L Potassium Level 3.6 mmol/L Chloride Level 111 mmol/L Carbon Dioxide Level 24 mmol/L Anion Gap 9 Blood Urea Nitrogen 30 mg/dL Creatinine 2.4 mg/dL Estimated GFR (Cockcroft-Gault) 26.0 Glucose Level 90 mg/dL Calcium Level 8.9 mg/dL Phosphorus Level 3.8 mg/dL Albumin 2.9 g/dL PE: GEN: NAD LUNGS: CTAB HEART: RRR ABD: NABS, S/ND/NT NEURO/PSYCH: A & O 3 A/P: Weakness - better Chronic leukocytosis and thrombocytopenia, splenomegaly EMI - on PO iron Nixon's esophagus - on PPI CKD -- Hematology now following, awaiting bone marrow biopsy today. Consider IV iron. Plan for outpt colonoscopy, also needs repeat EGD in 1 year. Hemodynamically unstable?: No Is patient in severe pain?: No Is NPO status required?: No ISAI MOYA Apr 06, 2019 10:09
[2019-04-06] MEDS ORDERED: LIDOCAINE WITH 8.4% SOD BICARB 3 ML DISP.SYRIN. ONE (10:14)
[2019-04-06] MEDS ORDERED: MIDAZOLAM HCL/PF 2 MG/2 ML VIAL. ONE (10:24)
[2019-04-06] MEDS ORDERED: fentaNYL PF VIAL 100 MCG/2 ML VIAL ONE (10:25)
[2019-04-06] MEDS ORDERED: MIDAZOLAM HCL/PF 2 MG/2 ML VIAL. IV ONE (10:45)
[2019-04-06] MEDS ORDERED: LIDOCAINE WITH 8.4% SOD BICARB 3 ML DISP.SYRIN. IJ ONE (10:45)
[2019-04-06] MEDS ORDERED: fentaNYL PF VIAL 100 MCG/2 ML VIAL IV ONE (10:45)
[2019-04-06] MEDS: FERROUS SULFATE 325 MG TABLET. PO SCH ×2 (12:22→20:18)
[2019-04-06] MEDS: PANTOPRAZOLE 40 MG TABLET.DR. PO SCH (12:22)
[2019-04-06] MEDS: POLYETHYLENE GLYCOL 3350 17 GM PACKET. PO SCH (12:22)
--- NOTE | 2019-04-06 15:07 | NUR ---
SS following up with discharge planning. SS phoned and faxed clinical updates to [facility], ; fax [phone]. Pt accepted at [facility]. Pt getting Bone Marrow Biopsy today. SS will continue to follow for discharge planning.
--- NOTE | 2019-04-06 17:58 | PDOC ---
PROGRESS NOTES Subjective Subjective HPI - f/u of Chronic leukocytosis with chronic thrombocytopenia ROS - no fever Objective Objective Vital Signs Date Time Temp Pulse Resp B/P (MAP) Pulse Ox O2 Delivery O2 Flow Rate FiO2 04/06/19 15:00 97.9 62 18 126/50 (75) 95 Room Air 97.9 04/06/19 10:46 2.0 Intake and Output 04/06/19 07:00 Intake Total 180 ml Output Total 700 ml Balance -520 ml Intake Oral 180 ml Output Urine Total 700 ml Physical Exam Heart: Normal S1, Normal S2 General: Alert, No acute distress Lungs: Clear to auscultation Assessment Assessment Problems Medical Problems: (1) Acute on chronic renal failure Status: Acute (2) Diverticulosis Status: Acute (3) Fall Status: Acute (4) Generalized weakness Status: Acute (5) GI bleeding Status: Acute (6) Severe sepsis Status: Acute (7) Thrombocytopenia Status: Acute IMPRESSION AND PLAN: 1. Chronic leukocytosis with chronic thrombocytopenia. I am concerned about possible myeloproliferative disorder. I discussed in detail with the patient and I recommended a bone marrow aspiration and biopsy and he understands and agrees with the plan. There is no clinical evidence of infection or inflammation. I will consult Interventional Radiology for bone marrow biopsy. Bx pending. 2. Chronic thrombocytopenia, which could be related to underlying splenomegaly. 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 I will continue to monitor. 3. Splenomegaly [address] scan of the abdomen on 03/29/2019. 4. Anemia, normochromic, normocytic. iron studies reveal normal ferritin and decreased iron saturation He does report melena and he underwent an EGD with no active bleeding. Appreciate GI management. Comment Review of Relevant I have reviewed the following items waylon (where applicable) has been applied. Labs Laboratory Tests Test 04/05/19 04:45 04/06/19 04:45 White Blood Count 31.1 x10^3/uL (4.0-11.0) 29.3 x10^3/uL (4.0-11.0) Red Blood Count 2.35 x10^6/uL (4.30-5.70) 2.52 x10^6/uL (4.30-5.70) Hemoglobin 7.1 g/dL (13.0-17.5) 7.5 g/dL (13.0-17.5) Hematocrit 22.5 % (39.0-53.0) 24.2 % (39.0-53.0) Mean Corpuscular Volume 96 fL (79-100) 96 fL (79-100) Mean Corpuscular Hemoglobin 30 pg (25-35) 30 pg (25-35) Mean Corpuscular Hemoglobin Concent 31 g/dL (31-37) 31 g/dL (31-37) Red Cell Distribution Width 19.3 % (11.5-14.5) 19.8 % (11.5-14.5) Platelet Count 42 x10^3/uL (140-400) 40 x10^3/uL (140-400) Neutrophils (%) (Auto) 47 % (31-73) 46 % (31-73) Lymphocytes (%) (Auto) 4 % (24-48) 3 % (24-48) Monocytes (%) (Auto) 46 % (0-9) 48 % (0-9) Eosinophils (%) (Auto) 3 % (0-3) 2 % (0-3) Basophils (%) (Auto) 1 % (0-3) 0 % (0-3) Neutrophils # (Auto) 14.6 x10^3/uL (1.8-7.7) 13.5 x10^3/uL (1.8-7.7) Lymphocytes # (Auto) 1.1 x10^3/uL (1.0-4.8) 0.9 x10^3/uL (1.0-4.8) Monocytes # (Auto) 14.4 x10^3/uL (0.0-1.1) 14.1 x10^3/uL (0.0-1.1) Eosinophils # (Auto) 0.8 x10^3/uL (0.0-0.7) 0.6 x10^3/uL (0.0-0.7) Basophils # (Auto) 0.1 x10^3/uL (0.0-0.2) 0.1 x10^3/uL (0.0-0.2) Prothrombin Time 17.3 SEC (11.7-14.0) Prothromb Time International Ratio 1.4 (0.8-1.1) Sodium Level 143 mmol/L (136-145) 144 mmol/L (136-145) Potassium Level 3.5 mmol/L (3.5-5.1) 3.6 mmol/L (3.5-5.1) Chloride Level 109 mmol/L (98-107) 111 mmol/L (98-107) Carbon Dioxide Level 22 mmol/L (21-32) 24 mmol/L (21-32) Anion Gap 12 (6-14) 9 (6-14) Blood Urea Nitrogen 34 mg/dL (8-26) 30 mg/dL (8-26) Creatinine 2.5 mg/dL (0.7-1.3) 2.4 mg/dL (0.7-1.3) Estimated GFR (Cockcroft-Gault) 24.8 26.0 Glucose Level 85 mg/dL (70-99) 90 mg/dL (70-99) Calcium Level 8.7 mg/dL (8.5-10.1) 8.9 mg/dL (8.5-10.1) Phosphorus Level 3.2 mg/dL (2.6-4.7) 3.8 mg/dL (2.6-4.7) Albumin 2.8 g/dL (3.4-5.0) 2.9 g/dL (3.4-5.0) Laboratory Tests Test 04/06/19 04:45 White Blood Count 29.3 x10^3/uL (4.0-11.0) Red Blood Count 2.52 x10^6/uL (4.30-5.70) Hemoglobin 7.5 g/dL (13.0-17.5) Hematocrit 24.2 % (39.0-53.0) Mean Corpuscular Volume 96 fL (79-100) Mean Corpuscular Hemoglobin 30 pg (25-35) Mean Corpuscular Hemoglobin Concent 31 g/dL (31-37) Red Cell Distribution Width 19.8 % (11.5-14.5) Platelet Count 40 x10^3/uL (140-400) Neutrophils (%) (Auto) 46 % (31-73) Lymphocytes (%) (Auto) 3 % (24-48) Monocytes (%) (Auto) 48 % (0-9) Eosinophils (%) (Auto) 2 % (0-3) Basophils (%) (Auto) 0 % (0-3) Neutrophils # (Auto) 13.5 x10^3/uL (1.8-7.7) Lymphocytes # (Auto) 0.9 x10^3/uL (1.0-4.8) Monocytes # (Auto) 14.1 x10^3/uL (0.0-1.1) Eosinophils # (Auto) 0.6 x10^3/uL (0.0-0.7) Basophils # (Auto) 0.1 x10^3/uL (0.0-0.2) Sodium Level 144 mmol/L (136-145) Potassium Level 3.6 mmol/L (3.5-5.1) Chloride Level 111 mmol/L (98-107) Carbon Dioxide Level 24 mmol/L (21-32) Anion Gap 9 (6-14) Blood Urea Nitrogen 30 mg/dL (8-26) Creatinine 2.4 mg/dL (0.7-1.3) Estimated GFR (Cockcroft-Gault) 26.0 Glucose Level 90 mg/dL (70-99) Calcium Level 8.9 mg/dL (8.5-10.1) Phosphorus Level 3.8 mg/dL (2.6-4.7) Albumin 2.9 g/dL (3.4-5.0) Microbiology 03/29/19 Blood Culture - Final, Complete NO GROWTH AFTER 5 DAYS Medications Current Medications Sodium Chloride 1,000 ml @ 1,000 mls/hr Q1H IV Last administered on 03/29/19at 18:39; Start 03/29/19 at 18:17; Stop 03/29/19 at 19:16; Status DC Pantoprazole Sodium (PROTONIX VIAL for IV PUSH) 40 mg 1X ONCE IVP Last administered on 03/29/19at 19:07; Start 03/29/19 at 18:30; Stop 03/29/19 at 18:31; Status DC Pantoprazole Sodium 80 mg/ Sodium Chloride 100 ml @ 10 mls/hr Q10H IV Last administered on 03/30/19at 13:33; Start 03/29/19 at 18:45; Stop 03/30/19 at 14:07; Status DC Piperacillin Sod/ Tazobactam Sod 3.375 gm/Sodium Chloride 50 ml @ 100 mls/hr 1X ONCE IV Last administered on 03/29/19at 19:23; Start 03/29/19 at 19:15; Stop 03/29/19 at 19:44; Status DC Vancomycin HCl 250 ml @ 250 mls/hr 1X ONCE IV ; Start 03/29/19 at 19:15; Stop 03/29/19 at 20:14; Status UNV Sodium Chloride 1,000 ml @ 1,200 mls/hr 1X ONCE IV Last administered on 03/29/19at 19:15; Start 03/29/19 at 19:15; Stop 03/29/19 at 20:04; Status DC Vancomycin HCl 1.75 gm/Sodium Chloride 500 ml @ 250 mls/hr ONCE ONCE IV Last administered on 03/29/19at 20:23; Start 03/29/19 at 20:00; Stop 03/29/19 at 21:59; Status DC Ondansetron HCl (Zofran) 4 mg PRN Q8HRS PRN IV NAUSEA/VOMITING; Start 03/29/19 at 19:30; Stop 03/30/19 at 06:00; Status DC Sodium Chloride 1,000 ml @ 125 mls/hr Q8H IV Last administered on 03/30/19at 16:52; Start 03/29/19 at 19:17; Stop 03/30/19 at 19:16; Status DC Fentanyl Citrate (Fentanyl 2ml Vial) 50 mcg 1X ONCE IVP Last administered on 03/29/19at 20:29; Start 03/29/19 at 20:15; Stop 03/29/19 at 20:16; Status DC Pantoprazole Sodium (PROTONIX VIAL for IV PUSH) 40 mg DAILYAC IVP Last administered on 03/31/19at 08:53; Start 03/31/19 at 07:30; Stop 03/31/19 at 13:02; Status DC Ondansetron HCl (Zofran) 4 mg PRN Q6HRS PRN IV NAUSEA/VOMITING; Start 03/31/19 at 07:00; Stop 04/01/19 at 06:59; Status DC Fentanyl Citrate (Fentanyl 2ml Vial) 25 mcg PRN Q5MIN PRN IV MILD PAIN 1-3; Start 03/31/19 at 07:00; Stop 04/01/19 at 06:59; Status DC Fentanyl Citrate (Fentanyl 2ml Vial) 50 mcg PRN Q5MIN PRN IV MODERATE TO SEVERE PAIN; Start 03/31/19 at 07:00; Stop 04/01/19 at 06:59; Status DC Morphine Sulfate (Morphine Sulfate) 1 mg PRN Q10MIN PRN IV SEVERE PAIN 7-10; Start 03/31/19 at 07:00; Stop 04/01/19 at 06:59; Status DC Ringer's Solution 1,000 ml @ 30 mls/hr Q24H IV Last administered on 03/31/19at 11:31; Start 03/31/19 at 07:00; Stop 03/31/19 at 18:59; Status DC Hydromorphone HCl (Dilaudid) 0.5 mg PRN Q10MIN PRN IV SEV PAIN, Second choice; Start 03/31/19 at 07:00; Stop 04/01/19 at 06:59; Status DC Prochlorperazine Edisylate (Compazine) 5 mg PACU PRN PRN IV NAUSEA, MRX1; Start 03/31/19 at 07:00; Stop 04/01/19 at 06:59; Status DC Sodium Chloride 1,000 ml @ 100 mls/hr Q10H IV Last administered on 04/02/19at 00:23; Start 03/31/19 at 09:00; Stop 04/02/19 at 11:19; Status DC Sodium Chloride 500 ml @ 999 mls/hr Q31M IV Last administered on 03/31/19at 08:53; Start 03/31/19 at 09:00; Stop 03/31/19 at 09:30; Status DC Ringer's Solution 1,000 ml @ 75 mls/hr 1X ONCE IV ; Start 03/31/19 at 11:30; Stop 04/01/19 at 00:49; Status DC Propofol 20 ml @ As Directed STK-MED ONCE IV ; Start 03/31/19 at 11:51; Stop 03/31/19 at 11:51; Status DC Lidocaine HCl (Lidocaine Pf 2% Vial) 5 ml STK-MED ONCE .ROUTE ; Start 03/31/19 at 11:51; Stop 03/31/19 at 11:51; Status DC Pantoprazole Sodium (Protonix) 40 mg DAILYAC PO Last administered on 04/06/19at 12:22; Start 04/01/19 at 07:30 Ferrous Sulfate (Feosol) 325 mg BID PO Last administered on 04/06/19at 12:22; Start 04/01/19 at 21:00 Polyethylene Glycol (miraLAX PACKET) 17 gm DAILY PO Last administered on 04/06/19at 12:22; Start 04/03/19 at 09:00 Polyethylene Glycol (miraLAX PACKET) 17 gm PRN DAILY PRN PO CONSTIPATION; Start 04/02/19 at 10:30 Bisacodyl (Dulcolax Tab) 5 mg PRN DAILY PRN PO CONSTIPATION- 2ND CHOICE; Start 04/03/19 at 11:00 Lidocaine HCl (Buffered Lidocaine 1%) 3 ml STK-MED ONCE .ROUTE ; Start 04/06/19 at 10:14; Stop 04/06/19 at 10:14; Status DC Midazolam HCl (Versed) 2 mg STK-MED ONCE .ROUTE ; Start 04/06/19 at 10:24; Stop 04/06/19 at 10:25; Status DC Fentanyl Citrate (Fentanyl 2ml Vial) 100 mcg STK-MED ONCE .ROUTE ; Start 04/06 at 10:25; Stop 04/06/19 at 10:25; Status DC Lidocaine HCl (Buffered Lidocaine 1%) 6 ml 1X ONCE IJ Last administered on 12/14at 10:35; Start 04/06/19 at 10:45; Stop 04/06/19 at 10:46; Status DC Midazolam HCl (Versed) 2 mg 1X ONCE IV Last administered on 04/06/19at 10:45; Start 04/06/19 at 10:45; Stop 04/06/19 at 10:46; Status DC Fentanyl Citrate (Fentanyl 2ml Vial) 75 mcg 1X ONCE IV Last administered on 04/06/19at 10:46; Start 04/06/19 at 10:45; Stop 04/06/19 at 10:46; Status DC Active Scripts Active [Pantoprazole] 40 MG Tablet.dr 40 Mg PO DAILYAC 30 Days Feosol (Ferrous Sulfate) 325 Mg Tablet 325 Mg PO DAILYWBKFT 30 Days Vitals/I & O Vital Sign - Last 24 Hours 2/9/20 2/9/20 2/9/20 2/10/20 19:56 20:02 23:10 03:15 Temp 97.4 97.8 98.1 97.4 97.8 98.1 Pulse 59 60 63 Resp 16 16 16 B/P (MAP) 128/57 (80) 141/60 (87) 134/56 (82) Pulse Ox 97 95 93 O2 Delivery Room Air Room Air Room Air Room Air 04/06/19 04/06/19 04/06/19 04/06/19 07:00 08:00 10:35 10:40 Temp 97.4 97.4 Pulse 60 59 60 Resp 17 B/P (MAP) 133/64 (87) Pulse Ox 96 100 99 O2 Delivery Room Air Room Air Nasal Cannula Nasal Cannula O2 Flow Rate 2.0 2.0 04/06/19 04/06/19 04/06/19 04/06/19 10:46 10:46 11:00 11:15 Temp 98.0 98.0 Pulse 59 62 60 Resp 15 15 18 B/P (MAP) 124/51 (75) 114/52 (72) Pulse Ox 99 99 86 84 O2 Delivery Nasal Cannula Nasal Cannula Room Air Room Air O2 Flow Rate 2.0 2.0 04/06/19 04/06/19 04/06/19 04/06/19 11:30 11:30 11:45 15:00 Temp 97.9 97.9 Pulse 60 60 60 62 Resp 18 B/P (MAP) 119/48 (71) 124/54 (77) 124/48 (73) 126/50 (75) Pulse Ox 89 87 88 95 O2 Delivery Room Air Intake and Output 04/05/19 04/05/19 04/06/19 15:00 23:00 07:00 Intake Total 180 ml Output Total 300 ml 400 ml Balance -300 ml -220 ml Nutrition Consultation Dietary Evaluation: Recommendations by RD: Dietary education by RD, Increase Calorie Intake, Protein supplementation Comments: REC continue with cardiac diet - Bun and cr improving REC Nepro q day Expected Outcomes/Goals: diet advancement - met new goal: to meet >75% est nutr needs- goal ongoing Interpretation of weight loss: >1-2% in 1 week Malnutrition Findings: Food and Nutrition Intake (Mod: <75% est energy req 7days Weight Status: Appropriate Hemodynamically unstable?: No Is patient in severe pain?: No Is NPO status required?: No TIKI MELENDREZ MD Apr 06, 2019 17:58
[2019-04-07 03:55] VITALS: BP 132/58
[2019-04-07 07:00] VITALS: BP 134/62
[2019-04-07] MEDS: POLYETHYLENE GLYCOL 3350 17 GM PACKET. PO SCH (08:18)
[2019-04-07] MEDS: FERROUS SULFATE 325 MG TABLET. PO SCH (08:18)
[2019-04-07] MEDS: PANTOPRAZOLE 40 MG TABLET.DR. PO SCH (08:18)
--- NOTE | 2019-04-07 10:45 | NUR ---
Wound Care Pt seen for wound care consultation re: a JIMMY skin tear. Skin tear is scabbed over, no other wounds noted on full skin inspection. WC will sign off at this time.
--- NOTE | 2019-04-07 10:54 | PDOC ---
PROGRESS NOTES Chief Complaint Chief Complaint discharge dx ==== Acute blood loss anemia Barretts esophagus Leukocytosis with no evidence of acute infection Retroperitoneal soft tissue density nonspecific but possibly re-presenting lymphadenopathy 3 x 22 cm, will need work up once more stable. History of hypertension History of normocytic anemia Thrombocytopenia - uncertain etiology Acute renal failure secondary to prerenal azotemia Hypernatremia secondary to severe dehydration No sepsis possible myeloproliferative disorder. KIM Splenomegaly. Left renal stone and associated focal scarring consistent with chronic pyelonephritis. 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 will need to explore interventional radiology biopsy option once patient is more stable. concern for malignancy in the differential DVT prophylaxis with SCD and teds given GI bleeding PT/OT now that Hb stable, will likely need rehab oncology FOLLOWING BONE MARROW BX f/u with oncology 1 week Retroperitoneal soft tissue density measuring 3.0 x 2.2 cm, nonspecific but possibly representing lymphadenopathy. Plan for outpt colonoscopy, also needs repeat EGD in 1 year. NEPHROLOGY CONSULT EGD in 1 year, consider outpt colonoscopy. 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 Plan of care sprain detail all concerns addressed to the best my abilities. 2/6: Feeling better, wants to get out of bed.Tolerating diet, no abd pain, no bleeding, hasn't stooled. Very weak. He is asking if his chair can be reclined. Hb stable at 7.1 post-transfusion. Awaiting repeat hemogram today. PT/OT recom mends SNF on discharge. 04/03: His WBC climbed, platelets still low, Hb stable. He is very unsteady, amenable to SNF discharge. 04/04: Having bowel urgency overnight, no loose stools, brown, not black, no blood. A bit more steady today. Awaiting SNF approval and bone marrow biopsy. No chest pain or shortness of breath. He relates he had a bone marrow biopsy at [facility] 2 years ago, doesn't remember results WBC still in 30s, Hb 7.1, stable, platelets < 50. Awaiting bone marrow biopsy and SNF approval. He is confused and talking to himself today. Plan; SNF/rehab referral, repeat CBC Bone marrow biopsy, plan for 04/06 Consulted hematology/oncology for concern for myelodysplastic state Vitals Vitals Vital Signs Date Time Temp Pulse Resp B/P (MAP) Pulse Ox O2 Delivery O2 Flow Rate FiO2 04/07/19 08:00 Room Air 04/07/19 07:00 97.6 92 20 134/62 (86) 95 97.6 04/06/19 10:46 2.0 Physical Exam Physical Exam Gen.: well-developed well-nourished in no apparent distress Head: Normal shape atraumatic Eyes: Pupils equal reactive to light and accommodation, normal conjunctivae and lids Ears: Normal shape Nose: Normal shape no trauma Mouth: No exudates of the back of throat no thrush no lesions Neck: Supple no JVD no carotid bruit or lymphadenopathy no thyromegaly Chest: Lungs clear to auscultation with good inspiratory effort no crackles rales or rhonchi Cardiovascular: S1-S2 regular rhythm no murmurs gallops or rubs Abdomen: Bowel sounds present soft nontender no hepatosplenomegaly appreciated sign Extremities: No clubbing no cyanosis no edema peripheral pulses palpated bilaterally Neurological: Alert awake oriented in person time place and situation, cranial nerves II through XII intact, no motor or sensory deficits appreciated Psych: Appropriate mood, cooperative General: Alert, No acute distress Heart: Normal S1, Normal S2 Lungs: Clear Abdomen: Normal bowel sounds, Soft Extremities: No cyanosis Assessment and Plan Assessmemt and Plan Problems Medical Problems: (1) Acute on chronic renal failure Status: Acute (2) Diverticulosis Status: Acute (3) Fall Status: Acute (4) Generalized weakness Status: Acute (5) GI bleeding Status: Acute (6) Severe sepsis Status: Acute (7) Thrombocytopenia Status: Acute Comment Review of Relevant I have reviewed the following items waylon (where applicable) has been applied. Labs Laboratory Tests Test 04/06/19 04:45 White Blood Count 29.3 x10^3/uL (4.0-11.0) Red Blood Count 2.52 x10^6/uL (4.30-5.70) Hemoglobin 7.5 g/dL (13.0-17.5) Hematocrit 24.2 % (39.0-53.0) Mean Corpuscular Volume 96 fL (79-100) Mean Corpuscular Hemoglobin 30 pg (25-35) Mean Corpuscular Hemoglobin Concent 31 g/dL (31-37) Red Cell Distribution Width 19.8 % (11.5-14.5) Platelet Count 40 x10^3/uL (140-400) Neutrophils (%) (Auto) 46 % (31-73) Lymphocytes (%) (Auto) 3 % (24-48) Monocytes (%) (Auto) 48 % (0-9) Eosinophils (%) (Auto) 2 % (0-3) Basophils (%) (Auto) 0 % (0-3) Neutrophils # (Auto) 13.5 x10^3/uL (1.8-7.7) Lymphocytes # (Auto) 0.9 x10^3/uL (1.0-4.8) Monocytes # (Auto) 14.1 x10^3/uL (0.0-1.1) Eosinophils # (Auto) 0.6 x10^3/uL (0.0-0.7) Basophils # (Auto) 0.1 x10^3/uL (0.0-0.2) Sodium Level 144 mmol/L (136-145) Potassium Level 3.6 mmol/L (3.5-5.1) Chloride Level 111 mmol/L (98-107) Carbon Dioxide Level 24 mmol/L (21-32) Anion Gap 9 (6-14) Blood Urea Nitrogen 30 mg/dL (8-26) Creatinine 2.4 mg/dL (0.7-1.3) Estimated GFR (Cockcroft-Gault) 26.0 Glucose Level 90 mg/dL (70-99) Calcium Level 8.9 mg/dL (8.5-10.1) Phosphorus Level 3.8 mg/dL (2.6-4.7) Albumin 2.9 g/dL (3.4-5.0) Microbiology 03/29/19 Blood Culture - Final, Complete NO GROWTH AFTER 5 DAYS Medications Current Medications Sodium Chloride 1,000 ml @ 1,000 mls/hr Q1H IV Last administered on 03/29/19at 18:39; Start 03/29/19 at 18:17; Stop 03/29/19 at 19:16; Status DC Pantoprazole Sodium (PROTONIX VIAL for IV PUSH) 40 mg 1X ONCE IVP Last administered on 03/29/19at 19:07; Start 03/29/19 at 18:30; Stop 03/29/19 at 18:31; Status DC Pantoprazole Sodium 80 mg/ Sodium Chloride 100 ml @ 10 mls/hr Q10H IV Last administered on 03/30/19at 13:33; Start 03/29/19 at 18:45; Stop 03/30/19 at 14:07; Status DC Piperacillin Sod/ Tazobactam Sod 3.375 gm/Sodium Chloride 50 ml @ 100 mls/hr 1X ONCE IV Last administered on 03/29/19at 19:23; Start 03/29/19 at 19:15; Stop 03/29/19 at 19:44; Status DC Vancomycin HCl 250 ml @ 250 mls/hr 1X ONCE IV ; Start 03/29/19 at 19:15; Stop 03/29/19 at 20:14; Status UNV Sodium Chloride 1,000 ml @ 1,200 mls/hr 1X ONCE IV Last administered on 03/29/19at 19:15; Start 03/29/19 at 19:15; Stop 03/29/19 at 20:04; Status DC Vancomycin HCl 1.75 gm/Sodium Chloride 500 ml @ 250 mls/hr ONCE ONCE IV Last administered on 03/29/19at 20:23; Start 03/29/19 at 20:00; Stop 03/29/19 at 21:59; Status DC Ondansetron HCl (Zofran) 4 mg PRN Q8HRS PRN IV NAUSEA/VOMITING; Start 03/29/19 at 19:30; Stop 03/30/19 at 06:00; Status DC Sodium Chloride 1,000 ml @ 125 mls/hr Q8H IV Last administered on 03/30/19at 16:52; Start 03/29/19 at 19:17; Stop 03/30/19 at 19:16; Status DC Fentanyl Citrate (Fentanyl 2ml Vial) 50 mcg 1X ONCE IVP Last administered on 03/29/19at 20:29; Start 03/29/19 at 20:15; Stop 03/29/19 at 20:16; Status DC Pantoprazole Sodium (PROTONIX VIAL for IV PUSH) 40 mg DAILYAC IVP Last administered on 03/31/19at 08:53; Start 03/31/19 at 07:30; Stop 03/31/19 at 13:02; Status DC Ondansetron HCl (Zofran) 4 mg PRN Q6HRS PRN IV NAUSEA/VOMITING; Start 03/31/19 at 07:00; Stop 04/01/19 at 06:59; Status DC Fentanyl Citrate (Fentanyl 2ml Vial) 25 mcg PRN Q5MIN PRN IV MILD PAIN 1-3; Start 03/31/19 at 07:00; Stop 04/01/19 at 06:59; Status DC Fentanyl Citrate (Fentanyl 2ml Vial) 50 mcg PRN Q5MIN PRN IV MODERATE TO SEVERE PAIN; Start 03/31/19 at 07:00; Stop 04/01/19 at 06:59; Status DC Morphine Sulfate (Morphine Sulfate) 1 mg PRN Q10MIN PRN IV SEVERE PAIN 7-10; Start 03/31/19 at 07:00; Stop 04/01/19 at 06:59; Status DC Ringer's Solution 1,000 ml @ 30 mls/hr Q24H IV Last administered on 03/31/19at 11:31; Start 03/31/19 at 07:00; Stop 03/31/19 at 18:59; Status DC Hydromorphone HCl (Dilaudid) 0.5 mg PRN Q10MIN PRN IV SEV PAIN, Second choice; Start 03/31/19 at 07:00; Stop 04/01/19 at 06:59; Status DC Prochlorperazine Edisylate (Compazine) 5 mg PACU PRN PRN IV NAUSEA, MRX1; Start 03/31/19 at 07:00; Stop 04/01/19 at 06:59; Status DC Sodium Chloride 1,000 ml @ 100 mls/hr Q10H IV Last administered on 04/02/19at 00:23; Start 03/31/19 at 09:00; Stop 04/02/19 at 11:19; Status DC Sodium Chloride 500 ml @ 999 mls/hr Q31M IV Last administered on 03/31/19at 08: 53; Start 03/31/19 at 09:00; Stop 03/31/19 at 09:30; Status DC Ringer's Solution 1,000 ml @ 75 mls/hr 1X ONCE IV ; Start 03/31/19 at 11:30; Stop 04/01/19 at 00:49; Status DC Propofol 20 ml @ As Directed STK-MED ONCE IV ; Start 03/31/19 at 11:51; Stop 03/31/19 at 11:51; Status DC Lidocaine HCl (Lidocaine Pf 2% Vial) 5 ml STK-MED ONCE .ROUTE ; Start 03/31/19 at 11:51; Stop 03/31/19 at 11:51; Status DC Pantoprazole Sodium (Protonix) 40 mg DAILYAC PO Last administered on 04/07/19at 08:18; Start 04/01/19 at 07:30 Ferrous Sulfate (Feosol) 325 mg BID PO Last administered on 04/07/19at 08:18; Start 04/01/19 at 21:00 Polyethylene Glycol (miraLAX PACKET) 17 gm DAILY PO Last administered on 04/07/19at 08:18; Start 04/03/19 at 09:00 Polyethylene Glycol (miraLAX PACKET) 17 gm PRN DAILY PRN PO CONSTIPATION; Start 04/02/19 at 10:30 Bisacodyl (Dulcolax Tab) 5 mg PRN DAILY PRN PO CONSTIPATION- 2ND CHOICE; Start 04/03/19 at 11:00 Lidocaine HCl (Buffered Lidocaine 1%) 3 ml STK-MED ONCE .ROUTE ; Start 04/06/19 at 10:14; Stop 04/06/19 at 10:14; Status DC Midazolam HCl (Versed) 2 mg STK-MED ONCE .ROUTE ; Start 04/06/19 at 10:24; Stop 04/06/19 at 10:25; Status DC Fentanyl Citrate (Fentanyl 2ml Vial) 100 mcg STK-MED ONCE .ROUTE ; Start 04/06/19 at 10:25; Stop 04/06/19 at 10:25; Status DC Lidocaine HCl (Buffered Lidocaine 1%) 6 ml 1X ONCE IJ Last administered on 04/06/19at 10:35; Start 04/06/19 at 10:45; Stop 04/06/19 at 10:46; Status DC Midazolam HCl (Versed) 2 mg 1X ONCE IV Last administered on 04/06/19at 10:45; Start 04/06/19 at 10:45; Stop 04/06/19 at 10:46; Status DC Fentanyl Citrate (Fentanyl 2ml Vial) 75 mcg 1X ONCE IV Last administered on 04/06/19at 10:46; Start 04/06/19 at 10:45; Stop 04/06/19 at 10:46; Status DC Active Scripts Active [Pantoprazole] 40 MG Tablet.dr 40 Mg PO DAILYAC 30 Days Feosol (Ferrous Sulfate) 325 Mg Tablet 325 Mg PO [id number] 30 Days Vitals/I & O Vital Sign - Last 24 Hours 04/06/19 04/06/19 04/06/19 04/06/19 11:00 11:15 11:30 11:30 Temp 98.0 98.0 Pulse 62 60 60 60 Resp 18 B/P (MAP) 124/51 (75) 114/52 (72) 119/48 (71) 124/54 (77) Pulse Ox 86 84 89 87 O2 Delivery Room Air Room Air 04/06/19 04/06/19 04/06/19 04/06/19 11:45 15:00 19:44 20:00 Temp 97.9 97.9 97.9 97.9 Pulse 60 62 60 Resp 18 20 B/P (MAP) 124/48 (73) 126/50 (75) 109/61 (77) Pulse Ox 88 95 99 O2 Delivery Room Air Room Air Room Air 04/06/19 04/07/19 04/07/19 04/07/19 23:15 03:55 07:00 08:00 Temp 97.5 98.3 97.6 97.5 98.3 97.6 Pulse 64 61 92 Resp 20 20 20 B/P (MAP) 141/66 (91) 132/58 (82) 134/62 (86) Pulse Ox 92 97 95 O2 Delivery Room Air Room Air Room Air Room Air Intake and Output 04/06/19 04/06/19 04/07/19 15:00 23:00 07:00 Intake Total 1100 ml Output Total 800 ml Balance 300 ml Nutrition Consultation Dietary Evaluation: Recommendations by RD: Dietary education by RD, Increase Calorie Intake, Protein supplementation Comments: REC continue with cardiac diet - Bun and cr improving REC Nepro q day Expected Outcomes/Goals: diet advancement - met new goal: to meet >75% est nutr needs- goal ongoing Interpretation of weight loss: >1-2% in 1 week Malnutrition Findings: Food and Nutrition Intake (Mod: <75% est energy req 7days Weight Status: Appropriate Hemodynamically unstable?: No Is patient in severe pain?: No Is NPO status required?: No CONCEPCION KERN MD Apr 07, 2019 10:54
[2019-04-07 11:09] VITALS: BP 131/61
--- NOTE | 2019-04-07 11:42 | PDOC ---
Subjective: Subjective: No GI complaints except small stools. Doesn't know if he had a biopsy. Objective: Objective: Per nurse - possible DC today? Had bone marrow biospy yesterday. 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 Follow-up re: bone marrow biopsy. EGD in 1 year, consider outpt colonoscopy. Hemodynamically unstable?: No Is patient in severe pain?: No Is NPO status required?: No ISAI MOYA Apr 07, 2019 11:42
[2019-04-07] MEDS ORDERED: POLY17PO28 PO (14:28)
[2019-04-07] MEDS ORDERED: PANT40TA77 PO (14:28)
[2019-04-07] MEDS ORDERED: BISA5TAB4 PO (14:28)
--- NOTE | 2019-04-07 14:29 | SNU/HH DC ---
DISCHARGE ORDERS DISCHARGE INFORMATION: DISCHARGE DATE: Apr 07, 2019 FINAL DIAGNOSIS Problems Medical Problems: (1) Acute on chronic renal failure Status: Acute (2) Diverticulosis Status: Acute (3) Fall Status: Acute (4) Generalized weakness Status: Acute (5) GI bleeding Status: Acute (6) Severe sepsis Status: Acute (7) Thrombocytopenia Status: Acute CONDITION ON DISCHARGE: Stable CODE STATUS: Code Status: Full SNF: SNF STAY <30 DAYS: Yes HOSPICE: HOSPICE: No HOSPICE EVAL & TREAT: No LTAC: ADMIT TO LTAC: No POST DISCHARGE ORDERS: ACTIVITY ORDERS: Activity as tolerated WEIGHT BEARING STATUS: As tolerated BATHING ORDERS: Shower-keep dressing dry DIET AFTER DISCHARGE: Cardiac CHECKS AFTER DISCHARGE: CHECKS AFTER DISCHARGE: Check blood press - daily, Check your Temp as needed TREATMENT/EQUIPMENT ORDERS: ADAPTIVE EQUIPMENT NEEDED: None Physical Therapy For: Evalulation/Treatment Occupational Therapy For: Evaluation/Treatment Speech Language Pathology For: Evaluation/Treatment DISCHARGE MEDICATIONS: Home Meds Active Scripts Pantoprazole Sodium (PANTOPRAZOLE SODIUM ) 40 Mg Tablet., 40 MG PO DAILYAC for gerd for 30 Days, #30 TAB.SR Prov:CONCEPCION KERN MD 04/07/19 Polyethylene Glycol 3350 (POLYETHYLENE GLYCOL 3350) 17 Gm Powd.pack, 17 GM PO DAILY for anemia for 30 Days, #30 PKT Prov:CONCEPCION KERN MD 04/07/19 Bisacodyl (BISACODYL) 5 Mg Tablet., 5 MG PO PRN DAILY PRN for CONSTIPATION- 2ND CHOICE for 10 Days, #20 TAB.SR Prov:CONCEPCION KERN MD 04/07/19 Ferrous Sulfate (FEOSOL) 325 Mg Tablet, 325 MG PO DAILYWBKFT for ANEMIA for 30 Days, #30 TAB Prov:CONCEPCION KERN MD 12/31/17 Discontinued Scripts [Pantoprazole] 40 MG TABLET. No Conflict Check, 40 MG PO DAILYAC for GI UPSET for 30 Days, #30 Prov:CONCEPCION KERN MD 12/31/17 CONCEPCION KERN MD Apr 07, 2019 14:29
--- NOTE | 2019-04-07 14:31 | PDOC ---
PROGRESS NOTES Subjective Subjective HPI - f/u of Chronic leukocytosis ROS - no fever Objective Objective Vital Signs Date Time Temp Pulse Resp B/P (MAP) Pulse Ox O2 Delivery O2 Flow Rate FiO2 04/07/19 11:09 97.5 71 20 131/61 (84) 97 Room Air 97.5 04/06/19 10:46 2.0 Intake and Output 04/07/19 07:00 Intake Total 1100 ml Output Total 800 ml Balance 300 ml Intake Oral 1100 ml Output Urine Total 800 ml # Voids 1 Physical Exam General: Alert, No acute distress Neck: No JVD Assessment Assessment Problems Medical Problems: (1) Acute on chronic renal failure Status: Acute (2) Diverticulosis Status: Acute (3) Fall Status: Acute (4) Generalized weakness Status: Acute (5) GI bleeding Status: Acute (6) Severe sepsis Status: Acute (7) Thrombocytopenia Status: Acute IMPRESSION AND PLAN: 1. Chronic leukocytosis with chronic thrombocytopenia. I am concerned about possible myeloproliferative disorder. I discussed in detail with the patient and I recommended a bone marrow aspiration and biopsy and he understands and agrees with the plan. There is no clinical evidence of infection or inflammation. I will consult Interventional Radiology for bone marrow biopsy. s/p Bx 04/06/2019, results pending. 2. Chronic thrombocytopenia, which could be related to underlying splenomegaly. 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 I will continue to monitor. 3. Splenomegaly [address] scan of the abdomen on 03/29/2019. 4. Anemia, normochromic, normocytic. iron studies reveal normal ferritin and decreased iron saturation He does report melena and he underwent an EGD with no active bleeding. Appreciate GI management. 5. Retroperitoneal soft tissue density measuring 3.0 x 2.2 cm, nonspecific but possibly representing lymphadenopathy. Plan follow-up contrast enhanced CT to assess stability. Comment Review of Relevant I have reviewed the following items waylon (where applicable) has been applied. Labs Laboratory Tests Test 04/06/19 04:45 White Blood Count 29.3 x10^3/uL (4.0-11.0) Red Blood Count 2.52 x10^6/uL (4.30-5.70) Hemoglobin 7.5 g/dL (13.0-17.5) Hematocrit 24.2 % (39.0-53.0) Mean Corpuscular Volume 96 fL (79-100) Mean Corpuscular Hemoglobin 30 pg (25-35) Mean Corpuscular Hemoglobin Concent 31 g/dL (31-37) Red Cell Distribution Width 19.8 % (11.5-14.5) Platelet Count 40 x10^3/uL (140-400) Neutrophils (%) (Auto) 46 % (31-73) Lymphocytes (%) (Auto) 3 % (24-48) Monocytes (%) (Auto) 48 % (0-9) Eosinophils (%) (Auto) 2 % (0-3) Basophils (%) (Auto) 0 % (0-3) Neutrophils # (Auto) 13.5 x10^3/uL (1.8-7.7) Lymphocytes # (Auto) 0.9 x10^3/uL (1.0-4.8) Monocytes # (Auto) 14.1 x10^3/uL (0.0-1.1) Eosinophils # (Auto) 0.6 x10^3/uL (0.0-0.7) Basophils # (Auto) 0.1 x10^3/uL (0.0-0.2) Sodium Level 144 mmol/L (136-145) Potassium Level 3.6 mmol/L (3.5-5.1) Chloride Level 111 mmol/L (98-107) Carbon Dioxide Level 24 mmol/L (21-32) Anion Gap 9 (6-14) Blood Urea Nitrogen 30 mg/dL (8-26) Creatinine 2.4 mg/dL (0.7-1.3) Estimated GFR (Cockcroft-Gault) 26.0 Glucose Level 90 mg/dL (70-99) Calcium Level 8.9 mg/dL (8.5-10.1) Phosphorus Level 3.8 mg/dL (2.6-4.7) Albumin 2.9 g/dL (3.4-5.0) Microbiology 03/29/19 Blood Culture - Final, Complete NO GROWTH AFTER 5 DAYS Medications Current Medications Sodium Chloride 1,000 ml @ 1,000 mls/hr Q1H IV Last administered on 03/29/19at 18:39; Start 03/29/19 at 18:17; Stop 03/29/19 at 19:16; Status DC Pantoprazole Sodium (PROTONIX VIAL for IV PUSH) 40 mg 1X ONCE IVP Last administered on 03/29/19at 19:07; Start 03/29/19 at 18:30; Stop 03/29/19 at 18:31; Status DC Pantoprazole Sodium 80 mg/ Sodium Chloride 100 ml @ 10 mls/hr Q10H IV Last administered on 03/30/19at 13:33; Start 03/29/19 at 18:45; Stop 03/30/19 at 14:07; Status DC Piperacillin Sod/ Tazobactam Sod 3.375 gm/Sodium Chloride 50 ml @ 100 mls/hr 1X ONCE IV Last administered on 03/29/19at 19:23; Start 03/29/19 at 19:15; Stop 03/29/19 at 19:44; Status DC Vancomycin HCl 250 ml @ 250 mls/hr 1X ONCE IV ; Start 03/29/19 at 19:15; Stop 03/29/19 at 20:14; Status UNV Sodium Chloride 1,000 ml @ 1,200 mls/hr 1X ONCE IV Last administered on 03/29/19at 19:15; Start 03/29/19 at 19:15; Stop 03/29/19 at 20:04; Status DC Vancomycin HCl 1.75 gm/Sodium Chloride 500 ml @ 250 mls/hr ONCE ONCE IV Last administered on 03/29/19at 20:23; Start 03/29/19 at 20:00; Stop 03/29/19 at 21:59; Status DC Ondansetron HCl (Zofran) 4 mg PRN Q8HRS PRN IV NAUSEA/VOMITING; Start 03/29/19 at 19:30; Stop 03/30/19 at 06:00; Status DC Sodium Chloride 1,000 ml @ 125 mls/hr Q8H IV Last administered on 03/30/19at 16:52; Start 03/29/19 at 19:17; Stop 03/30/19 at 19:16; Status DC Fentanyl Citrate (Fentanyl 2ml Vial) 50 mcg 1X ONCE IVP Last administered on 03/29/19at 20:29; Start 03/29/19 at 20:15; Stop 03/29/19 at 20:16; Status DC Pantoprazole Sodium (PROTONIX VIAL for IV PUSH) 40 mg DAILYAC IVP Last administered on 03/31/19at 08:53; Start 03/31/19 at 07:30; Stop 03/31/19 at 13:02; Status DC Ondansetron HCl (Zofran) 4 mg PRN Q6HRS PRN IV NAUSEA/VOMITING; Start 03/31/19 at 07:00; Stop 04/01/19 at 06:59; Status DC Fentanyl Citrate (Fentanyl 2ml Vial) 25 mcg PRN Q5MIN PRN IV MILD PAIN 1-3; Start 03/31/19 at 07:00; Stop 04/01/19 at 06:59; Status DC Fentanyl Citrate (Fentanyl 2ml Vial) 50 mcg PRN Q5MIN PRN IV MODERATE TO SEVERE PAIN; Start 03/31/19 at 07:00; Stop 04/01/19 at 06:59; Status DC Morphine Sulfate (Morphine Sulfate) 1 mg PRN Q10MIN PRN IV SEVERE PAIN 7-10; Start 03/31/19 at 07:00; Stop 04/01/19 at 06:59; Status DC Ringer's Solution 1,000 ml @ 30 mls/hr Q24H IV Last administered on 03/31/19at 11:31; Start 03/31/19 at 07:00; Stop 03/31/19 at 18:59; Status DC Hydromorphone HCl (Dilaudid) 0.5 mg PRN Q10MIN PRN IV SEV PAIN, Second choice; Start 03/31/19 at 07:00; Stop 04/01/19 at 06:59; Status DC Prochlorperazine Edisylate (Compazine) 5 mg PACU PRN PRN IV NAUSEA, MRX1; Start 03/31/19 at 07:00; Stop 04/01/19 at 06:59; Status DC Sodium Chloride 1,000 ml @ 100 mls/hr Q10H IV Last administered on 04/02/19at 00:23; Start 03/31/19 at 09:00; Stop 04/02/19 at 11:19; Status DC Sodium Chloride 500 ml @ 999 mls/hr Q31M IV Last administered on 03/31/19at 08:53; Start 03/31/19 at 09:00; Stop 03/31/19 at 09:30; Status DC Ringer's Solution 1,000 ml @ 75 mls/hr 1X ONCE IV ; Start 03/31/19 at 11:30; Stop 04/01/19 at 00:49; Status DC Propofol 20 ml @ As Directed STK-MED ONCE IV ; Start 03/31/19 at 11:51; Stop 03/31/19 at 11:51; Status DC Lidocaine HCl (Lidocaine Pf 2% Vial) 5 ml STK-MED ONCE .ROUTE ; Start 03/31/19 at 11:51; Stop 03/31/19 at 11:51; Status DC Pantoprazole Sodium (Protonix) 40 mg DAILYAC PO Last administered on 04/07/19at 08:18; Start 04/01/19 at 07:30 Ferrous Sulfate (Feosol) 325 mg BID PO Last administered on 04/07/19at 08:18; Start 04/01/19 at 21:00 Polyethylene Glycol (miraLAX PACKET) 17 gm DAILY PO Last administered on 04/07/19at 08:18; Start 04/03/19 at 09:00 Polyethylene Glycol (miraLAX PACKET) 17 gm PRN DAILY PRN PO CONSTIPATION; Start 04/02/19 at 10:30 Bisacodyl (Dulcolax Tab) 5 mg PRN DAILY PRN PO CONSTIPATION- 2ND CHOICE; Start 04/03/19 at 11:00 Lidocaine HCl (Buffered Lidocaine 1%) 3 ml STK-MED ONCE .ROUTE ; Start 04/06/19 at 10:14; Stop 04/06/19 at 10:14; Status DC Midazolam HCl (Versed) 2 mg STK-MED ONCE .ROUTE ; Start 04/06/19 at 10:24; Stop 04/06/19 at 10:25; Status DC Fentanyl Citrate (Fentanyl 2ml Vial) 100 mcg STK-MED ONCE .ROUTE ; Start 04/06/19 at 10:25; Stop 04/06/19 at 10:25; Status DC Lidocaine HCl (Buffered Lidocaine 1%) 6 ml 1X ONCE IJ Last administered on 04/06/19at 10:35; Start 04/06/19 at 10:45; Stop 04/06/19 at 10:46; Status DC Midazolam HCl (Versed) 2 mg 1X ONCE IV Last administered on 04/06/19at 10:45; Start 04/06/19 at 10:45; Stop 04/06/19 at 10:46; Status DC Fentanyl Citrate (Fentanyl 2ml Vial) 75 mcg 1X ONCE IV Last administered on 04/06/19at 10:46; Start 04/06/19 at 10:45; Stop 04/06/19 at 10:46; Status DC Active Scripts Active [Pantoprazole] 40 MG Tablet.dr 40 Mg PO DAILYAC 30 Days Feosol (Ferrous Sulfate) 325 Mg Tablet 325 Mg PO DAILYWBKFT 30 Days Vitals/I & O Vital Sign - Last 24 Hours 04/06/19 04/06/19 04/06/19 04/06/19 15:00 19:44 20:00 23:15 Temp 97.9 97.9 97.5 97.9 97.9 97.5 Pulse 62 60 64 Resp B/P (MAP) 126/50 (75) 109/61 (77) 141/66 (91) Pulse Ox 95 99 92 O2 Delivery Room Air Room Air Room Air Room Air 04/07/19 04/07/19 04/07/19 04/07/19 03:55 07:00 08:00 11:09 Temp 98.3 97.6 97.5 98.3 97.6 97.5 Pulse 61 92 71 Resp B/P (MAP) 132/58 (82) 134/62 (86) 131/61 (84) Pulse Ox 97 95 97 O2 Delivery Room Air Room Air Room Air Room Air Intake and Output 04/06/19 04/06/19 04/07/19 15:00 23:00 07:00 Intake Total 1100 ml Output Total 800 ml Balance 300 ml Nutrition Consultation Dietary Evaluation: Recommendations by RD: Dietary education by RD, Increase Calorie Intake, Protein supplementation Comments: REC continue with cardiac diet - Bun and cr improving REC Nepro q day Expected Outcomes/Goals: diet advancement - met new goal: to meet >75% est nutr needs- goal ongoing Interpretation of weight loss: >1-2% in 1 week Malnutrition Findings: Food and Nutrition Intake (Mod: <75% est energy req 7days Weight Status: Appropriate Hemodynamically unstable?: No Is patient in severe pain?: No Is NPO status required?: No TIKI MELENDREZ MD Apr 07, 2019 14:31
--- NOTE | 2019-04-07 14:45 | PDOC2 ---
CONSULT Date of Consult Date of Consult DATE: 04/07/19 TIME: 14:33 Reason for Consult Reason for Consult: RENAL FAILURE Referring Physician Referring Physician: GOPAL Identification/Chief Complaint Chief Complaint THIS IS AN 84 YR OLD WITH WEAKNESS AND DIZZINESS. ALSO HAS HAD POOR PO INTAKE FOR SEVERAL DAYS. ADMIT CR OF ABOUT 3.0. HX OF CKD STAGE 4 WITH CR OF 2.5 TO 2.8 AT BASELINE. SHE HAS CKD DUE TO HTN. NO OTHER HX. HEMODYNAMICALLY STABLE BELOW HX REVIEWED Patient is a 84 year old male with history of GI bleeding and pacemaker placement who presents via EMS with complaining of weakness. Patient complaining of multiple episodes of melena about 2-8 episodes a day for the last 4 days associated with generalized weakness and dizziness. Patient states he had one episode of fall one or 2 days ago without loss of consciousness or head injury when he was going to the bathroom to have a bowel movement. Patient denies vomiting and abdominal pain and states he was not able to eat solid food but was able to drink liquids. Patient states he had the same problem a few months ago with diagnosis of GI bleeding and denies using anticoagulation medication or [id number] pain medicine. He denies chest pain, focal neuro deficit, shortness of breath, fever and chills. Patient is an 84-year-old gentleman who apparently lives by himself was admitted to our institution in January 2019 for melena microcytic anemia and iron deficiency. The patient also had chronic thrombocytopenia at that time. During that hospital stay GI consultation was requested and EGD was recommended at that time to workup his anemia and melanotic stools. The patient unfortunately did not want to go through with the procedure at that time and was dismissed with instructions to follow-up with GI in the outpatient setting he was also given a prescription for PPI. Patient has past medical history of hypertension chronic kidney disease. He does not take blood thinners he denies history of NSAID abuse. Yesterday the patient noted to have coffee ground emesis on several occasions prior to coming to the emergency department. Sounds like he had a syncopal episode which may have been due to orthostasis. At the time of my evaluation the patient is quite weak and not a great historian most of the details are from review off his chart. Plan of care has been explained detail and all concerns were addressed to the best of my abilities Source Source: Chart review History of Present Illness Reason for Visit: ABOVE Past Medical History Cardiovascular: CAD Psych: Addictions Musculoskeletal: Swelling, Other Renal/: Chronic renal insuff, Acute renal failure Past Surgical History Past Surgical History: Pacemaker Family History Family History: Alcohol Abuse Social History Quit ALCOHOL: other Drugs: None Lives: Alone Current Problem List Problem List Problems Medical Problems: (1) Acute on chronic renal failure Status: Acute (2) Diverticulosis Status: Acute (3) Fall Status: Acute (4) Generalized weakness Status: Acute (5) GI bleeding Status: Acute (6) Severe sepsis Status: Acute (7) Thrombocytopenia Status: Acute Current Medications Current Medications Current Medications Sodium Chloride 1,000 ml @ 1,000 mls/hr Q1H IV Last administered on 03/29/19at 18:39; Start 03/29/19 at 18:17; Stop 03/29/19 at 19:16; Status DC Pantoprazole Sodium (PROTONIX VIAL for IV PUSH) 40 mg 1X ONCE IVP Last administered on 03/29/19at 19:07; Start 03/29/19 at 18:30; Stop 03/29/19 at 18:31; Status DC Pantoprazole Sodium 80 mg/ Sodium Chloride 100 ml @ 10 mls/hr Q10H IV Last administered on 03/30/19at 13:33; Start 03/29/19 at 18:45; Stop 03/30/19 at 14:07; Status DC Piperacillin Sod/ Tazobactam Sod 3.375 gm/Sodium Chloride 50 ml @ 100 mls/hr 1X ONCE IV Last administered on 03/29/19at 19:23; Start 03/29/19 at 19:15; Stop 03/29/19 at 19:44; Status DC Vancomycin HCl 250 ml @ 250 mls/hr 1X ONCE IV ; Start 03/29/19 at 19:15; Stop 03/29/19 at 20:14; Status UNV Sodium Chloride 1,000 ml @ 1,200 mls/hr 1X ONCE IV Last administered on 03/29/19at 19:15; Start 03/29/19 at 19:15; Stop 03/29/19 at 20:04; Status DC Vancomycin HCl 1.75 gm/Sodium Chloride 500 ml @ 250 mls/hr ONCE ONCE IV Last administered on 03/29/19at 20:23; Start 03/29/19 at 20:00; Stop 03/29/19 at 21:59; Status DC Ondansetron HCl (Zofran) 4 mg PRN Q8HRS PRN IV NAUSEA/VOMITING; Start 03/29/19 at 19:30; Stop 03/30/19 at 06:00; Status DC Sodium Chloride 1,000 ml @ 125 mls/hr Q8H IV Last administered on 03/30/19at 16:52; Start 03/29/19 at 19:17; Stop 03/30/19 at 19:16; Status DC Fentanyl Citrate (Fentanyl 2ml Vial) 50 mcg 1X ONCE IVP Last administered on 03/29/19at 20:29; Start 03/29/19 at 20:15; Stop 03/29/19 at 20:16; Status DC Pantoprazole Sodium (PROTONIX VIAL for IV PUSH) 40 mg DAILYAC IVP Last administered on 03/31/19at 08:53; Start 03/31/19 at 07:30; Stop 03/31/19 at 13:02; Status DC Ondansetron HCl (Zofran) 4 mg PRN Q6HRS PRN IV NAUSEA/VOMITING; Start 03/31/19 at 07:00; Stop 04/01/19 at 06:59; Status DC Fentanyl Citrate (Fentanyl 2ml Vial) 25 mcg PRN Q5MIN PRN IV MILD PAIN 1-3; Start 03/31/19 at 07:00; Stop 04/01/19 at 06:59; Status DC Fentanyl Citrate (Fentanyl 2ml Vial) 50 mcg PRN Q5MIN PRN IV MODERATE TO SEVERE PAIN; Start 03/31/19 at 07:00; Stop 04/01/19 at 06:59; Status DC Morphine Sulfate (Morphine Sulfate) 1 mg PRN Q10MIN PRN IV SEVERE PAIN 7-10; Start 03/31/19 at 07:00; Stop 04/01/19 at 06:59; Status DC Ringer's Solution 1,000 ml @ 30 mls/hr Q24H IV Last administered on 03/31/19at 11:31; Start 03/31/19 at 07:00; Stop 03/31/19 at 18:59; Status DC Hydromorphone HCl (Dilaudid) 0.5 mg PRN Q10MIN PRN IV SEV PAIN, Second choice; Start 03/31/19 at 07:00; Stop 04/01/19 at 06:59; Status DC Prochlorperazine Edisylate (Compazine) 5 mg PACU PRN PRN IV NAUSEA, MRX1; Start 03/31/19 at 07:00; Stop 04/01/19 at 06:59; Status DC Sodium Chloride 1,000 ml @ 100 mls/hr Q10H IV Last administered on 04/02/19at 00:23; Start 03/31/19 at 09:00; Stop 04/02/19 at 11:19; Status DC Sodium Chloride 500 ml @ 999 mls/hr Q31M IV Last administered on 03/31/19at 08:53; Start 03/31/19 at 09:00; Stop 03/31/19 at 09:30; Status DC Ringer's Solution 1,000 ml @ 75 mls/hr 1X ONCE IV ; Start 03/31/19 at 11:30; Stop 04/01/19 at 00:49; Status DC Propofol 20 ml @ As Directed STK-MED ONCE IV ; Start 03/31/19 at 11:51; Stop 03/31/19 at 11:51; Status DC Lidocaine HCl (Lidocaine Pf 2% Vial) 5 ml STK-MED ONCE .ROUTE ; Start 03/31/19 at 11:51; Stop 03/31/19 at 11:51; Status DC Pantoprazole Sodium (Protonix) 40 mg DAILYAC PO Last administered on 04/07/19at 08:18; Start 04/01/19 at 07:30 Ferrous Sulfate (Feosol) 325 mg BID PO Last administered on 04/07/19at 08:18; Start 04/01/19 at 21:00 Polyethylene Glycol (miraLAX PACKET) 17 gm DAILY PO Last administered on 04/07/19at 08:18; Start 04/03/19 at 09:00 Polyethylene Glycol (miraLAX PACKET) 17 gm PRN DAILY PRN PO CONSTIPATION; Start 04/02/19 at 10:30 Bisacodyl (Dulcolax Tab) 5 mg PRN DAILY PRN PO CONSTIPATION- 2ND CHOICE; Start 04/03/19 at 11:00 Lidocaine HCl (Buffered Lidocaine 1%) 3 ml STK-MED ONCE .ROUTE ; Start 04/06/19 at 10:14; Stop 04/06/19 at 10:14; Status DC Midazolam HCl (Versed) 2 mg STK-MED ONCE .ROUTE ; Start 04/06/19 at 10:24; Stop 04/06/19 at 10:25; Status DC Fentanyl Citrate (Fentanyl 2ml Vial) 100 mcg STK-MED ONCE .ROUTE ; Start 04/06/19 at 10:25; Stop 04/06/19 at 10:25; Status DC Lidocaine HCl (Buffered Lidocaine 1%) 6 ml 1X ONCE IJ Last administered on 04/06/19at 10:35; Start 04/06/19 at 10:45; Stop 04/06/19 at 10:46; Status DC Midazolam HCl (Versed) 2 mg 1X ONCE IV Last administered on 04/06/19at 10:45; Start 04/06/19 at 10:45; Stop 04/06/19 at 10:46; Status DC Fentanyl Citrate (Fentanyl 2ml Vial) 75 mcg 1X ONCE IV Last administered on 04/06/19at 10:46; Start 04/06/19 at 10:45; Stop 04/06/19 at 10:46; Status DC Active Scripts Active Pantoprazole Sodium (Pantoprazole Sodium) 40 Mg Tablet.dr 40 Mg PO DAILYAC 30 Days Polyethylene Glycol 3350 17 Gm Powd.pack 17 Gm PO DAILY 30 Days Bisacodyl 5 Mg Tablet.dr 5 Mg PO PRN DAILY PRN 10 Days Feosol (Ferrous Sulfate) 325 Mg Tablet 325 Mg PO DAILYWBKFT 30 Days Allergies Allergies: Coded Allergies: No Known Drug Allergies (Unverified , 03/31/19) ROS General: YES: Fatigue, Appetite PSYCHOLOGICAL ROS: YES: Depression Eyes: Yes Decreased vision ALLERGY AND IMMUNOLOGY: YES: Seasonal Allergies Respiratory: YES: Cough Gastrointestinal: Yes Nausea, Yes Melena Genitourinary: YES Other (NOCTURIA) Musculoskeletal: Yes Muscular Weakness Neurological: Yes Weakness Skin: Yes Dry Skin Physical Exam General: Alert Lungs: Clear to auscultation Heart: Regular rate Abdomen: Normal bowel sounds, Soft, No tenderness Skin: No rashes Neuro: Normal speech Psych/Mental Status: Mental status NL, Mood NL MUSCULOSKELETAL: No joint tenderness, No deformity Vitals VITALS Vital Signs Date Time Temp Pulse Resp B/P (MAP) Pulse Ox O2 Delivery O2 Flow Rate FiO2 04/07/19 11:09 97.5 71 20 131/61 (84) 97 Room Air 97.5 04/06/19 10:46 2.0 Labs Labs Laboratory Tests Test 04/06/19 04:45 White Blood Count 29.3 x10^3/uL (4.0-11.0) Red Blood Count 2.52 x10^6/uL (4.30-5.70) Hemoglobin 7.5 g/dL (13.0-17.5) Hematocrit 24.2 % (39.0-53.0) Mean Corpuscular Volume 96 fL (79-100) Mean Corpuscular Hemoglobin 30 pg (25-35) Mean Corpuscular Hemoglobin Concent 31 g/dL (31-37) Red Cell Distribution Width 19.8 % (11.5-14.5) Platelet Count 40 x10^3/uL (140-400) Neutrophils (%) (Auto) 46 % (31-73) Lymphocytes (%) (Auto) 3 % (24-48) Monocytes (%) (Auto) 48 % (0-9) Eosinophils (%) (Auto) 2 % (0-3) Basophils (%) (Auto) 0 % (0-3) Neutrophils # (Auto) 13.5 x10^3/uL (1.8-7.7) Lymphocytes # (Auto) 0.9 x10^3/uL (1.0-4.8) Monocytes # (Auto) 14.1 x10^3/uL (0.0-1.1) Eosinophils # (Auto) 0.6 x10^3/uL (0.0-0.7) Basophils # (Auto) 0.1 x10^3/uL (0.0-0.2) Sodium Level 144 mmol/L (136-145) Potassium Level 3.6 mmol/L (3.5-5.1) Chloride Level 111 mmol/L (98-107) Carbon Dioxide Level 24 mmol/L (21-32) Anion Gap 9 (6-14) Blood Urea Nitrogen 30 mg/dL (8-26) Creatinine 2.4 mg/dL (0.7-1.3) Estimated GFR (Cockcroft-Gault) 26.0 Glucose Level 90 mg/dL (70-99) Calcium Level 8.9 mg/dL (8.5-10.1) Phosphorus Level 3.8 mg/dL (2.6-4.7) Albumin 2.9 g/dL (3.4-5.0) Assessment/Plan Assessment/Plan IMP CHAY WITH CR UP TO 3.0 CKD STAGE 3 WITH CR OF 2.5 TO 2.8 HYPERNATREMIA-BETTER DEHYDRATION CHRONIC LEUCOCYTOSIS WITH THROMBOCYTOPENIA POSSIBLE MYELODYSPLASIA ANEMIA WITH IRON DEFICIENCY RETROPERITONEAL DENSITY PLAN ENC PO CHAY APPEARS NEARLY RESOLVED WITH CR BASELINE LYTES AND ACID BASE BALANCE GOOD AVOID NEPHROTOXINS WILL FOLLOW HARMONY PALMER MD Apr 07, 2019 14:45
[2019-04-07 15:00] VITALS: BP 111/63
--- NOTE | 2019-04-07 15:16 | NUR ---
SS following up with discharge planning. Discharge orders received. SS phoned and faxed discharge orders to [facility] and [facility], ; fax [phone]. Pt will discharge today and go to [facility]. [place] to provide transportation and to notify SS of time of transport. Pt, pt's RN, and pt's family notified.
--- NOTE | 2019-04-07 15:47 | NUR ---
SS following up with discharge planning. SS received notification that [facility] will tile picker pt at 1700. Pt's RN notified.
--- NOTE | 2019-04-07 16:36 | RAD ---
CT-guided bone marrow biopsy. 04/07/2019 2:32 PM Indication: Leukocytosis and thrombocytopenia Discussion: The risks and benefits of the procedure, including but not limited to, bleeding and infection were discussed patient. Informed consent was obtained. The patient was brought to the CT scanner and placed in the prone position. A timeout procedure was performed. Basket Person CT imaging of the pelvis demonstrated left ilium amenable to bone marrow biopsy. The overlying soft tissues were prepped and draped using maximum sterile barrier technique. 1% lidocaine without epinephrine was administered for local anesthesia. Under intermittent CT guidance, an OncControl needle was advanced into the bone marrow of the left iliac crest. 2 Aspirates and 1 core biopsy samples were obtained. Samples were delivered to pathology was present at the time of procedure. The needle was removed and manual pressure held to achieve hemostasis. No immediate complications were identified. The procedure was performed under conscious sedation including continuous cardiopulmonary monitoring via dedicated sedation nurse. Sedation time: 20 minutes Impression: Successful CT-guided bone marrow biopsy of the left iliac crest . PQRS Compliance Statement: One or more of the following individualized dose reduction techniques were utilized for this examination: 1. Automated exposure control 2. Adjustment of the mA and/or kV according to patient size 3. Use of iterative reconstruction technique
--- NOTE | 2019-04-07 17:44 | NUR ---
Discharge Note: ANGELICA RPINCE [address] Discharge instructions and discharge home medications reviewed with Alice at [facility] and a copy given. All questions have been answered and understanding verbalized. The following instructions and handouts were given: transfer of care Discontinued lines and drains: 20 gauge right upper arm, tip intact. patient tolerated well. Patient discharged to [facility] via transport.
== END 2019-04-07 17:28 | disposition home or self-care (01) | DRG 380 ==
LOC: ER 18:15 → 1 WEST ICU 18:40 → 6 SOUTH 03-31 20:47
PROVIDERS: ADMIT Internal Medicine; ATTEND Internal Medicine
PROC: 30233N1 Transfusion of Nonautologous Red Blood Cells into Peripheral Vein, Percutaneous Approach (ICD-10-PCS; principal; 2019-03-29)
PROC: 0DB58ZX Excision of Esophagus, Via Natural or Artificial Opening Endoscopic, Diagnostic (ICD-10-PCS; 2019-03-31)
PROC: 07DR3ZX Extraction of Iliac Bone Marrow, Percutaneous Approach, Diagnostic (ICD-10-PCS; 2019-04-07)
DX: K22.70 Barrett's esophagus without dysplasia (principal); N17.0 Acute kidney failure with tubular necrosis; D62 Acute posthemorrhagic anemia; E87.0 Hyperosmolality and hypernatremia; N18.4 Chronic kidney disease, stage 4 (severe); K29.71 Gastritis, unspecified, with bleeding; D53.9 Nutritional anemia, unspecified; E86.0 Dehydration; I12.9 Hypertensive chronic kidney disease with stage 1 through stage 4 chronic kidney disease, or unspecified chronic kidney disease; I25.10 Atherosclerotic heart disease of native coronary artery without angina pectoris; I48.91 Unspecified atrial fibrillation; K21.9 Gastro-esophageal reflux disease without esophagitis; K40.90 Unilateral inguinal hernia, without obstruction or gangrene, not specified as recurrent; K70.9 Alcoholic liver disease, unspecified; K76.0 Fatty (change of) liver, not elsewhere classified; N20.0 Calculus of kidney; Z87.891 Personal history of nicotine dependence; Z95.0 Presence of cardiac pacemaker; Z96.611 Presence of right artificial shoulder joint; Z96.612 Presence of left artificial shoulder joint; Z96.652 Presence of left artificial knee joint
CPT/HCPCS: 36415; 38222; 43239; 70450; 71045; 74176; 77012; 80048; 80053; 80069; 81001; 82274; 82550; 82607; 82728; 83540; 83550; 83605; 83880; 84484; 85007; 85014; 85018; 85025; 85027; 85045; 85610; 85730; 86850; 86900; 86901; 86920; 87040; 88184; 88185; 88237; 88305; 88342; 93005; 93976; 96361; 96365; 96375; 99152; C9113; J2001; J2250; J2543; J2704; J3010; J3370; J7030; J7040; J7120; P9016; 97110; 97116; 97530; 97535; 99291-25; G0378

== ENCOUNTER 2019-08-01 15:39 | Emergency (ER) | payer MEDICARE ==
[~2019-08-01] VITALS: Ht 177.8 cm; Wt 70.0 kg
[~2019-08-01 15:39] MED LIST changes: +BISA5TAB4 PO; +PANT40TA77 PO; +POLY17PO28 PO
[2019-08-01 16:39] LABS: BASO % 0 % (0-3); EOS # 0.1 x10^3/uL (0.0-0.7); EOS % 1 % (0-3); HEMATOCRIT 29.2 % (39.0-53.0); HEMOGLOBIN 9.8 g/dL (13.0-17.5); LYMPH # 0.2 x10^3/uL (1.0-4.8); LYMPH % 1 % (24-48); MEAN CORPUSCULAR HEMOGLOBIN 33 pg (25-35); MEAN CORPUSCULAR HGB CONC 34 g/dL (31-37); MEAN CORPUSCULAR VOLUME 99 fL (79-100); MONO # 4.9 x10^3/uL (0.0-1.1); MONO % 29 % (0-9); NEUT # 11.9 x10^3/uL (1.8-7.7); NEUT % 69 % (31-73); PLATELET COUNT 51 x10^3/uL (140-400); RED BLOOD COUNT 2.94 x10^6/uL (4.30-5.70); RED CELL DISTRIBUTION WIDTH 21.6 % (11.5-14.5); WHITE BLOOD COUNT 17.3 x10^3/uL (4.0-11.0)
[2019-08-01 16:46] LABS: CALCIUM 8.6 mg/dL (8.5-10.1); CREATININE 3.3 mg/dL (0.7-1.3); POTASSIUM 3.8 mmol/L (3.5-5.1); PROTHROMBIN TIME PATIENT 18.6 SEC (11.7-14.0)
[2019-08-01 16:52] LABS: ALBUMIN 3.8 g/dL (3.4-5.0); TOTAL BILIRUBIN 1.9 mg/dL (0.2-1.0); TOTAL PROTEIN 7.6 g/dL (6.4-8.2)
[2019-08-01] MEDS ORDERED: MORPHINE SULFATE 4 MG/ML VIAL. IV ONE (17:00)
[2019-08-01] MEDS ORDERED: ONDANSETRON PF 4 MG/2 ML VIAL. IVP ONE (17:00)
[2019-08-01] MEDS ORDERED: IV NORMAL SALINE 500ML BAG 500 ML IV ONE ×2 (17:00→18:30)
[2019-08-01 17:24] LABS: % BANDS 1 % (0-9); % LYMPHS 4 % (24-48); % MONOS 21 % (0-10); % SEGS 74 % (35-66); PLT ESTIMATE DECREASED (ADEQUATE)
--- NOTE | 2019-08-01 18:02 | RAD ---
PQRS Compliance Statement: One or more of the following individualized dose reduction techniques were utilized for this examination: 1. Automated exposure control 2. Adjustment of the mA and/or kV according to patient size 3. Use of iterative reconstruction technique CT ABDOMEN PELVIS WO CONTRAST Clinical Indication: Reason: FLANK PAIN / Spl. Instructions: / History: Comparison: CT abdomen and pelvis without contrast 03/29/2019. Technique: Helical CT imaging of the abdomen and pelvis is performed without IV or oral contrast. Findings: Evaluation of solid organs and bowel is limited without oral and IV contrast, decreasing sensitivity for detection of pathology. There are small left and moderate right pleural effusions. The effusions have increased from prior study. There is compressive atelectasis or pneumonia in the posterior lower lobes bilaterally. Cardiac pacer wires are seen. There is symmetrically. Coronary artery disease. There is mild to moderate abdominal ascites, new from prior study. Splenomegaly is stable. Cholecystectomy. The liver is homogeneous. The pancreas is homogeneous. Adrenal glands are normal. There is no right hydronephrosis. Nonobstructing left renal calculus versus cortical calcification is stable. There is mild left hydroureteronephrosis secondary to a punctate calculus in the distal left ureter just proximal to the ureterovesicular junction, image 195. The stomach is unremarkable. Several small bowel loops are fluid-filled and upper limits of normal in caliber. There is no evidence of obstruction. There is severe sigmoid colon diverticulosis. The appendix is not seen, no secondary signs of appendicitis. The posterior left para-aortic soft tissue density is unchanged No colon wall thickening is seen. There is moderate pelvic free fluid. The urinary bladder is normal. Coarse calcifications centrally in the prostate. Vacuum disc phenomenon and disc space narrowing and endplate spurring of the lumbar spine. IMPRESSION: 1. Bilateral pleural effusions have increased from prior study now small on the left and moderate on the right. 2. Compressive atelectasis or pneumonia in the posterior lower lobes bilaterally. 3. Mild left obstructive uropathy secondary to a punctate calculus in the distal left ureter. 4. There is new [id number] abdominal and pelvic ascites. 5. Severe distal colon diverticulosis. 6. The retroperitoneal soft tissue density is unchanged. Suggest continued attention on subsequent imaging. 7. Stable splenomegaly. 8. Some of the small bowel is fluid-filled and upper limits of normal in caliber suggesting ileus. Electronically signed by: Derrick Rosales MD (08/01/2019 5:59 PM) [facility]
--- NOTE | 2019-08-01 18:14 | PHYS DOC ---
Past Medical History Past Medical History: Other Additional Past Medical Histor: PACEMAKER , PT IS POOR HISTORIAN; GI bleed, low blood pressure, sepsis, CHAY (PRESTON LILLY DO) Past Surgical History: Other Additional Past Surgical Histo: HERNIA, KNEE REPLACEMENT, PACEMAKER PLACED (PRESTON LILLY DO) Smoking Status: Former Smoker Alcohol Use: Heavy Drug Use: None (PRESTON LILLY DO) General Adult EDM: Chief Complaint: FLANK PAIN HPI: HPI: Patient is a 84 year old male who presented to ER today for evaluation of left lower abdominal pain started about 3 days ago. Patient said the pain started in his left flank area and eventually radiated to his left lower abdominal area, patient denies any fever, no nausea vomiting. Patient is a very poor historian. Patient any chest pain. Patient said he always has a dry cough all his life. (PRESTON LILLY DO) Review of Systems: Review of Systems: Constitutional: Denies fever or chills. [] Eyes: Denies change in visual acuity. [] HENT: Denies nasal congestion or sore throat. [] Respiratory: Denies cough or shortness of breath. [] Cardiovascular: Denies chest pain or edema. [] GI: Positive for abdominal pain, no nausea, vomiting, bloody stools or diarrhea. [] : Denies dysuria. [] Musculoskeletal: Positive for left flank pain, no joint pain. [] Integument: Denies rash. [] Neurologic: Denies headache, focal weakness or sensory changes. [] Endocrine: Denies polyuria or polydipsia. [] Lymphatic: Denies swollen glands. [] Psychiatric: Denies depression or anxiety. [] (PRESTON LILLY DO) Heart Score: Risk Factors: Risk Factors: DM, Current or recent (<one month) smoker, HTN, HLP, family history of CAD, obesity. Risk Scores: Score 0 - 3: 2.5% MACE over next 6 weeks - Discharge Home Score 4 - 6: 20.3% MACE over next 6 weeks - Admit for Clinical Observation Score 7 - 10: 72.7% MACE over next 6 weeks - Early Invasive Strategies (PRESTON LILLY DO) Current Medications: Current Medications Medications (Trade) Dose Ordered Sig/Jose Start Time Stop Time Status Last Admin Dose Admin Ceftriaxone Sodium (Rocephin) 1 gm 1X ONCE 08/01/19 18:15 08/01/19 18:16 UNV Morphine Sulfate (Morphine Sulfate) 4 mg 1X ONCE 08/01/19 17:00 08/01/19 17:02 DC 08/01/19 17:08 4 MG Ondansetron HCl (Zofran) 4 mg 1X ONCE 08/01/19 17:00 08/01/19 17:02 DC 08/01/19 17:08 4 MG Sodium Chloride 500 ml @ 500 mls/hr 1X ONCE 08/01/19 17:00 08/01/19 18:00 DC 08/01/19 17:10 500 MLS/HR (PRESTON LILLY DO) Allergies: Allergies: Allergies Coded Allergies Type Severity Reaction Last Updated Verified No Known Drug Allergies 03/31/19 No (PRESTON LILLY DO) Physical Exam: PE: Constitutional: Well developed, well nourished, in mild acute distress due to pain, non-toxic appearance. [] HENT: Normocephalic, atraumatic, bilateral external ears normal, oropharynx moist, no oral exudates, nose normal. [] Eyes: PERRLA, EOMI, conjunctiva normal, no discharge. [] Neck: Normal range of motion, no tenderness, supple, no stridor. [] Cardiovascular:Heart rate regular rhythm, no murmur [] Lungs & Thorax: Bilateral breath sounds clear to auscultation [] Abdomen: Bowel sounds normal, soft, there is tenderness to palpation over left lower abdominal area, no rebound, no guarding. no masses, no pulsatile masses. [] Skin: Warm, dry, no erythema, no rash. [] Back: No tenderness, no CVA tenderness. [] Extremities: No tenderness, no cyanosis, no clubbing, ROM intact, no edema. [] Neurologic: Alert and oriented X 3, normal motor function, normal sensory function, no focal deficits noted. [] Psychologic: Affect normal, judgement normal, mood normal. [] (PRESTON LILLY DO) Current Patient Data: Labs: Laboratory Tests Test 08/01/19 16:20 White Blood Count 17.3 x10^3/uL (4.0-11.0) H Red Blood Count 2.94 x10^6/uL (4.30-5.70) L Hemoglobin 9.8 g/dL (13.0-17.5) L Hematocrit 29.2 % (39.0-53.0) L Mean Corpuscular Volume 99 fL (79-100) Mean Corpuscular Hemoglobin 33 pg (25-35) Mean Corpuscular Hemoglobin Concent 34 g/dL (31-37) Red Cell Distribution Width 21.6 % (11.5-14.5) H Platelet Count 51 x10^3/uL (140-400) L Neutrophils (%) (Auto) 69 % (31-73) Lymphocytes (%) (Auto) 1 % (24-48) L Monocytes (%) (Auto) 29 % (0-9) H Eosinophils (%) (Auto) 1 % (0-3) Basophils (%) (Auto) 0 % (0-3) Neutrophils # (Auto) 11.9 x10^3/uL (1.8-7.7) H Lymphocytes # (Auto) 0.2 x10^3/uL (1.0-4.8) L Monocytes # (Auto) 4.9 x10^3/uL (0.0-1.1) H Eosinophils # (Auto) 0.1 x10^3/uL (0.0-0.7) Basophils # (Auto) 0.0 x10^3/uL (0.0-0.2) Segmented Neutrophils % 74 % (35-66) H Band Neutrophils % 1 % (0-9) Lymphocytes % 4 % (24-48) L Monocytes % 21 % (0-10) H Platelet Estimate Decreased (ADEQUATE) Prothrombin Time 18.6 SEC (11.7-14.0) H Prothrombin Time INR 1.6 (0.8-1.1) H Sodium Level 140 mmol/L (136-145) Potassium Level 3.8 mmol/L (3.5-5.1) Chloride Level 106 mmol/L (98-107) Carbon Dioxide Level 19 mmol/L (21-32) L Anion Gap 15 (6-14) H Blood Urea Nitrogen 31 mg/dL (8-26) H Creatinine 3.3 mg/dL (0.7-1.3) H Estimated GFR (Cockcroft-Gault) 18.0 BUN/Creatinine Ratio 9 (6-20) Glucose Level 122 mg/dL (70-99) H Calcium Level 8.6 mg/dL (8.5-10.1) Magnesium Level 2.0 mg/dL (1.8-2.4) Total Bilirubin 1.9 mg/dL (0.2-1.0) H Aspartate Amino Transferase (AST) 34 U/L (15-37) Alanine Aminotransferase (ALT) 29 U/L (16-63) Alkaline Phosphatase 194 U/L (46-116) H Troponin I Quantitative 0.017 ng/mL (0.000-0.055) NJ-Pct-F-Type Natriuretic Peptide 7517 pg/mL (0-449) H Total Protein 7.6 g/dL (6.4-8.2) Albumin 3.8 g/dL (3.4-5.0) Albumin/Globulin Ratio 1.0 (1.0-1.7) Lipase 291 U/L (73-393) Laboratory Tests 08/01/19 16:20 Laboratory Tests 08/01/19 16:20 Vital Signs: Vital Signs Date Time Temp Pulse Resp B/P (MAP) Pulse Ox O2 Delivery O2 Flow Rate FiO2 08/01/19 15:48 97.7 60 16 159/84 (109) 97 Room Air 97.7 (PRESTON LILLY DO) EKG: EKG: EKG was done at 1623, heart rate of 60 bpm, paced rhythm. [] (PRESTON LILLY DO) Radiology/Procedures: Radiology/Procedures: [][facility] [address] [place] [address] IMAGING REPORT Signed PATIENT: ANGELICA PRINCE ACCOUNT: [id number] : 1935 LOCATION: ER AGE: 84 SEX: M EXAM STATUS: REG ER ORD. PHYSICIAN: PRESTON LILLY DO REASON: FLANK PAIN PROCEDURE: CT ABDOMEN PELVIS WO CONTRAST PQRS Compliance Statement: One or more of the following individualized dose reduction techniques were utilized for this examination: 1. Automated exposure control 2. Adjustment of the mA and/or kV according to patient size 3. Use of iterative reconstruction technique CT ABDOMEN PELVIS WO CONTRAST Clinical Indication: Reason: FLANK PAIN / Spl. Instructions: / History: Comparison: CT abdomen and pelvis without contrast 03/29/2019. Technique: Helical CT imaging of the abdomen and pelvis is performed without IV or oral contrast. Findings: Evaluation of solid organs and bowel is limited without oral and IV contrast, decreasing sensitivity for detection of pathology. There are small left and moderate right pleural effusions. The effusions have increased from prior study. There is compressive atelectasis or pneumonia in the posterior lower lobes bilaterally. Cardiac pacer wires are seen. There is symmetrically. Coronary artery disease. There is mild to moderate abdominal ascites, new from prior study. Splenomegaly is stable. Cholecystectomy. The liver is homogeneous. The pancreas is homogeneous. Adrenal glands are normal. There is no right hydronephrosis. Nonobstructing left renal calculus versus cortical calcification is stable. There is mild left hydroureteronephrosis secondary to a punctate calculus in the distal left ureter just proximal to the ureterovesicular junction, image 195. The stomach is unremarkable. Several small bowel loops are fluid-filled and upper limits of normal in caliber. There is no evidence of obstruction. There is severe sigmoid colon diverticulosis. The appendix is not seen, no secondary signs of appendicitis. The posterior left para-aortic soft tissue density is unchanged No colon wall thickening is seen. There is moderate pelvic free fluid. The urinary bladder is normal. Coarse calcifications centrally in the prostate. Vacuum disc phenomenon and disc space narrowing and endplate spurring of the lumbar spine. IMPRESSION: 1. Bilateral pleural effusions have increased from prior study now small on the left and moderate on the right. 2. Compressive atelectasis or pneumonia in the posterior lower lobes bilaterally. 3. Mild left obstructive uropathy secondary to a punctate calculus in the distal left ureter. 4. There is new [id number] abdominal and pelvic ascites. 5. Severe distal colon diverticulosis. 6. The retroperitoneal soft tissue density is unchanged. Suggest continued attention on subsequent imaging. 7. Stable splenomegaly. 8. Some of the small bowel is fluid-filled and upper limits of normal in caliber suggesting ileus. Electronically signed by: Derrick Rosales MD (08/01/2019 5:59 PM) [facility] DICTATED and SIGNED BY: DERRICK ROSALES MD DATE: 08/01/19 1759 (PRESTON LILLY DO) Course & Med Decision Making: Course & Med Decision Making Pertinent Labs and Imaging studies reviewed. (See chart for details) Patient is a 84-year-old male who was found to have ascites, bilateral pleural effusion, left ureteral stone with mild hydronephrosis. His white blood cell count elevated. Patient will need to be admitted to hospital for IV fluid and IV antibiotics. There is no urology service at this hospital, therefore patient need to be transferred to another tertiary care center. Patient would like to be transferred to [facility]. [facility] transfer line was called, awaiting for the accepting doctor. Patient is endorsed to Dr. Hilton at at 7 pm awaiting accepting doctor at [facility]. (PRESTON LILLY DO) Course & Med Decision Making Patient CARE turned over to me at shift change. Patient will be transferred to [facility]. Patient is 83-year-old male with past medical history of hypertension, pacemaker, anemia, stage IV kidney disease presenting with a chief complaint of left flank pain. White blood cell count today is 17 and creatinine is 3.3. BNP is 7500. CT of the abdomen pelvis shows a left distal pontine state ureteral stone with hydronephrosis. There is also ascites seen in the abdomen. Due to the fact that [facility] does not have urology, patient will be transferred for urologic consultation. Patient wants to be transferred to [facility]. Dr. Lilly paged [facility] and is awaiting callback. Symptoms has been [address] Lilly shift ended, I will take the transfer call from [facility]. (MARVEL HILTON DO) Dragon Disclaimer: Dragon Disclaimer: This electronic medical record was generated, in whole or in part, using a voice recognition dictation system. (PRESTON LILLY DO) Departure Departure Impression: Primary Impression: Kidney stone on left side Additional Impressions: Ascites Leukocytosis Bilateral pleural effusion Disposition: TRANSFER T-[facility] Condition: IMPROVED Referrals: FIORDALIZA CANTU (PCP) Justicifation of Admission Dx: Justifications for Admission: Justification of Admission Dx: N/A (PRESTON LILLY DO) Justification of Admission Dx: Yes (MARVEL HILTON DO) PRESTON LILLY DO Aug 01, 2019 18:14 MARVEL HILTON DO Aug 01, 2019 19:10
[2019-08-01 18:27] LABS: BILIRUBIN,URINE NEGATIVE (NEG); CLARITY,URINE CLEAR; COLOR,URINE YELLOW; NITRITE,URINE NEGATIVE (NEG); PROTEIN,URINE 100 mg/dL (NEG-TRACE)
[2019-08-01] MEDS ORDERED: cefTRIAXone IV Push 1 GM VIAL. IVP ONE (18:30)
[2019-08-01] MEDS ORDERED: TAMSULOSIN 0.4 MG CAP.ER.24H. PO ONE (18:30)
[2019-08-01 18:39] LABS: HYALINE CASTS, URINE MODERATE /HPF
[2019-08-01 18:40] LABS: AMORPHOUS SEDIMENT,UR PRESENT /HPF; BACTERIA,URINE 0 /HPF (0-FEW); RBC,URINE 0 /HPF (0-2)
[2019-08-01 23:34] VITALS: BP 119/59
--- NOTE | 2019-08-02 04:24 | EKG ---
[facility] [address] [place] [address] Test Date: 2019-08-01 Test Time: 16:23:44 Pat Name: ANGELICA PRINCE Department: Room: Gender: M Plant Facilities Technician: : 1935 Requested By: PRESTON LILLY Order Number: [id number] Reading MD: Ross Nelson MD Measurements Intervals [place] Rate: 60 P: SC: QRS: -59 QRSD: 190 T: 112 QT: 482 QTc: 482 Interpretive Statements V-PACING Electronically Signed On 08-06-2019 11:47:21 CDT by Ross Nelson MD
== END 2019-08-01 23:41 | disposition short-term general hospital (02) ==
LOC: ER 15:39
DX: N13.2 Hydronephrosis with renal and ureteral calculous obstruction (principal); J90 Pleural effusion, not elsewhere classified; D72.828 Other elevated white blood cell count; R18.8 Other ascites; R10.32 Left lower quadrant pain; F10.10 Alcohol abuse, uncomplicated; Z95.0 Presence of cardiac pacemaker; Z98.890 Other specified postprocedural states; Z87.891 Personal history of nicotine dependence
CPT/HCPCS: 36415; 74176; 80053; 81001; 83690; 83735; 83880; 84484; 85007; 85025; 85610; 93005; 96374; 96375; 99285; J0696; J2270; J2405; J7040